=== PATIENT | female | born 1945 | race Caucasian/White ===

== ENCOUNTER 2016-05-22 13:11 | Inpatient (IN) ==
--- NOTE | 2016-05-22 14:21 | Emergency Department Note ---
Disposition Clinical Impression: Hypoxemia, CHF (congestive heart failure), Diabetes mellitus, CAD (coronary artery disease), CKD (chronic kidney disease) stage 3, GFR 30-59 ml/min, Acute kidney injury, Anemia, Cough Disposition: Admitted As Inpatient Referrals: NO,PCP [Non-Partnered Physician] - Forms: ED Satisfaction Letter General Adult HPI - General Chief complaint: ED Upper Respiratory Infection Stated complaint: cough/weakness Time Seen by Provider: 05/22/16 14:18 Source: family - History of Present Illness HPI Narrative: 70-year-old female reports to the emergency department complaining of a cough and shortness of breath. The patient has a history of CHF with a remote CABG. The patient has had no coughing of blood. No syncope. No significant leg swelling. She reports she cannot lay flat secondary to dyspnea. She denies any history of asthma or COPD and does not usually require oxygen. The patient denies any vomiting diarrhea or abdominal pain. No confusion. No trouble moving her arms or legs independently no urinary symptoms or acute back pain. There is no history of rash, no choking or difficulty swallowing. The patient has had no injuries or falls. There is no history of headache convulsion or confusion. The patient has been symptomatic for a few days. The patient is currently not anticoagulated. There is no history of chest pain. Onset (ago): day(s) Pain Scale: 0 - Related Data Home Medications Medication Instructions Recorded Confirmed Amlodipine [Norvasc] 10 mg PO DAILY 12/27/14 09/23/15 Carvedilol [Coreg] 6.25 mg PO BIDWM 12/27/14 09/23/15 Clopidogrel [Plavix] 75 mg PO DAILY 12/27/14 09/23/15 Doxazosin [Cardura] 4 mg PO HS 12/27/14 09/23/15 Atorvastatin [Lipitor] 40 mg PO HS 09/23/15 09/23/15 Lisinopril [Zestril] 5 mg PO DAILY 09/23/15 09/23/15 Metformin [Glucophage] 500 mg PO BIDWM 09/23/15 09/23/15 Sitagliptin Phosphate [Januvia] 50 mg PO DAILY 09/23/15 09/23/15 Tizanidine HCl [Zanaflex] 2 mg PO HS 09/23/15 09/23/15 Previous Rx's Medication Instructions Recorded Furosemide [Lasix] 40 mg PO DAILY #30 tablet 09/26/15 Omeprazole [PriLOSEC] 40 mg PO DAILY@0630 #60 capsule 09/26/15 Allergies Allergy/AdvReac Type Severity Reaction Status Date / Time codeine AdvReac See Verified 09/23/15 18:39 Comments All systems ED: reviewed and negative except as stated. 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 Absent: scleral icterus, conjunctival injection, miosis, mydriasis - ENT ENT exam: normal exam, normal oropharynx, mucous membranes moist, TM's normal bilaterally, normal external ear exam - Neck Neck exam: Present: normal inspection, full ROM, trachea midline - Chest Chest inspection: Present: symmetric chest wall rise. Absent: tenderness - Respiratory Respiratory exam: Present: prolonged expiratory phase. Absent: respiratory distress, stridor, accessory muscle use - Cardiovascular Cardiovascular exam: Present: regular rate, normal rhythm, normal heart sounds - Abdominal Exam Abdominal exam: Present: soft, Non-Tender, normal bowel sounds. Absent: tenderness, distention, guarding, rebound, rigidity, pulsatile mass - Extremities Exam Extremities exam: Present: normal inspection, full ROM, normal capillary refill. Absent: tenderness, pedal edema, joint swelling, calf tenderness - Expanded Lower Extremity Exam Lower leg exam: Absent: Homans' sign Neurovascular/Tendon exam: Absent: motor deficit, sensory deficit, tendon deficit, extremity cold to touch, pallor - Back Exam Back exam: Present: normal inspection, full ROM. Absent: tenderness, CVA tenderness (R), CVA tenderness (L), vertebral tenderness - Neurological Exam Neurological exam: Present: alert, oriented X3, CN II-XII intact. Absent: motor sensory deficit - Psychiatric Psychiatric exam: Present: normal affect, normal mood - Skin Skin exam: Present: warm, dry, intact, normal color. Absent: rash, cyanosis, diaphoresis, erythema, pallor, mottled Course Vital Signs Temperature 97.7 F 05/22/16 13:19 Pulse Rate 72 05/22/16 13:19 Respiratory Rate 18 05/22/16 13:19 Blood Pressure 138/82 05/22/16 13:19 O2 Sat by Pulse Oximetry 90 L 05/22/16 13:19 Temperature 97.7 F 05/22/16 13:19 Pulse Rate 68 05/22/16 16:28 Respiratory Rate 16 05/22/16 16:28 Blood Pressure 138/54 05/22/16 16:28 O2 Sat by Pulse Oximetry 96 05/22/16 16:28 Oxygen Delivery Oxygen Delivery Nasal Cannula Medical Decision Making - MDM Narrative Medical decision making narrative: The patient is elderly, she is somewhat dyspneic, oxygen saturations on room air were 90% on arrival, she was supplied with oxygen the ED, status post oxygenation we did take her oxygen off to reassess and she dropped to 89% on room air, she does not usually require oxygen and denies any history of asthma or COPD. The patient has had a cough. She does not display marked lower extremity swelling. She has not coughed up any blood or passed out. Her renal insufficient appears to be worsening. A DuoNeb and Solu-Medrol were ordered. The patient is currently stable. Based on the patient's persistent hypoxemia, age, and multiple comorbidities including CHF CAD diabetes hyperlipidemia and hypertension renal failure and significant anemia, I think it would be appropriate to admit the patient to the hospital. Nitro paste was placed. I consulted with the hospitalist on-call. - Lab Data Lab results reviewed: Yes I reviewed the patient's lab results. Result diagrams: 05/22/16 14:40 05/22/16 14:40 Lab Results 05/22/16 05/22/16 05/22/16 Range/Units 14:40 14:40 14:40 WBC 4.3 (4.3-11.1) K/mcL RBC 2.67 L (3.82-4.97) M/mcL Hgb 8.3 L (11.5-15.4) g/dL Hct 23.1 L (35.3-44.9) % MCV 86.5 (83.0-100.0) fL MCH 31.1 (28.0-33.3) pg MCHC 35.9 H (31.6-35.5) g/dL RDW 14.8 H (11.5-14.5) % Plt Count 103 L (140-400) K/mcL MPV 10.7 (9.4-12.4) fL Immature Gran % 0.5 (0-4) % Seg Neutrophils % 79.6 % Lymphocytes % 6.0 % Monocytes % 10.9 % Eosinophils % 2.3 % Basophils % 0.7 % Neutrophils # 3.4 (1.6-8.9) K/mcL Lymphocytes # 0.3 L (0.6-4.6) K/mcL Monocytes # 0.5 (0.0-1.3) K/mcL Eosinophils # 0.1 (0.0-0.6) K/mcL Basophils # 0.0 (0.0-0.2) K/mcL Immature Plt Fraction 6.4 H (1.1-6.1) % Sodium 130 L (136-145) mEq/L Potassium 4.7 H (3.5-4.5) mEq/L Chloride 99 (98-109) mEq/L Carbon Dioxide 21 (19-29) mEq/L BUN 37 H (7-20) mg/dL Creatinine 1.82 H (0.57-1.11) mg/dL Est GFR ( Amer) 33 L (> 60) Est GFR (Non-Af Amer) 27 L (> 60) BUN/Creatinine Ratio 20 (6-26) Glucose 114 H (70-99) mg/dL Calculated Osmolality 280 (280-300) Lactic Acid (0.5-2.2) mmol/L Calcium 9.0 (8.6-10.8) mg/dL Total Bilirubin (0.2-1.2) mg/dL Direct Bilirubin (0.0-0.5) mg/dL Indirect Bilirubin (0.0-1.2) mg/dL AST (5-34) Units/L ALT (0-55) Units/L Alkaline Phosphatase (38-126) Units/L Troponin I (0-0.03) ng/mL C-Reactive Protein (Less than 5) mg/L B-Natriuretic Peptide 693 H (0-100) pg/mL Serum Total Protein (6.0-8.3) g/dL Albumin (3.5-5.0) g/dL Globulin (2.4-3.5) g/dL Albumin/Globulin Ratio (1.1-2.2) 05/22/16 05/22/16 05/22/16 Range/Units 14:40 14:40 14:40 WBC (4.3-11.1) K/mcL RBC (3.82-4.97) M/mcL Hgb (11.5-15.4) g/dL Hct (35.3-44.9) % MCV (83.0-100.0) fL MCH (28.0-33.3) pg MCHC (31.6-35.5) g/dL RDW (11.5-14.5) % Plt Count (140-400) K/mcL MPV (9.4-12.4) fL Immature Gran % (0-4) % Seg Neutrophils % % Lymphocytes % % Monocytes % % Eosinophils % % Basophils % % Neutrophils # (1.6-8.9) K/mcL Lymphocytes # (0.6-4.6) K/mcL Monocytes # (0.0-1.3) K/mcL Eosinophils # (0.0-0.6) K/mcL Basophils # (0.0-0.2) K/mcL Immature Plt Fraction (1.1-6.1) % Sodium (136-145) mEq/L Potassium (3.5-4.5) mEq/L Chloride (98-109) mEq/L Carbon Dioxide (19-29) mEq/L BUN (7-20) mg/dL Creatinine (0.57-1.11) mg/dL Est GFR ( Amer) (> 60) Est GFR (Non-Af Amer) (> 60) BUN/Creatinine Ratio (6-26) Glucose (70-99) mg/dL Calculated Osmolality (280-300) Lactic Acid 0.6 (0.5-2.2) mmol/L Calcium (8.6-10.8) mg/dL Total Bilirubin 2.7 H (0.2-1.2) mg/dL Direct Bilirubin 0.4 (0.0-0.5) mg/dL Indirect Bilirubin 2.3 H (0.0-1.2) mg/dL AST 24 (5-34) Units/L ALT 13 (0-55) Units/L Alkaline Phosphatase 55 (38-126) Units/L Troponin I 0.02 (0-0.03) ng/mL C-Reactive Protein 2 (Less than 5) mg/L B-Natriuretic Peptide (0-100) pg/mL Serum Total Protein 7.1 (6.0-8.3) g/dL Albumin 3.9 (3.5-5.0) g/dL Globulin 3.2 (2.4-3.5) g/dL Albumin/Globulin Ratio 1.2 (1.1-2.2) - Radiology Data Radiology results reviewed: Yes I reviewed the patient's radiology results.
[2016-05-22 15:02] LABS: Basophils % 0.7 %; Eosinophils # 0.1 K/mcL (0.0-0.6); Eosinophils % 2.3 %; Hematocrit 23.1 % (35.3-44.9); Hemoglobin 8.3 g/dL (11.5-15.4); Immature Granulocytes % 0.5 % (0-4); Immature Platelets 6.4 % (1.1-6.1); Lymphocytes # 0.3 K/mcL (0.6-4.6); Mean Corpuscular HGB Conc 35.9 g/dL (31.6-35.5); Mean Corpuscular Hemoglobin 31.1 pg (28.0-33.3); Mean Corpuscular Volume 86.5 fL (83.0-100.0); Mean Platelet Volume 10.7 fL (9.4-12.4); Monocytes # 0.5 K/mcL (0.0-1.3); Monocytes % 10.9 %; Neutrophils # 3.4 K/mcL (1.6-8.9); Platelet Count 103 K/mcL (140-400); Red Blood Count 2.67 M/mcL (3.82-4.97); Red Cell Distribution Width 14.8 % (11.5-14.5); Segmented Neutrophils % 79.6 %
[2016-05-22 15:22] LABS: Potassium 4.7 mEq/L (3.5-4.5)
[2016-05-22 15:23] LABS: Albumin 3.9 g/dL (3.5-5.0); Albumin/Globulin Ratio 1.2 (1.1-2.2); Bilirubin,Direct 0.4 mg/dL (0.0-0.5); Bilirubin,Indirect 2.3 mg/dL (0.0-1.2); Bilirubin,Total 2.7 mg/dL (0.2-1.2); Globulin 3.2 g/dL (2.4-3.5); Total Protein 7.1 g/dL (6.0-8.3)
[2016-05-22] MEDS ORDERED: Nitroglycerin 1 INCH/GM PACKET TP ONE (15:36)
[2016-05-22] MEDS ORDERED: methylPREDNISolone 125 MG/2 ML VIAL IVP ONE (15:48)
[2016-05-22] MEDS ORDERED: Ipratropium/Albuterol Neb 3 ML IH ONE (15:48)
[2016-05-22] MEDS ORDERED: Ondansetron 4 MG/2 ML VIAL IVP PRN (18:52)
[2016-05-22] MEDS ORDERED: Acetaminophen 325 MG TABLET PO PRN (18:52)
[2016-05-22] MEDS ORDERED: Naloxone 0.4 MG/ML INJ IVP PRN (18:52)
[2016-05-22] MEDS ORDERED: Dextrose Gel 15 GM PO PRN ×2 (18:59)
[2016-05-22] MEDS ORDERED: D5% in Water 1,000 ML IV PRN (18:59)
[2016-05-22] MEDS ORDERED: *HR* Dextrose 50 % in Water (Syg) 50 ML SYRINGE IVP PRN (18:59)
--- NOTE | 2016-05-22 19:56 | Internal Med History&Physical ---
Date of Encounter: 05/23/16 Time of Encounter: 18:00 Assessment and Plan (1) Hypoxemia Current visit: Yes Status: Acute 1 patient had SPO2 89-90% in the ER .this is multifactorial suspect related to CHF as well as possibly COPD. We will place patient on oxygen maintaining SPO2 greater than 92% 2 we will perform a 6 minute walk test to see if patient will qualify for home oxygen 3 bronchodilator as needed 4 patient will need to be seen by pulmonary as outpatient for PFTs 5 we will give IV Lasix-up nephrology concerning for fluid management (2) Acute on chronic renal failure Current visit: Yes Status: Acute 1 patient's creatinine is elevated 1.87. Her baselines are 1.2 we will continue to monitor creatinine patient has had some abdominal swelling and some nausea-concerned this may be related to cardiorenal syndrome will obtain cardiac echo 2 we will give Lasix IV-we will consult nephrology concerning diuretics and elevated creatinine 3 avoid nephrotoxin 4 monitor intake and output 5 daily weights 6 renal ultrasound (3) Indirect hyperbilirubinemia Current visit: Yes Status: Acute 1 patient is elevated bilirubin - possibly related to cardiovascular congestion however will obtain liver ultrasound to rule out any structural abnormalities. 2 obtain hepataglobin LDH Alisson' test. coags (4) Hyponatremia Current visit: Yes Status: Acute 1 this seems to be chronic with sodium levels ranging from [address] patient on fluid restriction continue with Lasix and monitor sodium levels (5) Anemia Current visit: Yes Status: Acute 1 present hemoglobin is stable at 8.3 which is up from previous hemoglobin. Suspect this is chronic disease. We will continue with iron supplements and monitor CBC and for signs and symptoms of any bleeding Qualifiers: Anemia type: other cause Other causes of anemia: chronic disease, other Qualified Code(s): D63.8 - Anemia in other chronic diseases classified elsewhere (6) CHF (congestive heart failure) Current visit: Yes Status: Acute 1 echo obtained September 2015 EF of 65% with moderate diastolic dysfunction. We will obtain an echo 2. We will continue with Lasix IV twice a day 3. Intake and output 4 daily weights 5 sodium diet 6 fluid restriction Qualifiers: Congestive heart failure type: diastolic Congestive heart failure chronicity: acute on chronic Qualified Code(s): I50.33 - Acute on chronic diastolic (congestive) heart failure (7) CAD (coronary artery disease) Current visit: Yes Status: Chronic 1 we will continue with plavix statin beta isaias will hold lisinopril due to rising rapidly resumed once back to baseline Qualifiers: Coronary Disease-Associated Artery/Lesion type: [place] artery [place] vs. transplanted heart: [place] heart Associated angina: without angina Qualified Code(s): I25.10 - Atherosclerotic heart disease of [place] coronary artery without angina pectoris (8) Diabetes mellitus Current visit: Yes Status: Chronic 1 patient is on oral antibiotics will hold for now. Place on sliding scale insulin and Accu-Cheks before meals and at bedtime 2 diabetic diet 3 A1c Qualifiers: Diabetes mellitus type: type 2 Diabetes mellitus complication status: with kidney complications Diabetes mellitus complication detail: with chronic kidney disease Diabetes mellitus exterminator termite insulin use: without exterminator termite use Chronic kidney disease stage: stage 3 (moderate) Qualified Code(s): E11.22 - Type 2 diabetes mellitus with diabetic chronic kidney disease; N18.3 - Chronic kidney disease, stage 3 (moderate) (9) DVT prophylaxis Current visit: Yes Status: Acute 1 GEE pope Internal Medicine - H&P: HPI Chief complaint: cough weakness SOB Admitted From: Emergency Dept Plans for Post Hospital Care: Home History of present illness: Ms. Prather is a 70 year old female with extensive medical history which includes CAD with CABG diabetes hypertension CK D stage III, chronic anemia GI bleeding according to the patient she has been her usual state of health however over the past 2 days she has been experiencing increasing weakness and shortness of breath on exertion as well as a nonproductive cough. She states that she has been having difficulty completing ADLs and has to take frequent rests due to weakness and shortness of breath. She is unable to lie flat to sleep and most used at least 2 pillows at night. she denies any chest pain or palpitations during episodes. She denies any fevers chills nausea vomiting diarrhea, weight gain or loss. She has no history of COPD or asthma however she is a smoker smoking both a pipe and cigarettes. She does have history of CHF however she does not note any lower extremity swelling. She was brought to the ER for evaluation. According to ER notes, patient was hypoxic upon presentation his PO2 of 90% on room air he was placed on supplemental oxygen and her oxygen saturation improved. Chest x-ray was obtained which was negative for any acute process . Lab work revealed no leukocytosis however she did have an elevated creatinine as well as potassium and hypornatremia. Her BNP was 693 troponin was 0.2, lactic acid 0.6. . EKG showed no changes from previous EKG. She was given DuoNeb Solu-Medrol Nitropaste. Her oxygen was removed check sats on room air and she dropped down to 89% she was placed back on oxygen. She was admitted for further workup and evaluation. Assessment patient is insulin-dependent. She appeared to be in any respiratory distress she denies any chest pain and shortness of breath at this time. She is alert and appropriate and follows simple commands. Respiratory rate is easy and unlabored sounds with crackles in bases bilaterally. No edema noted to lower extremity however did note that abdomen was slightly distended soft patient states she has noted her abdomen has felt full. She has also had a decreased appetite since Monday and had some nausea. Bowels have been moving with last bowel movement this a.m. At present time patient is hemodynamically stable. Reviewed his case with Dr. Hamilton to who agrees with plan. Past Med Surg Social Fam HX - Past Medical History Medical history: cancer, cardiomyopathy, CHF, coronary artery disease, CVA, diabetes, hyperlipidemia, hypertension, peripheral artery disease, other Psychiatric history: no psych history - Past Surgical History Surgical History: coronary bypass (CABG), ureteral stent - Social History Smoking Status: Current every day smoker Packs per day: 1 Alcohol use: none Drug use: none - Family History Father Adopted: No Living Status: Hx Family Cardiac Disorders: Yes (SISTER AND MOTHER FROM CARDIAC) Hx Family Respiratory Disorders: No Hx Family Cancer: Yes (FATHER) Hx Family GI Disorders: No Hx Family Endocrine Disorder: Yes Hx Family Neuromuscular Disorders: No Hx Family Neurologic Disorders: No Hx Family HEENT Disorders: No Hx Family Autoimmune Disorders: No Internal Medicine - H&P: Meds Amlodipine [Norvasc] 10 mg PO DAILY 12/27/14 [History] Carvedilol [Coreg] 6.25 mg PO BIDWM 12/27/14 [History] Clopidogrel [Plavix] 75 mg PO DAILY 12/27/14 [History] Doxazosin [Cardura] 4 mg PO HS 12/27/14 [History] Atorvastatin [Lipitor] 40 mg PO HS 09/23/15 [History] Lisinopril [Zestril] 5 mg PO DAILY 09/23/15 [History] Metformin [Glucophage] 500 mg PO BIDWM 09/23/15 [History] Sitagliptin Phosphate [Januvia] 50 mg PO DAILY 09/23/15 [History] Folic Acid [FA-8] 0.8 mg PO DAILY 05/22/16 [History] Furosemide [Lasix] 20 mg PO BID 05/22/16 [History] Glucosamine/D3/Boswellia Yulia [Osteo Bi-Flex Tablet] 1 tab PO DAILY 05/22/16 [ History] Iron Polysaccharide Complex [Ferrex 150] 150 mg PO DAILY 05/22/16 [History] Magnesium 250 mg PO DAILY 05/22/16 [History] Allergies codeine Adverse Reaction (Verified 05/22/16 16:47) Hallucinating All Systems PM: A 10-system review of systems was performed and is negative for pertinent findings except as documented above in the HPI. - Constitutional Vitals: Temp Pulse Resp BP Pulse Ox 97.7 F 68 16 138/54 96 05/22/16 13:19 05/22/16 16:28 05/22/16 17:47 05/22/16 17:47 05/22/16 18:41 General appearance: Present: A&O X 2, answers questions appropriately - Head Head exam: Present: atraumatic, normocephalic - Eye Eye exam: Present: PERRL, conjuntiva pink, sclera anicteric Pupils: Present: PERRL - Neck Neck exam general surgery: Present: supple, trachea midline. Absent: lymphadenopathy - Respiratory Respiratory exam: Present: rales. Absent: accessory muscle use, rhonchi, wheezes - Cardiovascular Cardiovascular exam: Present: RRR, +S1, +S2. Absent: diastolic murmur, gallop, rubs, systolic murmur - GI/Abdominal GI/Abdominal exam: Present: distended, normal bowel sounds, soft, no peritoneal signs. Absent: tenderness - Extremities Exam Extremities exam: Present: warm, radial pulses palpable and symetrical. Absent : calf tenderness, cyanotic, pedal edema - Neurological Exam Neurological exam: Present: CN II-XII intact, oriented X3, no focal deficits. Absent: pronater drift, facial droop, speech deficit Internal Med - H&P Results - Labs CBC & Chem 7: 05/22/16 14:40 05/22/16 14:40 - EKG Data EKG shows normal: sinus rhythm - EKG Data EKG comments: 05/23/16 01:55 Surgeries rhythm with some T-wave inversions laterally which are unchanged from previous EKGs. Ireveiwed EKG with Dr Hamilton 05/23/16 01:55 - Diagnostic Studies Chest x-ray Additional comments: per radiology read No acute cardiopulmonary process
[2016-05-22 20:27] LABS: Hemoglobin A1C 4.9 %
[2016-05-22] MEDS ORDERED: Insulin LISPRO 300 UNITS/3 ML VIAL SQ SCH (21:00)
[2016-05-22] MEDS: Furosemide 20 MG/2 ML VIAL IVP SCH (22:02)
[2016-05-23 02:59] LABS: Hematocrit 23.2 % (35.3-44.9); Hemoglobin 8.3 g/dL (11.5-15.4); Immature Granulocytes % 0.6 % (0-4); Immature Platelets 5.5 % (1.1-6.1); Lymphocytes # 0.3 K/mcL (0.6-4.6); Lymphocytes % 9.3 %; Mean Corpuscular HGB Conc 35.8 g/dL (31.6-35.5); Mean Corpuscular Volume 86.6 fL (83.0-100.0); Mean Platelet Volume 10.5 fL (9.4-12.4); Monocytes % 0.9 %; Neutrophils # 2.9 K/mcL (1.6-8.9); Platelet Count 116 K/mcL (140-400); Red Blood Count 2.68 M/mcL (3.82-4.97); Red Cell Distribution Width 14.6 % (11.5-14.5); Segmented Neutrophils % 89.2 %
[2016-05-23 03:05] LABS: INR 1.3; Prothrombin Time 13.8 Seconds (9.4-12.1)
[2016-05-23 03:07] LABS: Activated Partial Thrombo Time 34.8 Seconds (26.0-36.0)
[2016-05-23 03:11] LABS: Calcium 9.1 mg/dL (8.6-10.8); Magnesium 1.9 mg/dL (1.6-2.6)
[2016-05-23] MEDS ORDERED: Regadenoson 0.4 MG/5 ML SYRINGE IVP ONE (06:09)
[2016-05-23] MEDS ORDERED: Insulin LISPRO 300 UNITS/3 ML VIAL SQ SCH (07:30)
[2016-05-23] MEDS ORDERED: GLUCOSAMINE PO SCH (09:00)
[2016-05-23] MEDS ORDERED: BOSWELLIA SERRA PO SCH (09:00)
[2016-05-23] MEDS ORDERED: D3 PO SCH (09:00)
[2016-05-23] MEDS: Furosemide 20 MG/2 ML VIAL IVP SCH (09:33)
[2016-05-23] MEDS: Folic Acid 1 MG TABLET PO SCH (09:33)
[2016-05-23] MEDS: Iron Polysaccharide Complex 150 MG CAPSULE PO SCH (09:33)
[2016-05-23] MEDS: amLODIPine 5 MG TABLET PO SCH (09:33)
--- NOTE | 2016-05-23 11:03 | Nuclear Medicine Stress Report ---
Regadenoson Nuclear Stress Name: Marcia Olivo Tabler Date of Study: 05/23/2016 Date: 1945 Ht: 64.0 in Medical Record#: [id number] Age: 70 Wt: 148.0 lb Gender: Female Order #: [id number] Location: [facility] Room: [facility] Supervising Provider: Jackson Jett CNP Reading Physician: Gage Gonzalez DO, SOLEDAD CALLAHAN FASNC Ordering Physician: Gordon Stiles MD Primary Care Physician: Dylan Alvarez MD Stress Technologist: Tierney Patrick RETURN TO SERVICE INSPECTOR, CCT Softball Player: Oliver Pearson Indications: Chest Pain Impression: Pharmacologic stress ECG is non diagnostic for ischemia due to baseline non-specific ST and T changes. Gated EF = 56%. Medium sized, moderate to absent perfusion defect involving ther inferior and apex segments consistent with a prior infarct. Perfusion imaging was negative for ischemia. History: Diabetes Hypercholesteremia History of Smoking History of Coronary Artery Bypass Surgery Stress Test Summary: Stress Test Type: Pharmacologic Regadenoson 0.4mg/5ml given IV Baseline Information: Initial Heart Rate: 67 Blood Pressure: 148/62 Stress Information: Test Terminated Due to (primary): As per protocol Maximum Blood Pressure: 130/70 Maximum Heart Rate: 79 Percent Maximum Heart Rate Achieved: 53 Double Product: [id number] METS Reached: 1 Symptoms: Shortness of breath, No chest symptoms Nuclear Summary: SPECT myocardial perfusion imaging using Tc99m Sestamibi given intravenously was performed at rest and following cardiac stress testing. The resting images were obtained following initial dose of 10.8 mCi. Following stress an additional dose of 29.3 mCi was given at peak exercise or 30 seconds post regadenoson infusion. Medication Given: Time Medication Dose Units Route Findings: Stress Note * Resting ECG demonstrated normal sinus rhythm with nonspecific ST-T changes. * No baseline arrhythmias were noted. * Pharmacologic stress ECG is non diagnostic for ischemia due to baseline non-specific ST and T changes. * No arrhythmias were noted during stress. * Patient had no chest pain during stress. * Normal hemodynamic responses to pharmacologic stress. Study Quality * Study quality is average. Gated EF % * Gated EF = 56%. Left Ventricle * LVEDV = 138 mL. Inferior Perfusion Rest * The basal inferior segment shows a moderate reduction in perfusion. The mid to apical inferior and apex segments show absent perfusion. Inferior Perfusion Stress * The basal inferior segment shows a moderate reduction in perfusion. The mid to apical inferior and apex segments show absent perfusion. TID * No evidence of transient ischemic dilatation. TID ratio = 1.16. Updated by Gage Gonzalez DO, SINDY, SOLEDAD, SOHEILA on 05/23/2016 10:58:42 AM electronically signed on 05/23/2016 11:00:04 AM with status of Final
--- NOTE | 2016-05-23 12:25 | ECHO - Doppler Report ---
Echocardiogram Name: Marcia Prather Date of Study: 05/23/2016 Date: 1945 Ht: 64.0 in Medical Record#: [id number] Age: 70 Wt: 147.0 lb Gender: Female BSA: 1.72 Order #: [id number] Location: [facility] Room #: 2A34 Reading Physician: Gage Gonzalez DO, FACJese, SOHEILA ROWE Clerical Investigator: YUNIOR MaxT, RDCS Ordering Physician: Keturah Stevens CNP Primary Physician: Dylan Alvarez MD Indications: Congestive heart failure, Coronary artery disease, Bradycardia Impressions: LVEF 60-65%. Normal LV chamber size and function. Mild concentric left ventricular hypertrophy. Moderate left ventricular diastolic dysfunction. Normal right ventricular structure and function. Mild mitral regurgitation. No evidence of pulmonary hypertension identified. Left Ventricular Wall Motion: Rest Echo Findings All wall segments showed normal motion. Findings: Study Quality * Technically adequate exam. ECG Findings * Normal sinus rhythm. Left Ventricle * LVEF 60-65%. * Normal LV chamber size and function. * Mild concentric left ventricular hypertrophy. * Moderate left ventricular diastolic dysfunction. * Atypical septal motion consistent with post-operative status. Right Ventricle * Normal right ventricular structure and function. Left Atrium * Mildly dilated left atrium. Right Atrium * Normal right atrial size. Interatrial Septum * Interatrial septum not well evaluated. Aortic Valve * Aortic valve not well visualized. * No aortic regurgitation. * No aortic stenosis. Mitral Valve * Mild mitral annular calcification * Mildly thickened mitral valve leaflets. * Mild mitral regurgitation. * No mitral stenosis. Tricuspid Valve * Normal tricuspid valve structure and function. * Trace tricuspid regurgitation. * No evidence of pulmonary hypertension. Pulmonic Valve * Pulmonic valve not well visualized. Aorta * Normally sized aortic root. Pericardium * The pericardium appears normal. IVC * Normal IVC dimensions and inspiratory collapse. Pulmonary Artery * Normal visualized portions of the main pulmonary artery. History Hypertension Diabetes Hypercholesteremia Family History of CAD History of CAD/PTCA Coronary Artery Bypass Graft 2016 a Previous Echo was performed. Measurements: BP: 145/ 58 2D Normal Values RVIDd: 3.60 cm <2.7 cm IVSd: 1.30 cm 0.6 - 1.0 cm LVIDd: 3.80 cm 3.7 - 5.6 cm LVPWd: 1.30 cm 0.6 - 1.1 cm LVIDs: 2.40 cm 1.5 - 3.6 cm AO: 2.10 cm < 4.0 cm LA: 3.90 cm 2.0 - 4.0cm %FS: 36.80 cm >25 % LA volume: 32 Mitral Valve Peak E:1.48 m/sec Peak A:.57 m/sec E/A Ratio:2.6 Tricuspid Valve TV Regurg Peak Grad: 22.00mmHg TV Regurg Peak Usman: 2.36m/sec Updated by Gage Gonzalez DO, FACJese, SOLEDAD, SOHEILA on 05/23/2016 12:21:18 PM electronically signed on 05/23/2016 12:22:22 PM with status of Final Wall Motion Dumont: 1=Normal, 2=Hypokinesis, 3=Akinesis, 4=Dyskinesis, 5=Aneurysmal, 6=Hyperkinetic, X=Not Visualized (Blank)=Missing
--- NOTE | 2016-05-23 13:28 | Nephrology Consult Note ---
<Tre Mays - Last Filed: 05/23/16 17:37> Date of Encounter: 05/23/16 Time of Encounter: 11:30 Assessment and Plan (1) Acute kidney injury Current Visit: Yes Status: Acute Elevated SCr in the setting of presumed CHF with diuretic use Will check urine for sodium, urea and creatinine as well as protein Agree with obtaining US of kidneys Agree with holding diuretics for now Will check uric acid and cpk levels (2) CKD (chronic kidney disease) stage 3, GFR 30-59 ml/min Current Visit: Yes Status: Chronic Baseline SCr at 1.2, GFR 40s, will initiate a brief CKD workup (3) Hyponatremia Current Visit: Yes Status: Acute Sodium low in the setting of diuretics and possible CHF Agree with fluid restriction for now Will check urine and serum osmolality Will check cortisol and TSH levels History of Present Illness - Reason for Consult Consult date: 05/23/16 Acute Kidney Injury, Chronic Kidney Disease Requesting physician: Keturah Stevens - History of Present Illness 70 y o female with PMH of CAD s/p CABG, HTN, DM, anemia and stage 3 CKD with bilat YONIS s/p stents admitted with progressive weakness and SOB which she reports was just the flu and was found to be mildly hypoxemic. Renal consulted for worsening renal function with SCr noted at 1.82, GFR 27 on presentation worsening to 2.21, GFR 22. Baseline SCR appears to be 1.2, GFR in the 40s.Also notble was sodium of 130 worsening to 128 today. 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 in the past Past Med Surg Social Fam HX - Past Medical History Medical history: cancer, cardiomyopathy, CHF, coronary artery disease, CVA, diabetes, hyperlipidemia, hypertension, peripheral artery disease, other Psychiatric history: no psych history - Past Surgical History Surgical History: coronary bypass (CABG), ureteral stent - Social History Smoking Status: Current every day smoker Packs per day: 1 Alcohol use: none Drug use: none - Family History Father Adopted: No Living Status: Hx Family Cardiac Disorders: Yes (SISTER AND MOTHER FROM CARDIAC) Hx Family Respiratory Disorders: No Hx Family Cancer: Yes (FATHER) Hx Family GI Disorders: No Hx Family Endocrine Disorder: Yes Hx Family Neuromuscular Disorders: No Hx Family Neurologic Disorders: No Hx Family HEENT Disorders: No Hx Family Autoimmune Disorders: No Medications and Allergies Amlodipine [Norvasc] 10 mg PO DAILY 12/27/14 [History] Carvedilol [Coreg] 6.25 mg PO BIDWM 12/27/14 [History] Clopidogrel [Plavix] 75 mg PO DAILY 12/27/14 [History] Doxazosin [Cardura] 4 mg PO HS 12/27/14 [History] Atorvastatin [Lipitor] 40 mg PO HS 09/23/15 [History] Lisinopril [Zestril] 5 mg PO DAILY 09/23/15 [History] Metformin [Glucophage] 500 mg PO BIDWM 09/23/15 [History] Sitagliptin Phosphate [Januvia] 50 mg PO DAILY 09/23/15 [History] Folic Acid [FA-8] 0.8 mg PO DAILY 05/22/16 [History] Furosemide [Lasix] 20 mg PO BID 05/22/16 [History] Glucosamine/D3/Boswellia Yulia [Osteo Bi-Flex Tablet] 1 tab PO DAILY 05/22/16 [ History] Iron Polysaccharide Complex [Ferrex 150] 150 mg PO DAILY 05/22/16 [History] Magnesium 250 mg PO DAILY 05/22/16 [History] Latanoprost [Xalatan] 1 drop BOTH EYES HS 05/23/16 [History] Allergies codeine Adverse Reaction (Verified 05/22/16 16:47) Hallucinating Review of Systems All Systems: reviewed and no additional remarkable complaints except as stated ( 10 systems reviewed and as noted in HPI) Exam - Vital Signs Vital signs: Initial Vital Signs Temp Pulse Resp BP Pulse Ox 97.7 F 72 18 138/82 90 L 05/22/16 13:19 05/22/16 13:19 05/22/16 13:19 05/22/16 13:19 05/22/16 13:19 Vital Signs - Last 8 Hours Temp Pulse Resp BP Pulse Ox 05/23/16 11:42 97.2 F L 66 18 136/55 97 05/23/16 10:07 97 05/23/16 09:36 97.9 F 72 16 145/58 97 Intake and Output 05/22/16 05/23/16 05/23/16 23:59 07:59 15:59 Intake Total 0 / 0 400 / 400 75 / 75 Output Total 0 / 0 Balance 0 / 0 400 / 400 75 / 75 Intake: Oral 0 / 0 400 / 400 75 / 75 Output: Urine 0 / 0 Other: Weight 66.9 kg Blood Glucose* 285 187 Patient Weight 05/23/16 23:59 Weight 66.9 kg Results - Lab Results 05/23/16 02:50 05/23/16 02:50 Most recent lab results Calcium 9.1 mg/dL (8.6-10.8) 05/23/16 02:50 Phosphorus 5.0 mg/dL (2.3-4.7) H 05/23/16 02:50 Magnesium 1.9 mg/dL (1.6-2.6) 05/23/16 02:50 Consult Discharge Plan - Plan Referrals: Dylan Alvarez MD [Primary Care Provider] - 05/31/16 9:30 am (Please follow up as schedule with Dr Driscoll...) <Olga Kuhn - Last Filed: 05/23/16 18:21> Date of Encounter: 05/23/16 Exam - Vital Signs Vital signs: Initial Vital Signs Temp Pulse Resp BP Pulse Ox 97.7 F 72 18 138/82 90 L 05/22/16 13:19 05/22/16 13:19 05/22/16 13:19 05/22/16 13:19 05/22/16 13:19 Vital Signs - Last 8 Hours Temp Pulse Resp BP Pulse Ox 05/23/16 17:49 98.1 F 73 16 188/61 97 05/23/16 11:42 97.2 F L 66 18 136/55 97 Intake and Output 05/23/16 05/23/16 05/23/16 07:59 15:59 23:59 Intake Total 400 / 400 75 / 75 1000 / 1000 Output Total 0 / 0 0 / 0 Balance 400 / 400 75 / 75 1000 / 1000 Intake: Oral 400 / 400 75 / 75 1000 / 1000 Output: Urine 0 / 0 0 / 0 Other: Weight 66.9 kg Blood Glucose* 187 223 Patient Weight 05/23/16 23:59 Weight 66.9 kg - General Appearance General appearance: well-developed, well-nourished, appears started age EENT: PERRL, mucous membranes moist Neck: no JVD, no thyromegaly Respiratory: rales Cardiology: no murmurs, no rub, no gallops, no edema, regular rate, regular rhythm, normal S1, normal S2 Gastrointestinal: normoactive bowel sounds, no tenderness, no guarding Integumentary: no rash, warm and dry Neurologic: no focal deficit, alert and oriented x3 Psychiatric: mood/affect appropriate, cooperative Results - Lab Results 05/23/16 02:50 05/23/16 02:50 Most recent lab results Calcium 9.1 mg/dL (8.6-10.8) 05/23/16 02:50 Phosphorus 5.0 mg/dL (2.3-4.7) H 05/23/16 02:50 Magnesium 1.9 mg/dL (1.6-2.6) 05/23/16 02:50
[2016-05-23] MEDS: Insulin LISPRO 300 UNITS/3 ML VIAL SQ SCH ×2 (17:57→22:24)
[2016-05-23 18:23] LABS: Uric Acid 8.8 mg/dL (2.6-6.0)
--- NOTE | 2016-05-23 19:35 | Internal Med Progress Note ---
Date of Encounter: 05/23/16 Time of Encounter: 19:33 - Assessment and plan (1) Acute on chronic renal failure Current Visit: Yes Status: Acute Assessment and plan: 1 patient's creatinine is elevated 1.87. Nephrology has been consulted, Lasix has been held avoid nephrotoxin monitor intake and output daily weights unremarkable renal ultrasound, has a large postvoid residual but no signs of hydronephrosis. will place landry catheter (2) CHF (congestive heart failure) Current Visit: Yes Status: Acute Assessment and plan: echo obtained EF of 65% with moderate diastolic dysfunction. lasix was started on admission, has been held as per renal not in acute respiratory distress at this time. Intake and output daily weights sodium diet fluid restriction Qualifiers: Congestive heart failure type: diastolic Congestive heart failure chronicity: acute on chronic Qualified Code(s): I50.33 - Acute on chronic diastolic (congestive) heart failure (3) Hyponatremia Current Visit: Yes Status: Acute (4) Anemia Current Visit: No Status: Acute Assessment and plan: stable, possible 2/2 CKD. Qualifiers: Anemia type: other cause Other causes of anemia: other cause, not classified Qualified Code(s): D64.89 - Other specified anemias - Time Spent With Patient 25 - 35 minutes - Subjective Interval history: Patient seen at the bedside, admitted for shortness of breath. Reports that she feels much better today. Renal has been consulted for worsening kidney function. - Constitutional Vitals: Temp Pulse Resp BP Pulse Ox 98.1 F 73 16 188/61 97 05/23/16 17:49 05/23/16 17:49 05/23/16 17:49 05/23/16 17:49 05/23/16 17:49 General appearance: Present: A&O X 2, answers questions appropriately Exam: Head Head exam: Present: atraumatic, normocephalic - Eye Eye exam: Present: PERRL, conjuntiva pink, sclera anicteric Pupils: Present: PERRL - Neck Neck exam general surgery: Present: supple, trachea midline. Absent: lymphadenopathy - Respiratory Respiratory exam: Present: Bilateral occasional basal rales.. Absent: accessory muscle use, rhonchi, wheezes - Cardiovascular Cardiovascular exam: Present: RRR, +S1, +S2. Absent: diastolic murmur, gallop, rubs, systolic murmur - GI/Abdominal GI/Abdominal exam: Present: distended, normal bowel sounds, soft, no peritoneal signs. Absent: tenderness - Extremities Exam Extremities exam: Present: warm, radial pulses palpable and symetrical. Absent : calf tenderness, cyanotic, pedal edema - Neurological Exam Neurological exam: Present: CN II-XII intact, oriented X3, no focal deficits. Absent: pronater drift, facial droop, speech deficit Internal Medicine: Result - Labs CBC & Chem 7: 05/23/16 02:50 05/23/16 02:50 Labs: Short CBC 05/23/16 Range/Units 02:50 WBC 3.2 L (4.3-11.1) K/mcL Hgb 8.3 L (11.5-15.4) g/dL Hct 23.2 L (35.3-44.9) % Plt Count 116 L (140-400) K/mcL Neutrophils # 2.9 (1.6-8.9) K/mcL BMP 05/23/16 02:50 Sodium 128 L Potassium 5.0 H Chloride 98 Carbon Dioxide 19 BUN 43 H Creatinine 2.21 H Glucose 283 H Calcium 9.1 Cardiac Enzymes 05/22/16 05/23/16 Range/Units 20:27 02:50 Troponin I 0.02 0.02 (0-0.03) ng/mL - ABG Interpretation ABG results: PT/INR, D-dimer PT 13.8 Seconds (9.4-12.1) H 05/23/16 02:50 - Impressions Impressions Liver Ultrasound 05/23/16 15:00 IMPRESSION: Prominence of the intra and extrahepatic biliary tree, within normal limits following cholecystectomy, and not appreciably changed from the CT on 06/05/2009, allowing for differences in technique. D/ / 05/23/2016 15:47:53 Edwin Treviño MD / [facility] Del [facility] Interpreting Provider: Edwin Treviño MD Retroperitoneum Ultrasound 05/23/16 15:30 IMPRESSION: 1. Unremarkable bilateral renal ultrasound. 2. Large postvoid residual within the urinary bladder. D/ / 05/23/2016 15:46:14 Simba Mendes MD / [facility] Del [facility] Interpreting Provider: Simba Mendes MD - VTE Documentation of Mechanical Device: Graduated compression elastic hosiery Consult Discharge Plan - Plan Referrals: Dylan Alvarez MD [Primary Care Provider] - 05/31/16 9:30 am (Please follow up as schedule with Dr Driscoll...)
--- NOTE | 2016-05-23 19:39 | Electrocardiograph Report ---
[address] [place] [address] Test Date: 2016-05-22 Pat Name: Marcia Tabler Department: 105 Room: 2A34 Gender: F Admission Discharge Rn: : 1945 Requested By: Mike Perea Order Number: [id number] Reading MD: Gage Gonzalez DO Measurements Intervals [place] Rate: 72 P: 43 KS: 170 QRS: 60 QRSD: 88 T: 139 QT: 398 QTc: 421 Interpretive Statements SINUS RHYTHM POSSIBLE ANTERIOR MYOCARDIAL INFARCTION, OF INDETERMINATE AGE MODERATE T-WAVE ABNORMALITY, CONSIDER LATERAL ISCHEMIA Electronically Signed On 05-23-2016 19:36:53 EST by Gage Gonzalez DO
[2016-05-23] MEDS: Latanoprost 2.5 ML BOTTLE BOTH EYES SCH (22:23)
[2016-05-23] MEDS: Albuterol 2.5 MG/3 ML NEBULIZER IH PRN (22:45)
[2016-05-24 02:04] LABS: Creatinine,Urine 53 mg/dL; Microalbum/Creatinine Ratio,Ur 34 (0-30); Microalbumin,Urine 18 mg/L; Protein/Creatinine Ratio,Urine 0.13 mg/mg (0-0.20)
[2016-05-24 07:10] LABS: Thyroid Stimulating Hormone 4.183 mcIU/mL (0.350-4.840)
[2016-05-24] MEDS: Iron Polysaccharide Complex 150 MG CAPSULE PO SCH (08:15)
[2016-05-24] MEDS: Folic Acid 1 MG TABLET PO SCH (08:15)
[2016-05-24] MEDS: Insulin LISPRO 300 UNITS/3 ML VIAL SQ SCH ×4 (08:16→21:14)
[2016-05-24] MEDS: amLODIPine 5 MG TABLET PO SCH (08:17)
[2016-05-24] MEDS ORDERED: Magnesium Oxide 400 MG TABLET PO SCH ×2 (11:30→11:34)
[2016-05-24] MEDS ORDERED: 0.9 % Sodium Chloride 1,000 ML IVC SCH (12:00)
[2016-05-24] MEDS: Magnesium Oxide 400 MG TABLET PO SCH (12:05)
--- NOTE | 2016-05-24 15:03 | Internal Med Progress Note ---
Date of Encounter: 05/24/16 Time of Encounter: 11:55 - Assessment and plan (1) Acute on chronic renal failure Current Visit: Yes Status: Acute Assessment and plan: Acute kidney injury on chronic kidney disease stage III. Creatinine remains elevated. 2.24 today. Likely stabilizing renal function. Will hydrate today gently. Nephrology following. Continue to monitor urine output. Follow renal function closely. Holding all nephrotoxic agents. Moderate risk for complications. (2) Anemia Current Visit: Yes Status: Acute Assessment and plan: Likely from chronic kidney disease. Hemoglobin levels remained stable. Qualifiers: Anemia type: other cause Other causes of anemia: chronic disease, kidney Qualified Code(s): N18.9 - Chronic kidney disease, unspecified; D63.1 - Anemia in chronic kidney disease (3) CHF (congestive heart failure) Current Visit: Yes Status: Chronic Assessment and plan: Patient was admitted with acute congestive heart failure. This seems to have resolved now. Patient has no pedal edema. Currently having worsening of renal function. Holding Lasix for now. Continue statin, beta isaias. Qualifiers: Congestive heart failure type: diastolic Congestive heart failure chronicity: acute on chronic Qualified Code(s): I50.33 - Acute on chronic diastolic (congestive) heart failure (4) DVT prophylaxis Current Visit: Yes Status: Acute Assessment and plan: With subcutaneous heparin (5) Hyponatremia Current Visit: Yes Status: Acute Assessment and plan: Improving - Subjective Interval history: Patient is awake and alert. Doing well overall. Denies any new complaints at this time. No nausea or vomiting. Having good urine output. No constipation. No hematuria. - Constitutional Vitals: Temp Pulse Resp BP Pulse Ox 98 F 69 16 187/66 95 05/24/16 11:59 05/24/16 11:59 05/24/16 11:59 05/24/16 11:59 05/24/16 11:59 General appearance: Present: cooperative, A&O X 3, pleasant, answers questions appropriately - Respiratory Respiratory exam: Present: CTAB. Absent: accessory muscle use, rales, rhonchi, wheezes - Cardiovascular Cardiovascular exam: Present: RRR, +S1, +S2. Absent: diastolic murmur, gallop, rubs, systolic murmur - GI/Abdominal GI/Abdominal exam: Present: normal bowel sounds, soft, no peritoneal signs. Absent: distended, tenderness - Extremities Exam Extremities exam: Present: warm, radial pulses palpable and symetrical. Absent : calf tenderness, cyanotic, pedal edema - Neurological Exam Neurological exam: Present: CN II-XII intact, oriented X3, no focal deficits. Absent: facial droop, speech deficit - Skin Skin exam: Present: dry, intact Internal Medicine: Result - Labs CBC & Chem 7: 05/23/16 02:50 05/24/16 06:20 - ABG Interpretation ABG results: PT/INR, D-dimer PT 13.8 Seconds (9.4-12.1) H 05/23/16 02:50 - VTE Documentation of Mechanical Device: Graduated compression elastic hosiery Consult Discharge Plan - Plan Referrals: Dylan Alvarez MD [Primary Care Provider] - 05/31/16 9:30 am (Please follow up as schedule with Dr Driscoll...) - Attending Attestation This document has been at least partially created by [employer] voice recognition technology by Dr. Ta. Errors in grammar, wording or other phrases may exist. If errors are found after the documentation is signed, they will be addressed individually in the addendum section of this document when appropriate.
[2016-05-24] MEDS ORDERED: GuaiFENesin Liq 200 MG/10 ML UDC PO ONE (19:35)
[2016-05-24] MEDS: Latanoprost 2.5 ML BOTTLE BOTH EYES SCH (20:24)
--- NOTE | 2016-05-24 23:07 | Nephrology Progress Note ---
Date of Encounter: 05/24/16 Time of Encounter: 11:30 - Assessment and Plan (1) Acute kidney injury Current Visit: Yes Status: Acute SCr reaching a plateau at 2.25, GFR 22 Agree with gentle hydration with 1 liter NS over 10 hours Continue to hold diuretics and avoid all nephrotoxins if possible UOP not documented CPK and uric acid level mildly elevated US of kidney shows no hydronephrosis but large PVR, strict I/Os advised (2) CKD (chronic kidney disease) stage 3, GFR 30-59 ml/min Current Visit: Yes Status: Chronic GFR typically 30-40s at baseline (3) Hyponatremia Current Visit: Yes Status: Acute Sodium improving at 132, should improve further with NS (4) Hyperkalemia Current Visit: No Status: Acute Potassium mildly elevated at 5 due to TYSON No intervention necessary at this time except renal diet Subjective Interval history: Pt seen and examined feels good with no SOB. Eager to go home soon. Objective - Vital Signs Vital signs: Vital Signs Temp Pulse Resp BP Pulse Ox 05/24/16 19:53 86 16 175/62 95 05/24/16 11:59 98 F 69 16 187/66 95 Intake and Output 05/24/16 05/24/16 05/24/16 07:59 15:59 23:59 Intake Total 120 / 120 Output Total 400 / 400 400 / 400 Balance -400 / -160 -280 / -280 Intake: Oral 120 / 120 Output: Urine 400 / 400 400 / 400 Other: Meal Dinner Percent of Meal Consumed 95% Blood Glucose* 133 175 - General Appearance General appearance: Present: well-developed, well-nourished (NAD) EENT: Present: ATNC, mucous membranes dry Neck: Present: no JVD, supple Respiratory: Present: clear Cardiology: Present: no edema, normal S1, normal S2 Gastrointestinal: Present: no tenderness, no guarding Integumentary: Present: warm and dry Neurologic: Present: no focal deficit Musculoskeletal: Present: no deformities Psychiatric: Present: mood/affect appropriate, cooperative - Lab 05/23/16 02:50 05/24/16 06:20 Most recent lab results Calcium 9.0 mg/dL (8.6-10.8) 05/24/16 06:20 Phosphorus 5.0 mg/dL (2.3-4.7) H 05/23/16 02:50 Magnesium 1.9 mg/dL (1.6-2.6) 05/23/16 02:50 Urine Creatinine 53 mg/dL 05/24/16 01:20 Urine Sodium 31.0 mEq/L 05/24/16 01:20 Urine Total Protein < 7 mg/dL (1-14) 05/24/16 01:20 - Imaging Kidney/bladder ultrasound: report reviewed - VTE Documentation of Mechanical Device: Graduated compression elastic hosiery Consult Discharge Plan - Plan Referrals: Dylan Alvarez MD [Primary Care Provider] - 05/31/16 9:30 am (Please follow up as schedule with Dr Driscoll...)
[2016-05-25] MEDS: Albuterol 2.5 MG/3 ML NEBULIZER IH PRN ×2 (02:34→22:46)
[2016-05-25 07:06] LABS: Basophils % 0.2 %; Eosinophils # 0.1 K/mcL (0.0-0.6); Eosinophils % 1.3 %; Hematocrit 22.9 % (35.3-44.9); Hemoglobin 7.8 g/dL (11.5-15.4); Immature Granulocytes % 0.5 % (0-4); Lymphocytes # 0.7 K/mcL (0.6-4.6); Lymphocytes % 8.4 %; Mean Corpuscular HGB Conc 34.1 g/dL (31.6-35.5); Mean Corpuscular Hemoglobin 30.6 pg (28.0-33.3); Mean Corpuscular Volume 89.8 fL (83.0-100.0); Mean Platelet Volume 10.7 fL (9.4-12.4); Monocytes # 0.6 K/mcL (0.0-1.3); Monocytes % 7.2 %; Platelet Count 118 K/mcL (140-400); Red Blood Count 2.55 M/mcL (3.82-4.97); Segmented Neutrophils % 82.4 %
[2016-05-25 07:12] LABS: Calcium 9.1 mg/dL (8.6-10.8); Potassium 5.2 mEq/L (3.5-4.5)
[2016-05-25 07:51] LABS: Neutrophils # 6.8 K/mcL (1.6-8.9)
[2016-05-25] MEDS ORDERED: Benzonatate 100 MG CAPSULE PO PRN (07:54)
[2016-05-25] MEDS: Insulin LISPRO 300 UNITS/3 ML VIAL SQ SCH ×4 (08:52→20:18)
[2016-05-25] MEDS: Iron Polysaccharide Complex 150 MG CAPSULE PO SCH (08:55)
[2016-05-25] MEDS: Magnesium Oxide 400 MG TABLET PO SCH (08:56)
[2016-05-25] MEDS: amLODIPine 5 MG TABLET PO SCH (08:56)
[2016-05-25] MEDS: Folic Acid 1 MG TABLET PO SCH (08:56)
--- NOTE | 2016-05-25 11:39 | Nephrology Progress Note ---
Date of Encounter: 05/25/16 Time of Encounter: 10:45 - Assessment and Plan (1) Acute kidney injury Current Visit: Yes Status: Acute SCr improved at 1.54, GFR 33 with IVF, will continue Continue to hold diuretics and avoid all nephrotoxins if possible UOP good at 1400cc in the past 24hrs (2) CKD (chronic kidney disease) stage 3, GFR 30-59 ml/min Current Visit: Yes Status: Chronic GFR typically 30-40s at baseline (3) Hyponatremia Current Visit: Yes Status: Acute Sodium improving at 133, should improve further with NS (4) Hyperkalemia Current Visit: No Status: Acute Potassium mildly elevated at 5.2, should improve with IVF No other intervention necessary at this time except renal diet Subjective Interval history: Pt seen and examined feeling bad today with persistent coughing. She reports she does not feel good and does not want to go home. Objective - Vital Signs Vital signs: Vital Signs Temp Pulse Resp BP Pulse Ox 05/25/16 11:23 98 F 76 16 177/68 96 05/25/16 09:03 98 05/25/16 07:54 76 192/62 05/25/16 07:47 97.8 F 66 16 194/63 98 05/25/16 04:26 98 F 77 18 110/72 94 L 05/25/16 02:35 22 96 05/25/16 00:39 98.5 F 75 20 194/53 94 L 05/24/16 19:53 86 16 175/62 95 05/24/16 11:59 98 F 69 16 187/66 95 Intake and Output 05/24/16 05/25/16 05/25/16 23:59 07:59 15:59 Intake Total 120 / 120 Output Total 700 / 700 200 / 200 Balance -580 / -580 -200 / -200 Intake: Oral 120 / 120 Output: Urine 700 / 700 200 / 200 Other: Meal Dinner vegtable soup Percent of Meal Consumed 95% 100% Blood Glucose* 175 202 131 - General Appearance General appearance: Present: chronically ill (NAD) EENT: Present: ATNC, mucous membranes moist Neck: Present: no JVD, supple Respiratory: Present: course breath sounds Cardiology: Present: no edema, normal S1, normal S2 Gastrointestinal: Present: no tenderness, no guarding Integumentary: Present: warm and dry Neurologic: Present: no focal deficit Musculoskeletal: Present: no deformities Psychiatric: Present: mood/affect appropriate - Lab 05/26/16 06:46 05/26/16 06:46 Most recent lab results Calcium 9.1 mg/dL (8.6-10.8) 05/25/16 06:47 Phosphorus 5.0 mg/dL (2.3-4.7) H 05/23/16 02:50 Magnesium 1.9 mg/dL (1.6-2.6) 05/23/16 02:50 Urine Creatinine 53 mg/dL 05/24/16 01:20 Urine Sodium 31.0 mEq/L 05/24/16 01:20 Urine Total Protein < 7 mg/dL (1-14) 05/24/16 01:20 - VTE Documentation of Mechanical Device: Graduated compression elastic hosiery Consult Discharge Plan - Plan Referrals: Dylan Alvarez MD [Primary Care Provider] - 05/31/16 9:30 am (Please follow up as schedule with Dr Drisclol...)
[2016-05-25] MEDS ORDERED: 0.9 % Sodium Chloride 1,000 ML IVC SCH (12:00)
--- NOTE | 2016-05-25 13:40 | Internal Med Progress Note ---
Date of Encounter: 05/25/16 Time of Encounter: 09:50 - Assessment and plan (1) Acute on chronic renal failure Current Visit: Yes Status: Acute Assessment and plan: renal function is improving. Nephrology following. Continue to hold diuretics at this time (2) Anemia Current Visit: Yes Status: Acute Assessment and plan: From chronic kidney disease. Hemoglobin 7.8 today. Iron levels are low. We will replace orally. Qualifiers: Anemia type: other cause Other causes of anemia: chronic disease, kidney Qualified Code(s): N18.9 - Chronic kidney disease, unspecified; D63.1 - Anemia in chronic kidney disease (3) CHF (congestive heart failure) Current Visit: Yes Status: Chronic Assessment and plan: Improving. Continue carvedilol and Lipitor. Qualifiers: Congestive heart failure type: diastolic Congestive heart failure chronicity: acute on chronic Qualified Code(s): I50.33 - Acute on chronic diastolic (congestive) heart failure (4) DVT prophylaxis Current Visit: Yes Status: Acute (5) Hyponatremia Current Visit: Yes Status: Acute Assessment and plan: Improving (6) Accelerated hypertension Current Visit: Yes Status: Acute Assessment and plan: Patient's blood pressure was elevated this morning. I did have ear hydralazine when necessary for systolic blood pressure greater than 160. We will increase carvedilol dosage. Continue to monitor blood pressure closely. Moderate risk for complications. - Subjective Interval history: Patient is awake and alert. Complains of cough and nausea. Denies shortness of breath or chest pain. Continues to have good urine output. - Constitutional Vitals: Temp Pulse Resp BP Pulse Ox 98 F 76 16 177/68 96 05/25/16 11:23 05/25/16 11:23 05/25/16 11:23 05/25/16 11:23 05/25/16 13:07 General appearance: Present: cooperative, A&O X 3, pleasant, answers questions appropriately - Respiratory Respiratory exam: Present: CTAB. Absent: accessory muscle use, rales, rhonchi, wheezes - Cardiovascular Cardiovascular exam: Present: RRR, +S1, +S2. Absent: diastolic murmur, gallop, rubs, systolic murmur - GI/Abdominal GI/Abdominal exam: Present: normal bowel sounds, soft, no peritoneal signs. Absent: distended, tenderness - Extremities Exam Extremities exam: Present: warm, radial pulses palpable and symetrical. Absent : calf tenderness, cyanotic - Neurological Exam Neurological exam: Present: alert, oriented X3, no focal deficits. Absent: facial droop, speech deficit Internal Medicine: Result - Labs CBC & Chem 7: 05/25/16 06:47 05/25/16 06:47 Labs: Short CBC 05/25/16 Range/Units 06:47 WBC 8.2 D (4.3-11.1) K/mcL Hgb 7.8 L (11.5-15.4) g/dL Hct 22.9 L (35.3-44.9) % Plt Count 118 L (140-400) K/mcL Neutrophils # 6.8 (1.6-8.9) K/mcL BMP 05/25/16 06:47 Sodium 133 L Potassium 5.2 H Chloride 104 Carbon Dioxide 21 BUN 45 H D Creatinine 1.54 H Glucose 173 H Calcium 9.1 - ABG Interpretation ABG results: PT/INR, D-dimer PT 13.8 Seconds (9.4-12.1) H 05/23/16 02:50 - VTE Documentation of Mechanical Device: Graduated compression elastic hosiery Consult Discharge Plan - Plan Referrals: Dylan Alvarez MD [Primary Care Provider] - 05/31/16 9:30 am (Please follow up as schedule with Dr Driscoll...) - Attending Attestation This document has been at least partially created by the[employer] recognition technology by Dr. Ta. Errors in grammar, wording or other phrases may exist. If errors are found after the documentation is signed, they will be addressed individually in the addendum section of this document when appropriate.
[2016-05-25 13:44] LABS: Folate 17.4 ng/mL (7.0-31.4)
[2016-05-25] MEDS ORDERED: Levofloxacin 750 MG/150 ML 750 MG/150 ML BAG IVPB ONE (16:05)
[2016-05-25] MEDS ORDERED: GuaiFENesin Liq 200 MG/10 ML UDC PO ONE (20:09)
[2016-05-25] MEDS: Latanoprost 2.5 ML BOTTLE BOTH EYES SCH (20:11)
[2016-05-26] MEDS ORDERED: Dextromethorphan Polistrx(12h) 30 MG/5 ML UDC PO PRN (04:32)
[2016-05-26] MEDS ORDERED: Ipratropium Neb 0.5 MG NEBULIZER IH PRN (04:32)
[2016-05-26 06:55] LABS: Basophils % 0.2 %; Eosinophils # 0.1 K/mcL (0.0-0.6); Eosinophils % 1.4 %; Hematocrit 22.5 % (35.3-44.9); Hemoglobin 7.8 g/dL (11.5-15.4); Immature Granulocytes % 0.8 % (0-4); Lymphocytes # 0.5 K/mcL (0.6-4.6); Lymphocytes % 6.5 %; Mean Corpuscular HGB Conc 34.7 g/dL (31.6-35.5); Mean Corpuscular Hemoglobin 30.2 pg (28.0-33.3); Mean Corpuscular Volume 87.2 fL (83.0-100.0); Mean Platelet Volume 10.7 fL (9.4-12.4); Monocytes # 0.5 K/mcL (0.0-1.3); Monocytes % 6.4 %; Platelet Count 118 K/mcL (140-400); Red Blood Count 2.58 M/mcL (3.82-4.97); Red Cell Distribution Width 14.8 % (11.5-14.5); Segmented Neutrophils % 84.7 %
[2016-05-26 07:08] LABS: Potassium 4.9 mEq/L (3.5-4.5)
[2016-05-26] MEDS: Iron Polysaccharide Complex 150 MG CAPSULE PO SCH (09:18)
[2016-05-26] MEDS: Folic Acid 1 MG TABLET PO SCH (09:19)
[2016-05-26] MEDS: amLODIPine 5 MG TABLET PO SCH (09:19)
[2016-05-26] MEDS: Magnesium Oxide 400 MG TABLET PO SCH (09:20)
[2016-05-26] MEDS: Insulin LISPRO 300 UNITS/3 ML VIAL SQ SCH ×3 (11:41→22:01)
[2016-05-26] MEDS ORDERED: Ipratropium/Albuterol Neb 3 ML IH PRN (12:40)
--- NOTE | 2016-05-26 15:21 | Internal Med Progress Note ---
Date of Encounter: 05/26/16 Time of Encounter: 11:35 - Assessment and plan (1) Acute on chronic renal failure Current Visit: Yes Status: Acute Assessment and plan: Renal function continues to improve. Kidney injury likely due to diuretic use. Holding diuretics for now. Nephrology following. (2) Anemia Current Visit: Yes Status: Acute Assessment and plan: On folic acid and iron supplements. Qualifiers: Anemia type: other cause Other causes of anemia: chronic disease, kidney Qualified Code(s): N18.9 - Chronic kidney disease, unspecified; D63.1 - Anemia in chronic kidney disease (3) CHF (congestive heart failure) Current Visit: Yes Status: Chronic Assessment and plan: Chronic heart failure. On carvedilol, Lipitor. Holding diuretics due to acute kidney injury. Qualifiers: Congestive heart failure type: diastolic Congestive heart failure chronicity: acute on chronic Qualified Code(s): I50.33 - Acute on chronic diastolic (congestive) heart failure (4) DVT prophylaxis Current Visit: Yes Status: Acute (5) Hyponatremia Current Visit: Yes Status: Acute Assessment and plan: Sodium 129. Likely chronic hyponatremia. (6) Accelerated hypertension Current Visit: Yes Status: Acute Assessment and plan: Blood pressure remains elevated. We will resume lisinopril. On carvedilol 12.5 mg and amlodipine. Hydralazine IV when necessary (7) Pneumonia Current Visit: Yes Status: Suspected Assessment and plan: Right lower lobe pneumonia. Likely community-acquired as changes were present on initial x-ray also. Continue levofloxacin. Dosing renally. Moderate risk for complications Qualifiers: Pneumonia type: due to Pneumococcus Laterality: right Lung location: lower lobe of lung Qualified Code(s): J13 - Pneumonia due to Streptococcus pneumoniae - Subjective Interval history: Continues to have cough but feels better compared to yesterday. Still requiring O2 supplementation. No chest pain. No hemoptysis. Having good urine output. No nausea or vomiting today. - Constitutional Vitals: Temp Pulse Resp BP Pulse Ox 97.7 F 71 16 180/67 96 05/26/16 10:57 05/26/16 10:57 05/26/16 10:57 05/26/16 10:57 05/26/16 10:57 General appearance: Present: cooperative, A&O X 3, pleasant, answers questions appropriately - Respiratory Respiratory exam: Present: decreased breath sounds (at bases), CTAB. Absent: accessory muscle use, rales, rhonchi, wheezes - GI/Abdominal GI/Abdominal exam: Present: normal bowel sounds, soft, no peritoneal signs. Absent: distended, tenderness - Extremities Exam Extremities exam: Present: warm, radial pulses palpable and symetrical. Absent : calf tenderness, cyanotic, pedal edema - Neurological Exam Neurological exam: Present: alert, oriented X3, no focal deficits. Absent: facial droop, speech deficit Internal Medicine: Result - Labs CBC & Chem 7: 05/26/16 06:46 05/26/16 06:46 Labs: Short CBC 05/26/16 Range/Units 06:46 WBC 8.3 (4.3-11.1) K/mcL Hgb 7.8 L (11.5-15.4) g/dL Hct 22.5 L (35.3-44.9) % Plt Count 118 L (140-400) K/mcL Neutrophils # 7.0 (1.6-8.9) K/mcL BMP 05/26/16 06:46 Sodium 129 L Potassium 4.9 H Chloride 102 Carbon Dioxide 19 BUN 33 H D Creatinine 1.43 H Glucose 183 H Calcium 9.0 - ABG Interpretation ABG results: PT/INR, D-dimer PT 13.8 Seconds (9.4-12.1) H 05/23/16 02:50 - Impressions Impressions Chest X-Ray 05/25/16 11:50 IMPRESSION: Increased right lower lobe airspace disease, either atelectasis or pneumonia D/ / Phani Rainey MD / Phani Rainey MD Interpreting Provider: Phani Rainey MD - VTE Documentation of Mechanical Device: Graduated compression elastic hosiery Consult Discharge Plan - Plan Referrals: Dylan Alvarez MD [Primary Care Provider] - 05/31/16 9:30 am (Please follow up as schedule with Dr Driscoll...)
--- NOTE | 2016-05-26 17:41 | Nephrology Progress Note ---
Date of Encounter: 05/26/16 Time of Encounter: 11:30 - Assessment and Plan (1) Acute kidney injury Current Visit: Yes Status: Acute SCr noted at 1.43, GFR 36 should be about baseline Can stop IVF and encourage po fluids instead Continue to hold diuretics and avoid all nephrotoxins if possible UOP only 200cc documented, unclear if accurate (2) CKD (chronic kidney disease) stage 3, GFR 30-59 ml/min Current Visit: Yes Status: Chronic GFR typically 30-40s at baseline (3) Hyponatremia Current Visit: Yes Status: Acute Sodium still low at 129, liberalize sodium in diet (4) Hyperkalemia Current Visit: No Status: Acute Potassium improving at 4.9, will monitor Continue renal diet Subjective Interval history: Pt seen and examined still not feeling well with continued coughing. Objective - Vital Signs Vital signs: Vital Signs Temp Pulse Resp BP Pulse Ox 05/26/16 16:44 73 18 166/60 96 05/26/16 16:19 97.6 F 73 18 166/60 96 05/26/16 10:57 97.7 F 71 16 180/67 96 05/26/16 07:22 97.4 F L 80 18 180/61 96 05/26/16 05:43 18 97 05/26/16 04:36 97.5 F L 78 16 180/67 97 05/25/16 23:28 97.8 F 74 16 166/64 97 05/25/16 22:46 18 98 05/25/16 19:45 98.0 F 74 14 183/64 96 Intake and Output 05/26/16 05/26/16 05/26/16 07:59 15:59 23:59 Intake Total 480 / 480 Output Total 100 / 100 Balance -100 / -100 480 / 480 Intake: Oral 480 / 480 Output: Urine 100 / 100 Other: Meal Lunch Percent of Meal Consumed 20% # Voids 1 Weight 72.393 kg Blood Glucose* 208 156 134 Patient Weight 05/26/16 23:59 Weight 72.393 kg - General Appearance General appearance: Present: chronically ill (NAD) EENT: Present: ATNC, mucous membranes moist Neck: Present: no JVD, supple Respiratory: Present: course breath sounds Cardiology: Present: no edema, normal S1, normal S2 Gastrointestinal: Present: no tenderness, no guarding Integumentary: Present: warm and dry Neurologic: Present: no focal deficit Musculoskeletal: Present: no deformities Psychiatric: Present: mood/affect appropriate - Lab 05/26/16 06:46 05/26/16 06:46 Most recent lab results Calcium 9.0 mg/dL (8.6-10.8) 05/26/16 06:46 Phosphorus 5.0 mg/dL (2.3-4.7) H 05/23/16 02:50 Magnesium 1.9 mg/dL (1.6-2.6) 05/23/16 02:50 Urine Creatinine 53 mg/dL 05/24/16 01:20 Urine Sodium 31.0 mEq/L 05/24/16 01:20 Urine Total Protein < 7 mg/dL (1-14) 05/24/16 01:20 - VTE Documentation of Mechanical Device: Graduated compression elastic hosiery Consult Discharge Plan - Plan Referrals: Dylan Alvarez MD [Primary Care Provider] - 05/31/16 9:30 am (Please follow up as schedule with Dr Driscoll...)
[2016-05-26] MEDS ORDERED: Chloraseptic Spray 177 ML BOTTLE MM PRN (21:27)
[2016-05-26] MEDS: Latanoprost 2.5 ML BOTTLE BOTH EYES SCH (22:04)
[2016-05-27 06:50] LABS: Basophils % 0.3 %; Eosinophils # 0.2 K/mcL (0.0-0.6); Eosinophils % 2.4 %; Hematocrit 21.1 % (35.3-44.9); Hemoglobin 7.6 g/dL (11.5-15.4); Immature Granulocytes % 0.3 % (0-4); Lymphocytes # 0.7 K/mcL (0.6-4.6); Lymphocytes % 10.8 %; Mean Corpuscular Hemoglobin 31.7 pg (28.0-33.3); Mean Corpuscular Volume 87.9 fL (83.0-100.0); Mean Platelet Volume 11.4 fL (9.4-12.4); Monocytes # 0.5 K/mcL (0.0-1.3); Monocytes % 6.8 %; Neutrophils # 5.4 K/mcL (1.6-8.9); Platelet Count 124 K/mcL (140-400); Red Cell Distribution Width 14.6 % (11.5-14.5); Segmented Neutrophils % 79.4 %
[2016-05-27 07:04] LABS: Calcium 8.6 mg/dL (8.6-10.8); Potassium 4.6 mEq/L (3.5-4.5)
[2016-05-27] MEDS: amLODIPine 5 MG TABLET PO SCH (08:04)
[2016-05-27] MEDS: Folic Acid 1 MG TABLET PO SCH (08:05)
[2016-05-27] MEDS: Magnesium Oxide 400 MG TABLET PO SCH (08:05)
[2016-05-27] MEDS: Iron Polysaccharide Complex 150 MG CAPSULE PO SCH (08:05)
[2016-05-27] MEDS: Insulin LISPRO 300 UNITS/3 ML VIAL SQ SCH ×4 (08:05→21:35)
[2016-05-27] MEDS ORDERED: Levofloxacin 750 MG/150 ML 750 MG/150 ML BAG IVPB SCH (09:00)
--- NOTE | 2016-05-27 10:02 | Internal Med Progress Note ---
Date of Encounter: 05/27/16 Time of Encounter: 09:55 - Assessment and plan (1) Acute on chronic renal failure Current Visit: Yes Status: Acute Assessment and plan: Renal function appears to have stabilized. BUN slightly elevated today. Patient drinking liquids well. Nephrology following. (2) Anemia Current Visit: Yes Status: Acute Assessment and plan: Remained stable. Patient has low iron levels. Will replace orally. Qualifiers: Anemia type: other cause Other causes of anemia: chronic disease, kidney Qualified Code(s): N18.9 - Chronic kidney disease, unspecified; D63.1 - Anemia in chronic kidney disease (3) CHF (congestive heart failure) Current Visit: Yes Status: Chronic Assessment and plan: Continue carvedilol and Lipitor. Qualifiers: Congestive heart failure type: diastolic Congestive heart failure chronicity: chronic Qualified Code(s): I50.32 - Chronic diastolic (congestive ) heart failure (4) DVT prophylaxis Current Visit: Yes Status: Acute (5) Hyponatremia Current Visit: Yes Status: Acute Assessment and plan: Sodium 126 today. Likely chronic hyponatremia. May benefits from free water restriction. Will discuss with nephrology. (6) Accelerated hypertension Current Visit: Yes Status: Acute Assessment and plan: Blood pressure is improving. Amlodipine, carvedilol and lisinopril. (7) Pneumonia Current Visit: Yes Status: Suspected Qualifiers: Pneumonia type: due to Pneumococcus Laterality: right Lung location: lower lobe of lung Qualified Code(s): J13 - Pneumonia due to Streptococcus pneumoniae - Subjective Interval history: Patient is feeling much better today. Respiratory status is improving and the patient is still requiring O2 supplementation. Denies any nausea or vomiting. No diarrhea or constipation. Denies any trouble with urination - Constitutional Vitals: Temp Pulse Resp BP Pulse Ox 97.4 F L 66 16 163/65 97 05/27/16 07:33 05/27/16 07:33 05/27/16 07:33 05/27/16 07:33 05/27/16 08:30 General appearance: Present: cooperative, A&O X 3, pleasant, answers questions appropriately - Respiratory Respiratory exam: Present: CTAB. Absent: accessory muscle use, rales, rhonchi, wheezes - Cardiovascular Cardiovascular exam: Present: RRR, +S1, +S2. Absent: diastolic murmur, gallop, rubs, systolic murmur - GI/Abdominal GI/Abdominal exam: Present: normal bowel sounds, soft, no peritoneal signs. Absent: distended, tenderness - Extremities Exam Extremities exam: Present: warm, radial pulses palpable and symetrical. Absent : calf tenderness, cyanotic, pedal edema - Neurological Exam Neurological exam: Present: alert, oriented X3, no focal deficits. Absent: facial droop, speech deficit Internal Medicine: Result - Labs CBC & Chem 7: 05/27/16 06:09 05/27/16 06:09 Labs: Short CBC 05/27/16 Range/Units 06:09 WBC 6.8 (4.3-11.1) K/mcL Hgb 7.6 L (11.5-15.4) g/dL Hct 21.1 L (35.3-44.9) % Plt Count 124 L (140-400) K/mcL Neutrophils # 5.4 (1.6-8.9) K/mcL BMP 05/27/16 06:09 Sodium 126 L Potassium 4.6 H Chloride 98 Carbon Dioxide 21 BUN 46 H D Creatinine 1.49 H Glucose 137 H Calcium 8.6 - ABG Interpretation ABG results: PT/INR, D-dimer PT 13.8 Seconds (9.4-12.1) H 05/23/16 02:50 - VTE Documentation of Mechanical Device: Graduated compression elastic hosiery Consult Discharge Plan - Plan Referrals: Dylan Alvarez MD [Primary Care Provider] - 05/31/16 9:30 am (Please follow up as schedule with Dr Driscoll...) - Attending Attestation This document has been at least partially created by [employer] recognition technology by Dr. Ta. Errors in grammar, wording or other phrases may exist. If errors are found after the documentation is signed, they will be addressed individually in the addendum section of this document when appropriate.
--- NOTE | 2016-05-27 14:15 | Discharge Summary ---
Date of Encounter: 05/27/16 Time of Encounter: 14:13 - Discharge Diagnosis (1) Acute on chronic renal failure Priority: Primary Status: Acute (2) Anemia Priority: Secondary Status: Chronic Qualifiers: Anemia type: other cause Other causes of anemia: chronic disease, kidney Qualified Code(s): N18.9 - Chronic kidney disease, unspecified; D63.1 - Anemia in chronic kidney disease (3) CHF (congestive heart failure) Priority: Secondary Status: Chronic Qualifiers: Congestive heart failure type: diastolic Congestive heart failure chronicity: chronic Qualified Code(s): I50.32 - Chronic diastolic (congestive ) heart failure (4) DVT prophylaxis Priority: Secondary Status: Acute (5) Hyponatremia Priority: Secondary Status: Acute (6) Accelerated hypertension Priority: Secondary Status: Acute (7) Pneumonia Priority: Secondary Status: Acute Qualifiers: Pneumonia type: due to unspecified organism Laterality: right Lung location: lower lobe of lung Qualified Code(s): J18.1 - Lobar pneumonia, unspecified organism - Discharge Medications Prescriptions: Levofloxacin [Levaquin] 750 mg PO Q48H #5 tablet Home Medications: Amlodipine [Norvasc] 10 mg PO DAILY 12/27/14 [History] Clopidogrel [Plavix] 75 mg PO DAILY 12/27/14 [History] Doxazosin [Cardura] 4 mg PO HS 12/27/14 [History] Atorvastatin [Lipitor] 40 mg PO HS 09/23/15 [History] Sitagliptin Phosphate [Januvia] 50 mg PO DAILY 09/23/15 [History] Folic Acid [FA-8] 0.8 mg PO DAILY 05/22/16 [History] Glucosamine/D3/Boswellia Yulia [Osteo Bi-Flex Tablet] 1 tab PO DAILY 05/22/16 [ History] Iron Polysaccharide Complex [Ferrex 150] 150 mg PO DAILY 05/22/16 [History] Magnesium 500 mg PO HS 05/22/16 [History] Latanoprost [Xalatan] 1 drop BOTH EYES HS 05/23/16 [History] Carvedilol [Coreg] 12.5 mg PO BIDWM #0 tablet 05/27/16 [Rx] Ipratropium/Albuterol Neb [Duoneb] 3 ml IH [id number] PRN #0 inhsol 05/27/16 [Rx] Levofloxacin [Levaquin] 750 mg PO Q48H #5 tablet 05/27/16 [Rx] Lisinopril [Zestril] 10 mg PO DAILY tablet 05/27/16 [Rx] Allergies/Adverse Reactions: Allergies codeine Adverse Reaction (Verified 05/24/16 11:17) Hallucinating Date of admission: 05/24/16 11:52 Primary care physician: Dylan Alvarez MD Consults: 05/26/16 11:17 Consult to Occupational Therapy [CONS] Routine Comment: Evaluate, develop and implement POC Consult to Physical Therapy [CONS] Routine Comment: Evaluate, develop and implement POC 05/27/16 09:21 Consult to Hand Sprayer [CONS] Routine Reason for SW Consult: per therapy needs [facility], daughter stated [facility] choice yesterday [facility] Discharging clinician: John Ta Anticipated date of discharge: 05/30/16 - Patient Status Disposition: Transfer SNF Condition: Fair Functional capacity at discharge: uses cane/walker Overall status at discharge: patient is progressing back to baseline - Discharge Instructions Instructions: Levofloxacin (By mouth), Chronic Obstructive Pulmonary Disease ( DC), Chronic Hypertension (DC) Follow Up With: Tre Mays MD [Partnered Physician] - 06/06/16 10:00 am (In one week) Dylan Alvarez MD [Primary Care Provider] - 05/31/16 9:30 am (Please follow up as schedule with Dr Driscoll...) - Diet and Activity Activity: as per physical therapy, wear oxygen at all times Diet: diabetic diet, low fat, low cholesterol, low salt diet, other (renal) Hospital course: Ms. Prather is a 70 year old female patient with history of chronic kidney disease stage III, coronary artery disease, diastolic congestive heart failure, diabetes mellitus type 2 was admitted here with complaints of shortness of breath concerning for acute congestive heart failure. She initially received IV Lasix but her rate kidney function declined considerably. As such her Lasix was stopped. A chest x-ray done showed right lower lobe pneumonia and patient was started on treatment for that with levofloxacin. She was also evaluated by nephrology and her kidney function improved with IV hydration. She also has been having generalized weakness and was evaluated by physical therapy who recommended patient go to skilled rehabilitation. Patient continues to require O2 supplementation at this time likely due to pneumonia and underlying congestive heart failure. She is also a chronic cigarette smoker and may have underlying COPD that is undiagnosed. Her renal function has stabilized. She will follow up with nephrology as outpatient. She also has chronic anemia likely related to chronic kidney disease and deficiency. She is on iron supplements. She also has chronic hyponatremia. This can also be followed by nephrology as outpatient. Currently the patient is clinically stable for discharge to skilled rehabilitation and will follow up with her primary care provider and child protective services social worker after discharge. - Time Spent with Patient Total time spent providing and/or coordinating discharge services: Greater than 30 minutes (40 min) - Constitutional Vitals: Temp Pulse Resp BP Pulse Ox 98.2 F 75 18 156/52 94 L 05/27/16 11:10 05/27/16 11:10 05/27/16 11:10 05/27/16 11:10 05/27/16 11:10 General appearance: Present: cooperative, A&O X 3, pleasant, answers questions appropriately - Respiratory Respiratory exam: Present: CTAB, prolonged expiratory phase. Absent: accessory muscle use, rales, rhonchi, wheezes - GI/Abdominal GI/Abdominal exam: Present: normal bowel sounds, soft, no peritoneal signs. Absent: distended, tenderness - Extremities Exam Extremities exam: Present: warm, radial pulses palpable and symetrical. Absent : calf tenderness, cyanotic, pedal edema - Neurological Exam Neurological exam: Present: alert, oriented X3, no focal deficits. Absent: facial droop, speech deficit - VTE Documentation of Mechanical Device: Graduated compression elastic hosiery - Attending Attestation This document has been at least partially created by [employer] recognition technology by Dr. Ta. Errors in grammar, wording or other phrases may exist. If errors are found after the documentation is signed, they will be addressed individually in the addendum section of this document when appropriate.
--- NOTE | 2016-05-27 14:25 | Physician Discharge Referral ---
[facility] Referral Info Provider in Charge after Transfer: PCP - Diagnosis (1) Acute on chronic renal failure Priority: Primary Status: Acute (2) Anemia Priority: Secondary Status: Chronic (3) CHF (congestive heart failure) Priority: Secondary Status: Chronic (4) DVT prophylaxis Priority: Secondary Status: Acute (5) Hyponatremia Priority: Secondary Status: Acute (6) Accelerated hypertension Priority: Secondary Status: Acute (7) Pneumonia Priority: Secondary Status: Acute - Transfer Medications Prescriptions: Levofloxacin [Levaquin] 750 mg PO Q48H #5 tablet Home Medications: Amlodipine [Norvasc] 10 mg PO DAILY 12/27/14 [History] Clopidogrel [Plavix] 75 mg PO DAILY 12/27/14 [History] Doxazosin [Cardura] 4 mg PO HS 12/27/14 [History] Atorvastatin [Lipitor] 40 mg PO HS 09/23/15 [History] Sitagliptin Phosphate [Januvia] 50 mg PO DAILY 09/23/15 [History] Folic Acid [FA-8] 0.8 mg PO DAILY 05/22/16 [History] Glucosamine/D3/Boswellia Yulia [Osteo Bi-Flex Tablet] 1 tab PO DAILY 05/22/16 [ History] Iron Polysaccharide Complex [Ferrex 150] 150 mg PO DAILY 05/22/16 [History] Magnesium 500 mg PO HS 05/22/16 [History] Latanoprost [Xalatan] 1 drop BOTH EYES HS 05/23/16 [History] Carvedilol [Coreg] 12.5 mg PO BIDWM #0 tablet 05/27/16 [Rx] Ipratropium/Albuterol Neb [Duoneb] 3 ml IH [id number] PRN #0 inhsol 05/27/16 [Rx] Levofloxacin [Levaquin] 750 mg PO Q48H #5 tablet 05/27/16 [Rx] Lisinopril [Zestril] 10 mg PO DAILY tablet 05/27/16 [Rx] Allergies/Adverse Reactions: Allergies codeine Adverse Reaction (Verified 05/24/16 11:17) Hallucinating - Respiratory Orders Oxygen / L per min (2) Smoking Cessation: Smoking cessation has been advised. For more information, call the [place] Tobacco Quit Line at 7-766-QBBN-NOW. - Lab Orders Lab Orders: Other (include drug levels w/frequency) (CBC, BMP in 1 week) - Ancillary Orders May consult with Dentist, Hand Alterations Seamstress, Printing Pressman PRN - Advance Directives Code Status: Full Code - Mobility Orders Ambulate - Rehabiliation Orders Rehab Potential: Good Rehab Orders: Evaluation for Physical Therapy, Evaluation for Occupational Therapy - Treatments List/Other: Fluid restriction to 1.5 L per day - Diet Orders Renal, Cardiac (and diabetic) CERTIFICATION: I certify that the transfer of the above named patient to an Extended Care Facility is necessary for the continuing treatment of the diagnosis listed. The above information is true and accurate reflection of patient's current condition. Confidential - Redisclosure prohibited without a patient's written consent.
--- NOTE | 2016-05-27 16:23 | Nephrology Progress Note ---
Date of Encounter: 05/27/16 Time of Encounter: 16:20 - Assessment and Plan (1) Acute on chronic renal failure Current Visit: Yes Status: Acute Creatinine appears to be stable and approaching baseline. Continue with current management. (2) Hyponatremia Current Visit: Yes Status: Acute Sodium decreasing for unclear reasons. Will repeat. if sodium is less than 28 I recommend 1.5L/day fluid restriction and monitoring until sodium rises above 130. Currently she is asymptomatic. (3) Hypoxemia Current Visit: Yes Status: Acute Wean supplemental oxygen to room air. Keep O2 saturation >92%. Subjective Principal diagnosis: TYSON hyponatremia Interval history: Patient seen and evaluated. She would like to stay over the weekend if she could as she likes it here. She denies complaint. Her breathing is improving. ROS otherwise is stable. Objective - Vital Signs Vital signs: Vital Signs Temp Pulse Resp BP Pulse Ox 05/27/16 11:10 98.2 F 75 18 156/52 94 L 05/27/16 08:30 97 05/27/16 07:33 97.4 F L 66 16 163/65 97 05/27/16 05:40 97.6 F 62 18 161/51 98 05/27/16 00:20 98.0 F 66 18 152/63 98 05/26/16 19:50 97.5 F L 69 18 161/62 95 05/26/16 16:44 73 18 166/60 96 Intake and Output 05/27/16 05/27/16 05/27/16 07:59 15:59 23:59 Intake Total 200 / 200 500 / 500 Output Total 10 / 10 0 / 0 Balance 190 / 190 500 / 500 Intake: Oral 200 / 200 500 / 500 Output: Urine 10 / 10 0 / 0 Other: Meal Lunch Percent of Meal Consumed 50% # Voids 1 Weight 73.936 kg Blood Glucose* 185 184 Patient Weight 05/27/16 23:59 Weight 73.936 kg - General Appearance General appearance: Present: well-developed, well-nourished EENT: Present: ATNC Neck: Present: supple Respiratory: Present: clear Cardiology: Present: edema, regular rate, regular rhythm Gastrointestinal: Present: normoactive bowel sounds, no tenderness Integumentary: Present: warm and dry Neurologic: Present: no focal deficit, alert and oriented x3 Musculoskeletal: Present: no cyanosis Psychiatric: Present: mood/affect appropriate - Lab 05/27/16 06:09 05/27/16 06:09 Most recent lab results Calcium 8.6 mg/dL (8.6-10.8) 05/27/16 06:09 Phosphorus 5.0 mg/dL (2.3-4.7) H 05/23/16 02:50 Magnesium 1.9 mg/dL (1.6-2.6) 05/23/16 02:50 Urine Creatinine 53 mg/dL 05/24/16 01:20 Urine Sodium 31.0 mEq/L 05/24/16 01:20 Urine Total Protein < 7 mg/dL (1-14) 05/24/16 01:20 - VTE Documentation of Mechanical Device: Graduated compression elastic hosiery Consult Discharge Plan - Plan Instructions: Levofloxacin (By mouth), Chronic Obstructive Pulmonary Disease ( DC), Chronic Hypertension (DC) Referrals: Tre Mays MD [Partnered Physician] - 06/06/16 10:00 am (In one week) Dylan Alvarez MD [Primary Care Provider] - 05/31/16 9:30 am (Please follow up as schedule with Dr Driscoll...) Prescriptions: Levofloxacin [Levaquin] 750 mg PO Q48H #5 tablet
[2016-05-27] MEDS: *HR* Heparin 5,000 UNIT/ML VIAL SQ SCH (18:10)
[2016-05-27] MEDS: Latanoprost 2.5 ML BOTTLE BOTH EYES SCH (21:35)
[2016-05-28 06:16] LABS: Calcium 8.7 mg/dL (8.6-10.8)
[2016-05-28] MEDS: *HR* Heparin 5,000 UNIT/ML VIAL SQ SCH ×2 (06:23→18:28)
[2016-05-28] MEDS: Iron Polysaccharide Complex 150 MG CAPSULE PO SCH (08:29)
[2016-05-28] MEDS: Magnesium Oxide 400 MG TABLET PO SCH (08:29)
[2016-05-28] MEDS: amLODIPine 5 MG TABLET PO SCH (08:30)
[2016-05-28] MEDS: Folic Acid 1 MG TABLET PO SCH (08:31)
[2016-05-28] MEDS: Insulin LISPRO 300 UNITS/3 ML VIAL SQ SCH ×4 (08:31→22:39)
--- NOTE | 2016-05-28 10:51 | Nephrology Progress Note ---
Date of Encounter: 05/28/16 Time of Encounter: 10:48 - Assessment and Plan (1) Acute on chronic renal failure Current Visit: Yes Status: Acute Creatinine appears to be stable and approaching baseline. Continue with current management. She had a mild creatinine increase overnight. Will monitor closely. (2) Hyponatremia Current Visit: Yes Status: Acute Etiology of her hyponatremia is unclear. Responded overnight to fluid restriction. Will try bicarb drip and lasix and monitor for improvement. Hold discharge until sodium is above 130. Continue free water restriction. Currently she is asymptomatic. (3) Hypoxemia Current Visit: Yes Status: Acute Wean supplemental oxygen to room air. Keep O2 saturation >92%. (4) Cramp in lower leg Current Visit: Yes Status: Acute will check magnesium level and replace if needed. (5) Anemia Current Visit: Yes Status: Acute iron deficiency. Continue iron replacement. May need iv iron. Qualifiers: Anemia type: other cause Other causes of anemia: chronic disease, kidney Qualified Code(s): N18.9 - Chronic kidney disease, unspecified; D63.1 - Anemia in chronic kidney disease Subjective Principal diagnosis: TYSON hyponatremia Interval history: Patient seen and evaluated. Her repeat sodium was low yesterday and so she was held for further management. Today she states she feels ok. She reports that her breathing is stable/improved and she denies chest pain. She reports she is having cramps in her right leg. ROS otherwise is stable. Objective - Vital Signs Vital signs: Vital Signs Temp Pulse Resp BP Pulse Ox 05/28/16 08:54 98 05/28/16 07:12 97.9 F 71 16 157/64 98 05/28/16 05:11 156/52 05/28/16 03:58 97.4 F L 71 18 173/68 97 05/27/16 23:54 97.9 F 70 18 161/62 98 05/27/16 23:12 163/61 05/27/16 22:22 174/66 05/27/16 20:14 97.7 F 97 14 175/73 97 05/27/16 17:21 97.6 F 71 17 162/60 96 05/27/16 11:10 98.2 F 75 18 156/52 94 L Intake and Output 05/27/16 05/28/16 05/28/16 23:59 07:59 15:59 Intake Total 900 / 900 100 / 100 760 / 760 Output Total 600 / 600 100 / 100 0 / 0 Balance 300 / 300 0 / 0 760 / 760 Intake: Oral 900 / 900 100 / 100 760 / 760 Output: Urine 600 / 600 100 / 100 0 / 0 Other: Meal Dinner Breakfast Percent of Meal Consumed 90% 50% Stool Size Moderate Stool Consistency formed Stool Color Brown # Voids 1 # Bowel Movements 1 Weight 73.391 kg Blood Glucose* 133 153 Patient Weight 05/28/16 23:59 Weight 73.391 kg - General Appearance General appearance: Present: well-developed, well-nourished EENT: Present: ATNC Neck: Present: supple Respiratory: Present: clear Cardiology: Present: edema (1+ edema bilateral lower extremities.), regular rate , regular rhythm Gastrointestinal: Present: normoactive bowel sounds, no tenderness Integumentary: Present: warm and dry Neurologic: Present: alert and oriented x3 Musculoskeletal: Present: no cyanosis Psychiatric: Present: mood/affect appropriate - Lab 05/27/16 06:09 05/28/16 05:54 Most recent lab results Calcium 8.7 mg/dL (8.6-10.8) 05/28/16 05:54 Phosphorus 5.0 mg/dL (2.3-4.7) H 05/23/16 02:50 Magnesium 1.9 mg/dL (1.6-2.6) 05/23/16 02:50 Urine Creatinine 53 mg/dL 05/24/16 01:20 Urine Sodium 31.0 mEq/L 05/24/16 01:20 Urine Total Protein < 7 mg/dL (1-14) 05/24/16 01:20 - VTE Documentation of Mechanical Device: Graduated compression elastic hosiery Consult Discharge Plan - Plan Instructions: Levofloxacin (By mouth), Chronic Obstructive Pulmonary Disease ( DC), Chronic Hypertension (DC) Referrals: Tre Mays MD [Partnered Physician] - 06/06/16 10:00 am (In one week) Dylan Alvarez MD [Primary Care Provider] - 05/31/16 9:30 am (Please follow up as schedule with Dr Driscoll...) Prescriptions: Levofloxacin [Levaquin] 750 mg PO Q48H #5 tablet
[2016-05-28] MEDS ORDERED: Furosemide 40 MG/4 ML VIAL IVP ONE (11:10)
[2016-05-28] MEDS ORDERED: Sodium Bicarbonate 150 MEQ in D5% in Water 1,000 ML IVC SCH (11:15)
--- NOTE | 2016-05-28 14:55 | Internal Med Progress Note ---
Date of Encounter: 05/28/16 Time of Encounter: 11:25 - Assessment and plan (1) Acute on chronic renal failure Current Visit: Yes Status: Acute Assessment and plan: Renal function remained stable. Nephrology following. Holding diuretics for now. (2) Anemia Current Visit: Yes Status: Acute Assessment and plan: Due to iron deficiency and chronic kidney disease. On iron supplementation therapy. Qualifiers: Anemia type: other cause Other causes of anemia: chronic disease, kidney Qualified Code(s): N18.9 - Chronic kidney disease, unspecified; D63.1 - Anemia in chronic kidney disease (3) CHF (congestive heart failure) Current Visit: Yes Status: Chronic Assessment and plan: Chronic. Continue home medications but holding diuretics. Qualifiers: Congestive heart failure type: diastolic Congestive heart failure chronicity: chronic Qualified Code(s): I50.32 - Chronic diastolic (congestive ) heart failure (4) DVT prophylaxis Current Visit: Yes Status: Acute (5) Hyponatremia Current Visit: Yes Status: Acute Assessment and plan: Patient's discharge was held yesterday due to persistent hyponatremia. This has improved. Sodium is 127. Nephrology recommends IV bicarbonate infusion today and reassessment tomorrow. (6) Accelerated hypertension Current Visit: Yes Status: Acute Assessment and plan: Blood pressure improved. Continue current antihypertensive regimen (7) Pneumonia Current Visit: Yes Status: Acute Qualifiers: Pneumonia type: due to unspecified organism Laterality: right Lung location: lower lobe of lung Qualified Code(s): J18.1 - Lobar pneumonia, unspecified organism - Subjective Interval history: Doing better today. Denies any new complaints at this time. Tolerating regular diet. Having good urine output. No nausea or vomiting. Patient's discharge was held yesterday due to persistent hyponatremia. - Constitutional Vitals: Temp Pulse Resp BP Pulse Ox 98.3 F 68 16 146/54 99 05/28/16 11:19 05/28/16 11:19 05/28/16 11:19 05/28/16 11:19 05/28/16 11:19 General appearance: Present: cooperative, A&O X 3, pleasant, answers questions appropriately Internal Medicine: Result - Labs CBC & Chem 7: 05/27/16 06:09 05/28/16 05:54 Labs: BMP 05/27/16 05/27/16 05/28/16 06:09 16:26 05:54 Sodium 126 L 125 L 127 L Potassium 4.6 H 5.0 H Chloride 98 101 Carbon Dioxide 21 18 L BUN 36 H 37 H Creatinine 1.49 H 1.62 H Glucose 137 H 145 H Calcium 8.6 8.7 - ABG Interpretation ABG results: PT/INR, D-dimer PT 13.8 Seconds (9.4-12.1) H 05/23/16 02:50 - VTE Documentation of Mechanical Device: Graduated compression elastic hosiery Consult Discharge Plan - Plan Instructions: Levofloxacin (By mouth), Chronic Obstructive Pulmonary Disease ( DC), Chronic Hypertension (DC) Referrals: Tre Mays MD [Partnered Physician] - 06/06/16 10:00 am (In one week) Dylan Alvaerz MD [Primary Care Provider] - 05/31/16 9:30 am (Please follow up as schedule with Dr Driscoll...) Prescriptions: Levofloxacin [Levaquin] 750 mg PO Q48H #5 tablet - Attending Attestation This document has been at least partially created by [employer] recognition technology by Dr. Ta. Errors in grammar, wording or other phrases may exist. If errors are found after the documentation is signed, they will be addressed individually in the addendum section of this document when appropriate.
[2016-05-28 18:37] LABS: Potassium,Urine 18.7 mEq/L
[2016-05-28] MEDS: Latanoprost 2.5 ML BOTTLE BOTH EYES SCH (22:38)
[2016-05-29 06:09] LABS: Basophils % 0.5 %; Eosinophils # 0.2 K/mcL (0.0-0.6); Eosinophils % 2.8 %; Hematocrit 21.6 % (35.3-44.9); Hemoglobin 7.7 g/dL (11.5-15.4); Immature Granulocytes % 0.5 % (0-4); Lymphocytes # 0.6 K/mcL (0.6-4.6); Lymphocytes % 10.9 %; Mean Corpuscular HGB Conc 35.6 g/dL (31.6-35.5); Mean Corpuscular Hemoglobin 31.2 pg (28.0-33.3); Mean Corpuscular Volume 87.4 fL (83.0-100.0); Mean Platelet Volume 10.8 fL (9.4-12.4); Monocytes # 0.5 K/mcL (0.0-1.3); Monocytes % 9.3 %; Neutrophils # 4.4 K/mcL (1.6-8.9); Platelet Count 151 K/mcL (140-400); Red Blood Count 2.47 M/mcL (3.82-4.97); Red Cell Distribution Width 14.5 % (11.5-14.5)
[2016-05-29 06:23] LABS: Calcium 8.7 mg/dL (8.6-10.8); Phosphorous 3.7 mg/dL (2.3-4.7); Potassium 4.4 mEq/L (3.5-4.5)
[2016-05-29] MEDS: *HR* Heparin 5,000 UNIT/ML VIAL SQ SCH ×2 (08:09→20:54)
[2016-05-29] MEDS: Iron Polysaccharide Complex 150 MG CAPSULE PO SCH (08:09)
[2016-05-29] MEDS: Folic Acid 1 MG TABLET PO SCH (08:10)
[2016-05-29] MEDS: Magnesium Oxide 400 MG TABLET PO SCH (08:10)
[2016-05-29] MEDS: amLODIPine 5 MG TABLET PO SCH (08:10)
[2016-05-29] MEDS: Insulin LISPRO 300 UNITS/3 ML VIAL SQ SCH ×4 (08:10→20:55)
[2016-05-29] MEDS ORDERED: levoFLOXacin 500 MG TABLET PO SCH (09:00)
--- NOTE | 2016-05-29 09:56 | Internal Med Progress Note ---
Date of Encounter: 05/29/16 Time of Encounter: 08:55 - Assessment and plan (1) Acute on chronic renal failure Current Visit: Yes Status: Acute Assessment and plan: Nephrology following. Renal function remained stable. Continue to hold diuretics. (2) Anemia Current Visit: Yes Status: Chronic Assessment and plan: Chronic and stable. Qualifiers: Anemia type: other cause Other causes of anemia: chronic disease, kidney Qualified Code(s): N18.9 - Chronic kidney disease, unspecified; D63.1 - Anemia in chronic kidney disease (3) CHF (congestive heart failure) Current Visit: Yes Status: Chronic Assessment and plan: Chronic. On Plavix, lisinopril, carvedilol. Qualifiers: Congestive heart failure type: diastolic Congestive heart failure chronicity: chronic Qualified Code(s): I50.32 - Chronic diastolic (congestive ) heart failure (4) DVT prophylaxis Current Visit: Yes Status: Acute (5) Hyponatremia Current Visit: Yes Status: Acute Assessment and plan: Improving. (6) Accelerated hypertension Current Visit: Yes Status: Acute Assessment and plan: On amlodipine, carvedilol and lisinopril. Blood pressure remains elevated but improving. We will continue to monitor. If persistently elevated today, will start oral hydralazine. (7) Pneumonia Current Visit: Yes Status: Acute Assessment and plan: Continue oral levofloxacin. Qualifiers: Pneumonia type: due to unspecified organism Laterality: right Lung location: lower lobe of lung Qualified Code(s): J18.1 - Lobar pneumonia, unspecified organism - Subjective Interval history: Continues to do well. No new complaints at this time. - Constitutional Vitals: Temp Pulse Resp BP Pulse Ox 97.6 F 69 18 164/87 98 05/29/16 07:08 05/29/16 07:08 05/29/16 07:08 05/29/16 07:08 05/29/16 07:08 General appearance: Present: cooperative, A&O X 3, pleasant, answers questions appropriately - Respiratory Respiratory exam: Present: CTAB. Absent: accessory muscle use, rales, rhonchi, wheezes - Cardiovascular Cardiovascular exam: Present: RRR, +S1, +S2. Absent: diastolic murmur, gallop, rubs, systolic murmur - GI/Abdominal GI/Abdominal exam: Present: normal bowel sounds, soft, no peritoneal signs. Absent: distended, tenderness - Extremities Exam Extremities exam: Present: warm, radial pulses palpable and symetrical. Absent : calf tenderness, cyanotic, pedal edema - Neurological Exam Neurological exam: Present: alert, no focal deficits. Absent: facial droop, speech deficit Internal Medicine: Result - Labs CBC & Chem 7: 05/29/16 05:28 05/29/16 05:28 Labs: Short CBC 05/29/16 Range/Units 05:28 WBC 5.8 (4.3-11.1) K/mcL Hgb 7.7 L (11.5-15.4) g/dL Hct 21.6 L (35.3-44.9) % Plt Count 151 (140-400) K/mcL Neutrophils # 4.4 (1.6-8.9) K/mcL BMP 05/29/16 05:28 Sodium 129 L Potassium 4.4 Chloride 97 L Carbon Dioxide 24 BUN 31 H Creatinine 1.48 H Glucose 158 H Calcium 8.7 - ABG Interpretation ABG results: PT/INR, D-dimer PT 13.8 Seconds (9.4-12.1) H 05/23/16 02:50 - VTE Documentation of Mechanical Device: Graduated compression elastic hosiery Consult Discharge Plan - Plan Instructions: Levofloxacin (By mouth), Chronic Obstructive Pulmonary Disease ( DC), Chronic Hypertension (DC) Referrals: Tre Mays MD [Partnered Physician] - 06/06/16 10:00 am (In one week) Dylan Alvarez MD [Primary Care Provider] - 05/31/16 9:30 am (Please follow up as schedule with Dr Driscoll...) Prescriptions: Levofloxacin [Levaquin] 750 mg PO Q48H #5 tablet - Attending Attestation This document has been at least partially created by [employer] recognition technology by Dr. Ta. Errors in grammar, wording or other phrases may exist. If errors are found after the documentation is signed, they will be addressed individually in the addendum section of this document when appropriate.
--- NOTE | 2016-05-29 10:44 | Nephrology Progress Note ---
Date of Encounter: 05/29/16 Time of Encounter: 10:42 - Assessment and Plan (1) Acute on chronic renal failure Current Visit: Yes Status: Acute Creatinine appears to be stable and approaching baseline. Continue with current management. Will monitor closely. (2) Hyponatremia Current Visit: Yes Status: Acute Etiology of her hyponatremia is unclear. Responded overnight to fluids and lasix. Hold discharge until sodium is above 130. Continue free water restriction. Currently was previously thought to be asymptomatic, but feels better as her sodium is improving. . (3) Hypoxemia Current Visit: Yes Status: Acute Wean supplemental oxygen to room air. Keep O2 saturation >92%. (4) Cramp in lower leg Current Visit: Yes Status: Acute will give a dose of magnesium. (5) Anemia Current Visit: Yes Status: Chronic Iron deficiency. Will give a dose of iron dextran for iron replacement. Continue iron replacement. Qualifiers: Anemia type: other cause Other causes of anemia: chronic disease, kidney Qualified Code(s): N18.9 - Chronic kidney disease, unspecified; D63.1 - Anemia in chronic kidney disease Subjective Principal diagnosis: TYSON hyponatremia Interval history: Patient seen and evaluated. Today she states she feels ok and claims to be feeling better. She reports that her breathing is stable/improved and she denies chest pain. ROS otherwise is stable. Objective - Vital Signs Vital signs: Vital Signs Temp Pulse Resp BP Pulse Ox 05/29/16 07:08 97.6 F 69 18 164/87 98 05/29/16 03:35 98.3 F 73 16 184/60 95 05/28/16 23:30 98.0 F 72 16 170/61 98 05/28/16 19:14 98.2 F 75 16 164/68 97 05/28/16 16:05 97.7 F 70 171/62 99 05/28/16 16:00 97.7 F 75 18 171/62 98 05/28/16 11:19 98.3 F 68 16 146/54 99 Intake and Output 05/28/16 05/29/16 05/29/16 23:59 07:59 15:59 Intake Total 480 / 480 120 / 120 240 / 240 Output Total 0 / 0 Balance 480 / 480 120 / 120 240 / 240 Intake: Oral 480 / 480 120 / 120 240 / 240 Output: Urine 0 / 0 Other: Meal Dinner Breakfast Percent of Meal Consumed 80% 100% Stool Size Large Moderate Stool Consistency formed formed Stool Color Black Green Black # Voids 1 1 # Bowel Movements 1 1 Weight 73.663 kg Blood Glucose* 168 197 Patient Weight 05/29/16 23:59 Weight 73.663 kg - General Appearance General appearance: Present: well-developed, well-nourished EENT: Present: ATNC Neck: Present: supple Respiratory: Present: clear Cardiology: Present: edema, regular rate, regular rhythm Gastrointestinal: Present: normoactive bowel sounds, no tenderness Integumentary: Present: warm and dry Neurologic: Present: alert and oriented x3 Musculoskeletal: Present: no cyanosis Psychiatric: Present: mood/affect appropriate, cooperative - Lab 05/29/16 05:28 05/29/16 05:28 Most recent lab results Calcium 8.7 mg/dL (8.6-10.8) 05/29/16 05:28 Phosphorus 3.7 mg/dL (2.3-4.7) 05/29/16 05:28 Magnesium 2.0 mg/dL (1.6-2.6) 05/29/16 05:28 Urine Creatinine 30 mg/dL 05/28/16 18:15 Urine Sodium 56.0 mEq/L 05/28/16 18:15 Urine Total Protein < 7 mg/dL (1-14) 05/24/16 01:20 - VTE Documentation of Mechanical Device: Graduated compression elastic hosiery Consult Discharge Plan - Plan Instructions: Levofloxacin (By mouth), Chronic Obstructive Pulmonary Disease ( DC), Chronic Hypertension (DC) Referrals: Tre Mays MD [Partnered Physician] - 06/06/16 10:00 am (In one week) Dylan lAvarez MD [Primary Care Provider] - 05/31/16 9:30 am (Please follow up as schedule with Dr Driscoll...) Prescriptions: Levofloxacin [Levaquin] 750 mg PO Q48H #5 tablet
[2016-05-29] MEDS ORDERED: Magnesium Sulfate 1 GM in D5% in Water 100 ML IVPB ONE (10:46)
[2016-05-29] MEDS ORDERED: Iron Dextran Complex 1,000 MG in 0.9 % Sodium Chloride 500 ML IVPB ONE (12:00)
[2016-05-29] MEDS: Latanoprost 2.5 ML BOTTLE BOTH EYES SCH (20:57)
[2016-05-30 05:32] LABS: Calcium 9.2 mg/dL (8.6-10.8); Potassium 4.6 mEq/L (3.5-4.5)
[2016-05-30] MEDS: Magnesium Oxide 400 MG TABLET PO SCH (08:00)
[2016-05-30] MEDS: amLODIPine 5 MG TABLET PO SCH (08:00)
[2016-05-30] MEDS: Iron Polysaccharide Complex 150 MG CAPSULE PO SCH (08:00)
[2016-05-30] MEDS: *HR* Heparin 5,000 UNIT/ML VIAL SQ SCH (08:01)
[2016-05-30] MEDS: Folic Acid 1 MG TABLET PO SCH (08:01)
[2016-05-30] MEDS: Insulin LISPRO 300 UNITS/3 ML VIAL SQ SCH ×2 (08:01→11:45)
[2016-05-30 11:07] VITALS: BP 169/64
--- NOTE | 2016-05-30 16:22 | Internal Med Progress Note ---
Date of Encounter: 05/30/16 Time of Encounter: 09:30 - Assessment and plan (1) Acute on chronic renal failure Status: Acute Assessment and plan: Renal function is stabilized. Creatinine 1.41 today. Patient will be discharged to assisted facility today. (2) Anemia Status: Chronic Assessment and plan: Stable hemoglobin levels. Continue iron replacement therapy and folic acid. Qualifiers: Anemia type: other cause Other causes of anemia: chronic disease, kidney Qualified Code(s): N18.9 - Chronic kidney disease, unspecified; D63.1 - Anemia in chronic kidney disease (3) CHF (congestive heart failure) Status: Chronic Assessment and plan: Chronic. On statin beta isaias and Zestril. Qualifiers: Congestive heart failure type: diastolic Congestive heart failure chronicity: chronic Qualified Code(s): I50.32 - Chronic diastolic (congestive ) heart failure (4) DVT prophylaxis Status: Acute (5) Hyponatremia Status: Acute Assessment and plan: Improved. Continue fluid restriction. (6) Accelerated hypertension Status: Acute Assessment and plan: Blood pressure mostly controlled but intermittently elevated. On carvedilol, amlodipine and Zestril. She can follow up further with her physician at the [facility] for further management (7) Pneumonia Status: Acute Assessment and plan: Complete treatment course with levofloxacin Qualifiers: Pneumonia type: due to unspecified organism Laterality: right Lung location: lower lobe of lung Qualified Code(s): J18.1 - Lobar pneumonia, unspecified organism - Subjective Interval history: Patient is awake and alert and sitting up in chair. Denies any complaints at this time. - Constitutional Vitals: Temp Pulse Resp BP Pulse Ox 97.9 F 70 16 169/64 96 05/30/16 11:06 05/30/16 11:06 05/30/16 14:03 05/30/16 11:06 05/30/16 14:03 General appearance: Present: cooperative, A&O X 3, pleasant, answers questions appropriately - Respiratory Respiratory exam: Present: CTAB. Absent: accessory muscle use, rales, rhonchi, wheezes - Cardiovascular Cardiovascular exam: Present: RRR, +S1, +S2. Absent: diastolic murmur, gallop, rubs, systolic murmur - GI/Abdominal GI/Abdominal exam: Present: normal bowel sounds, soft, no peritoneal signs. Absent: distended, tenderness - Extremities Exam Extremities exam: Present: warm, radial pulses palpable and symetrical. Absent : calf tenderness, cyanotic, pedal edema Internal Medicine: Result - Labs CBC & Chem 7: 05/29/16 05:28 05/30/16 04:44 Labs: BMP 05/30/16 04:44 Sodium 132 L Potassium 4.6 H Chloride 101 Carbon Dioxide 25 BUN 27 H Creatinine 1.41 H Glucose 145 H Calcium 9.2 - ABG Interpretation ABG results: PT/INR, D-dimer PT 13.8 Seconds (9.4-12.1) H 05/23/16 02:50 - VTE Documentation of Mechanical Device: Graduated compression elastic hosiery Consult Discharge Plan - Plan Instructions: Levofloxacin (By mouth), Chronic Obstructive Pulmonary Disease ( DC), Chronic Hypertension (DC) Referrals: Tre Mays MD [Partnered Physician] - 06/06/16 10:00 am (In one week) Dylan Alvarez MD [Primary Care Provider] - 05/31/16 9:30 am (Please follow up as schedule with Dr Driscoll...) Prescriptions: RX: Levofloxacin [Levaquin] 750 mg PO Q48H #5 tablet - Attending Attestation This document has been at least partially created by [employer] recognition technology by Dr. Ta. Errors in grammar, wording or other phrases may exist. If errors are found after the documentation is signed, they will be addressed individually in the addendum section of this document when appropriate.
== END 2016-05-30 15:00 | DRG 682 ==
LOC: 2ANU 13:11 → EMEROO 13:11 → SUATTDRO 17:02 → 2ANU 17:55
PROVIDERS: ADMIT Internal Medicine; ATTEND Internal Medicine

== ENCOUNTER 2017-04-04 15:43 | Inpatient (IN) ==
[2017-04-04] MEDS ORDERED: Ipratropium/Albuterol Neb 3 ML IH ONE (16:42)
--- NOTE | 2017-04-04 16:42 | Emergency Department Note ---
Disposition Clinical Impression: Congestive heart failure Qualifiers: Congestive heart failure type: unspecified congestive heart failure type Congestive heart failure chronicity: acute Qualified Code(s): I50.9 - Heart failure, unspecified Disposition: Admitted As Inpatient Condition: Good Referrals: Dylan Alvarez MD [Primary Care Provider] - Forms: ED Satisfaction Letter Time of Disposition: 18:05 SOB HPI - General Chief Complaint: ED Shortness of Breath/Dyspnea Stated Complaint: MARCELO,CHF,Vomiting,Diahrrea Time Seen by Provider: 04/04/17 16:37 Source: patient Mode of arrival: wheelchair Limitations: no limitations Nursing Notes Reviewed: Yes Vital Signs Reviewed: Yes - History of Present Illness 71-year-old with a history of coronary and pulmonary disease who comes in complaining of shortness of breath. She has a congested cough. Was 86% on room air. She is not O2 dependent at home you normally. Pt Subjective Complaint: shortness of breath, cough Onset (ago): day(s) Context: recent illness Severity: moderate Consistency/Duration: constant Improves with: nothing Worsens with: exertion Known history of: COPD (Questionable she smoked from age 40 until about 6 months ago.) Associated symptoms: Reports: cough, wheezing Treatment prior to arrival: none Cough present: Yes Cough Description: Involuntary Cough Frequency: Intermittent Sputum production: Yes - Related Data Home Medications Medication Instructions Recorded Confirmed Amlodipine [Norvasc] 10 mg PO DAILY 12/27/14 04/04/17 Clopidogrel [Plavix] 75 mg PO DAILY 12/27/14 04/04/17 Doxazosin [Cardura] 4 mg PO HS 12/27/14 04/04/17 Atorvastatin [Lipitor] 40 mg PO HS 09/23/15 04/04/17 Sitagliptin Phosphate [Januvia] 50 mg PO DAILY 09/23/15 04/04/17 Iron Polysaccharide Complex 150 mg PO DAILY 05/22/16 04/04/17 [Ferrex 150] Latanoprost [Xalatan] 1 drop BOTH EYES HS 05/23/16 04/04/17 Carvedilol [Coreg] 6.25 mg PO BIDWM 04/04/17 04/04/17 Furosemide [Lasix] 20 mg PO BID 04/04/17 04/04/17 Lisinopril [Zestril] 5 mg PO DAILY 04/04/17 04/04/17 Allergies Allergy/AdvReac Type Severity Reaction Status Date / Time codeine AdvReac Hallucinati Verified 05/24/16 11:17 ng All systems ED: reviewed and negative except as stated. Constitutional: Denies: fever, chills, weakness, weight change Eyes: Denies: eye pain, eye discharge, vision change ENT ED: Reports: congestion. Denies: ear pain, throat pain, dental pain, hearing loss, epistaxis, dysphagia Cardiovascular: Denies: chest pain, palpitations, dyspnea on exertion, edema, syncope Respiratory: Reports: cough, dyspnea, wheezes. Denies: hemoptysis, stridor Gastrointestinal: Denies: abdominal pain, nausea, vomiting, diarrhea, constipation, hematemesis, melena, hematochezia Genitourinary: Denies: dysuria, frequency, hematuria, discharge Musculoskeletal: Denies: back pain, neck pain, arthralgia, myalgia Integumentary: Denies: rash, abrasion, lesions Neurological: Denies: headache, weakness, numbness, paresthesias, confusion, abnormal gait, vertigo Psychiatric: Denies: anxiety, depression, suicidal thoughts, homicidal thoughts , auditory hallucinations, visual hallucinations Endocrine: Denies: fatigue Hematological/Lymphatic: Denies: easy bleeding, easy bruising Allergic/Immunologic: Denies: facial swelling, urticaria Past Medical History - Past Medical History Medical history: Reports: cancer, cardiomyopathy, CHF, coronary artery disease, CVA, diabetes, hyperlipidemia, hypertension, peripheral artery disease, other Surgical history: Reports: coronary bypass (CABG), ureteral stent Psychiatric history: Reports: no psych history DRY KILN BURNER history: Reports: no DRY KILN BURNER history, 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 - Social History Smoking Status: Former smoker Smokeless Tobacco Status: No Alcohol use: Reports: none Drug use: Reports: none Physical Exam - General Limitations: no limitations General appearance: alert, in no apparent distress - Head Head exam: atraumatic, normocephalic, normal inspection - Eye Eye exam: Present: normal appearance, PERRL, EOMI - ENT ENT exam: normal exam - Neck Neck exam: Present: normal inspection, full ROM, trachea midline - Chest Chest inspection: Present: normal inspection, symmetric chest wall rise - Respiratory Respiratory exam: Present: wheezes, accessory muscle use, prolonged expiratory phase - Cardiovascular Cardiovascular exam: Present: regular rate, normal rhythm, normal heart sounds - Abdominal Exam Abdominal exam: Present: soft, Non-Tender. Absent: tenderness, distention, guarding, rebound, rigidity - Extremities Exam Extremities exam: Present: normal inspection, full ROM. Absent: tenderness, pedal edema - Expanded Lower Extremity Exam Neurovascular/Tendon exam: Absent: motor deficit, sensory deficit, tendon deficit Gait: observed and normal - Back Exam Back exam: Present: normal inspection, full ROM. Absent: tenderness - Neurological Exam Neurological exam: Present: alert, oriented X3 - Psychiatric Psychiatric exam: Present: normal affect, normal mood - Skin Skin exam: Present: warm, dry, intact, normal color Course - Reevaluation(s) Reevaluation #1: 71-year-old female comes in with cough congestion history CHF. Pulse ox was 86% on room air. Chest x-ray is consistent with CHF with an elevated BNP of 1000+. She will be admitted for further evaluation and treatment. Time: 18:05 - Consultations Consultation #1: Discussed with Dr. Ceballos, admit. Time: 18:09 Vital Signs Temperature 98.3 F 04/04/17 15:45 Pulse Rate 80 04/04/17 15:45 Respiratory Rate 22 04/04/17 15:45 Blood Pressure 127/63 04/04/17 15:45 O2 Sat by Pulse Oximetry 88 04/04/17 15:45 Temperature 98.3 F 04/04/17 15:45 Pulse Rate 80 04/04/17 15:45 Respiratory Rate 18 04/04/17 16:57 Blood Pressure 127/63 04/04/17 15:45 O2 Sat by Pulse Oximetry 96 04/04/17 16:57 Oxygen Delivery Oxygen Delivery Room Air Shortness of Breath/Dyspnea - Lab Data Lab results reviewed: Yes I reviewed the patient's lab results. Result diagrams: 04/04/17 16:36 04/04/17 16:36 Lab Results 04/04/17 04/04/17 04/04/17 Range/Units 16:36 16:36 16:36 WBC 9.9 (4.3-11.1) K/mcL RBC 2.89 L (3.82-4.97) M/mcL Hgb 8.7 L (11.5-15.4) g/dL Hct 24.6 L (35.3-44.9) % MCV 85.1 (83.0-100.0) fL MCH 30.1 (28.0-33.3) pg MCHC 35.4 (31.6-35.5) g/dL RDW 13.8 (11.5-14.5) % Plt Count 146 (140-400) K/mcL MPV 10.9 (9.4-12.4) fL Immature Gran % 0.6 (0-4) % Seg Neutrophils % 87.5 % Lymphocytes % 4.0 % Monocytes % 6.2 % Eosinophils % 1.2 % Basophils % 0.5 % Neutrophils # 8.7 (1.6-8.9) K/mcL Lymphocytes # 0.4 L (0.6-4.6) K/mcL Monocytes # 0.6 (0.0-1.3) K/mcL Eosinophils # 0.1 (0.0-0.6) K/mcL Basophils # 0.1 (0.0-0.2) K/mcL Sodium 126 L (136-145) mEq/L Potassium 4.0 (3.5-5.1) mEq/L Chloride 96 L (98-107) mEq/L Carbon Dioxide 22 L (23-29) mEq/L BUN 25 H (8-23) mg/dL Creatinine 1.34 H (0.60-1.20) mg/dL Est GFR ( Amer) 47 L (> 60) Est GFR (Non-Af Amer) 39 L (> 60) BUN/Creatinine Ratio 19 (6-26) Glucose 197 H (70-105) mg/dL Calculated Osmolality 272 L (280-300) Lactic Acid 0.5 (0.5-2.2) mmol/L Calcium 8.9 (8.6-10.3) mg/dL Troponin I (< 0.04) ng/mL B-Natriuretic Peptide (Less than 100) pg/mL 04/04/17 04/04/17 Range/Units 16:36 16:36 WBC (4.3-11.1) K/mcL RBC (3.82-4.97) M/mcL Hgb (11.5-15.4) g/dL Hct (35.3-44.9) % MCV (83.0-100.0) fL MCH (28.0-33.3) pg MCHC (31.6-35.5) g/dL RDW (11.5-14.5) % Plt Count (140-400) K/mcL MPV (9.4-12.4) fL Immature Gran % (0-4) % Seg Neutrophils % % Lymphocytes % % Monocytes % % Eosinophils % % Basophils % % Neutrophils # (1.6-8.9) K/mcL Lymphocytes # (0.6-4.6) K/mcL Monocytes # (0.0-1.3) K/mcL Eosinophils # (0.0-0.6) K/mcL Basophils # (0.0-0.2) K/mcL Sodium (136-145) mEq/L Potassium (3.5-5.1) mEq/L Chloride (98-107) mEq/L Carbon Dioxide (23-29) mEq/L BUN (8-23) mg/dL Creatinine (0.60-1.20) mg/dL Est GFR ( Amer) (> 60) Est GFR (Non-Af Amer) (> 60) BUN/Creatinine Ratio (6-26) Glucose (70-105) mg/dL Calculated Osmolality (280-300) Lactic Acid (0.5-2.2) mmol/L Calcium (8.6-10.3) mg/dL Troponin I 0.03 (< 0.04) ng/mL B-Natriuretic Peptide 1094 H (Less than 100) pg/mL - Radiology Data Radiology results reviewed: Yes I reviewed the patient's radiology results. Chest X-Ray 04/04/17 16:19 IMPRESSION: Mild congestive heart failure versus developing right lower lobe pneumonia D/ / Dinh Fields MD / Dinh Fields MD Interpreting Provider: Dinh Fields MD - EKG Data EKG attestation: Yes I reviewed and interpreted this EKG. EKG shows normal: Reports: sinus rhythm Rate: Reports: normal Rhythm: Reports: NSR When compared to previous EKG there are: no significant changes (05/22/2016) Interpretation: Reports: no acute changes
[2017-04-04 16:49] LABS: Basophils # 0.1 K/mcL (0.0-0.2); Basophils % 0.5 %; Eosinophils # 0.1 K/mcL (0.0-0.6); Eosinophils % 1.2 %; Hematocrit 24.6 % (35.3-44.9); Hemoglobin 8.7 g/dL (11.5-15.4); Immature Granulocytes % 0.6 % (0-4); Lymphocytes # 0.4 K/mcL (0.6-4.6); Mean Corpuscular HGB Conc 35.4 g/dL (31.6-35.5); Mean Corpuscular Hemoglobin 30.1 pg (28.0-33.3); Mean Corpuscular Volume 85.1 fL (83.0-100.0); Mean Platelet Volume 10.9 fL (9.4-12.4); Monocytes # 0.6 K/mcL (0.0-1.3); Monocytes % 6.2 %; Neutrophils # 8.7 K/mcL (1.6-8.9); Platelet Count 146 K/mcL (140-400); Red Blood Count 2.89 M/mcL (3.82-4.97); Red Cell Distribution Width 13.8 % (11.5-14.5); Segmented Neutrophils % 87.5 %
[2017-04-04 17:03] LABS: Calcium 8.9 mg/dL (8.6-10.3)
[2017-04-04] MEDS ORDERED: Furosemide 40 MG/4 ML VIAL IVP ONE (17:53)
--- NOTE | 2017-04-04 21:19 | Internal Med History&Physical ---
Date of Encounter: 04/04/17 Time of Encounter: 21:11 Assessment and Plan (1) Congestive heart failure Current visit: No Status: Acute CHF - NYHA stage II to III, well managed by cardiology with ACEI, BB, and diuretics. - likely exacerbated by recent URI. - Mild congestion on PE and CXR. BNP at baseline. - Continue BB and increase ACEI dose due to HTN. - Change po lasix to IV to improve diuresis. - Low Na diet and fluid restriction, daily weight. - Cardio consult. Qualifiers: Congestive heart failure type: diastolic Congestive heart failure chronicity: acute on chronic Qualified Code(s): I50.33 - Acute on chronic diastolic (congestive) heart failure (2) Pneumonia Current visit: No Status: Acute PNA - possible CAP, right LL consolidation on CXR. - start abx. pending cx. Qualifiers: Pneumonia type: due to unspecified organism Laterality: right Lung location: lower lobe of lung Qualified Code(s): J18.1 - Lobar pneumonia, unspecified organism (3) Diabetes mellitus type II, uncontrolled Current visit: No Status: Chronic DM - continue home meds and add insulin SS. - pending HgbA1c. Qualifiers: Diabetes mellitus complication status: with neurologic complications Diabetes mellitus complication detail: with unspecified neuropathy Diabetes mellitus shelter insulin use: without supervisor insecticide use Qualified Code(s): E11.40 - Type 2 diabetes mellitus with diabetic neuropathy, unspecified; E11.65 - Type 2 diabetes mellitus with hyperglycemia; E11.65 - Type 2 diabetes mellitus with hyperglycemia; E11.65 - Type 2 diabetes mellitus with hyperglycemia; E11.65 - Type 2 diabetes mellitus with hyperglycemia (4) Hypertension Current visit: No Status: Chronic HTN - BP alevated and adjusted ACEI dose. will monitor. Qualifiers: Hypertension type: essential hypertension Qualified Code(s): I10 - Essential (primary) hypertension (5) Normocytic anemia Current visit: No Status: Chronic stable (6) CKD (chronic kidney disease) stage 3, GFR 30-59 ml/min Current visit: No Status: Chronic stable and Cr at baseline. (7) CAD (coronary artery disease) Current visit: No Status: Chronic CAD s/p CABG - No chest pain. - troponin negative, EKG normal. - continue BB, Plavix, and ACEI. Qualifiers: Coronary Disease-Associated Artery/Lesion type: [place] artery [place] vs. transplanted heart: [place] heart Associated angina: without angina Qualified Code(s): I25.10 - Atherosclerotic heart disease of [place] coronary artery without angina pectoris Internal Medicine - H&P: HPI Admitted From: Emergency Dept Plans for Post Hospital Care: Home History of present illness: Ms. Prather is a 71 year old female with past medical history significant for CAD status post CABG, hypertension, diabetes, hyperlipidemia, congestive heart failure who presented to the ED with cough and shortness of breath for 5 days. She has history of CHF and she regularly follows up with her core maker helper. She is currently CHF NYHA stage II to III and was managed with medication. She said she regularly weighed herself at home and she is compliant with diet. About 5 days ago she developed fever, cough, and shortness of breath. She stated her son was sick also. she denies chest pain, palpitation, dizziness. In the beginning she was coughing up this white mucus but become dry these two days. She denies any leg edema or congestion. At the ED she was noticed to have high blood pressure with systolic blood pressure about 180. She received Lasix IV and breathing treatment which she states have relieved her symptoms. Lab results is significant for leukocytosis and elevated BNP. EKG was normal. An chest x-ray revealed mild congestion with left lower lobe consolidation. She was admitted for CHF exacerbation and possible pneumonia. Past Med Surg Social Fam HX - Past Medical History Medical history: cancer, cardiomyopathy, CHF, coronary artery disease, CVA, diabetes, hyperlipidemia, hypertension, peripheral artery disease, other Psychiatric history: no psych history - Past Surgical History Surgical History: coronary bypass (CABG), ureteral stent - Social History Smoking Status: Former smoker Smokeless Tobacco Status: No Alcohol use: none Drug use: none - Family History Father Adopted: No Living Status: Hx Family Cardiac Disorders: Yes (SISTER AND MOTHER FROM CARDIAC) Hx Family Respiratory Disorders: No Hx Family Cancer: Yes (FATHER) Hx Family GI Disorders: No Hx Family Endocrine Disorder: Yes Hx Family Neuromuscular Disorders: No Hx Family Neurologic Disorders: No Hx Family HEENT Disorders: No Hx Family Autoimmune Disorders: No Internal Medicine - H&P: Meds Amlodipine [Norvasc] 10 mg PO DAILY 12/27/14 [History] Clopidogrel [Plavix] 75 mg PO DAILY 12/27/14 [History] Doxazosin [Cardura] 4 mg PO HS 12/27/14 [History] Atorvastatin [Lipitor] 40 mg PO HS 09/23/15 [History] Sitagliptin Phosphate [Januvia] 50 mg PO DAILY 09/23/15 [History] Iron Polysaccharide Complex [Ferrex 150] 150 mg PO DAILY 05/22/16 [History] Latanoprost [Xalatan] 1 drop BOTH EYES HS 05/23/16 [History] Carvedilol [Coreg] 6.25 mg PO BIDWM 04/04/17 [History] Furosemide [Lasix] 20 mg PO BID 04/04/17 [History] Lisinopril [Zestril] 5 mg PO DAILY 04/04/17 [History] 3 Allergy/AdvReac Type Severity Reaction Status Date / Time codeine AdvReac Hallucinati Verified 05/24/16 11:17 ng All Systems PM: A 10-system review of systems was performed and is negative for pertinent findings except as documented above in the HPI. Review of systems: REVIEW OF SYSTEMS: CONSTITUTIONAL: No weight loss, and chills. HEENT: Eyes: No visual loss, blurred vision, double vision or yellow sclerae. Ears, Nose, Throat: No hearing loss, sneezing, congestion, runny nose or sore throat. SKIN: No rash or itching. CARDIOVASCULAR: No chest pain, chest pressure or chest discomfort. No palpitations or edema. RESPIRATORY: No shortness of breath, cough or sputum. GASTROINTESTINAL: No anorexia, nausea, vomiting or diarrhea. No abdominal pain or blood. GENITOURINARY: No dysuria, urgency, or frequency. NEUROLOGICAL: No headache, dizziness, syncope, paralysis, ataxia, numbness or tingling in the extremities. No change in bowel or bladder control. MUSCULOSKELETAL: No muscle, back pain, joint pain or stiffness. HEMATOLOGIC: No anemia, bleeding or bruising. LYMPHATICS: No enlarged nodes. No history of splenectomy. PSYCHIATRIC: No history of depression or anxiety. ENDOCRINOLOGIC: No reports of sweating, cold or heat intolerance. No polyuria or polydipsia. - Constitutional Vitals: Temp Pulse Resp BP Pulse Ox 98.1 F 82 18 185/68 92 04/04/17 20:26 04/04/17 20:26 04/04/17 20:26 04/04/17 20:26 04/04/17 20:26 Exam: PHYSICAL EXAMINATION: GENERAL APPEARANCE: The patient is alert, oriented and in mild acute distress. HEENT: Head is normocephalic. The sinuses are nontender. Pupils are equal and reactive. The nares are patent. Oropharynx clear without lesions. NECK: Supple without lymphadenopathy. HEART: Regular rate and rhythm. LUNGS: scattered crackles and rhonchi bilaterally. ABDOMEN: Soft, nontender, nondistended with good bowel sounds heard. Inguinal area is normal. EXTREMITIES: Without cyanosis, clubbing. Mild edema. NEUROLOGICAL: Gross nonfocal. SKIN: Warm and dry without any rash. Internal Med - H&P Results - Labs CBC & Chem 7: 04/04/17 16:36 04/04/17 16:36
[2017-04-04] MEDS ORDERED: Dextrose Gel 15 GM/37.5 ML TUBE PO PRN ×2 (21:37)
[2017-04-04] MEDS ORDERED: D5% in Water 1,000 ML IVC PRN (21:37)
[2017-04-04] MEDS ORDERED: *HR* Dextrose 50 % in Water (Syg) 50 ML SYRINGE IVP PRN (21:37)
[2017-04-04] MEDS ORDERED: Azithromycin 500 MG in D5% in Water 250 ML IVPB SCH (22:00)
[2017-04-04] MEDS: Iron Polysaccharide Complex 150 MG CAPSULE PO SCH (22:34)
[2017-04-04] MEDS: amLODIPine 5 MG TABLET PO SCH (22:35)
[2017-04-04] MEDS: Furosemide 40 MG/4 ML VIAL IVP SCH (22:35)
[2017-04-04] MEDS: Azithromycin 500 MG in D5% in Water 250 ML IVPB SCH (22:35)
[2017-04-04] MEDS: Albuterol 2.5 MG/3 ML NEBULIZER IH SCH (23:17)
[2017-04-04] MEDS: *HR* SitaGLIPtin 25 MG TABLET PO SCH (23:49)
[2017-04-04] MEDS: Latanoprost 2.5 ML BOTTLE BOTH EYES SCH (23:49)
[2017-04-04] MEDS: cefTRIAXone 1,000 MG in Water for inj. (sterile) 10 ML IVP SCH (23:55)
[2017-04-05] MEDS: Albuterol 2.5 MG/3 ML NEBULIZER IH SCH ×6 (04:10→23:09)
[2017-04-05 04:30] LABS: Adenovirus Not Detected (Not Detect); Coronavirus 229E Not Detected (Not Detect); Coronavirus HKU1 Not Detected (Not Detect); Coronavirus NL63 Not Detected (Not Detect); Coronavirus OC43 Not Detected (Not Detect); Human Metapneumovirus Not Detected (Not Detect); Human Rhinovirus/Enterovirus Not Detected (Not Detect); Influenza A Subtype 2009 H1 Not Detected (Not Detect); Influenza A Untypeable Not Detected (Not Detect); Influenza B Not Detected (Not Detect); Parainfluenza Virus 1 Not Detected (Not Detect); Parainfluenza Virus 2 Not Detected (Not Detect); Parainfluenza Virus 3 Not Detected (Not Detect); Parainfluenza Virus 4 Not Detected (Not Detect)
[2017-04-05 04:31] LABS: Bordetella Pertussis Not Detected (Not Detect); Chlamydophila pneumoniae Not Detected (Not Detect); Mycoplasma pneumoniae Not Detected (Not Detect); Respiratory Syncytial Virus ***DETECTED*** (Not Detect)
[2017-04-05] MEDS: *HR* Heparin 5,000 UNIT/ML VIAL SQ SCH ×2 (05:34→17:07)
[2017-04-05 05:44] LABS: Basophils # 0.1 K/mcL (0.0-0.2); Basophils % 0.5 %; Eosinophils % 0.4 %; Hematocrit 24.2 % (35.3-44.9); Hemoglobin 8.5 g/dL (11.5-15.4); Immature Granulocytes % 0.4 % (0-4); Lymphocytes # 0.4 K/mcL (0.6-4.6); Mean Corpuscular HGB Conc 35.1 g/dL (31.6-35.5); Mean Corpuscular Volume 85.5 fL (83.0-100.0); Mean Platelet Volume 10.7 fL (9.4-12.4); Monocytes # 0.7 K/mcL (0.0-1.3); Monocytes % 7.6 %; Neutrophils # 8.2 K/mcL (1.6-8.9); Platelet Count 148 K/mcL (140-400); Red Blood Count 2.83 M/mcL (3.82-4.97); Red Cell Distribution Width 13.9 % (11.5-14.5); Segmented Neutrophils % 87.1 %
[2017-04-05 05:56] LABS: Hemoglobin A1C 6.2 %
[2017-04-05 05:59] LABS: Calcium 8.9 mg/dL (8.6-10.3); Potassium 3.9 mEq/L (3.5-5.1)
[2017-04-05] MEDS: Insulin LISPRO 300 UNITS/3 ML VIAL SQ SCH ×4 (09:24→23:41)
[2017-04-05] MEDS: *HR* SitaGLIPtin 25 MG TABLET PO SCH (09:25)
[2017-04-05] MEDS: amLODIPine 5 MG TABLET PO SCH (09:25)
[2017-04-05] MEDS: Iron Polysaccharide Complex 150 MG CAPSULE PO SCH (09:25)
[2017-04-05] MEDS: Furosemide 40 MG/4 ML VIAL IVP SCH (09:25)
--- NOTE | 2017-04-05 10:33 | Cardiology Consult Note ---
Addendum entered and electronically signed by Mychal Escalante CNP 04/05/17 12:00 : EKG now scanned into [employer]. EKG shows SR with non-specific EKG changes unchanged from 05/2016. Original Note: <Mychal Escalante - Last Filed: 04/05/17 11:59> Date of Encounter: 04/05/17 Time of Encounter: 10:33 Assessment and Plan (1) Acute congestive heart failure Current Visit: No Status: Acute Acute on chronic diastolic CHF. BNP 1232. CXR shows CHF and RLL PNA. TTE 05/2016- EF 65%. Moderate LVH, mild MR, moderate diastolic dysfunction. Repeat limited TTE. Agree with IV lasix. Symptoms improving. No I&O recorded. Recommend strict I&O and daily weights. Low sodium diet reviewed with patient. Qualifiers: Congestive heart failure type: unspecified congestive heart failure type Qualified Code(s): I50.9 - Heart failure, unspecified (2) CAD (coronary artery disease) Current Visit: Yes Status: Chronic H/o 3V CABG in 2006, s/p PCI in 2009. Continue asa, statin, and bb. Check EKG. Troponin negative. Qualifiers: Coronary Disease-Associated Artery/Lesion type: [place] artery [place] vs. transplanted heart: [place] heart Associated angina: without angina Qualified Code(s): I25.10 - Atherosclerotic heart disease of [place] coronary artery without angina pectoris Discussion w patient/family: The assessment and plan as outlined above was discussed with the patient and/or family members who expressed understanding and agreement. All questions were answered. Thank you for involving us in the care of your patient. Please call with any questions. History of Present Illness Consult date: 04/05/17 Consult reason: CHF Chief complaint: SOB, cough for one week History of present illness: Ms. Prather is a 71 year old female with a history of 3V CABG in 2006, previous cardiac stent, PVD, HTN, and HLD. She presents with the c/o SOB and cough for one week. Admits to BLE edema that is now resolved. Admits to subjective fever and chills. She is found to have acute on chronic diastolic CHF and RLL pneumonia on CXR. Cardiology consulted for CHF. SHe is currently receiving 40 mg IV lasix. Reports SOB and BLE edema improved. Denies chest pain or palpitations. Denies othopnea or PND. Denies dietary indiscretion. previous cardiac testing: Echocardiogram September 2015: Normal LV systolic function, LVEF 65%. Mild-moderate concentric left ventricular hypertrophy. Moderate left ventricular diastolic dysfunction. Normal right ventricular structure and function. Mild mitral regurgitation. Mild tricuspid regurgitation. Mild-moderate pulmonary hypertension. Estimated RVSP is 48-50 mmHg. Carotid duplex 11/02/15: The right internal carotid artery is occluded. The left internal carotid artery has a 60-79% stenosis Stress test 01/29/15: Pharmacologic stress ECG is non diagnostic for ischemia due to baseline ST-T wave abnormalities. The left ventricle is mildly dilated. Gated LVEF = 51%. Perfusion imaging was negative for ischemia or infarct. Cardiac catheterization Jul 2009: EF 65% L main mild disease LAD 95% mid diag 1 90%- PCI 3.0 x 18mm Promus prox Cx 100% RCA 80% prox, 50-60% mid JEFF to LAD patent SVG to OM1 patent SVG to distal RCA patent. Past Med Surg Social Fam HX - Past Medical History Attestation: Yes The following information was validated with the patient. Medical history: cancer, cardiomyopathy, CHF, coronary artery disease, CVA, diabetes, hyperlipidemia, hypertension, peripheral artery disease, other Psychiatric history: no psych history - Past Surgical History Surgical History: coronary bypass (CABG), ureteral stent - Social History Smoking Status: Former smoker Smokeless Tobacco Status: No Alcohol use: none Drug use: none - Family History Father Adopted: No Living Status: Hx Family Cardiac Disorders: Yes (SISTER AND MOTHER FROM CARDIAC) Hx Family Respiratory Disorders: No Hx Family Cancer: Yes Hx Family GI Disorders: No Hx Family Endocrine Disorder: Yes Hx Family Neuromuscular Disorders: No Hx Family Neurologic Disorders: No Hx Family HEENT Disorders: No Hx Family Autoimmune Disorders: No Mother Hx Family Cardiac Disorders: Yes Medications and Allergies Amlodipine [Norvasc] 10 mg PO DAILY 12/27/14 [History] Clopidogrel [Plavix] 75 mg PO DAILY 12/27/14 [History] Doxazosin [Cardura] 4 mg PO HS 12/27/14 [History] Atorvastatin [Lipitor] 40 mg PO HS 09/23/15 [History] Sitagliptin Phosphate [Januvia] 50 mg PO DAILY 09/23/15 [History] Iron Polysaccharide Complex [Ferrex 150] 150 mg PO DAILY 05/22/16 [History] Latanoprost [Xalatan] 1 drop BOTH EYES HS 05/23/16 [History] Carvedilol [Coreg] 6.25 mg PO BIDWM 04/04/17 [History] Furosemide [Lasix] 20 mg PO BID 04/04/17 [History] Lisinopril [Zestril] 5 mg PO DAILY 04/04/17 [History] 3 Allergy/AdvReac Type Severity Reaction Status Date / Time codeine AdvReac Hallucinati Verified 05/24/16 11:17 ng All Systems Review: A 10-system review of systems was performed and is negative for pertinent findings except as documented above in the HPI. Physical Examination Vital Signs, Last 4 Hours Temp Pulse Resp BP Pulse Ox 04/05/17 08:20 98.1 F 85 20 176/67 92 General: Conversant, No Apparent Distress HEENT: Atraumatic, Normocephaly, Mucus Membranes Moist Neck: No JVD, Normal carotid pulses Cardiac: Reg Rate and Rhythm, Normal S1 and S2, No Murmur Lungs: Normal Breath Sounds, No Wheeze, Rales, Rhonchi, Other (diminished bases) Neuro: Alert and responsive, No focal deficits noted Abdomen: Soft, Non-Tender Skin: No rashes noted on visualized skin Musculoskeletal: No Chest Wall Tenderness Extremities: No Clubbing, No Cyanosis, No Edema, Normal Pulses Results 04/05/17 05:34 04/05/17 05:34 Lab Results 04/05/17 04/05/17 04/05/17 05:34 05:34 05:34 WBC 9.4 Hgb 8.5 L Hct 24.2 L Plt Count 148 Sodium 124 L Potassium 3.9 Chloride 94 L Carbon Dioxide 20 L BUN 25 H Creatinine 1.42 H Glucose 167 H Calcium 8.9 B-Natriuretic Peptide 1232 H - Imaging and Cardiology Stress Test: report reviewed Echo: report reviewed Cardiac cath: report reviewed - EKG Interpretation EKG results cardiology: other (EKG ordered.) Consult Discharge Plan - Plan Referrals: Dylan Alvarez MD [Primary Care Provider] - (web request sent on 04/05/17) <Ryan Padgett - Last Filed: 04/05/17 13:04> Date of Encounter: 04/05/17 Time of Encounter: 12:40 - Attending Attestation I have personally performed a face to face evaluation on this patient. I have reviewed and agree with the care plan. History and Exam by me shows: 1. Acute on chronic diastolic heart failure secondary to uncontrolled hyptn, volume and sodium overload due to non-compliance with dietary restrictions, responding to IV diuresis. Shortness of breath and lower ext edema improving. Will continue IV diuresis, add daily weights and strict I&Os to nursing orders, repeat echo to compare with 05/2016 study for new wall motion abnormalities with known CAD 2. CAD : severe three vessel CAD, post CABG x 3 2006, PCI with LISA unknown vessel in 2009, has ruled out for acute coronary syndrome so far, EKG shows lateral ischemia, unchanged from previous study, is a candidate for stress imaging when euvolemic and shortness of breath has resolved. 3. BEH: not well controlled on current medications, increase lisinopril to 10 mg q d, monitor 4. Rt ll pneumonia, improving, less shortness of breath, with inhalation tx. 5. PVD: chronically occluded right carotid, severe stenosis left carotid, will need to address at some point when pneumonia resolves. Will follow with you, further recs as data base available, Assessment and Plan Discussion w patient/family: The assessment and plan as outlined above was discussed with the patient and/or family members who expressed understanding and agreement. All questions were answered. Thank you for involving us in the care of your patient. Please call with any questions. History of Present Illness History of present illness: Ms. Prather is a 71 year old female All Systems Review: A 10-system review of systems was performed and is negative for pertinent findings except as documented above in the HPI. Physical Examination Vital Signs, Last 4 Hours Temp Pulse Resp BP Pulse Ox 04/05/17 11:19 18 90 04/05/17 11:13 97.9 F 78 18 141/61 90 Results 04/05/17 05:34 04/05/17 05:34 Lab Results 04/05/17 04/05/17 04/05/17 05:34 05:34 05:34 WBC 9.4 Hgb 8.5 L Hct 24.2 L Plt Count 148 Sodium 124 L Potassium 3.9 Chloride 94 L Carbon Dioxide 20 L BUN 25 H Creatinine 1.42 H Glucose 167 H Calcium 8.9 B-Natriuretic Peptide 1232 H
--- NOTE | 2017-04-05 10:34 | Internal Med Progress Note ---
<Mikhail Marte - Last Filed: 04/05/17 14:26> Date of Encounter: 04/05/17 Time of Encounter: 10:32 - Assessment and plan (1) CHF (congestive heart failure) Current Visit: Yes Status: Chronic Assessment and plan: Patient does have NYHA stage II to III CHF, well managed by cardiology with Saurabh inhibitors, beta blockers and diuretics. This likely is been exacerbated due to upper respiratory infection. Patient does have mild congestion on exam as well as chest x-ray which showed cardiomegaly and possible right lower lobe pneumonia. Continue beta blockers and increase Saurabh inhibitors due to hypertension. Continue IV Lasix to improve diuresis. Continue low-sodium diet and fluid restriction, daily weight Cardiology recommendations: EKG was done which showed sinus rhythm nonspecific EKG changes which is unchanged from May 2016. Echocardiogram as old one was done in 2015. Recommended strict I/O's and daily weights, low-sodium diet as well as diuresis as we are doing. Qualifiers: Congestive heart failure type: unspecified congestive heart failure type Congestive heart failure chronicity: acute Qualified Code(s): I50.9 - Heart failure, unspecified (2) Pneumonia Current Visit: No Status: Acute Assessment and plan: Patient's chest x-ray did show right lower lobe pneumonia she was started on Rocephin and azithromycin in the emergency Department these are still being continued. Viral swabs did show positive for RSV. This could not be a bacterial pneumonia as she did not have a leukocytosis, fevers or tachycardia. This could all be due to a viral syndrome. This did worsen her CHF which could cause for the difficulty in breathing and worsening cough. We will continue antibiotics of Rocephin and azithromycin for their full course as patient was already started on them and is getting better while on them. Qualifiers: Pneumonia type: due to unspecified organism Laterality: right Lung location: lower lobe of lung Qualified Code(s): J18.1 - Lobar pneumonia, unspecified organism (3) RSV (respiratory syncytial virus pneumonia) Current Visit: Yes Status: Acute Assessment and plan: Patient did show right lower lobe consolidation on chest x-ray. Pneumonia is most likely due to RSV as there were positive RSV cultures. Awaiting official blood cultures until we discontinue antibiotics. We will treat symptomatically with Tylenol, oxygen and DuoNeb nebs as needed. (4) Diabetes mellitus type II, uncontrolled Current Visit: No Status: Chronic Assessment and plan: Type 2 diabetes is well-controlled with an A1c is 6.2 Continue home meds and add insulin sliding scale Qualifiers: Diabetes mellitus complication status: with neurologic complications Diabetes mellitus complication detail: with unspecified neuropathy Diabetes mellitus shelter insulin use: without terminal gauger use Qualified Code(s): E11.40 - Type 2 diabetes mellitus with diabetic neuropathy, unspecified; E11.65 - Type 2 diabetes mellitus with hyperglycemia; E11.65 - Type 2 diabetes mellitus with hyperglycemia; E11.65 - Type 2 diabetes mellitus with hyperglycemia; E11.65 - Type 2 diabetes mellitus with hyperglycemia (5) CAD (coronary artery disease) Current Visit: Yes Status: Chronic Assessment and plan: Patient does have history of CAD status post CABG. She is not currently having any chest pain, troponins were negative and EKG was normal. Continue beta isaias, Plavix, Saurabh inhibitors Cardiology has seen the patient and agrees with our plan. They did an EKG which showed no acute changes based on old one done May 2011 troponins were negative. Qualifiers: Coronary Disease-Associated Artery/Lesion type: [place] artery [place] vs. transplanted heart: [place] heart Associated angina: without angina Qualified Code(s): I25.10 - Atherosclerotic heart disease of [place] coronary artery without angina pectoris (6) CKD (chronic kidney disease) stage 3, GFR 30-59 ml/min Current Visit: Yes Status: Chronic Assessment and plan: Stable creatinine is at baseline. (7) Hypertension Current Visit: Yes Status: Chronic Assessment and plan: Patient is hypertensive blood pressure has been elevated SAURABH inhibitor dose was increased. We will continue to monitor Qualifiers: Hypertension type: essential hypertension Qualified Code(s): I10 - Essential (primary) hypertension (8) Normocytic anemia Current Visit: No Status: Chronic Assessment and plan: Stable no treatment currently needed during this admission (9) DVT prophylaxis Current Visit: Yes Status: Acute Assessment and plan: 5000 units heparin subcutaneous twice a day. - Subjective Interval history: Patient states she is doing well today that she feels much better than when she was first admitted yesterday. Patient states her only complaint is that she is cold otherwise having no chest pain or shortness of breath or any cough or fevers. There were no overnight events. - Constitutional Vitals: Temp Pulse Resp BP Pulse Ox 98.1 F 85 20 176/67 92 04/05/17 08:20 04/05/17 08:20 04/05/17 08:20 04/05/17 08:20 04/05/17 08:20 General appearance: Present: A&O X 3, pleasant, no acute distress, answers questions appropriately - Head Head exam: Present: atraumatic, normocephalic - Eye Eye exam: Present: PERRL, conjuntiva pink, sclera anicteric Pupils: Present: PERRL - Neck Neck exam general surgery: Present: supple, trachea midline. Absent: lymphadenopathy - Respiratory Respiratory exam: Present: rhonchi (Mild bibasilar rhonchi). Absent: accessory muscle use, rales, respiratory distress, wheezes - Cardiovascular Cardiovascular exam: Present: RRR, +S1, +S2. Absent: diastolic murmur, gallop, rubs, systolic murmur - GI/Abdominal GI/Abdominal exam: Present: normal bowel sounds, soft, no peritoneal signs. Absent: distended, tenderness - Extremities Exam Extremities exam: Present: warm, radial pulses palpable and symmetrical. Absent : calf tenderness, cyanotic, pedal edema - Neurological Exam Neurological exam: Present: CN II-XII intact, oriented X3, no focal deficits. Absent: pronater drift, facial droop, speech deficit - Skin Skin exam: Present: dry, intact Internal Medicine: Result - Labs CBC & Chem 7: 04/05/17 05:34 04/05/17 05:34 Labs: Short CBC 04/05/17 Range/Units 05:34 WBC 9.4 (4.3-11.1) K/mcL Hgb 8.5 L (11.5-15.4) g/dL Hct 24.2 L (35.3-44.9) % Plt Count 148 (140-400) K/mcL Neutrophils # 8.2 (1.6-8.9) K/mcL BMP 04/05/17 05:34 Sodium 124 L Potassium 3.9 Chloride 94 L Carbon Dioxide 20 L BUN 25 H Creatinine 1.42 H Glucose 167 H Calcium 8.9 Consult Discharge Plan - Plan Referrals: Dylan Alvarez MD [Primary Care Provider] - (web request sent on 04/05/17) <Agustin [place] - Last Filed: 04/05/17 16:21> Date of Encounter: 04/05/17 - Constitutional Vitals: Temp Pulse Resp BP Pulse Ox 98.7 F 80 14 155/67 92 04/05/17 15:13 04/05/17 15:13 04/05/17 15:53 04/05/17 15:13 04/05/17 15:53 Internal Medicine: Result - Labs CBC & Chem 7: 04/05/17 05:34 04/05/17 05:34 - Attending Attestation I have independently seen and examined this patient on 03/2717 and discussed plan of care with the patient and resident physician 71 F admitted and being managed for RLL PNA, RSV infection and acute on chronic CHF exacerbation She has a PMH od DM, HTN, HLD, CHFpEF, CAD She has no chest pain, she reports minimal clinical improvement, no new complains She has been requiring O2 since arrival , possibly due to pneumonia Exam: VSS, NAD, speaks full sentences, chest with RLL rhonchi, no crackles, HS S1, S2 only, no m/g/r, abdomen is soft and not tender, no pedal edema labs and Imaging reviewed: Continue current management , cardio eval noted, EKG is unremarkable, ECHO is pending Continue home meds Rest of details as in resident physician's documentation
[2017-04-05] MEDS: cefTRIAXone 1,000 MG in Water for inj. (sterile) 10 ML IVP SCH (20:12)
[2017-04-05] MEDS: Latanoprost 2.5 ML BOTTLE BOTH EYES SCH (20:13)
[2017-04-05] MEDS: Azithromycin 500 MG in D5% in Water 250 ML IVPB SCH (23:49)
[2017-04-06] MEDS: Albuterol 2.5 MG/3 ML NEBULIZER IH SCH ×6 (04:06→23:23)
[2017-04-06 05:09] LABS: Hemoglobin 8.4 g/dL (11.5-15.4); Mean Corpuscular HGB Conc 36.5 g/dL (31.6-35.5); Mean Corpuscular Hemoglobin 30.3 pg (28.0-33.3); Mean Platelet Volume 10.6 fL (9.4-12.4); Platelet Count 156 K/mcL (140-400); Red Blood Count 2.77 M/mcL (3.82-4.97); Red Cell Distribution Width 13.9 % (11.5-14.5)
[2017-04-06 05:22] LABS: Calcium 8.9 mg/dL (8.6-10.3); Potassium 4.5 mEq/L (3.5-5.1)
[2017-04-06] MEDS: *HR* Heparin 5,000 UNIT/ML VIAL SQ SCH ×2 (06:07→17:43)
[2017-04-06] MEDS: Insulin LISPRO 300 UNITS/3 ML VIAL SQ SCH ×4 (09:11→20:20)
[2017-04-06] MEDS: amLODIPine 5 MG TABLET PO SCH (09:25)
[2017-04-06] MEDS: Furosemide 20 MG TABLET PO SCH ×2 (09:25→17:43)
[2017-04-06] MEDS: Iron Polysaccharide Complex 150 MG CAPSULE PO SCH (09:25)
--- NOTE | 2017-04-06 10:35 | Internal Med Progress Note ---
<Mikhail Marte - Last Filed: 04/06/17 10:32> Date of Encounter: 04/06/17 Time of Encounter: 10:33 - Assessment and plan (1) CHF (congestive heart failure) Current Visit: Yes Status: Chronic Assessment and plan: Patient does have NYHA stage II to III CHF, well managed by cardiology with Saurabh inhibitors, beta blockers and diuretics. This likely is been exacerbated due to upper respiratory infection. Patient does have mild congestion on exam as well as chest x-ray which showed cardiomegaly and possible right lower lobe pneumonia. Continue beta blockers and increase Saurabh inhibitors due to hypertension. Transitioned today to by mouth Lasix back to her normal home dose.. Continue fluid restriction, daily weights, strict I/O's Cardiology recommendations: EKG was done which showed sinus rhythm nonspecific EKG changes which is unchanged from May 2016. Echocardiogram came back showing decreased EF at 40% when previously one year ago it was at 60-65%. Cardiology still consulting will await their recommendations based on the echocardiogram results. Qualifiers: Congestive heart failure type: unspecified congestive heart failure type Congestive heart failure chronicity: acute Qualified Code(s): I50.9 - Heart failure, unspecified (2) Pneumonia Current Visit: Yes Status: Acute Assessment and plan: Patient's chest x-ray did show right lower lobe pneumonia she was started on Rocephin and azithromycin in the emergency Department these are still being continued. Viral swabs did show positive for RSV. This could not be a bacterial pneumonia as she did not have a leukocytosis, fevers or tachycardia. This could all be due to a viral syndrome. This did worsen her CHF which could cause for the difficulty in breathing and worsening cough. We will continue antibiotics of Rocephin and azithromycin is now day 3 of antibiotics Qualifiers: Pneumonia type: due to unspecified organism Laterality: right Lung location: lower lobe of lung Qualified Code(s): J18.1 - Lobar pneumonia, unspecified organism (3) RSV (respiratory syncytial virus pneumonia) Current Visit: Yes Status: Acute Assessment and plan: Patient did show right lower lobe consolidation on chest x-ray. Pneumonia is most likely due to RSV as there were positive RSV cultures. Blood cultures showed no growth We will treat symptomatically with Tylenol, oxygen and DuoNeb nebs as needed. And she is still on antibiotics for the pneumonia. (4) Diabetes mellitus type II, uncontrolled Current Visit: No Status: Chronic Assessment and plan: Type 2 diabetes is well-controlled with an A1c is 6.2 Continue home meds and add insulin sliding scale Qualifiers: Diabetes mellitus complication status: with neurologic complications Diabetes mellitus complication detail: with unspecified neuropathy Diabetes mellitus extermination inspector insulin use: without extermination inspector use Qualified Code(s): E11.40 - Type 2 diabetes mellitus with diabetic neuropathy, unspecified; E11.65 - Type 2 diabetes mellitus with hyperglycemia; E11.65 - Type 2 diabetes mellitus with hyperglycemia; E11.65 - Type 2 diabetes mellitus with hyperglycemia; E11.65 - Type 2 diabetes mellitus with hyperglycemia (5) CAD (coronary artery disease) Current Visit: Yes Status: Chronic Assessment and plan: Patient does have history of CAD status post CABG. She is not currently having any chest pain, troponins were negative and EKG was normal. Continue beta isaias, Plavix, Saurabh inhibitors Cardiology is consulting. Echocardiogram came back abnormal showing decreased EF compared to one year ago. Awaiting cardiology recommendations based on abnormal echocardiogram. Qualifiers: Coronary Disease-Associated Artery/Lesion type: [place] artery [place] vs. transplanted heart: [place] heart Associated angina: without angina Qualified Code(s): I25.10 - Atherosclerotic heart disease of [place] coronary artery without angina pectoris (6) CKD (chronic kidney disease) stage 3, GFR 30-59 ml/min Current Visit: Yes Status: Chronic Assessment and plan: Creatinine is slightly elevated but is still within stable range for her. This most likely is due to the IV Lasix. Patient is now transitioning to by mouth Lasix (7) Hypertension Current Visit: Yes Status: Chronic Assessment and plan: Patient is hypertensive blood pressure has been elevated SAURABH inhibitor dose was increased. We will continue to monitor Qualifiers: Hypertension type: essential hypertension Qualified Code(s): I10 - Essential (primary) hypertension (8) Normocytic anemia Current Visit: No Status: Chronic Assessment and plan: Stable no treatment currently needed during this admission (9) DVT prophylaxis Current Visit: Yes Status: Acute Assessment and plan: 5000 units heparin subcutaneous twice a day. - Subjective Interval history: Patient states she is doing well today that she feels much better than when she was first admitted yesterday patient feels like she may need 1 more day in the hospital to completely feel better.. Patient states her only complaint is that she is cold otherwise having no chest pain or shortness of breath or any cough or fevers. There were no overnight events. - Constitutional Vitals: Temp Pulse Resp BP Pulse Ox 98.0 F 82 17 174/55 93 04/06/17 06:57 04/06/17 06:57 04/06/17 06:57 04/06/17 06:57 04/06/17 06:57 General appearance: Present: A&O X 3, pleasant, no acute distress, answers questions appropriately - Head Head exam: Present: atraumatic, normocephalic - Eye Eye exam: Present: PERRL, conjuntiva pink, sclera anicteric Pupils: Present: PERRL - Neck Neck exam general surgery: Present: supple, trachea midline. Absent: lymphadenopathy - Respiratory Respiratory exam: Present: decreased breath sounds, CTAB. Absent: accessory muscle use, rales, respiratory distress, rhonchi, wheezes - Cardiovascular Cardiovascular exam: Present: RRR, +S1, +S2. Absent: diastolic murmur, gallop, rubs, systolic murmur - GI/Abdominal GI/Abdominal exam: Present: normal bowel sounds, soft, no peritoneal signs. Absent: distended, tenderness - Extremities Exam Extremities exam: Present: warm, radial pulses palpable and symmetrical. Absent : calf tenderness, cyanotic, pedal edema - Neurological Exam Neurological exam: Present: CN II-XII intact, oriented X3, no focal deficits. Absent: pronater drift, facial droop, speech deficit - Skin Skin exam: Present: dry, intact Internal Medicine: Result - Labs CBC & Chem 7: 04/06/17 04:59 04/06/17 04:59 Labs: Short CBC 04/06/17 Range/Units 04:59 WBC 7.9 (4.3-11.1) K/mcL Hgb 8.4 L (11.5-15.4) g/dL Hct 23.0 L (35.3-44.9) % Plt Count 156 (140-400) K/mcL [facility] 04/06/17 04:59 Sodium 123 L Potassium 4.5 Chloride 93 L Carbon Dioxide 20 L BUN 31 H Creatinine 1.84 H Glucose 128 H Calcium 8.9 - VTE Documentation of Mechanical Device: Intermittent pneumatic compression device Consult Discharge Plan - Plan Referrals: Dylan Alvarez MD [Primary Care Provider] - (web request sent on 04/05/17) <Agustin Cuba T - Last Filed: 04/06/17 15:53> Date of Encounter: 04/06/17 - Constitutional Vitals: Temp Pulse Resp BP Pulse Ox 98.1 F 73 16 156/62 98 04/06/17 10:50 04/06/17 10:50 04/06/17 15:40 04/06/17 10:50 04/06/17 15:40 Internal Medicine: Result - Labs CBC & Chem 7: 04/06/17 04:59 04/06/17 04:59 Labs: Short CBC 04/06/17 Range/Units 04:59 WBC 7.9 (4.3-11.1) K/mcL Hgb 8.4 L (11.5-15.4) g/dL Hct 23.0 L (35.3-44.9) % Plt Count 156 (140-400) K/mcL BMP 04/06/17 04:59 Sodium 123 L Potassium 4.5 Chloride 93 L Carbon Dioxide 20 L BUN 31 H Creatinine 1.84 H Glucose 128 H Calcium 8.9 - Attending Attestation I have independently seen and examined this patient on 04/06/17 and discussed plan of care with the patient and resident physician 71 F admitted and being managed for RLL PNA, RSV infection and acute on chronic CHF exacerbation She has a PMH od DM, HTN, HLD, CHFpEF, CAD She also has hypoxia since admission, multi-factorial due to pneumonia and pulmonary edema She is seen and examined at bedside, reports she feels slightly better but still weak TTE shows decrease in EF from 60% in 03/2017 to 45-50% as well as multiple wall motion abnormalities. Cardiology is following Exam: VSS, Blood pressure uncontrolled, NAD, speaks full sentences, chest with RLL rhonchi, no crackles, HS S1, S2 only, no m/g/r, abdomen is soft and not tender, no pedal edema labs and Imaging reviewed: Hyponatremia, worse than baseline, Chronic stable anemia, Cr elevated but still within baseline ECHO noted #Acute systolic and diastolic CHF: Continue current management , cardio eval noted, no intervention for now, change lasix to po and monitor renal function Pneumonia: Continue antibiotics RSV: Supportive care Hypoxia: Continue to wean off O2 as tolerated HTN: Increase Coreg today, continue other meds Hyponatremia: Acute on chronic, hypoosmolar-possibly worsened by fluid overload , vs SIADH from pneumonia, continue to monitor Continue home meds Rest of details as in resident physician's documentation
--- NOTE | 2017-04-06 10:45 | Cardiology Progress Note ---
Date of Encounter: 04/06/17 Time of Encounter: 08:45 Assessment and Plan (1) Acute congestive heart failure Current Visit: Yes Status: Acute Acute on chronic combined CHF. BNP 1232. CXR shows CHF and RLL PNA. TTE demonstrated mild reduction in LVEF, 45-50%. Symptoms improving. No output recorded. Recommend strict I&O and daily weights. Low sodium diet reviewed with patient. Continue betablocker, diuretic, and ACEi. Recommend conservative mgmt for now in the setting of RSV/PNA and worsening kidney function. May need anemia work-up. Recommend follow-up in the outpatient setting for possible ischemic evaluation given mild reduction in LVEF. Qualifiers: Congestive heart failure type: systolic Qualified Code(s): I50.21 - Acute systolic (congestive) heart failure (2) CAD (coronary artery disease) Current Visit: Yes Status: Chronic H/o 3V CABG in 2006, s/p PCI in 2009. Continue asa, statin, and bb. No significant ECG changes. Troponin negative. Plan as stated above. Qualifiers: Coronary Disease-Associated Artery/Lesion type: [place] artery [place] vs. transplanted heart: [place] heart Associated angina: without angina Qualified Code(s): I25.10 - Atherosclerotic heart disease of [place] coronary artery without angina pectoris (3) CKD (chronic kidney disease) stage 3, GFR 30-59 ml/min Current Visit: Yes Status: Chronic SCr continues to worsen today. (4) Hypertension Current Visit: Yes Status: Chronic Remains poorly controlled. Betablocker increased, will defer further mgmt to primary service. Qualifiers: Hypertension type: essential hypertension Qualified Code(s): I10 - Essential (primary) hypertension Discussion w patient/family: The assessment and plan as outlined above was discussed with the patient and/or family members who expressed understanding and agreement. All questions were answered. Thank you for involving us in the care of your patient. Please call with any questions. The patient will be discussed and reviewed with . Subjective Principal diagnosis: RSV/PNA/CHF Interval history: Seen and examined. Remains congested today upon exam with frequent/productive cough. No other complaints. Objective Vital Signs, Last 4 Hours Temp Pulse Resp BP Pulse Ox 04/06/17 06:57 98.0 F 82 17 174/55 93 General: Conversant, No Apparent Distress Cardiac: Reg Rate and Rhythm, Normal S1 and S2 Lungs: Normal Breath Sounds Neuro: Alert and responsive Abdomen: Soft Skin: No rashes noted on visualized skin Musculoskeletal: No Chest Wall Tenderness Extremities: No Edema, Normal Pulses Results 04/06/17 04:59 04/06/17 04:59 Lab Results 04/06/17 04/06/17 04:59 04:59 WBC 7.9 Hgb 8.4 L Hct 23.0 L Plt Count 156 Sodium 123 L Potassium 4.5 Chloride 93 L Carbon Dioxide 20 L BUN 31 H Creatinine 1.84 H Glucose 128 H Calcium 8.9 Active Medications Albuterol Sulfate (Proventil Neb) 2.5 mg IH [id number] GORDY PRN Reason: Protocol Stop: 10/05/17 00:01 Last Admin: 04/06/17 08:16 Dose: 2.5 mg Amlodipine Besylate (Norvasc) 10 mg PO DAILY GORDY PRN Reason: Protocol Stop: 10/04/17 21:01 Last Admin: 04/06/17 09:25 Dose: 10 mg Atorvastatin Calcium (Lipitor) 40 mg PO HS GORDY Stop: 10/04/17 21:01 Last Admin: 04/05/17 20:11 Dose: 40 mg Azithromycin (Zithromax) 500 mg PO Q24H GORDY Stop: 10/06/17 20:01 Carvedilol (Coreg) 12.5 mg PO BIDWM GORDY PRN Reason: Protocol Stop: 10/06/17 08:32 Last Admin: 04/06/17 09:25 Dose: 12.5 mg Clopidogrel Bisulfate (Plavix) 75 mg PO DAILY GORDY Stop: 10/04/17 21:01 Last Admin: 04/06/17 09:25 Dose: 75 mg Dextrose/Water (Dextrose 50% (Syg)) 25 ml IVP AD PRN PRN Reason: Hypoglycemia Stop: 10/04/17 21:38 Doxazosin Mesylate (Cardura) 4 mg PO HS GORDY Stop: 10/04/17 21:01 Last Admin: 04/05/17 20:11 Dose: 4 mg Furosemide (Lasix) 20 mg PO BIDDIURETIC GORDY Stop: 10/06/17 08:01 Last Admin: 04/06/17 09:25 Dose: 20 mg Glucagon (Glucagen) 1 mg IM ONCE PRN PRN Reason: Hypoglycemia Stop: 10/04/17 21:38 Glucose (Gluctose) 15 gm PO ONCE PRN PRN Reason: Hypoglycemia Stop: 10/04/17 21:38 Glucose (Gluctose) 30 gm PO ONCE PRN PRN Reason: Hypoglycemia Stop: 10/04/17 21:38 Heparin Sodium (Porcine) (Heparin) 5,000 unit SQ Q12HCO GORDY Stop: 10/05/17 06:01 Last Admin: 04/06/17 06:07 Dose: 5,000 unit Hydralazine HCl (Hydralazine) 10 mg IVP Q6HR PRN PRN Reason: SBP>170 or DBP>110 Stop: 10/05/17 01:32 Dextrose (Dextrose 5%) 1,000 mls @ 100 mls/hr IVC .Q10H PRN PRN Reason: HYPOGLYCEMIA Stop: 10/04/17 21:38 Ceftriaxone Sodium 1,000 mg/ (Sterile Water) 10 mls @ 300 mls/hr IVP Q24H GORDY Stop: 10/04/17 22:01 Last Infusion: 04/05/17 23:55 Dose: Infused Insulin Human Lispro (Humalog) 0 units SQ TIDAC GORDY PRN Reason: Protocol Stop: 10/05/17 07:31 Last Admin: 04/06/17 09:11 Dose: Not Given Insulin Human Lispro (Humalog) 0 units SQ HS GORDY PRN Reason: Protocol Stop: 10/05/17 21:01 Last Admin: 04/05/17 23:41 Dose: Not Given Latanoprost (Xalatan) 1 drop BOTH EYES HS GORDY PRN Reason: Protocol Stop: 10/04/17 21:01 Last Admin: 04/05/17 20:13 Dose: 1 drop Lisinopril (Zestril) 10 mg PO DAILY GORDY PRN Reason: Protocol Stop: 10/04/17 21:16 Last Admin: 04/06/17 09:25 Dose: 10 mg Polysaccharide Iron Complex (Ferrex 150) 150 mg PO DAILY [facility] Stop: 10/04/17 21:01 Last Admin: 04/06/17 09:25 Dose: 150 mg - Imaging and Cardiology Echo: report reviewed Other Results: 12 hour tele: avg HR=70 SR. No significant event noted. - EKG Interpretation EKG results cardiology: personally reviewed - VTE Documentation of Mechanical Device: Intermittent pneumatic compression device Consult Discharge Plan - Plan Referrals: Dylan Alvarez MD [Primary Care Provider] - (web request sent on 04/05/17)
--- NOTE | 2017-04-06 16:09 | Electrocardiograph Report ---
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
--- NOTE | 2017-04-06 19:46 | Electrocardiograph Report ---
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
[2017-04-06] MEDS ORDERED: Azithromycin 250 MG TABLET PO SCH (20:00)
[2017-04-06] MEDS: Benzonatate 100 MG CAPSULE PO PRN (21:41)
[2017-04-06] MEDS: cefTRIAXone 1,000 MG in Water for inj. (sterile) 10 ML IVP SCH (21:41)
[2017-04-07] MEDS: Albuterol 2.5 MG/3 ML NEBULIZER IH SCH ×6 (03:39→23:47)
[2017-04-07 04:50] LABS: Hematocrit 23.2 % (35.3-44.9); Hemoglobin 8.2 g/dL (11.5-15.4); Mean Corpuscular HGB Conc 35.3 g/dL (31.6-35.5); Mean Corpuscular Hemoglobin 29.7 pg (28.0-33.3); Mean Corpuscular Volume 84.1 fL (83.0-100.0); Mean Platelet Volume 10.6 fL (9.4-12.4); Platelet Count 159 K/mcL (140-400); Red Blood Count 2.76 M/mcL (3.82-4.97)
[2017-04-07 05:01] LABS: Calcium 8.5 mg/dL (8.6-10.3); Potassium 4.1 mEq/L (3.5-5.1)
[2017-04-07] MEDS: Latanoprost 2.5 ML BOTTLE BOTH EYES SCH ×2 (05:41→21:51)
[2017-04-07] MEDS: *HR* Heparin 5,000 UNIT/ML VIAL SQ SCH ×2 (05:42→17:12)
[2017-04-07] MEDS: Insulin LISPRO 300 UNITS/3 ML VIAL SQ SCH ×4 (08:16→20:31)
[2017-04-07] MEDS: Iron Polysaccharide Complex 150 MG CAPSULE PO SCH (09:27)
[2017-04-07] MEDS: amLODIPine 5 MG TABLET PO SCH (09:27)
[2017-04-07] MEDS: Benzonatate 100 MG CAPSULE PO PRN ×2 (09:28→17:11)
[2017-04-07] MEDS: Furosemide 20 MG TABLET PO SCH ×2 (09:28→17:12)
--- NOTE | 2017-04-07 10:27 | Internal Med Progress Note ---
<Mikhail Marte - Last Filed: 04/07/17 11:44> Date of Encounter: 04/07/17 Time of Encounter: 11:39 - Assessment and plan (1) CHF (congestive heart failure) Current Visit: Yes Status: Chronic Assessment and plan: Patient does have NYHA stage II to III CHF, well managed by cardiology with Saurabh inhibitors, beta blockers and diuretics. This likely is been exacerbated due to upper respiratory infection. Patient does have mild congestion on exam as well as chest x-ray which showed cardiomegaly and possible right lower lobe pneumonia. Continue beta blockers and increase Saurabh inhibitors due to hypertension. Transitioned today to by mouth Lasix back to her normal home dose.. Continue fluid restriction, daily weights, strict I/O's Cardiology recommendations: EKG was done which showed sinus rhythm nonspecific EKG changes which is unchanged from May 2016. Echocardiogram came back showing decreased EF at 40% when previously one year ago it was at 60-65%. Cardiology said that did decrease in EF most likely is due to her sickness they will follow at outpatient. They continued to keep her same recommendations of fluid restriction as well as strict I's and O's and continuing the Lasix diuresis.. No further recommendations. Qualifiers: Congestive heart failure type: unspecified congestive heart failure type Congestive heart failure chronicity: acute Qualified Code(s): I50.9 - Heart failure, unspecified (2) Hyponatremia Current Visit: Yes Status: Acute Assessment and plan: The patient has had a decreasing sodium during her stay here. This has happened to her before she chronically is low but she normally sits around 135 is her baseline. She is now down to 122. We have been diuresing her her kidney function has stayed stable. She is now on by mouth Lasix. Patient has been L year drink due to the weakness most likely secondary to the RSV infection as well as the pneumonia. She has been on a 1200 mL fluid restriction. We are unable to stop her Lasix due to her history of CHF. We will give salt tablets and continue to trend. (3) Pneumonia Current Visit: Yes Status: Acute Assessment and plan: Patient's chest x-ray did show right lower lobe pneumonia she was started on Rocephin and azithromycin in the emergency Department these are still being continued. Viral swabs did show positive for RSV. This could not be a bacterial pneumonia as she did not have a leukocytosis, fevers or tachycardia. This could all be due to a viral syndrome. This did worsen her CHF which could cause for the difficulty in breathing and worsening cough. We will continue antibiotics of Rocephin and azithromycin is now day 3 of antibiotics Qualifiers: Pneumonia type: due to unspecified organism Laterality: right Lung location: lower lobe of lung Qualified Code(s): J18.1 - Lobar pneumonia, unspecified organism (4) RSV (respiratory syncytial virus pneumonia) Current Visit: Yes Status: Acute Assessment and plan: Patient did show right lower lobe consolidation on chest x-ray. Pneumonia is most likely due to RSV as there were positive RSV cultures. Blood cultures showed no growth We will treat symptomatically with Tylenol, oxygen and DuoNeb nebs as needed. And she is still on antibiotics for the pneumonia. (5) Diabetes mellitus type II, uncontrolled Current Visit: No Status: Chronic Assessment and plan: Type 2 diabetes is well-controlled with an A1c is 6.2 Continue home meds and add insulin sliding scale Qualifiers: Diabetes mellitus complication status: with neurologic complications Diabetes mellitus complication detail: with unspecified neuropathy Diabetes mellitus buttermaker continuous churn insulin use: without buttermaker continuous churn use Qualified Code(s): E11.40 - Type 2 diabetes mellitus with diabetic neuropathy, unspecified; E11.65 - Type 2 diabetes mellitus with hyperglycemia; E11.65 - Type 2 diabetes mellitus with hyperglycemia; E11.65 - Type 2 diabetes mellitus with hyperglycemia; E11.65 - Type 2 diabetes mellitus with hyperglycemia (6) CAD (coronary artery disease) Current Visit: Yes Status: Chronic Assessment and plan: Patient does have history of CAD status post CABG. She is not currently having any chest pain, troponins were negative and EKG was normal. Continue beta isaias, Plavix, Saurabh inhibitors Cardiology is consulting. Echocardiogram came back abnormal showing decreased EF compared to one year ago. Awaiting cardiology recommendations based on abnormal echocardiogram. Qualifiers: Coronary Disease-Associated Artery/Lesion type: [place] artery [place] vs. transplanted heart: [place] heart Associated angina: without angina Qualified Code(s): I25.10 - Atherosclerotic heart disease of [place] coronary artery without angina pectoris (7) CKD (chronic kidney disease) stage 3, GFR 30-59 ml/min Current Visit: Yes Status: Chronic Assessment and plan: Creatinine is slightly elevated but is still within stable range for her. This most likely is due to the IV Lasix. Patient is now transitioning to by mouth Lasix (8) Hypertension Current Visit: Yes Status: Chronic Assessment and plan: Patient is hypertensive blood pressure has been elevated SAURABH inhibitor dose was increased. We will continue to monitor Qualifiers: Hypertension type: essential hypertension Qualified Code(s): I10 - Essential (primary) hypertension (9) Normocytic anemia Current Visit: No Status: Chronic Assessment and plan: Stable no treatment currently needed during this admission (10) DVT prophylaxis Current Visit: Yes Status: Acute Assessment and plan: 5000 units heparin subcutaneous twice a day. - Subjective Interval history: Patient states she is still feeling very weak. Patient is not having any chest pain or increased shortness of breath or any fevers or nausea vomiting or any dysuria or constipation. There were no overnight events. - Constitutional Vitals: Temp Pulse Resp BP Pulse Ox 98.2 F 72 16 163/59 90 04/07/17 07:23 04/07/17 07:23 04/07/17 09:33 04/07/17 07:23 04/07/17 09:33 General appearance: Present: A&O X 3, pleasant, no acute distress, answers questions appropriately - Head Head exam: Present: atraumatic, normocephalic - Eye Eye exam: Present: PERRL, conjuntiva pink, sclera anicteric Pupils: Present: PERRL - Neck Neck exam general surgery: Present: supple, trachea midline. Absent: lymphadenopathy - Respiratory Respiratory exam: Present: CTAB. Absent: accessory muscle use, rales, rhonchi, wheezes - Cardiovascular Cardiovascular exam: Present: RRR, +S1, +S2. Absent: diastolic murmur, gallop, rubs, systolic murmur - GI/Abdominal GI/Abdominal exam: Present: normal bowel sounds, soft, no peritoneal signs. Absent: distended, tenderness - Extremities Exam Extremities exam: Present: warm, radial pulses palpable and symmetrical. Absent : calf tenderness, cyanotic, pedal edema - Neurological Exam Neurological exam: Present: CN II-XII intact, oriented X3, no focal deficits. Absent: pronater drift, facial droop, speech deficit - Skin Skin exam: Present: dry, intact Internal Medicine: Result - Labs CBC & Chem 7: 04/07/17 04:08 04/07/17 04:08 Labs: Short CBC 04/07/17 Range/Units 04:08 WBC 9.7 (4.3-11.1) K/mcL Hgb 8.2 L (11.5-15.4) g/dL Hct 23.2 L (35.3-44.9) % Plt Count 159 (140-400) K/mcL [facility] 04/07/17 04:08 Sodium 122 L Potassium 4.1 Chloride 91 L Carbon Dioxide 25 BUN 33 H Creatinine 1.86 H Glucose 98 Calcium 8.5 L - VTE Documentation of Mechanical Device: Intermittent pneumatic compression device Consult Discharge Plan - Plan Referrals: Dylan Alvarez MD [Primary Care Provider] - 04/14/17 10:15 am (web request sent on 04/05/17) <Lenka Hancock - Last Filed: 04/07/17 14:28> Date of Encounter: 04/07/17 - Constitutional Vitals: Temp Pulse Resp BP Pulse Ox 97.5 F L 69 15 143/68 97 04/07/17 10:54 04/07/17 10:54 04/07/17 10:54 04/07/17 10:54 04/07/17 10:54 Internal Medicine: Result - Labs CBC & Chem 7: 04/07/17 04:08 04/07/17 04:08 Labs: Short CBC 04/07/17 Range/Units 04:08 WBC 9.7 (4.3-11.1) K/mcL Hgb 8.2 L (11.5-15.4) g/dL Hct 23.2 L (35.3-44.9) % Plt Count 159 (140-400) K/mcL [facility] 04/07/17 04:08 Sodium 122 L Potassium 4.1 Chloride 91 L Carbon Dioxide 25 BUN 33 H Creatinine 1.86 H Glucose 98 Calcium 8.5 L - Attending Attestation I have reviewed the , progress note, obtained and documented by the resident and I personally participated in the martinez components. I have discussed the case and management of the patient's care. The following comments revise or confirm relevant martinez components of their note. Community acquired pneumonia, RSV positive about respiratory tract infection along with underlying possible diastolic CHF exacerbation patient continues to feel very weak and has yet to be evaluated by physical therapy and occupational therapy. Continue supportive care at this point. For chronic hyponatremia, will start adding salt tablets. Patient states that she usually has difficulty in maintaining sodium levels while on diuretics she usually resorts to salt tablets to counteract the effect of hyponatremia-check daily metabolic panel will hold azithromycin but continue Rocephin for an additional day to complete a course for pneumonia potentially could discontinue Rocephin tomorrow cultures otherwise have been negative till date rest of the assessment and plan is concurrent with the resident documentation
[2017-04-07] MEDS: GuaiFENesin Liq 200 MG/10 ML UDC PO PRN ×2 (14:04→19:56)
[2017-04-07] MEDS: cefTRIAXone 1,000 MG in Water for inj. (sterile) 10 ML IVP SCH (22:26)
[2017-04-08] MEDS: Latanoprost 2.5 ML BOTTLE BOTH EYES SCH ×2 (01:01→21:56)
[2017-04-08] MEDS: Albuterol 2.5 MG/3 ML NEBULIZER IH SCH ×5 (03:51→20:55)
[2017-04-08 04:17] LABS: Hematocrit 22.6 % (35.3-44.9); Mean Corpuscular HGB Conc 35.4 g/dL (31.6-35.5); Mean Corpuscular Hemoglobin 29.5 pg (28.0-33.3); Mean Corpuscular Volume 83.4 fL (83.0-100.0); Mean Platelet Volume 10.7 fL (9.4-12.4); Platelet Count 158 K/mcL (140-400); Red Blood Count 2.71 M/mcL (3.82-4.97)
[2017-04-08 04:33] LABS: Calcium 8.5 mg/dL (8.6-10.3)
[2017-04-08] MEDS: *HR* Heparin 5,000 UNIT/ML VIAL SQ SCH ×2 (05:57→17:42)
--- NOTE | 2017-04-08 08:15 | Internal Med Progress Note ---
<Mikhail Marte - Last Filed: 04/08/17 10:15> Date of Encounter: 04/08/17 Time of Encounter: 10:15 - Assessment and plan (1) CHF (congestive heart failure) Current Visit: Yes Status: Chronic Assessment and plan: Patient does have NYHA stage II to III CHF, well managed by cardiology with Saurabh inhibitors, beta blockers and diuretics. This likely is been exacerbated due to upper respiratory infection. Patient does have mild congestion on exam as well as chest x-ray which showed cardiomegaly and possible right lower lobe pneumonia. Continue beta blockers and increase Saurabh inhibitors due to hypertension. Transitioned today to by mouth Lasix back to her normal home dose.. Continue fluid restriction, daily weights, strict I/O's Cardiology recommendations: EKG was done which showed sinus rhythm nonspecific EKG changes which is unchanged from May 2016. Echocardiogram came back showing decreased EF at 40% when previously one year ago it was at 60-65%. Cardiology said that did decrease in EF most likely is due to her sickness they will follow at outpatient. They continued to keep her same recommendations of fluid restriction as well as strict I's and O's and continuing the Lasix diuresis.. No further recommendations. Qualifiers: Congestive heart failure type: unspecified congestive heart failure type Congestive heart failure chronicity: acute Qualified Code(s): I50.9 - Heart failure, unspecified (2) Hyponatremia Current Visit: Yes Status: Acute Assessment and plan: The patient has had a decreasing sodium during her stay here. This has happened to her before she chronically is low but she normally sits around 135 is her baseline. She is now down to 122. We have been diuresing her her kidney function has stayed stable. She is now on by mouth Lasix. Patient has been L year drink due to the weakness most likely secondary to the RSV infection as well as the pneumonia. She has been on a 1200 mL fluid restriction. We are unable to stop her Lasix due to her history of CHF. We will give salt tablets and continue to trend. Patient's sodium today did not drop from yesterday's after giving the salt tablets. We will continue to monitor. (3) Pneumonia Current Visit: Yes Status: Acute Assessment and plan: Patient's chest x-ray did show right lower lobe pneumonia she was started on Rocephin and azithromycin in the emergency Department these are still being continued. Viral swabs did show positive for RSV. This could not be a bacterial pneumonia as she did not have a leukocytosis, fevers or tachycardia. This could all be due to a viral syndrome. This did worsen her CHF which could cause for the difficulty in breathing and worsening cough. We have stopped the azithromycin will continue the Rocephin as this is day 4 of Rocephin. Qualifiers: Pneumonia type: due to unspecified organism Laterality: right Lung location: lower lobe of lung Qualified Code(s): J18.1 - Lobar pneumonia, unspecified organism (4) RSV (respiratory syncytial virus pneumonia) Current Visit: Yes Status: Acute Assessment and plan: Patient did show right lower lobe consolidation on chest x-ray. Pneumonia is most likely due to RSV as there were positive RSV cultures. Blood cultures showed no growth We will treat symptomatically with Tylenol, oxygen and DuoNeb nebs as needed. And she is still on antibiotics for the pneumonia. (5) Diabetes mellitus type II, uncontrolled Current Visit: No Status: Chronic Assessment and plan: Type 2 diabetes is well-controlled with an A1c is 6.2 Continue home meds and add insulin sliding scale Qualifiers: Diabetes mellitus complication status: with neurologic complications Diabetes mellitus complication detail: with unspecified neuropathy Diabetes mellitus intermodal customer service insulin use: without mcc use Qualified Code(s): E11.40 - Type 2 diabetes mellitus with diabetic neuropathy, unspecified; E11.65 - Type 2 diabetes mellitus with hyperglycemia; E11.65 - Type 2 diabetes mellitus with hyperglycemia; E11.65 - Type 2 diabetes mellitus with hyperglycemia; E11.65 - Type 2 diabetes mellitus with hyperglycemia (6) CAD (coronary artery disease) Current Visit: Yes Status: Chronic Assessment and plan: Patient does have history of CAD status post CABG. She is not currently having any chest pain, troponins were negative and EKG was normal. Continue beta isaias, Plavix, Saurabh inhibitors Cardiology is consulting. Echocardiogram came back abnormal showing decreased EF compared to one year ago. Awaiting cardiology recommendations based on abnormal echocardiogram. Qualifiers: Coronary Disease-Associated Artery/Lesion type: [place] artery [place] vs. transplanted heart: [place] heart Associated angina: without angina Qualified Code(s): I25.10 - Atherosclerotic heart disease of [place] coronary artery without angina pectoris (7) CKD (chronic kidney disease) stage 3, GFR 30-59 ml/min Current Visit: Yes Status: Chronic Assessment and plan: Creatinine is slightly elevated but is still within stable range for her. This most likely is due to the IV Lasix. Patient is now transitioning to by mouth Lasix (8) Hypertension Current Visit: Yes Status: Chronic Assessment and plan: Patient is hypertensive blood pressure has been elevated SAURABH inhibitor dose was increased. We will continue to monitor Qualifiers: Hypertension type: essential hypertension Qualified Code(s): I10 - Essential (primary) hypertension (9) Normocytic anemia Current Visit: No Status: Chronic Assessment and plan: Stable no treatment currently needed during this admission (10) DVT prophylaxis Current Visit: Yes Status: Acute Assessment and plan: 5000 units heparin subcutaneous twice a day. - Subjective Interval history: Patient states she is still feeling very weak. Patient is not having any chest pain or increased shortness of breath or any fevers or nausea vomiting or any dysuria or constipation. There were no overnight events. Patient states she feels that she wants to stay until Monday or Monday if she still does not feel the strength is not there to be able to go home. She does feel like she needs to have increase in her oxygen. - Constitutional Vitals: Temp Pulse Resp BP Pulse Ox 97.6 F 71 18 167/53 97 04/08/17 06:53 04/08/17 06:53 04/08/17 06:53 04/08/17 06:53 04/08/17 06:53 General appearance: Present: A&O X 3, pleasant, no acute distress, answers questions appropriately - Head Head exam: Present: atraumatic, normocephalic - Eye Eye exam: Present: PERRL, conjuntiva pink, sclera anicteric Pupils: Present: PERRL - Neck Neck exam general surgery: Present: supple, trachea midline. Absent: lymphadenopathy - Respiratory Respiratory exam: Present: CTAB, rhonchi (Mild rhonchi in the bases bilaterally) . Absent: accessory muscle use, rales, wheezes - Cardiovascular Cardiovascular exam: Present: RRR, +S1, +S2. Absent: diastolic murmur, gallop, rubs, systolic murmur - GI/Abdominal GI/Abdominal exam: Present: normal bowel sounds, soft, no peritoneal signs. Absent: distended, tenderness - Extremities Exam Extremities exam: Present: warm, radial pulses palpable and symmetrical. Absent : calf tenderness, cyanotic, pedal edema - Neurological Exam Neurological exam: Present: CN II-XII intact, oriented X3, no focal deficits. Absent: pronater drift, facial droop, speech deficit - Skin Skin exam: Present: dry, intact Internal Medicine: Result - Labs CBC & Chem 7: 04/08/17 03:25 04/08/17 03:25 Labs: Short CBC 04/08/17 Range/Units 03:25 WBC 9.4 (4.3-11.1) K/mcL Hgb 8.0 L (11.5-15.4) g/dL Hct 22.6 L (35.3-44.9) % Plt Count 158 (140-400) K/mcL [facility] 04/08/17 03:25 Sodium 122 L Potassium 4.0 Chloride 91 L Carbon Dioxide 24 BUN 40 H Creatinine 1.80 H Glucose 151 H Calcium 8.5 L - VTE Documentation of Mechanical Device: Intermittent pneumatic compression device Consult Discharge Plan - Plan Referrals: Dylan Alvarez MD [Primary Care Provider] - 04/14/17 10:15 am (web request sent on 04/05/17) <Agustin Cuba - Last Filed: 04/08/17 14:43> Date of Encounter: 04/08/17 - Constitutional Vitals: Temp Pulse Resp BP Pulse Ox 97.7 F 78 16 151/56 99 04/08/17 11:14 04/08/17 11:14 04/08/17 11:34 04/08/17 11:14 04/08/17 11:34 Internal Medicine: Result - Labs CBC & Chem 7: 04/08/17 03:25 04/08/17 03:25 Labs: Short CBC 04/08/17 Range/Units 03:25 WBC 9.4 (4.3-11.1) K/mcL Hgb 8.0 L (11.5-15.4) g/dL Hct 22.6 L (35.3-44.9) % Plt Count 158 (140-400) K/mcL [facility] 04/08/17 03:25 Sodium 122 L Potassium 4.0 Chloride 91 L Carbon Dioxide 24 BUN 40 H Creatinine 1.80 H Glucose 151 H Calcium 8.5 L - Attending Attestation Seen and examined independently on 04/08 Clinically improving No new complains PTOT eval noted For 6 mins walk test/O2 qualification prior to discharge Rest as in resident physician's documentation
[2017-04-08] MEDS: Insulin LISPRO 300 UNITS/3 ML VIAL SQ SCH ×4 (09:48→21:52)
[2017-04-08] MEDS: amLODIPine 5 MG TABLET PO SCH (09:50)
[2017-04-08] MEDS: Furosemide 20 MG TABLET PO SCH ×2 (09:51→17:42)
[2017-04-08] MEDS: Iron Polysaccharide Complex 150 MG CAPSULE PO SCH (09:51)
[2017-04-08] MEDS: Benzonatate 100 MG CAPSULE PO PRN ×2 (17:42→22:59)
[2017-04-08] MEDS: cefTRIAXone 1,000 MG in Water for inj. (sterile) 10 ML IVP SCH (21:54)
[2017-04-08] MEDS: GuaiFENesin Liq 200 MG/10 ML UDC PO PRN (22:59)
[2017-04-09] MEDS: Albuterol 2.5 MG/3 ML NEBULIZER IH SCH ×6 (00:51→20:22)
[2017-04-09] MEDS: GuaiFENesin Liq 200 MG/10 ML UDC PO PRN ×2 (05:04→21:11)
[2017-04-09] MEDS: *HR* Heparin 5,000 UNIT/ML VIAL SQ SCH ×2 (05:04→17:03)
[2017-04-09 08:06] LABS: Hematocrit 22.1 % (35.3-44.9); Hemoglobin 7.9 g/dL (11.5-15.4); Mean Corpuscular HGB Conc 35.7 g/dL (31.6-35.5); Mean Corpuscular Hemoglobin 30.2 pg (28.0-33.3); Mean Corpuscular Volume 84.4 fL (83.0-100.0); Mean Platelet Volume 10.5 fL (9.4-12.4); Platelet Count 161 K/mcL (140-400); Red Blood Count 2.62 M/mcL (3.82-4.97)
[2017-04-09] MEDS: amLODIPine 5 MG TABLET PO SCH (08:17)
[2017-04-09] MEDS: Furosemide 20 MG TABLET PO SCH ×2 (08:17→17:03)
[2017-04-09] MEDS: Insulin LISPRO 300 UNITS/3 ML VIAL SQ SCH ×4 (08:17→19:02)
[2017-04-09] MEDS: Iron Polysaccharide Complex 150 MG CAPSULE PO SCH (08:17)
[2017-04-09 08:23] LABS: Calcium 8.6 mg/dL (8.6-10.3); Potassium 4.4 mEq/L (3.5-5.1)
--- NOTE | 2017-04-09 12:07 | Internal Med Progress Note ---
<Mikhail Marte - Last Filed: 04/09/17 12:05> Date of Encounter: 04/09/17 Time of Encounter: 09:00 - Assessment and plan (1) CHF (congestive heart failure) Current Visit: Yes Status: Chronic Assessment and plan: Patient does have NYHA stage II to III CHF, well managed by cardiology with Saurabh inhibitors, beta blockers and diuretics. This likely is been exacerbated due to upper respiratory infection. Patient does have mild congestion on exam as well as chest x-ray which showed cardiomegaly and possible right lower lobe pneumonia. Continue beta blockers and increase Saurabh inhibitors due to hypertension. Transitioned today to by mouth Lasix back to her normal home dose.. Continue fluid restriction, daily weights, strict I/O's Cardiology recommendations: EKG was done which showed sinus rhythm nonspecific EKG changes which is unchanged from May 2016. Echocardiogram came back showing decreased EF at 40% when previously one year ago it was at 60-65%. Cardiology said that did decrease in EF most likely is due to her sickness they will follow at outpatient. They continued to keep her same recommendations of fluid restriction as well as strict I's and O's and continuing the Lasix diuresis.. No further recommendations. Qualifiers: Congestive heart failure type: unspecified congestive heart failure type Congestive heart failure chronicity: acute Qualified Code(s): I50.9 - Heart failure, unspecified (2) Hyponatremia Current Visit: Yes Status: Acute Assessment and plan: The patient has had a decreasing sodium during her stay here. This has happened to her before she chronically is low but she normally sits around 135 is her baseline. She is now down to 122. We have been diuresing her her kidney function has stayed stable. She is now on by mouth Lasix. Patient has been L year drink due to the weakness most likely secondary to the RSV infection as well as the pneumonia. She has been on a 1200 mL fluid restriction. We are unable to stop her Lasix due to her history of CHF. We will give salt tablets and continue to trend. Patient's sodium today has continued to go up to 126 after giving the salt tablets scheduled. We will continue to monitor. (3) Pneumonia Current Visit: Yes Status: Acute Assessment and plan: Patient's chest x-ray did show right lower lobe pneumonia she was started on Rocephin and azithromycin in the emergency Department these are still being continued. Viral swabs did show positive for RSV. This could not be a bacterial pneumonia as she did not have a leukocytosis, fevers or tachycardia. This could all be due to a viral syndrome. This did worsen her CHF which could cause for the difficulty in breathing and worsening cough. We have stopped the azithromycin will continue the Rocephin as this is day 5 of Rocephin. Patient did qualify for oxygen at home due to social work being gone this cannot be set up until Monday so patient cannot to stay till Monday until social work can set up for home oxygen placement. Qualifiers: Pneumonia type: due to unspecified organism Laterality: right Lung location: lower lobe of lung Qualified Code(s): J18.1 - Lobar pneumonia, unspecified organism (4) RSV (respiratory syncytial virus pneumonia) Current Visit: Yes Status: Acute Assessment and plan: Patient did show right lower lobe consolidation on chest x-ray. Pneumonia is most likely due to RSV as there were positive RSV cultures. Blood cultures showed no growth We will treat symptomatically with Tylenol, oxygen and DuoNeb nebs as needed. And she is still on antibiotics for the pneumonia. (5) Diabetes mellitus type II, uncontrolled Current Visit: No Status: Chronic Assessment and plan: Type 2 diabetes is well-controlled with an A1c is 6.2 Continue home meds and add insulin sliding scale Qualifiers: Diabetes mellitus complication status: with neurologic complications Diabetes mellitus complication detail: with unspecified neuropathy Diabetes mellitus usp insulin use: without termite technician use Qualified Code(s): E11.40 - Type 2 diabetes mellitus with diabetic neuropathy, unspecified; E11.65 - Type 2 diabetes mellitus with hyperglycemia; E11.65 - Type 2 diabetes mellitus with hyperglycemia; E11.65 - Type 2 diabetes mellitus with hyperglycemia; E11.65 - Type 2 diabetes mellitus with hyperglycemia (6) CAD (coronary artery disease) Current Visit: Yes Status: Chronic Assessment and plan: Patient does have history of CAD status post CABG. She is not currently having any chest pain, troponins were negative and EKG was normal. Continue beta isaias, Plavix, Saurabh inhibitors Cardiology is consulting. Echocardiogram came back abnormal showing decreased EF compared to one year ago. Awaiting cardiology recommendations based on abnormal echocardiogram. Qualifiers: Coronary Disease-Associated Artery/Lesion type: [place] artery [place] vs. transplanted heart: [place] heart Associated angina: without angina Qualified Code(s): I25.10 - Atherosclerotic heart disease of [place] coronary artery without angina pectoris (7) CKD (chronic kidney disease) stage 3, GFR 30-59 ml/min Current Visit: Yes Status: Chronic Assessment and plan: Creatinine is slightly elevated but is still within stable range for her. This most likely is due to the IV Lasix. Patient is now transitioning to by mouth Lasix (8) Hypertension Current Visit: Yes Status: Chronic Assessment and plan: Patient is hypertensive blood pressure has been elevated SAURABH inhibitor dose was increased. We will continue to monitor Qualifiers: Hypertension type: essential hypertension Qualified Code(s): I10 - Essential (primary) hypertension (9) Normocytic anemia Current Visit: No Status: Chronic Assessment and plan: Stable no treatment currently needed during this admission (10) DVT prophylaxis Current Visit: Yes Status: Acute Assessment and plan: 5000 units heparin subcutaneous twice a day. - Subjective Interval history: Patient states she is still feeling very weak. Patient is not having any chest pain or increased shortness of breath or any fevers or nausea vomiting or any dysuria or constipation. There were no overnight events. Patient states she feels that she wants to stay until Monday or Monday if she still does not feel the strength is not there to be able to go home. She does feel like she needs to have increase in her oxygen. - Constitutional Vitals: Temp Pulse Resp BP Pulse Ox 98.0 F 73 18 167/56 97 04/09/17 07:51 04/09/17 07:51 04/09/17 11:19 04/09/17 07:51 04/09/17 11:19 General appearance: Present: A&O X 3, pleasant, no acute distress, answers questions appropriately - Head Head exam: Present: atraumatic, normocephalic - Eye Eye exam: Present: PERRL, conjuntiva pink, sclera anicteric Pupils: Present: PERRL - Neck Neck exam general surgery: Present: supple, trachea midline. Absent: lymphadenopathy - Respiratory Respiratory exam: Present: CTAB. Absent: accessory muscle use, rales, rhonchi, wheezes - Cardiovascular Cardiovascular exam: Present: RRR, +S1, +S2. Absent: diastolic murmur, gallop, rubs, systolic murmur - GI/Abdominal GI/Abdominal exam: Present: normal bowel sounds, soft, no peritoneal signs. Absent: distended, tenderness - Extremities Exam Extremities exam: Present: warm, radial pulses palpable and symmetrical. Absent : calf tenderness, cyanotic, pedal edema - Neurological Exam Neurological exam: Present: CN II-XII intact, oriented X3, no focal deficits. Absent: pronater drift, facial droop, speech deficit - Skin Skin exam: Present: dry, intact Internal Medicine: Result - Labs CBC & Chem 7: 04/09/17 07:10 04/09/17 07:10 Labs: Short CBC 04/09/17 Range/Units 07:10 WBC 8.5 (4.3-11.1) K/mcL Hgb 7.9 L (11.5-15.4) g/dL Hct 22.1 L (35.3-44.9) % Plt Count 161 (140-400) K/mcL [facility] 04/09/17 07:10 Sodium 126 L Potassium 4.4 Chloride 96 L Carbon Dioxide 25 BUN 34 H Creatinine 1.53 H Glucose 132 H Calcium 8.6 - VTE Documentation of Mechanical Device: Intermittent pneumatic compression device Consult Discharge Plan - Plan Instructions: Heart Failure (DC), Hyponatremia (DC), Pneumonia (DC) Referrals: Dylan Alvarez MD [Primary Care Provider] - 04/14/17 10:15 am (web request sent on 04/05/17) <Agustin Cuba - Last Filed: 04/09/17 13:11> Date of Encounter: 04/09/17 - Constitutional Vitals: Temp Pulse Resp BP Pulse Ox 97.8 F 71 16 178/60 96 04/09/17 12:10 04/09/17 12:10 04/09/17 12:10 04/09/17 12:10 04/09/17 12:10 Internal Medicine: Result - Labs CBC & Chem 7: 04/09/17 07:10 04/09/17 07:10 Labs: Short CBC 04/09/17 Range/Units 07:10 WBC 8.5 (4.3-11.1) K/mcL Hgb 7.9 L (11.5-15.4) g/dL Hct 22.1 L (35.3-44.9) % Plt Count 161 (140-400) K/mcL [facility] 04/09/17 07:10 Sodium 126 L Potassium 4.4 Chloride 96 L Carbon Dioxide 25 BUN 34 H Creatinine 1.53 H Glucose 132 H Calcium 8.6 - Attending Attestation Seen and examined independently on 04/09 Clinically improving No new complains PTOT eval noted-for home health Qualified for home O2 Await arrangement for home O2 prior to discharge Rest as in resident physician's documentation
[2017-04-09] MEDS: Benzonatate 100 MG CAPSULE PO PRN (16:15)
[2017-04-09] MEDS: Latanoprost 2.5 ML BOTTLE BOTH EYES SCH (19:01)
[2017-04-09] MEDS ORDERED: CefTRIAXone 1,000 MG VIAL ONE ×3 (20:56→21:04)
[2017-04-09] MEDS: cefTRIAXone 1,000 MG in Water for inj. (sterile) 10 ML IVP SCH (21:10)
[2017-04-10] MEDS: Albuterol 2.5 MG/3 ML NEBULIZER IH SCH ×7 (00:37→23:26)
[2017-04-10] MEDS: cefTRIAXone 1,000 MG in Water for inj. (sterile) 20 ML 10 ML IVP SCH ×2 (06:36→20:51)
[2017-04-10] MEDS: *HR* Heparin 5,000 UNIT/ML VIAL SQ SCH ×2 (06:41→17:24)
--- NOTE | 2017-04-10 07:43 | Internal Med Progress Note ---
<Mikhail Marte - Last Filed: 04/10/17 11:53> Date of Encounter: 04/10/17 Time of Encounter: 08:46 - Assessment and plan (1) CHF (congestive heart failure) Current Visit: Yes Status: Chronic Assessment and plan: Patient does have NYHA stage II to III CHF, well managed by cardiology with Saurabh inhibitors, beta blockers and diuretics. This likely is been exacerbated due to upper respiratory infection. Patient does have mild congestion on exam as well as chest x-ray which showed cardiomegaly and possible right lower lobe pneumonia. Continue beta blockers and increase Saurabh inhibitors due to hypertension. Transitioned today to by mouth Lasix back to her normal home dose.. Continue fluid restriction, daily weights, strict I/O's Cardiology recommendations: EKG was done which showed sinus rhythm nonspecific EKG changes which is unchanged from May 2016. Echocardiogram came back showing decreased EF at 40% when previously one year ago it was at 60-65%. Cardiology said that did decrease in EF most likely is due to her sickness they will follow at outpatient. They continued to keep her same recommendations of fluid restriction as well as strict I's and O's and continuing the Lasix diuresis.. No further recommendations. Patient's CHF does not be getting better. She is now on her daily Lasix by mouth. This problem seems to his nearly resolved and will be followed up in the outpatient setting with cardiology. Qualifiers: Congestive heart failure type: unspecified congestive heart failure type Congestive heart failure chronicity: acute Qualified Code(s): I50.9 - Heart failure, unspecified (2) Hyponatremia Current Visit: Yes Status: Acute Assessment and plan: The patient has had a decreasing sodium during her stay here. This has happened to her before she chronically is low but she normally sits around 135 is her baseline. She is now down to 122. We have been diuresing her her kidney function has stayed stable. She is now on by mouth Lasix. Patient has been L year drink due to the weakness most likely secondary to the RSV infection as well as the pneumonia. She has been on a 1200 mL fluid restriction. We are unable to stop her Lasix due to her history of CHF. We will give salt tablets and continue to trend. Patient's sodium today has continued to go up to 128 after giving the salt tablets scheduled. We will continue to monitor. Patient is nearly back to baseline (3) Pneumonia Current Visit: Yes Status: Acute Assessment and plan: Patient's chest x-ray did show right lower lobe pneumonia she was started on Rocephin and azithromycin in the emergency Department these are still being continued. Viral swabs did show positive for RSV. This could not be a bacterial pneumonia as she did not have a leukocytosis, fevers or tachycardia. This could all be due to a viral syndrome. This did worsen her CHF which could cause for the difficulty in breathing and worsening cough. We have stopped the azithromycin will continue the Rocephin as this is day 6 of Rocephin. Patient did qualify for oxygen at home due to social work being gone this cannot be set up until Monday so patient cannot to stay till Monday until social work can set up for home oxygen placement. Qualifiers: Pneumonia type: due to unspecified organism Laterality: right Lung location: lower lobe of lung Qualified Code(s): J18.1 - Lobar pneumonia, unspecified organism (4) RSV (respiratory syncytial virus pneumonia) Current Visit: Yes Status: Acute Assessment and plan: Patient did show right lower lobe consolidation on chest x-ray. Pneumonia is most likely due to RSV as there were positive RSV cultures. Blood cultures showed no growth We will treat symptomatically with Tylenol, oxygen and DuoNeb nebs as needed. And she is still on antibiotics for the pneumonia. (5) Diabetes mellitus type II, uncontrolled Current Visit: No Status: Chronic Assessment and plan: Type 2 diabetes is well-controlled with an A1c is 6.2 Continue home meds and add insulin sliding scale Qualifiers: Diabetes mellitus complication status: with neurologic complications Diabetes mellitus complication detail: with unspecified neuropathy Diabetes mellitus oil heaterman insulin use: without oil heaterman use Qualified Code(s): E11.40 - Type 2 diabetes mellitus with diabetic neuropathy, unspecified; E11.65 - Type 2 diabetes mellitus with hyperglycemia; E11.65 - Type 2 diabetes mellitus with hyperglycemia; E11.65 - Type 2 diabetes mellitus with hyperglycemia; E11.65 - Type 2 diabetes mellitus with hyperglycemia (6) CAD (coronary artery disease) Current Visit: Yes Status: Chronic Assessment and plan: Patient does have history of CAD status post CABG. She is not currently having any chest pain, troponins were negative and EKG was normal. Continue beta isaias, Plavix, Saurabh inhibitors Cardiology is consulting. Echocardiogram came back abnormal showing decreased EF compared to one year ago. Awaiting cardiology recommendations based on abnormal echocardiogram. Qualifiers: Coronary Disease-Associated Artery/Lesion type: [place] artery [place] vs. transplanted heart: [place] heart Associated angina: without angina Qualified Code(s): I25.10 - Atherosclerotic heart disease of [place] coronary artery without angina pectoris (7) CKD (chronic kidney disease) stage 3, GFR 30-59 ml/min Current Visit: Yes Status: Chronic Assessment and plan: Creatinine is slightly elevated but is still within stable range for her. This most likely is due to the IV Lasix. Patient is now transitioning to by mouth Lasix (8) Hypertension Current Visit: Yes Status: Chronic Assessment and plan: Patient is hypertensive blood pressure has been elevated SAURABH inhibitor dose was increased. We will continue to monitor Qualifiers: Hypertension type: essential hypertension Qualified Code(s): I10 - Essential (primary) hypertension (9) Normocytic anemia Current Visit: No Status: Chronic Assessment and plan: Stable no treatment currently needed during this admission (10) DVT prophylaxis Current Visit: Yes Status: Acute Assessment and plan: 5000 units heparin subcutaneous twice a day. - Subjective Interval history: Patient states she is still feeling very weak. Patient is not having any chest pain or increased shortness of breath or any fevers or nausea vomiting or any dysuria or constipation. There were no overnight events. Patient does feel like she needs to have increase in her oxygen. Patient had no overnight events and there is no other complaints - Constitutional Vitals: Temp Pulse Resp BP Pulse Ox 98.7 F 68 17 157/66 97 04/10/17 06:57 04/10/17 06:57 04/10/17 06:57 04/10/17 06:57 04/10/17 06:57 General appearance: Present: A&O X 3, pleasant, no acute distress, answers questions appropriately - Head Head exam: Present: atraumatic, normocephalic - Eye Eye exam: Present: PERRL, conjuntiva pink, sclera anicteric Pupils: Present: PERRL - Neck Neck exam general surgery: Present: supple, trachea midline. Absent: lymphadenopathy - Respiratory Respiratory exam: Present: CTAB. Absent: accessory muscle use, rales, rhonchi, wheezes - Cardiovascular Cardiovascular exam: Present: RRR, +S1, +S2. Absent: diastolic murmur, gallop, rubs, systolic murmur - GI/Abdominal GI/Abdominal exam: Present: normal bowel sounds, soft, no peritoneal signs. Absent: distended, tenderness - Extremities Exam Extremities exam: Present: warm, radial pulses palpable and symmetrical. Absent : calf tenderness, cyanotic, pedal edema - Neurological Exam Neurological exam: Present: CN II-XII intact, oriented X3, no focal deficits. Absent: pronater drift, facial droop, speech deficit - Skin Skin exam: Present: dry, intact Internal Medicine: Result - Labs CBC & Chem 7: 04/10/17 07:25 04/10/17 07:25 Labs: Short CBC 04/09/17 Range/Units 07:10 WBC 8.5 (4.3-11.1) K/mcL Hgb 7.9 L (11.5-15.4) g/dL Hct 22.1 L (35.3-44.9) % Plt Count 161 (140-400) K/mcL [facility] 04/09/17 07:10 Sodium 126 L Potassium 4.4 Chloride 96 L Carbon Dioxide 25 BUN 34 H Creatinine 1.53 H Glucose 132 H Calcium 8.6 - VTE Documentation of Mechanical Device: Intermittent pneumatic compression device Consult Discharge Plan - Plan Instructions: Heart Failure (DC), Hyponatremia (DC), Pneumonia (DC) Referrals: Dylan Alvarez MD [Primary Care Provider] - 04/14/17 10:15 am (web request sent on 04/05/17) <Agustin Cuba - Last Filed: 04/10/17 14:48> Date of Encounter: 04/10/17 - Constitutional Vitals: Temp Pulse Resp BP Pulse Ox 98.0 F 72 18 166/58 99 04/10/17 10:46 04/10/17 10:46 04/10/17 11:11 04/10/17 10:46 04/10/17 11:11 Internal Medicine: Result - Labs CBC & Chem 7: 04/10/17 07:25 04/10/17 07:25 Labs: Short CBC 04/10/17 Range/Units 07:25 WBC 8.1 (4.3-11.1) K/mcL Hgb 7.9 L (11.5-15.4) g/dL Hct 22.8 L (35.3-44.9) % Plt Count 168 (140-400) K/mcL BMP 04/10/17 07:25 Sodium 128 L Potassium 4.6 Chloride 98 Carbon Dioxide 25 BUN 35 H Creatinine 1.44 H Glucose 140 H Calcium 8.8 - Attending Attestation Seen and examined independently on 04/10/17 Clinically improving No new complains PTOT eval noted-for home health Qualified for home O2 Await arrangement for home O2 prior to discharge Rest as in resident physician's documentation
[2017-04-10 08:03] LABS: Hematocrit 22.8 % (35.3-44.9); Hemoglobin 7.9 g/dL (11.5-15.4); Mean Corpuscular HGB Conc 34.6 g/dL (31.6-35.5); Mean Corpuscular Hemoglobin 29.8 pg (28.0-33.3); Mean Platelet Volume 10.2 fL (9.4-12.4); Platelet Count 168 K/mcL (140-400); Red Blood Count 2.65 M/mcL (3.82-4.97); Red Cell Distribution Width 13.9 % (11.5-14.5)
[2017-04-10 08:27] LABS: Calcium 8.8 mg/dL (8.6-10.3); Potassium 4.6 mEq/L (3.5-5.1)
[2017-04-10] MEDS: Insulin LISPRO 300 UNITS/3 ML VIAL SQ SCH ×4 (09:07→20:50)
[2017-04-10] MEDS: Furosemide 20 MG TABLET PO SCH ×2 (09:07→17:23)
[2017-04-10] MEDS: Iron Polysaccharide Complex 150 MG CAPSULE PO SCH (09:08)
[2017-04-10] MEDS: amLODIPine 5 MG TABLET PO SCH (09:08)
[2017-04-10] MEDS: GuaiFENesin Liq 200 MG/10 ML UDC PO PRN (20:50)
[2017-04-10] MEDS: Latanoprost 2.5 ML BOTTLE BOTH EYES SCH (20:51)
[2017-04-11] MEDS: Albuterol 2.5 MG/3 ML NEBULIZER IH SCH ×3 (03:37→11:23)
[2017-04-11 03:43] LABS: Hematocrit 22.8 % (35.3-44.9); Hemoglobin 7.6 g/dL (11.5-15.4); Mean Corpuscular HGB Conc 33.3 g/dL (31.6-35.5); Mean Corpuscular Hemoglobin 29.2 pg (28.0-33.3); Mean Corpuscular Volume 87.7 fL (83.0-100.0); Mean Platelet Volume 10.3 fL (9.4-12.4); Platelet Count 179 K/mcL (140-400); Red Cell Distribution Width 14.1 % (11.5-14.5)
[2017-04-11 04:00] LABS: Calcium 8.9 mg/dL (8.6-10.3); Potassium 4.9 mEq/L (3.5-5.1)
[2017-04-11] MEDS: *HR* Heparin 5,000 UNIT/ML VIAL SQ SCH (05:29)
[2017-04-11] MEDS: GuaiFENesin Liq 200 MG/10 ML UDC PO PRN (06:25)
--- NOTE | 2017-04-11 07:26 | Discharge Summary ---
Addendum entered and electronically signed by Mikhail Marte DO 04/11/17 10:49: Add to hospital course: Patient was seen by cardiology we did a echocardiogram on her as she have elevated troponins. She did have decreased EF by cardiology saw her into this most likely is due to her secondary sickness. This they will follow this outpatient with her. They slept for an outpatient appointment already. Original Note: <Mikhail Marte - Last Filed: 04/11/17 08:53> Date of Encounter: 04/11/17 Time of Encounter: 08:53 - Discharge Diagnosis (1) CHF (congestive heart failure) Priority: Secondary Status: Chronic Qualifiers: Congestive heart failure type: unspecified congestive heart failure type Congestive heart failure chronicity: acute Qualified Code(s): I50.9 - Heart failure, unspecified (2) Hyponatremia Priority: Secondary Status: Acute (3) Pneumonia Priority: Primary Status: Acute Qualifiers: Pneumonia type: due to unspecified organism Laterality: right Lung location: lower lobe of lung Qualified Code(s): J18.1 - Lobar pneumonia, unspecified organism (4) RSV (respiratory syncytial virus pneumonia) Priority: Secondary Status: Acute (5) Diabetes mellitus type II, uncontrolled Priority: Secondary Status: Chronic Qualifiers: Diabetes mellitus complication status: with neurologic complications Diabetes mellitus complication detail: with unspecified neuropathy 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 transplanted heart: [place] heart Associated angina: without angina Qualified Code(s): I25.10 - Atherosclerotic heart disease of [place] coronary artery without angina pectoris (7) CKD (chronic kidney disease) stage 3, GFR 30-59 ml/min Priority: Secondary Status: Chronic (8) Hypertension Priority: Secondary Status: Chronic Qualifiers: Hypertension type: essential hypertension Qualified Code(s): I10 - Essential (primary) hypertension (9) Normocytic anemia Priority: Secondary Status: Chronic (10) DVT prophylaxis Priority: Secondary Status: Acute - Discharge Medications Prescriptions: Sodium Chloride 1 gm PO DAILY #30 tablet Home Medications: Amlodipine [Norvasc] 10 mg PO DAILY 12/27/14 [History] Clopidogrel [Plavix] 75 mg PO DAILY 12/27/14 [History] Doxazosin [Cardura] 4 mg PO HS 12/27/14 [History] Atorvastatin [Lipitor] 40 mg PO HS 09/23/15 [History] Sitagliptin Phosphate [Januvia] 50 mg PO DAILY 09/23/15 [History] Iron Polysaccharide Complex [Ferrex 150] 150 mg PO DAILY 05/22/16 [History] Latanoprost [Xalatan] 1 drop BOTH EYES HS 05/23/16 [History] Carvedilol [Coreg] 6.25 mg PO BIDWM 04/04/17 [History] Furosemide [Lasix] 20 mg PO BID 04/04/17 [History] Lisinopril [Zestril] 5 mg PO DAILY 04/04/17 [History] Sodium Chloride 1 gm PO DAILY #30 tablet 04/11/17 [Rx] Allergies/Adverse Reactions: 3 Allergy/AdvReac Type Severity Reaction Status Date / Time codeine AdvReac Hallucinati Verified 05/24/16 11:17 ng Date of admission: 04/05/17 13:11 Primary care physician: Dylan Alvarez MD Consults: 04/10/17 11:52 Consult to Supply Chain Analyst [CONS] Routine Reason for SW Consult: Set up home oxygen. She already qualified for home Oxygen. DC once set up. 04/07/17 10:45 Consult to Occupational Therapy [CONS] Routine Comment: Evaluate, develop and implement POC Reason for Consult: Pt is very weak and new oxygen requiment and hard time to get aroud house. Consult to Physical Therapy [CONS] Routine Comment: Evaluate, develop and implement POC Reason for Consult: Pt is very weak and new oxygen requiment and hard time to get aroud house. Discharging clinician: Mikhail Marte Anticipated date of discharge: 04/11/17 - Patient Status Disposition: Home, Self-Care Condition: Good Overall status at discharge: patient is progressing back to baseline - Discharge Instructions Instructions: Heart Failure (DC), Hyponatremia (DC), Pneumonia (DC) Follow Up With: Dylan Alvarez MD [Primary Care Provider] - 04/14/17 10:15 am (web request sent on 04/05/17) - Diet and Activity Activity: as per physical therapy, resume usual activities as tolerated, wear oxygen at all times Diet: advance to your usual diet Interval History: Patient states that she is doing well today she is ready to go home since she does still feel a little weak but feels better than when she first came in her breathing is better she is on her short of breath. She is no longer having any chest pain or dysuria. Patient is doing well since she was able to sleep well last night. Hospital course: Ms. Prather is a 71 year old female presented to the emergency department complaining of shortness of breath and generalized weakness. Patient has a history of CHF as well as early COPD. She does not have home oxygen she wants to stay at home. Chest x-ray did show a right-sided pneumonia she was started on Rocephin as well as azithromycin she did 3 days azithromycin 5 days of Rocephin and complete her course for the pneumonia. Pneumonia is subsided. Patient also was positive for RSV. This most likely is causing most of her weakness and many of her symptoms. Patient is certainly get her strength back. She was given Tessalon Robitussin for symptoms. Patient was given 1 day of IV Lasix to help with her CHF exacerbation where she is fluid overloaded. After that we transitioned her to her normal home dose of by mouth Lasix and patient did well with that. Patient was on a fluid restriction due to being hyponatremic. She did drop to 120 off her sodium. We did give patient salt tablets as fluid restriction was not increasing. Patient sodium did increase after salt tablets. Patient is now doing well she did qualify for home oxygen which is being set up through social work. Patient is stable at this time she is ray for discharge. Patient is discharged to home. Time spent discussing smoking cessation with patient: 3 to 10 minutes - Time Spent with Patient Total time spent providing and/or coordinating discharge services: Greater than 30 minutes - Constitutional Vitals: Temp Pulse Resp BP Pulse Ox 97.5 F L 68 16 170/57 99 04/11/17 06:51 04/11/17 06:51 04/11/17 06:51 04/11/17 06:51 04/11/17 06:51 General appearance: Present: A&O X 3, pleasant, no acute distress, answers questions appropriately - Head Head exam: Present: atraumatic, normocephalic - Eye Eye exam: Present: PERRL, conjuntiva pink, sclera anicteric Pupils: Present: PERRL - Neck Neck exam general surgery: Present: supple, trachea midline. Absent: lymphadenopathy - Respiratory Respiratory exam: Present: CTAB. Absent: accessory muscle use, rales, rhonchi, wheezes - Cardiovascular Cardiovascular exam: Present: RRR, +S1, +S2. Absent: diastolic murmur, gallop, rubs, systolic murmur - GI/Abdominal GI/Abdominal exam: Present: normal bowel sounds, soft, no peritoneal signs. Absent: distended, tenderness - Extremities Exam Extremities exam: Present: warm, radial pulses palpable and symmetrical. Absent : calf tenderness, cyanotic, pedal edema - Neurological Exam Neurological exam: Present: CN II-XII intact, oriented X3, no focal deficits. Absent: pronater drift, facial droop, speech deficit - Skin Skin exam: Present: dry, intact - VTE Documentation of Mechanical Device: Intermittent pneumatic compression device <Agustin Cuba T - Last Filed: 04/11/17 16:12> Date of Encounter: 04/11/17 Date of admission: 04/05/17 13:11 Primary care physician: Dylan Alvarez MD Consults: 04/10/17 11:52 Consult to Supply Chain Analyst [CONS] Routine Reason for SW Consult: Set up home oxygen. She already qualified for home Oxygen. DC once set up. 04/07/17 10:45 Consult to Occupational Therapy [CONS] Routine Comment: Evaluate, develop and implement POC Reason for Consult: Pt is very weak and new oxygen requiment and hard time to get aroud house. Consult to Physical Therapy [CONS] Routine Comment: Evaluate, develop and implement POC Reason for Consult: Pt is very weak and new oxygen requiment and hard time to get aroud house. Hospital course: Ms. Prather is a 71 year old female - Time Spent with Patient Total time spent providing and/or coordinating discharge services: - Constitutional Vitals: Temp Pulse Resp BP Pulse Ox 97.8 F 70 20 151/54 93 04/11/17 11:29 04/11/17 11:29 04/11/17 11:29 04/11/17 11:29 04/11/17 11:29 - Attending Attestation Seen and examined independently on 04/11/17 Clinically improving No new complains PTOT jewel noted-for home health Repeat O2 qualification done today-patient no longer qualifies She has completed her treatment course and is euvolemic Medically stable for discharge home with critical access hospital Follow up with cardiology for new systolic/combined CHF 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
[2017-04-11] MEDS: Iron Polysaccharide Complex 150 MG CAPSULE PO SCH (08:25)
[2017-04-11] MEDS: Insulin LISPRO 300 UNITS/3 ML VIAL SQ SCH (08:25)
[2017-04-11] MEDS: Furosemide 20 MG TABLET PO SCH (08:26)
[2017-04-11] MEDS: amLODIPine 5 MG TABLET PO SCH (08:26)
[2017-04-11] MEDS ORDERED: FLUARIX QUAD 2017-18 36MOS UP/PF 0.5 ML SYRINGE IM ONE (10:14)
[2017-04-11 11:39] VITALS: BP 151/54
--- NOTE | 2017-04-11 13:23 | Physician Discharge Referral ---
Home Health/Hosp Referral Info Transfer to: Home Health Attending Provider: Rosa Elena Provider in Charge Post Discharge: PCP - Diagnosis (1) CHF (congestive heart failure) Priority: Primary Status: Chronic (2) Hyponatremia Priority: Secondary Status: Acute (3) Pneumonia Priority: Secondary Status: Acute (4) RSV (respiratory syncytial virus pneumonia) Priority: Secondary Status: Acute (5) Diabetes mellitus type II, uncontrolled Priority: Secondary Status: Chronic (6) CAD (coronary artery disease) Priority: Secondary Status: Chronic (7) CKD (chronic kidney disease) stage 3, GFR 30-59 ml/min Priority: Secondary Status: Chronic (8) Hypertension Priority: Secondary Status: Chronic (9) Normocytic anemia Priority: Secondary Status: Chronic (10) DVT prophylaxis Priority: Secondary Status: Acute - Respiratory Orders None Smoking Cessation: Smoking cessation has been advised. For more information, call the [place] Tobacco Quit Line at 2-654-DZDX-NOW. - Diet/Nutrition Diet/Nutrition Orders: Regular - Activity Activity Orders: Up ad sanchez - Services Needed Following services are medically necessary services: Nursing, Physical Therapy, Occupational Therapy - Transfer Medications Prescriptions: Sodium Chloride 1 gm PO DAILY #30 tablet Home Medications: Amlodipine [Norvasc] 10 mg PO DAILY 12/27/14 [History] Clopidogrel [Plavix] 75 mg PO DAILY 12/27/14 [History] Doxazosin [Cardura] 4 mg PO HS 12/27/14 [History] Atorvastatin [Lipitor] 40 mg PO HS 09/23/15 [History] Sitagliptin Phosphate [Januvia] 50 mg PO DAILY 09/23/15 [History] Iron Polysaccharide Complex [Ferrex 150] 150 mg PO DAILY 05/22/16 [History] Latanoprost [Xalatan] 1 drop BOTH EYES HS 05/23/16 [History] Carvedilol [Coreg] 6.25 mg PO BIDWM 04/04/17 [History] Furosemide [Lasix] 20 mg PO BID 04/04/17 [History] Lisinopril [Zestril] 5 mg PO DAILY 04/04/17 [History] Sodium Chloride 1 gm PO DAILY #30 tablet 04/11/17 [Rx] Allergies/Adverse Reactions: 3 Allergy/AdvReac Type Severity Reaction Status Date / Time codeine AdvReac Hallucinati Verified 05/24/16 11:17 ng Certification: Further, I certify that my clinical findings support that this patient is homebound (i.e. absences from home require considerable and taxing effort and are for medical reasons or islam services or infrequently or short duration when for other reasons) because: Homebound Reason: Severity of cardiac or pulmonary status limits activity tolerance Attestation: My signature below is to certify that this patient is under my care and that I, or nurse practitioner, or a physician's clinical education assistant working with me, has a face-to -face encounter with this patient.
== END 2017-04-11 11:59 | disposition home health service (06) | DRG 291 ==
LOC: 2ANU 15:43 → EMEROO 15:43 → 2ANU 19:35 → SUATTDRO 04-05 13:11
PROVIDERS: ADMIT Internal Medicine Nephrology; ATTEND Internal Medicine

== ENCOUNTER 2017-08-25 13:36 | Inpatient (IN) ==
[2017-08-25] MEDS ORDERED: Ipratropium/Albuterol Neb 3 ML IH ONE (13:43)
[2017-08-25] MEDS ORDERED: Furosemide 40 MG/4 ML VIAL IVP ONE (13:43)
[2017-08-25] MEDS ORDERED: Nitroglycerin 0.4 MG TAB.SUBL SL PRN (13:44)
[2017-08-25] MEDS ORDERED: 0.9 % Sodium Chloride 1,000 ML ONE ×2 (13:57→19:32)
[2017-08-25 14:02] LABS: ABG Base Excess -3 mEq/L (-2 to 3); ABG HCO3 23 mEq/L (21-27); ABG Oxygen Saturation 98 % (95-98); ABG PCO2 46 mmHg (35-45); ABG PH 7.31 pH Units (7.32-7.45); ABG PO2 110 mmHg (85-104); ABG TCO2 25 mEq/L (20-26); Blood Gas Modality CPAP/PS; Blood Gas PEEP 8 cm H2O; Blood Gas Pressure Support 14 cm H2O
[2017-08-25] MEDS ORDERED: Isovue-370 500 ML INFUS..BTL IV ONE (14:07)
[2017-08-25 14:14] LABS: Basophils # 0.1 K/mcL (0.0-0.2); Basophils % 0.6 %; Eosinophils # 0.2 K/mcL (0.0-0.6); Eosinophils % 1.6 %; Hematocrit 35.4 % (35.3-44.9); Immature Granulocytes % 0.4 % (0-4); Lymphocytes # 0.8 K/mcL (0.6-4.6); Lymphocytes % 7.1 %; Mean Corpuscular HGB Conc 33.9 g/dL (31.6-35.5); Mean Corpuscular Hemoglobin 29.5 pg (28.0-33.3); Mean Platelet Volume 11.1 fL (9.4-12.4); Monocytes # 0.5 K/mcL (0.0-1.3); Monocytes % 3.9 %; Platelet Count 165 K/mcL (140-400); Red Blood Count 4.07 M/mcL (3.82-4.97); Red Cell Distribution Width 14.7 % (11.5-14.5); Segmented Neutrophils % 86.4 %
--- NOTE | 2017-08-25 14:24 | Emergency Department Note ---
Disposition Clinical Impression: Acute CHF Qualifiers: Heart failure type: unspecified Qualified Code(s): I50.9 - Heart failure, unspecified Disposition: Admitted As Inpatient Referrals: Dylan Alvarez MD [Primary Care Provider] - General Adult HPI - General Chief complaint: ED Shortness of Breath/Dyspnea Stated complaint: MARCELO Time Seen by Provider: 08/25/17 13:41 Source: patient, EMS Limitations: no limitations - History of Present Illness Pain Scale: 0 - Related Data Home Medications Medication Instructions Recorded Confirmed Amlodipine [Norvasc] 10 mg PO DAILY 12/27/14 04/04/17 Clopidogrel [Plavix] 75 mg PO DAILY 12/27/14 04/04/17 Doxazosin [Cardura] 4 mg PO HS 12/27/14 04/04/17 Atorvastatin [Lipitor] 40 mg PO HS 09/23/15 04/04/17 Sitagliptin Phosphate [Januvia] 50 mg PO DAILY 09/23/15 04/04/17 Iron Polysaccharide Complex 150 mg PO DAILY 05/22/16 04/04/17 [Ferrex 150] Latanoprost [Xalatan] 1 drop BOTH EYES HS 05/23/16 04/04/17 Carvedilol [Coreg] 6.25 mg PO BIDWM 04/04/17 04/04/17 Furosemide [Lasix] 20 mg PO BID 04/04/17 04/04/17 Lisinopril [Zestril] 5 mg PO DAILY 04/04/17 04/04/17 Previous Rx's Medication Instructions Recorded Sodium Chloride 1 gm PO DAILY #30 tablet 04/11/17 Allergies Allergy/AdvReac Type Severity Reaction Status Date / Time codeine AdvReac Hallucinati Verified 05/24/16 11:17 ng Past Medical History - Past Medical History Medical history: Reports: cancer, cardiomyopathy, CHF, COPD, coronary artery disease, CVA, diabetes, hyperlipidemia, hypertension, peripheral artery disease , other Surgical history: Reports: coronary bypass (CABG), ureteral stent Psychiatric history: Reports: no psych history 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, 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 - Social History Smoking Status: Former smoker Smokeless Tobacco Status: No Alcohol use: Reports: none Drug use: Reports: none Physical Exam - General Limitations: no limitations General appearance: in distress Course Vital Signs Temperature 97.8 F 08/25/17 13:40 Pulse Rate 84 08/25/17 13:40 Respiratory Rate 32 08/25/17 13:40 Blood Pressure 157/110 08/25/17 13:40 O2 Sat by Pulse Oximetry 70 08/25/17 13:40 Temperature 97.8 F 08/25/17 13:40 Pulse Rate 85 08/25/17 13:59 Respiratory Rate 26 08/25/17 14:09 Blood Pressure 185/73 08/25/17 13:59 O2 Sat by Pulse Oximetry 98 08/25/17 14:09 Oxygen Delivery Oxygen Delivery Bipap Medical Decision Making - Lab Data Result diagrams: 08/25/17 13:43 Lab Results 08/25/17 08/25/17 Range/Units 13:43 13:58 WBC 11.6 H (4.3-11.1) K/mcL RBC 4.07 (3.82-4.97) M/mcL Hgb 12.0 (11.5-15.4) g/dL Hct 35.4 (35.3-44.9) % MCV 87.0 (83.0-100.0) fL MCH 29.5 (28.0-33.3) pg MCHC 33.9 (31.6-35.5) g/dL RDW 14.7 H (11.5-14.5) % Plt Count 165 (140-400) K/mcL MPV 11.1 (9.4-12.4) fL Immature Gran % 0.4 (0-4) % Seg Neutrophils % 86.4 % Lymphocytes % 7.1 % Monocytes % 3.9 % Eosinophils % 1.6 % Basophils % 0.6 % Neutrophils # 10.0 H (1.6-8.9) K/mcL Lymphocytes # 0.8 (0.6-4.6) K/mcL Monocytes # 0.5 (0.0-1.3) K/mcL Eosinophils # 0.2 (0.0-0.6) K/mcL Basophils # 0.1 (0.0-0.2) K/mcL Sample Site R Radial ABG pH 7.31 L (7.32-7.45) pH Units ABG pCO2 46 H (35-45) mmHg ABG pO2 110 H (85-104) mmHg ABG HCO3 23 (21-27) mEq/L ABG Total CO2 25 (20-26) mEq/L ABG O2 Saturation 98 (95-98) % ABG Base Excess -3 L (-2 to 3) mEq/L Timothy Test Positive O2 Delivery Device BiPAP Blood Gas Modality CPAP/PS Inspired O2 100.0 (1-15=lpm [id number]=%) PEEP 8 cm H2O Pressure Support 14 cm H2O Attestation Statement - Attestation Attestation: I examined this patient and my medical decision-making was reviewed with the Resident Physician. I agree with the documented findings, disposition and treatment plan as described except to the extent set forth below. 71 aravind old female with history of CHF and COPD and one vessel bypass presents to the Ed via EMS for acute respiratory distress and pulse ox of 70%. WE have placed her on bipap and is now 100% but her EKG is concerning as the QRS is widening and has history of hyperkalemia secondar to diabetes in addition to some 3-[address] elevations in leads V1-3 with some new depression and T wave inversion in the infierior leads. Posterior EKG shows silmiar appearance. We have spoken with interventional cardiology who will come to beside to evaluate and states that she may be a heart cath candidate secondary to acute changes in appearance. Dr. Gonsalez will be here to evalaute at bedside and nurse practioner has already evaluated. WE have given calcium cholirde and bicarb for possible hyperk therapy. It appers she is likely in acute pulmonary edema and we will add nitrate and lasix therapy. ADMIT to hospital and waiting for final dispostion for labor specialist. bedside cardiac echo does not show an effusion and it appear her EF is likely around 50%, no right heart strain presents
[2017-08-25] MEDS ORDERED: Nitroglycerin 25 MG/250 ML INFUS..BTL IVC SCH (14:30)
[2017-08-25] MEDS ORDERED: Nitroglycerin 25 MG/250 ML INFUS..BTL IVC ONE (14:31)
[2017-08-25] MEDS ORDERED: Nitroglycerin Spray 4.9 GM BOTTLE ONE (14:32)
--- NOTE | 2017-08-25 14:33 | Emergency Department Note ---
Disposition Clinical Impression: Acute CHF Qualifiers: Heart failure type: unspecified Qualified Code(s): I50.9 - Heart failure, unspecified Acute respiratory failure Qualifiers: Respiratory failure complication: hypoxia and hypercapnia Qualified Code(s): J96.01 - Acute respiratory failure with hypoxia; J96.02 - Acute respiratory failure with hypercapnia Disposition: Admitted As Inpatient Condition: Fair Time of Disposition: 18:36 SOB HPI - General Chief Complaint: ED Shortness of Breath/Dyspnea Stated Complaint: MARCELO Time Seen by Provider: 08/25/17 13:41 Source: patient, EMS Limitations: no limitations Nursing Notes Reviewed: Yes Vital Signs Reviewed: Yes - History of Present Illness Patient is a 71-year-old female who presents to [facility] ED with a chief complaint of difficulty breathing. States her symptoms started yesterday evening and then worsened today. Admits to history of triple bypass, prior history of heart failure. Denies any nausea, vomiting, fever or chills. No recent cough or cold. Denies any chest pain. Just feels extremely out of breath. No home oxygen usage. Pt Subjective Complaint: shortness of breath Onset (ago): day(s) (1) Severity: none Consistency/Duration: constant Improves with: nothing Worsens with: exertion Known history of: COPD, congestive heart failure Associated symptoms: Denies: chest pain, fever, cough, nausea/vomiting, abdominal pain Treatment prior to arrival: aspirin Cough present: No - Related Data Home oxygen amount: none Home Medications Medication Instructions Recorded Confirmed Atorvastatin [Lipitor] 40 mg PO HS 09/23/15 08/25/17 Sitagliptin Phosphate [Januvia] 50 mg PO DAILY 09/23/15 08/25/17 Iron Polysaccharide Complex 150 mg PO DAILY 05/22/16 08/25/17 [Ferrex 150] Latanoprost [Xalatan] 1 drop BOTH EYES HS 05/23/16 08/25/17 Carvedilol [Coreg] 6.25 mg PO BIDWM 04/04/17 08/25/17 Furosemide [Lasix] 20 mg PO DAILY 04/04/17 08/25/17 Lisinopril [Zestril] 5 mg PO DAILY 04/04/17 08/25/17 Amlodipine Besylate 10 mg PO DAILY 08/25/17 08/25/17 Clopidogrel [Plavix] 75 mg PO DAILY 08/25/17 08/25/17 Doxazosin [Cardura] 4 mg PO HS 08/25/17 08/25/17 Allergies Allergy/AdvReac Type Severity Reaction Status Date / Time codeine AdvReac Hallucinati Verified 05/24/16 11:17 ng All systems ED: reviewed and negative except as stated. Past Medical History - Past Medical History Attestation: Yes The following information was validated with the patient. 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, 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 - Social History Smoking Status: Former smoker Smokeless Tobacco Status: No Alcohol use: Reports: none Drug use: Reports: none Physical Exam - General Limitations: no limitations General appearance: in distress - Head Head exam: atraumatic, normocephalic, normal inspection - Eye Eye exam: Present: normal appearance, PERRL, EOMI - ENT ENT exam: normal exam, normal oropharynx, mucous membranes moist - Neck Neck exam: Present: normal inspection, full ROM, trachea midline - Chest Chest inspection: Present: normal inspection, symmetric chest wall rise - Respiratory Respiratory exam: Present: normal lung sounds bilaterally - Cardiovascular Cardiovascular exam: Present: regular rate, normal rhythm, normal heart sounds - Abdominal Exam Abdominal exam: Present: soft, Non-Tender. Absent: tenderness, distention, guarding, rebound, rigidity - Extremities Exam Extremities exam: Present: normal inspection, full ROM. Absent: tenderness, pedal edema - Back Exam Back exam: Present: normal inspection, full ROM. Absent: tenderness - Neurological Exam Neurological exam: Present: alert, oriented X3 - Psychiatric Psychiatric exam: Present: anxious - Skin Skin exam: Present: warm, dry, intact, normal color Course Course Narrative: Patient seen and examined. Patient arrives very dyspneic. She was oxygenating at 70% upon her arrival here. Respiratory therapy was called and patient was placed on BiPAP. A stat chest x-ray was done which showed signs of diffuse pulmonary edema. No signs of pneumothorax. Sublingual nitroglycerin was ordered. Cardiopulmonary workup was initiated. CTA of the chest ordered to rule out pulmonary embolus due to the acute nature of patient's decline. - Reevaluation(s) Reevaluation #1: Patient's EKG did show some signs of ST elevation in leads V1 and V2 with some worsening depression in leads V5, V6, 2 and aVF. The EKG was sent over to interventional cardiology and stereotype finisher Dr. Gonsalez came down to the bedside to evaluate the patient. States he recommended patient be placed on a nitroglycerin drip and titrated to a systolic blood pressure of 120. States they will take the patient to the [facility] if we can get that blood pressure down to 120. Nitro drip was started. Would also like a stat echocardiogram. Time: 14:52 Reevaluation #2: Echocardiogram still showed a ejection fraction of 55%. Cardiology will hold off on taking patient to the [facility] for now. CTA of the chest shows congestive heart failure, no signs of pulmonary embolus. I discussed with the clam treader Dr. Saldana who states he feels that patient is stable to be admitted to the stepdown unit. I discussed with hospitalist Dr. More who has accepted patient for admission. Time: 17:35 Vital Signs Temperature 97.8 F 08/25/17 13:40 Pulse Rate 84 08/25/17 13:40 Respiratory Rate 32 08/25/17 13:40 Blood Pressure 157/110 08/25/17 13:40 O2 Sat by Pulse Oximetry 70 08/25/17 13:40 Temperature 97.8 F 08/25/17 13:40 Pulse Rate 66 08/25/17 17:55 Respiratory Rate 17 08/25/17 17:55 Blood Pressure 164/77 08/25/17 17:55 O2 Sat by Pulse Oximetry 100 08/25/17 17:55 Oxygen Delivery Oxygen Delivery Bipap Shortness of Breath/Dyspnea - Medical Records Medical records reviewed: Yes I reviewed the patient's medical records. - Lab Data Lab results reviewed: Yes I reviewed the patient's lab results. Result diagrams: 08/25/17 13:43 08/25/17 13:43 Lab Results 08/25/17 08/25/17 08/25/17 Range/Units 13:43 13:43 13:43 WBC 11.6 H (4.3-11.1) K/mcL RBC 4.07 (3.82-4.97) M/mcL Hgb 12.0 (11.5-15.4) g/dL Hct 35.4 (35.3-44.9) % MCV 87.0 (83.0-100.0) fL MCH 29.5 (28.0-33.3) pg MCHC 33.9 (31.6-35.5) g/dL RDW 14.7 H (11.5-14.5) % Plt Count 165 (140-400) K/mcL MPV 11.1 (9.4-12.4) fL Immature Gran % 0.4 (0-4) % Seg Neutrophils % 86.4 % Lymphocytes % 7.1 % Monocytes % 3.9 % Eosinophils % 1.6 % Basophils % 0.6 % Neutrophils # 10.0 H (1.6-8.9) K/mcL Lymphocytes # 0.8 (0.6-4.6) K/mcL Monocytes # 0.5 (0.0-1.3) K/mcL Eosinophils # 0.2 (0.0-0.6) K/mcL Basophils # 0.1 (0.0-0.2) K/mcL PT (9.4-12.1) Seconds INR APTT (26.0-36.0) Seconds Sample Site ABG pH (7.32-7.45) pH Units ABG pCO2 (35-45) mmHg ABG pO2 (85-104) mmHg ABG HCO3 (21-27) mEq/L ABG Total CO2 (20-26) mEq/L ABG O2 Saturation (95-98) % ABG Base Excess (-2 to 3) mEq/L Timothy Test O2 Delivery Device Blood Gas Modality Inspired O2 (1-15=lpm [id number]=%) PEEP cm H2O Pressure Support cm H2O Sodium 135 L (136-145) mEq/L Potassium 4.5 (3.5-5.1) mEq/L Chloride 106 (98-107) mEq/L Carbon Dioxide 23 (23-29) mEq/L BUN 17 (8-23) mg/dL Creatinine 1.08 (0.60-1.20) mg/dL Est GFR ( Amer) > 60 (> 60) Est GFR (Non-Af Amer) 50 L (> 60) BUN/Creatinine Ratio 16 (6-26) Glucose 281 H (70-105) mg/dL POC Glucose (70-99) mg/dL Calculated Osmolality 292 (280-300) Lactic Acid (0.5-2.2) mmol/L Calcium 9.3 (8.6-10.3) mg/dL Total Bilirubin 1.7 H (0.3-1.0) mg/dL Direct Bilirubin 0.3 H (0.0-0.2) mg/dL Indirect Bilirubin 1.4 H (0.0-1.2) mg/dL AST 22 (13-39) Units/L ALT 14 (7-52) Units/L Alkaline Phosphatase 83 (34-104) Units/L Troponin I 0.03 (< 0.04) ng/mL B-Natriuretic Peptide 1483 H (Less than 100) pg/mL Serum Total Protein 7.7 (6.4-8.9) g/dL Albumin 4.2 (3.5-5.7) g/dL Globulin 3.5 (2.4-3.5) g/dL Albumin/Globulin Ratio 1.2 (1.1-2.2) Lipase 23 (11-82) Units/L Beta-Hydroxybutyric Acd (0.02-0.27) mmol/L 08/25/17 08/25/17 08/25/17 Range/Units 13:52 13:52 13:57 WBC (4.3-11.1) K/mcL RBC (3.82-4.97) M/mcL Hgb (11.5-15.4) g/dL Hct (35.3-44.9) % MCV (83.0-100.0) fL MCH (28.0-33.3) pg MCHC (31.6-35.5) g/dL RDW (11.5-14.5) % Plt Count (140-400) K/mcL MPV (9.4-12.4) fL Immature Gran % (0-4) % Seg Neutrophils % % Lymphocytes % % Monocytes % % Eosinophils % % Basophils % % Neutrophils # (1.6-8.9) K/mcL Lymphocytes # (0.6-4.6) K/mcL Monocytes # (0.0-1.3) K/mcL Eosinophils # (0.0-0.6) K/mcL Basophils # (0.0-0.2) K/mcL PT 13.1 H (9.4-12.1) Seconds INR 1.2 APTT 35.1 (26.0-36.0) Seconds Sample Site ABG pH (7.32-7.45) pH Units ABG pCO2 (35-45) mmHg ABG pO2 (85-104) mmHg ABG HCO3 (21-27) mEq/L ABG Total CO2 (20-26) mEq/L ABG O2 Saturation (95-98) % ABG Base Excess (-2 to 3) mEq/L Timothy Test O2 Delivery Device Blood Gas Modality Inspired O2 (1-15=lpm [id number]=%) PEEP cm H2O Pressure Support cm H2O Sodium (136-145) mEq/L Potassium (3.5-5.1) mEq/L Chloride (98-107) mEq/L Carbon Dioxide (23-29) mEq/L BUN (8-23) mg/dL Creatinine (0.60-1.20) mg/dL Est GFR ( Amer) (> 60) Est GFR (Non-Af Amer) (> 60) BUN/Creatinine Ratio (6-26) Glucose (70-105) mg/dL POC Glucose (70-99) mg/dL Calculated Osmolality (280-300) Lactic Acid 0.5 (0.5-2.2) mmol/L Calcium (8.6-10.3) mg/dL Total Bilirubin (0.3-1.0) mg/dL Direct Bilirubin (0.0-0.2) mg/dL Indirect Bilirubin (0.0-1.2) mg/dL AST (13-39) Units/L ALT (7-52) Units/L Alkaline Phosphatase (34-104) Units/L Troponin I (< 0.04) ng/mL B-Natriuretic Peptide (Less than 100) pg/mL Serum Total Protein (6.4-8.9) g/dL Albumin (3.5-5.7) g/dL Globulin (2.4-3.5) g/dL Albumin/Globulin Ratio (1.1-2.2) Lipase (11-82) Units/L Beta-Hydroxybutyric Acd 0.40 H (0.02-0.27) mmol/L 08/25/17 08/25/17 Range/Units 13:57 13:58 WBC (4.3-11.1) K/mcL RBC (3.82-4.97) M/mcL Hgb (11.5-15.4) g/dL Hct (35.3-44.9) % MCV (83.0-100.0) fL MCH (28.0-33.3) pg MCHC (31.6-35.5) g/dL RDW (11.5-14.5) % Plt Count (140-400) K/mcL MPV (9.4-12.4) fL Immature Gran % (0-4) % Seg Neutrophils % % Lymphocytes % % Monocytes % % Eosinophils % % Basophils % % Neutrophils # (1.6-8.9) K/mcL Lymphocytes # (0.6-4.6) K/mcL Monocytes # (0.0-1.3) K/mcL Eosinophils # (0.0-0.6) K/mcL Basophils # (0.0-0.2) K/mcL PT (9.4-12.1) Seconds INR APTT (26.0-36.0) Seconds Sample Site R Radial ABG pH 7.31 L (7.32-7.45) pH Units ABG pCO2 46 H (35-45) mmHg ABG pO2 110 H (85-104) mmHg ABG HCO3 23 (21-27) mEq/L ABG Total CO2 25 (20-26) mEq/L ABG O2 Saturation 98 (95-98) % ABG Base Excess -3 L (-2 to 3) mEq/L Timothy Test Positive O2 Delivery Device BiPAP Blood Gas Modality CPAP/PS Inspired O2 100.0 (1-15=lpm [id number]=%) PEEP 8 cm H2O Pressure Support 14 cm H2O Sodium (136-145) mEq/L Potassium (3.5-5.1) mEq/L Chloride (98-107) mEq/L Carbon Dioxide (23-29) mEq/L BUN (8-23) mg/dL Creatinine (0.60-1.20) mg/dL Est GFR ( Amer) (> 60) Est GFR (Non-Af Amer) (> 60) BUN/Creatinine Ratio (6-26) Glucose (70-105) mg/dL POC Glucose 279 H (70-99) mg/dL Calculated Osmolality (280-300) Lactic Acid (0.5-2.2) mmol/L Calcium (8.6-10.3) mg/dL Total Bilirubin (0.3-1.0) mg/dL Direct Bilirubin (0.0-0.2) mg/dL Indirect Bilirubin (0.0-1.2) mg/dL AST (13-39) Units/L ALT (7-52) Units/L Alkaline Phosphatase (34-104) Units/L Troponin I (< 0.04) ng/mL B-Natriuretic Peptide (Less than 100) pg/mL Serum Total Protein (6.4-8.9) g/dL Albumin (3.5-5.7) g/dL Globulin (2.4-3.5) g/dL Albumin/Globulin Ratio (1.1-2.2) Lipase (11-82) Units/L Beta-Hydroxybutyric Acd (0.02-0.27) mmol/L - Radiology Data Radiology results reviewed: Yes I reviewed the patient's radiology results. Chest X-Ray 08/25/17 13:41 IMPRESSION: Findings consistent with congestive heart failure D/ / Carlos Pedraza MD / Carlos Pedraza MD Interpreting Provider: Carlos Pedraza MD - EKG Data EKG attestation: Yes I reviewed and interpreted this EKG. EKG results narrative: EKG done at 1347 shows normal sinus rhythm with a rate of [address] elevation noted in leads V1, V2, V3 along with ST depression in leads V5, V6, 2 and aVF. Widening QRS noted with a QRS duration of 143 ms. EKG is acutely changed from 04/05/2017 with increased widening of the QRS complex along with the ST elevations and the increased depressions. Posterior EKG done at 1353 shows sinus rhythm with a rate of [address] elevation in leads V1, V2, V3 with ST depression noted in V4, V5, V6. Has widened QRS and some hyperacute T waves in the septal leads.
[2017-08-25 14:34] LABS: Troponin I 0.03 ng/mL (< 0.04)
[2017-08-25 14:35] LABS: Alanine Aminotransferase 14 Units/L (7-52); Albumin 4.2 g/dL (3.5-5.7); Albumin/Globulin Ratio 1.2 (1.1-2.2); Alkaline Phosphatase 83 Units/L (34-104); Aspartate Amino Transferase 22 Units/L (13-39); BUN/Creatinine Ratio 16 (6-26); Bilirubin,Direct 0.3 mg/dL (0.0-0.2); Bilirubin,Indirect 1.4 mg/dL (0.0-1.2); Bilirubin,Total 1.7 mg/dL (0.3-1.0); Blood Urea Nitrogen 17 mg/dL (8-23); Calcium 9.3 mg/dL (8.6-10.3); Carbon Dioxide 23 mEq/L (23-29); Chloride 106 mEq/L (98-107); Globulin 3.5 g/dL (2.4-3.5); Glucose 281 mg/dL (70-105); Lipase 23 Units/L (11-82); Osmolality,Calculated 292 (280-300); Potassium 4.5 mEq/L (3.5-5.1); Sodium 135 mEq/L (136-145); Total Protein 7.7 g/dL (6.4-8.9); eGFR For African Americans > 60 (> 60); eGFR For Non-African Americans 50 (> 60)
[2017-08-25 14:37] LABS: INR 1.2; Prothrombin Time 13.1 Seconds (9.4-12.1)
--- NOTE | 2017-08-25 14:39 | Cardiology Consult Note ---
<Shruthi Aguirre - Last Filed: 08/25/17 14:55> Date of Encounter: 08/25/17 Time of Encounter: 14:00 Assessment and Plan (1) CHF exacerbation Current Visit: Yes Status: Acute Presented with acute CHF, new LBB. Blood pressure severely elevated upon presentation. Pt. reports sudden onset of shortness of breath that started yesterday. Currently bipap dependent, given IV lasix, and SL NTG. Recent limited TTE demonstrated preserved LVEF, 55%--improved from prior in March 2017. Discussed with Dr. Gonsalez, obtain stat echocardiogram to eval LVEF. CXR shows CHF. BNP pending. Symptoms improved with IV lasix, continue scheduled. Start NTG gtt. Strict I&O's, daily weights, Na/fluid restricted diet. Qualifiers: Heart failure type: unspecified Qualified Code(s): I50.9 - Heart failure, unspecified (2) LBBB (left bundle branch block) Current Visit: Yes Status: Acute Appears to have new LBBB compared to previous ECG. Reviewed with Dr. Gonsalez and Dr. Padgett. Patient denies chest pain. Initial troponin negative. Currently unable to lay flat. Stat echo pending. (3) CAD (coronary artery disease) Current Visit: No Status: Chronic Hx of CAD s/p bypass in 2006, PCI in 2009. Asa, statin, BB Qualifiers: Coronary Disease-Associated Artery/Lesion type: [place] artery [place] vs. transplanted heart: [place] heart Associated angina: without angina Qualified Code(s): I25.10 - Atherosclerotic heart disease of [place] coronary artery without angina pectoris Discussion w patient/family: The assessment and plan as outlined above was discussed with the patient and/or family members who expressed understanding and agreement. All questions were answered. Thank you for involving us in the care of your patient. Please call with any questions. The patient will be discussed and reviewed with Dr. Gonsalez; changes to be made accordingly. History of Present Illness Consult date: 08/25/17 Requesting physician: Sarah Richards Consult reason: LBBB Chief complaint: Shortness of breath History of present illness: Ms. Prather is a 71 year old female with PMHx significant for CAD s/p CABG, PCI, HTN, HLD who presented to the ED with complaints of shortness of breath that suddenly started two days ago. Associated symptoms include PND, orthopnea. Patient reports that dypsnea worsened overnight which prompted ED evaluation. Upon arrival, BP was severely elevated and patient in respiratory distress and therefore Bipap was applied. IV lasix, NTG tab was given. Initial troponin was negative. ECG demonstrated LBBB which is new compared to previous ECG in March 2017. No chest pain reported. Prior CV testing: TTE 07/31/17: LVEF 55% TTE 04/05/17: LVEF 45-50%, mild-moderate cLVH TTE September 2015: normal LV systolic function, LVEF 65%, Mild-moderate concentric LVH, moderate LVDD, normal RV structure and function, mild mitral regurgitation, Mild TR, Mild-moderate pulmonary hypertension. Estimated RVSP is 48-50 mmHg Carotid duplex 11/02/15: right internal carotid artery is occluded, the left internal carotid artery has a 60-79% stenosis TTE 01/29/15: LVEF 65%. Moderate concentric left ventricular hypertrophy. Mild left ventricular diastolic dysfunction. Normal right ventricular structure and function. Mild mitral regurgitation. No evidence of significant PH Stress test 01/29/15: Pharmacologic stress ECG is non diagnostic for ischemia due to baseline ST-T wave abnormalities. The left ventricle is mildly dilated. Gated LVEF = 51%. Perfusion imaging was negative for ischemia or infarct. Cardiac catheterization Jul 2009: EF 65, L main mild disease, LAD 95% mid, diag 1 90%- PCI 3.0 x 18mm Promus, prox Cx 100%, RCA 80% prox, 50-60% mid, JEFF to LAD patent, SVG to OM1 patent, SVG to distal RCA patent. Past Med Surg Social Fam HX - Past Medical History Attestation: Yes The following information was validated with the patient. Source: patient Medical history: cancer, CHF, COPD, coronary artery disease, CVA, diabetes, hyperlipidemia, hypertension, peripheral artery disease, other Psychiatric history: no psych history - Past Surgical History Surgical History: coronary bypass (CABG), ureteral stent - Social History Smoking Status: Former smoker Smokeless Tobacco Status: No Alcohol use: none Drug use: none - Family History Father Adopted: No Living Status: Hx Family Cardiac Disorders: Yes (SISTER AND MOTHER FROM CARDIAC) Hx Family Respiratory Disorders: No Hx Family Cancer: Yes Hx Family GI Disorders: No Hx Family Endocrine Disorder: Yes Hx Family Neuromuscular Disorders: No Hx Family Neurologic Disorders: No Hx Family HEENT Disorders: No Hx Family Autoimmune Disorders: No Mother Hx Family Cardiac Disorders: Yes Medications and Allergies Atorvastatin [Lipitor] 40 mg PO HS 09/23/15 [History] Sitagliptin Phosphate [Januvia] 50 mg PO DAILY 09/23/15 [History] Iron Polysaccharide Complex [Ferrex 150] 150 mg PO DAILY 05/22/16 [History] Latanoprost [Xalatan] 1 drop BOTH EYES HS 05/23/16 [History] Carvedilol [Coreg] 6.25 mg PO BIDWM 04/04/17 [History] Furosemide [Lasix] 20 mg PO DAILY 04/04/17 [History] Lisinopril [Zestril] 5 mg PO DAILY 04/04/17 [History] Amlodipine Besylate 10 mg PO DAILY 08/25/17 [History] Clopidogrel [Plavix] 75 mg PO DAILY 08/25/17 [History] Doxazosin [Cardura] 4 mg PO HS 08/25/17 [History] 3 Allergy/AdvReac Type Severity Reaction Status Date / Time codeine AdvReac Hallucinati Verified 05/24/16 11:17 ng All Systems Review: The remainder of the systems were reviewed and are negative - Cardiovascular Cardiovascular: as per HPI Physical Examination Vital Signs, Last 4 Hours Temp Pulse Resp BP Pulse Ox 08/25/17 14:09 26 98 08/25/17 13:59 85 29 185/73 100 08/25/17 13:47 26 94 08/25/17 13:40 97.8 F 84 32 157/110 70 General: Other (appears acutely ill; conversational dyspnea, on Bipap) Cardiac: Reg Rate and Rhythm, Normal S1 and S2 Lungs: Other (Crackles throughout) Neuro: Alert and responsive Abdomen: Soft Extremities: No Edema, Normal Pulses Results 08/25/17 13:43 08/25/17 13:43 Lab Results 08/25/17 08/25/17 13:43 13:43 WBC 11.6 H Hgb 12.0 Hct 35.4 Plt Count 165 Sodium 135 L Potassium 4.5 Chloride 106 Carbon Dioxide 23 BUN 17 Creatinine 1.08 Glucose 281 H Calcium 9.3 Total Bilirubin 1.7 H AST 22 ALT 14 Alkaline Phosphatase 83 Troponin I 0.03 Lipase 23 Active Medications Heparin Sodium (Porcine) (Heparin Lock) 500 unit IV ONCE PRN PRN Reason: Port Flush while in RADIOLOGY Stop: 08/27/17 14:08 Nitroglycerin (Nitroglycerin Premix 25 Mg/250 Ml) 25 mg in 250 mls @ 3 mls/hr IVC .Q24H GORDY; 5 MCG/MIN PRN Reason: Protocol Stop: 02/24/18 14:31 Last Admin: 08/25/17 14:38 Dose: 5 mcg/min, 3 mls/hr Nitroglycerin (Nitroglycerin) 0.4 mg SL Q5MIN PRN PRN Reason: Chest Pain Stop: 02/24/18 13:45 Last Admin: 08/25/17 13:57 Dose: 0.4 mg - Imaging and Cardiology Stress Test: report reviewed Echo: report reviewed Cardiac cath: report reviewed - EKG Interpretation EKG results cardiology: personally reviewed Consult Discharge Plan - Plan Referrals: Dylan Alvarez MD [Primary Care Provider] - <Hong Gonsalez - Last Filed: 08/25/17 16:21> Date of Encounter: 08/25/17 - Attending Attestation I have personally performed a face to face evaluation on this patient. I have reviewed and agree with the care plan. History and Exam by me shows: 71 YOF s/p CABG in past with low 45-50% EF 2017 and mod DD presents with LBBB likely ACPE with SBP 180mmHg. IV nitro strated in ED with lasix and patient is slowly improving. Stat ECHO to evaluate for AMI less likely. [facility] high risk as patient in resp insufficiency/failure. Continue gentle diuresis and ischemic work up when stable if anterior wall intact. Assessment and Plan Discussion w patient/family: The assessment and plan as outlined above was discussed with the patient and/or family members who expressed understanding and agreement. All questions were answered. Thank you for involving us in the care of your patient. Please call with any questions. History of Present Illness History of present illness: Ms. Prather is a 71 year old female All Systems Review: The remainder of the systems were reviewed and are negative Physical Examination Vital Signs, Last 4 Hours Temp Pulse Resp BP Pulse Ox 08/25/17 14:09 26 98 08/25/17 13:59 85 29 185/73 100 08/25/17 13:47 26 94 08/25/17 13:40 97.8 F 84 32 157/110 70 Results 08/25/17 13:43 08/25/17 13:43 Lab Results 08/25/17 08/25/17 08/25/17 13:43 13:43 13:43 WBC 11.6 H Hgb 12.0 Hct 35.4 Plt Count 165 INR APTT Sodium 135 L Potassium 4.5 Chloride 106 Carbon Dioxide 23 BUN 17 Creatinine 1.08 Glucose 281 H Calcium 9.3 Total Bilirubin 1.7 H AST 22 ALT 14 Alkaline Phosphatase 83 Troponin I 0.03 B-Natriuretic Peptide 1483 H Lipase 23 08/25/17 13:52 WBC Hgb Hct Plt Count INR 1.2 APTT 35.1 Sodium Potassium Chloride Carbon Dioxide BUN Creatinine Glucose Calcium Total Bilirubin AST ALT Alkaline Phosphatase Troponin I B-Natriuretic Peptide Lipase
[2017-08-25 14:40] LABS: Activated Partial Thrombo Time 35.1 Seconds (26.0-36.0)
--- NOTE | 2017-08-25 18:28 | Internal Med History&Physical ---
Date of Encounter: 08/25/17 Time of Encounter: 18:31 Internal Medicine - H&P: HPI Chief complaint: dyspnea Admitted From: Emergency Dept Plans for Post Hospital Care: Home History of present illness: Ms. Prather is a 71 year old female with PMHx significant for CAD s/p CABG, PCI, HTN, HLD, CHF, DM, who presented to the ED with complaints of shortness of breath x 2 days. Reported orthopnea and dyspnea on exertion as well. There was a concern about EKG changes including possible ST elevation in V1 and V2 and depression in V5, V6 and aVF. There was also a new LBBB on today EKG and cardiology were consulted in the ED and cardiology ordered a STAT echo which came back EF 55% improved from previous. They also recommended a nitroglycerin drip for blood pressure titration. Other work up showed CHF exacerbation and cardiology recommended to treat that for now and to have better blood pressure control. Patient was hypoxic in the 70s on RA on initial presentation and needed to be put on Bipap. Work up in the ED showed elevated BNP at 1483. Imaging studies including CXR and CTA chest showed CHF and pleural effusions. Patient was given nebs, nitroglycerin, and lasix 40 mg IV in the ED. Denies fever, chills, nausea, vomiting, chest pain, headache, blurry vision, abdominal pain, diarrhea, constipation, urinary symptoms, or neurological symptoms. Past Med Surg Social Fam HX - Past Medical History Medical history: cancer, CHF, COPD, coronary artery disease, CVA, diabetes, hyperlipidemia, hypertension, peripheral artery disease, other Psychiatric history: no psych history - Past Surgical History Surgical History: coronary bypass (CABG), ureteral stent - Social History Smoking Status: Former smoker Smokeless Tobacco Status: No Alcohol use: none Drug use: none - Family History Father Adopted: No Living Status: Hx Family Cardiac Disorders: Yes (SISTER AND MOTHER FROM CARDIAC) Hx Family Respiratory Disorders: No Hx Family Cancer: Yes Hx Family GI Disorders: No Hx Family Endocrine Disorder: Yes Hx Family Neuromuscular Disorders: No Hx Family Neurologic Disorders: No Hx Family HEENT Disorders: No Hx Family Autoimmune Disorders: No Mother Hx Family Cardiac Disorders: Yes Internal Medicine - H&P: Meds Atorvastatin [Lipitor] 40 mg PO HS 09/23/15 [History] Sitagliptin Phosphate [Januvia] 50 mg PO DAILY 09/23/15 [History] Iron Polysaccharide Complex [Ferrex 150] 150 mg PO DAILY 05/22/16 [History] Latanoprost [Xalatan] 1 drop BOTH EYES HS 05/23/16 [History] Carvedilol [Coreg] 6.25 mg PO BIDWM 04/04/17 [History] Furosemide [Lasix] 20 mg PO DAILY 04/04/17 [History] Lisinopril [Zestril] 5 mg PO DAILY 04/04/17 [History] Amlodipine Besylate 10 mg PO DAILY 08/25/17 [History] Clopidogrel [Plavix] 75 mg PO DAILY 08/25/17 [History] Doxazosin [Cardura] 4 mg PO HS 08/25/17 [History] 3 Allergy/AdvReac Type Severity Reaction Status Date / Time codeine AdvReac Hallucinati Verified 05/24/16 11:17 ng All Systems PM: A 10-system review of systems was performed and is negative for pertinent findings except as documented above in the HPI. Review of systems: All systems reviewed are negative except for as mentioned above - Constitutional Vitals: Temp Pulse Resp BP Pulse Ox 97.8 F 66 17 164/77 100 08/25/17 13:40 08/25/17 17:55 08/25/17 17:55 08/25/17 17:55 08/25/17 17:55 Exam: GEN: NAD HEENT: AT, NC, No cyanosis, oral mucosa is moist, No JVD Lymphatics: No lymphadenoapthy Eyes: Extrocular muscles intact, anicteric CVS:RRR. S1, S2, systolic murmur 3/6 throughout pericordium RESP: Diminished with bibasilar crackles. ABD: Soft, NT, ND, +BS EXT: No edema, No rashes, 2+ DP NEURO: Nonfocal, CN II-XII intact, No focal motor or sensory deficits Psych: Cooperative, Not anxious or depressed Internal Med - H&P Results - Labs CBC & Chem 7: 08/25/17 13:43 08/25/17 13:43 - Assessment and plan (1) Acute respiratory failure with hypoxia Current Visit: Yes Status: Acute Assessment and plan: Secondary to below. Will wean off Bipap and O2 as tolerated. Treated underlying cause as below. (2) Acute congestive heart failure Current Visit: Yes Status: Acute Assessment and plan: We will diurese with Lasix 40 mg IV twice a day. Monitor I&O's. Cardiac diet. Cardiology is following. Nebs. O2 support. On bipap Qualifiers: Heart failure type: unspecified Qualified Code(s): I50.9 - Heart failure, unspecified (3) LBBB (left bundle branch block) Current Visit: Yes Status: Acute Assessment and plan: Limited echo ordered stat by cardiology showed EF improving. We will leave management to cardiology for now. Trend cardiac enzymes. First set is 0.03. (4) Accelerated hypertension Current Visit: No Status: Acute Assessment and plan: The patient has been started on nitroglycerin drip in the ED per cardiology's recommendations. We will resume home antihypertensives. (5) CKD (chronic kidney disease) stage 3, GFR 30-59 ml/min Current Visit: No Status: Chronic Assessment and plan: Stable around baseline. We will continue to monitor. (6) Diabetes mellitus Current Visit: No Status: Chronic Assessment and plan: Insulin size scale. Accu-Cheks. Qualifiers: Diabetes mellitus type: type 2 Diabetes mellitus supervisor intermediates insulin use: without longterm use Diabetes mellitus complication status: with kidney complications Diabetes mellitus complication detail: with chronic kidney disease Chronic kidney disease stage: stage 3 (moderate) Qualified Code(s): E11.22 - Type 2 diabetes mellitus with diabetic chronic kidney disease; N18.3 - Chronic kidney disease, stage 3 (moderate) (7) DVT prophylaxis Current Visit: No Status: Acute Assessment and plan: Heparin subcutaneous - Time Spent With Patient Total time spent is greater than 50% in coordination of care (as documented) at patient's floor/unit and/or counseling patient:
[2017-08-25] MEDS ORDERED: D5% in Water 1,000 ML IVC PRN (18:33)
[2017-08-25] MEDS ORDERED: Ondansetron 4 MG/2 ML VIAL IVP PRN (18:33)
[2017-08-25] MEDS ORDERED: Dextrose Gel 15 GM/37.5 ML TUBE PO PRN ×2 (18:33)
[2017-08-25] MEDS ORDERED: *HR* Dextrose 50 % in Water (Syg) 50 ML SYRINGE IVP PRN (18:33)
[2017-08-25] MEDS ORDERED: Naloxone 0.4 MG/ML INJ IVP PRN (18:35)
[2017-08-25] MEDS: Latanoprost 2.5 ML BOTTLE BOTH EYES SCH (20:56)
[2017-08-25] MEDS: *HR* Heparin 5,000 UNIT/ML VIAL SQ SCH (20:56)
[2017-08-25] MEDS: Furosemide 40 MG/4 ML VIAL IVP SCH (20:56)
[2017-08-25] MEDS ORDERED: Insulin LISPRO 300 UNITS/3 ML VIAL SQ SCH (21:00)
[2017-08-25] MEDS: Acetaminophen 325 MG TABLET PO PRN (22:51)
[2017-08-25] MEDS: Ipratropium/Albuterol Neb 3 ML IH SCH (22:55)
[2017-08-26] MEDS: Methyl Salicylate/Menthol 28 GM TUBE TP PRN ×2 (00:32→12:03)
[2017-08-26] MEDS ORDERED: *HR* FentaNYL (PF) 100 MCG/2 ML VIAL IVP ONE (02:04)
[2017-08-26 02:36] LABS: Basophils # 0.1 K/mcL (0.0-0.2); Basophils % 0.6 %; Eosinophils # 0.2 K/mcL (0.0-0.6); Eosinophils % 1.9 %; Hematocrit 28.9 % (35.3-44.9); Hemoglobin 10.3 g/dL (11.5-15.4); Immature Granulocytes % 0.6 % (0-4); Lymphocytes # 0.7 K/mcL (0.6-4.6); Lymphocytes % 9.3 %; Mean Corpuscular HGB Conc 35.6 g/dL (31.6-35.5); Mean Corpuscular Hemoglobin 30.7 pg (28.0-33.3); Mean Platelet Volume 11.1 fL (9.4-12.4); Monocytes # 0.6 K/mcL (0.0-1.3); Monocytes % 7.4 %; Neutrophils # 6.3 K/mcL (1.6-8.9); Platelet Count 152 K/mcL (140-400); Red Blood Count 3.36 M/mcL (3.82-4.97); Red Cell Distribution Width 14.5 % (11.5-14.5); Segmented Neutrophils % 80.2 %
[2017-08-26 02:55] LABS: Calcium 9.1 mg/dL (8.6-10.3); Magnesium 1.7 mg/dL (1.6-2.6); Potassium 4.1 mEq/L (3.5-5.1)
--- NOTE | 2017-08-26 03:19 | Event Note ---
Date of Encounter: 08/26/17 Time of Encounter: 02:00 Patient admitted earlier this evening for acute respiratory failure. I was paged by nurse earlier this evening for BLE pain. Patient has history of peripheral artery disease. She has seen Dr. Akins in the past. She states that she just uses topical bengay for relief at home. We ordered this earlier in the evening, but it has not helped. I went down to see patient. She has pedal pulses. Her feet are red and warm, so perfusing OK at this time. I will give one time fentanyl 25 mg IV once. Will consult vascular surgery in AM. No emergent need to call vascular surgery at this time. Nurse notified me just now that patient is now relaxing in room without pain after administration of fentanyl.
[2017-08-26] MEDS: Ipratropium/Albuterol Neb 3 ML IH SCH ×4 (03:36→21:40)
[2017-08-26] MEDS: Acetaminophen 325 MG TABLET PO PRN ×2 (05:07→12:05)
[2017-08-26] MEDS: *HR* Heparin 5,000 UNIT/ML VIAL SQ SCH ×3 (05:09→21:04)
[2017-08-26] MEDS: Furosemide 40 MG/4 ML VIAL IVP SCH ×2 (07:50→21:04)
[2017-08-26] MEDS: Iron Polysaccharide Complex 150 MG CAPSULE PO SCH (07:50)
[2017-08-26] MEDS: amLODIPine 5 MG TABLET PO SCH (07:50)
[2017-08-26] MEDS: Insulin LISPRO 300 UNITS/3 ML VIAL SQ SCH ×4 (08:10→21:05)
--- NOTE | 2017-08-26 09:36 | Cardiology Progress Note ---
Date of Encounter: 08/26/17 Time of Encounter: 08:00 Assessment and Plan (1) CHF exacerbation Current Visit: Yes Status: Acute Presented with acute CHF, new LBB. Blood pressure severely elevated upon presentation. Pt. reports sudden onset of shortness of breath that started prior to admission. CT chest shows acute CHF, negative for PE. TTE shows preserved LVEF, symptoms likely secondary to acute diastolic CHF for accelerated HTN. Cumulative I&O: ~500 mL. Symptoms improving, still with crackles. Will stop IV NTG gtt and start oral nitrates today. Continue IV lasix for now. Monitor kidney function closely. Strict I&O's, daily weights, Na/fluid restricted diet. Qualifiers: Heart failure type: unspecified Qualified Code(s): I50.9 - Heart failure, unspecified (2) LBBB (left bundle branch block) Current Visit: Yes Status: Acute Appears to have new LBBB compared to previous ECG. Troponin 0.03, 0.03, 0.04. No chest pain reported. TTE shows preserved LVEF. No inpatient ischemic evaluation warranted at this time. Consider outpatient stress test. (3) CAD (coronary artery disease) Current Visit: No Status: Chronic Hx of CAD s/p bypass in 2006, PCI in 2009. Asa, statin, BB Qualifiers: Coronary Disease-Associated Artery/Lesion type: [place] artery [place] vs. transplanted heart: [place] heart Associated angina: without angina Qualified Code(s): I25.10 - Atherosclerotic heart disease of [place] coronary artery without angina pectoris Discussion w patient/family: The assessment and plan as outlined above was discussed with the patient and/or family members who expressed understanding and agreement. All questions were answered. Thank you for involving us in the care of your patient. Please call with any questions. The patient will be discussed and reviewed with Dr. Paul; changes to be made accordingly. Subjective Principal diagnosis: Acute diastolic CHF Interval history: Seen and examined. Reports dyspnea nearly resolved. Only complaint this morning upon exam is left foot neuropathic pain. Objective Vital Signs, Last 4 Hours Temp Pulse Resp BP Pulse Ox 08/26/17 08:03 97.9 F 98 20 162/81 94 08/26/17 07:38 98 General: Conversant HEENT: Atraumatic, Normocephaly Cardiac: Reg Rate and Rhythm, Normal S1 and S2 Lungs: Other (Crackles throughout) Neuro: Alert and responsive Abdomen: Soft Skin: No rashes noted on visualized skin Musculoskeletal: No Chest Wall Tenderness Extremities: No Edema, Normal Pulses Results 08/26/17 02:13 08/26/17 02:13 Lab Results 08/25/17 08/26/17 08/26/17 20:08 02:13 02:13 WBC 7.8 Hgb 10.3 L D Hct 28.9 L Plt Count 152 Sodium Potassium Chloride Carbon Dioxide BUN Creatinine Glucose Calcium Magnesium Troponin I 0.03 0.04 H* 08/26/17 02:13 WBC Hgb Hct Plt Count Sodium 135 L Potassium 4.1 Chloride 102 Carbon Dioxide 23 BUN 20 Creatinine 1.21 H Glucose 192 H Calcium 9.1 Magnesium 1.7 Troponin I Active Medications Acetaminophen (Tylenol) 650 mg PO Q6HR PRN PRN Reason: Mild Pain/Fever Stop: 02/24/18 18:36 Last Admin: 08/26/17 05:07 Dose: 650 mg Albuterol/Ipratropium (Duoneb) 3 ml IH [id number] GORDY Stop: 02/24/18 22:01 Last Admin: 08/26/17 03:36 Dose: 3 ml Amlodipine Besylate (Norvasc) 10 mg PO DAILY GORDY Stop: 02/25/18 09:01 Last Admin: 08/26/17 07:50 Dose: 10 mg Atorvastatin Calcium (Lipitor) 40 mg PO HS GORDY Stop: 02/24/18 21:01 Last Admin: 08/25/17 20:56 Dose: 40 mg Carvedilol (Coreg) 6.25 mg PO BIDWM GORDY PRN Reason: Protocol Stop: 02/25/18 08:01 Last Admin: 08/26/17 07:51 Dose: 6.25 mg Clopidogrel Bisulfate (Plavix) 75 mg PO DAILY GORDY Stop: 02/25/18 09:01 Last Admin: 08/26/17 07:50 Dose: 75 mg Dextrose/Water (Dextrose 50% (Syg)) 25 ml IVP AD PRN PRN Reason: Hypoglycemia Stop: 02/24/18 18:34 Doxazosin Mesylate (Cardura) 4 mg PO HS GORDY Stop: 02/24/18 21:01 Last Admin: 08/25/17 20:56 Dose: 4 mg Furosemide (Lasix) 40 mg IVP BID GORDY Stop: 02/24/18 21:01 Last Admin: 08/26/17 07:50 Dose: 40 mg Glucagon (Glucagen) 1 mg IM ONCE PRN PRN Reason: Hypoglycemia Stop: 02/24/18 18:34 Glucose (Gluctose) 15 gm PO ONCE PRN PRN Reason: Hypoglycemia Stop: 02/24/18 18:34 Glucose (Gluctose) 30 gm PO ONCE PRN PRN Reason: Hypoglycemia Stop: 02/24/18 18:34 Heparin Sodium (Porcine) (Heparin Lock) 500 unit IV ONCE PRN PRN Reason: Port Flush while in RADIOLOGY Stop: 08/27/17 14:08 Heparin Sodium (Porcine) (Heparin) 5,000 unit SQ Q8HCO GORDY Stop: 02/24/18 22:01 Last Admin: 08/26/17 05:09 Dose: 5,000 unit Dextrose (Dextrose 5%) 1,000 mls @ 100 mls/hr IVC .Q10H PRN PRN Reason: HYPOGLYCEMIA Stop: 02/24/18 18:34 Insulin Human Lispro (Humalog) 0 units SQ HS GORDY PRN Reason: Protocol Stop: 02/24/18 21:01 Last Admin: 08/25/17 21:13 Dose: 4 units Insulin Human Lispro (Humalog) 0 units SQ TIDAC GORDY PRN Reason: Protocol Stop: 02/25/18 07:31 Last Admin: 08/26/17 08:10 Dose: 4 units Isosorbide Mononitrate (Imdur) 60 mg PO DAILY [facility] Stop: 02/25/18 09:46 Latanoprost (Xalatan) 1 drop BOTH EYES HS GORDY PRN Reason: Protocol Stop: 02/24/18 21:01 Last Admin: 08/25/17 20:56 Dose: 1 drop Lisinopril (Zestril) 5 mg PO DAILY GORDY PRN Reason: Protocol Stop: 02/25/18 09:01 Last Admin: 08/26/17 07:50 Dose: 5 mg Menthol/Methyl Salicylate (Bengay) 1 appl TP BID PRN PRN Reason: Muscle Pain Stop: 02/25/18 00:07 Last Admin: 08/26/17 00:32 Dose: 1 appl Naloxone HCl (Narcan) 0.4 mg IVP Q2MIN PRN PRN Reason: SEE COMMENTS Stop: 02/24/18 18:36 Nitroglycerin (Nitroglycerin) 0.4 mg SL Q5MIN PRN PRN Reason: Chest Pain Stop: 02/24/18 13:45 Last Admin: 08/25/17 13:57 Dose: 0.4 mg Ondansetron HCl (Zofran) 4 mg IVP Q6HR PRN; Protocol PRN Reason: Nausea And Vomiting Stop: 02/24/18 18:34 Polysaccharide Iron Complex (Ferrex 150) 150 mg PO DAILY GORDY Stop: 02/25/18 09:01 Last Admin: 08/26/17 07:50 Dose: 150 mg - Imaging and Cardiology Echo: report reviewed - EKG Interpretation EKG results cardiology: personally reviewed Consult Discharge Plan - Plan Referrals: Dylan Alvarez MD [Primary Care Provider] -
[2017-08-26] MEDS: Isosorbide MONOnitrate (24 HR) 60 MG TAB.ER.24H PO SCH (10:07)
--- NOTE | 2017-08-26 13:13 | Vascular/Endovasc Consult Note ---
Date of Encounter: 08/26/17 Time of Encounter: 13:10 Assessment and Plan (1) Carotid artery occlusion Current Visit: No Status: Chronic Status post left carotid endarterectomy. Known right carotid artery occlusion. Qualifiers: Laterality: bilateral Qualified Code(s): I65.23 - Occlusion and stenosis of bilateral carotid arteries (2) Peripheral arterial disease Current Visit: No Status: Chronic Patient has multiple risk factors for vascular disease. The cramping the patient experienced does not appear to be secondary to the vascular status and it does not appear to be a acute embolism or thrombosis. I do not recommend further workup for this vascular issue at this time as she has other ongoing medical issues that require attention. Patient is to follow-up with Dr. Akins in the outpatient office at the patient's convenience. - History of Present Illness Consult date: 08/26/17 Consult reason: Leg pain Chief complaint: Shortness of breath History of present illness: Ms. Prather is a 71 year old female Who was admitted via the emergency room with a new left bundle branch block. She was admitted for further treatment and cardiology consultation. The patient complained earlier this morning or late last night of pain in the right leg and vascular surgery was asked see the patient. The patient states that the cramping pain she had experienced in the right calf is resolved. The patient is established with Dr. Akins. She is being seen for carotid artery disease. She had undergone a left carotid endarterectomy in 2006. She has a known right internal carotid artery occlusion. The last time she was in the office was in November [address] Akins. A duplex scan at that time showed a 60-79% left internal carotid artery stenosis. The patient may have some elevation of the velocity of the left internal carotid artery due to compensatory flow for the right internal carotid artery occlusion. Associated diagnoses include diabetes, hyperlipidemia, hypertension, known coronary artery disease, and chronic kidney disease. She is status post previous renal stent angioplasty. She also has had a previous CVA and open heart bypass grafting. Past Med Surg Social Fam HX - Past Medical History Medical history: cancer, CHF, COPD, coronary artery disease, CVA, diabetes, hyperlipidemia, hypertension, peripheral artery disease, other Psychiatric history: no psych history - Past Surgical History Surgical History: carotid endarterectomy (Status post left carotid endarterectomy 2006), coronary bypass (CABG), ureteral stent, vascular surgery, LE stent (s) (Status post renal stents) - Social History Smoking Status: Former smoker Smokeless Tobacco Status: No Alcohol use: none Drug use: none - Family History Father Adopted: No Living Status: Hx Family Cardiac Disorders: Yes (SISTER AND MOTHER FROM CARDIAC) Hx Family Respiratory Disorders: No Hx Family Cancer: Yes Hx Family GI Disorders: No Hx Family Endocrine Disorder: Yes Hx Family Neuromuscular Disorders: No Hx Family Neurologic Disorders: No Hx Family HEENT Disorders: No Hx Family Autoimmune Disorders: No Mother Hx Family Cardiac Disorders: Yes Medications and Allergies Atorvastatin [Lipitor] 40 mg PO HS 09/23/15 [History] Sitagliptin Phosphate [Januvia] 50 mg PO DAILY 09/23/15 [History] Iron Polysaccharide Complex [Ferrex 150] 150 mg PO DAILY 05/22/16 [History] Latanoprost [Xalatan] 1 drop BOTH EYES HS 05/23/16 [History] Carvedilol [Coreg] 6.25 mg PO BIDWM 04/04/17 [History] Furosemide [Lasix] 20 mg PO DAILY 04/04/17 [History] Lisinopril [Zestril] 5 mg PO DAILY 04/04/17 [History] Amlodipine Besylate 10 mg PO DAILY 08/25/17 [History] Clopidogrel [Plavix] 75 mg PO DAILY 08/25/17 [History] Doxazosin [Cardura] 4 mg PO HS 08/25/17 [History] 3 Allergy/AdvReac Type Severity Reaction Status Date / Time codeine AdvReac Hallucinati Verified 05/24/16 11:17 ng All Systems Review: The remainder of the systems were reviewed and are negative Exam Vital Signs, Last 4 Hours Temp Pulse Resp BP Pulse Ox 08/26/17 11:26 97.6 F 71 18 142/71 99 08/26/17 10:08 16 96 General: Present: Conversant, No Apparent Distress, Other (Frail appearing elderly white female) HEENT: Present: Atraumatic, Normocephaly, Trachea midline Neck: Absent: JVD, Midline deformity, Tracheal deviation Neuro: Present: Alert and responsive, No focal deficits noted Abdomen: Present: Soft Vascular: Present: Pulse, absent (I do not palpate popliteal or pedal pulses bilaterally.), Edema (Patient has mild to moderate edema bilaterally.), Color/ Temperature (Her feet are cool.), Other (Patient has Doppler signals over the dorsalis pedis and posterior tibial artery bilaterally) Skin: Present: No rashes noted on visualized skin Consult Discharge Plan - Plan Referrals: Dylan Alvarez MD [Primary Care Provider] -
--- NOTE | 2017-08-26 14:42 | Internal Med Progress Note ---
Date of Encounter: 08/26/17 Time of Encounter: 09:15 - Assessment and plan (1) Acute congestive heart failure Current Visit: Yes Status: Acute Assessment and plan: presented with acute dyspnea and hypoxia, with elevated BP; Echo limited views shows preserved EF 55%, moderate concentric LVH; previous Echo from 2017 showed moderate diastolic dysfunction. Continue IV Lasix, fluid restriction, urine output monitoring; supplemental O2; continue beta isaias, ACEI; has been on IV NTG drip, discontinue this and started on Imdur per Cardiology; BP improving now; Cardiology recommendations appreciated; continue Telemetry, serial Troponins are negative for ACS; Qualifiers: Heart failure type: diastolic Qualified Code(s): I50.31 - Acute diastolic ( congestive) heart failure (2) CKD (chronic kidney disease) stage 3, GFR 30-59 ml/min Current Visit: Yes Status: Chronic Assessment and plan: serum creatinine at baseline; monitor closely; (3) Diabetes mellitus Current Visit: Yes Status: Chronic Assessment and plan: blood sugars are elevated; will start low dose basal insulin and increase SSI; continue Accucheck blood glucose monitoring; diabetic diet; check HBa1c; Qualifiers: Diabetes mellitus type: type 2 Diabetes mellitus group home insulin use: without group home use Diabetes mellitus complication status: with kidney complications Diabetes mellitus complication detail: with chronic kidney disease Chronic kidney disease stage: stage 3 (moderate) Qualified Code(s): E11.22 - Type 2 diabetes mellitus with diabetic chronic kidney disease; N18.3 - Chronic kidney disease, stage 3 (moderate) (4) DVT prophylaxis Current Visit: Yes Status: Acute (5) LBBB (left bundle branch block) Current Visit: Yes Status: Acute Assessment and plan: seems to be a new change on current EKG; Cardiology recommendations noted- no further inpatient testing at this time; (6) Acute respiratory failure with hypoxia Current Visit: Yes Status: Acute Assessment and plan: due to acute CHF; needs home O2 evaluation at discharge; (7) Essential hypertension Current Visit: Yes Status: Chronic Assessment and plan: BP improving; resume home meds and started Imdur; (8) CAD (coronary artery disease) Current Visit: Yes Status: Chronic Qualifiers: Coronary Disease-Associated Artery/Lesion type: [place] artery [place] vs. transplanted heart: [place] heart Associated angina: without angina Qualified Code(s): I25.10 - Atherosclerotic heart disease of [place] coronary artery without angina pectoris (9) Peripheral arterial disease Current Visit: Yes Status: Chronic Assessment and plan: patient reported leg cramps last night, could be due to use of IV Lasix; vascular surgery consult noted- no intervention needed, not PAD-related pain; continue pain control with PRN Oxycodone and Fentanyl IV; - Time Spent With Patient Total time spent is greater than 50% in coordination of care (as documented) at patient's floor/unit and/or counseling patient: - Subjective Interval history: Feels better; improving shortness of breath and right leg cramping; no chest pain, cough, palpitations, leg swelling; ADL-independent, lives alone; - Constitutional Vitals: Temp Pulse Resp BP Pulse Ox 97.6 F 71 18 142/71 99 08/26/17 11:26 08/26/17 11:26 08/26/17 11:26 08/26/17 11:08/26/17 11:26 General appearance: Present: A&O X 3, answers questions appropriately - Respiratory Respiratory exam: Present: rales (bibasal crackles+). Absent: accessory muscle use, rhonchi, wheezes - Cardiovascular Cardiovascular exam: Present: RRR, +S1, +S2. Absent: diastolic murmur, gallop, rubs, systolic murmur - GI/Abdominal GI/Abdominal exam: Present: normal bowel sounds, soft, no peritoneal signs. Absent: distended, tenderness - Extremities Exam Extremities exam: Present: warm, radial pulses palpable and symmetrical. Absent : calf tenderness, cyanotic, pedal edema - Neurological Exam Neurological exam: Present: CN II-XII intact, oriented X3, no focal deficits. Absent: pronater drift, facial droop, speech deficit Internal Medicine: Result - Labs CBC & Chem 7: 08/26/17 02:13 08/26/17 02:13 Labs: Short CBC 08/26/17 Range/Units 02:13 WBC 7.8 (4.3-11.1) K/mcL Hgb 10.3 L D (11.5-15.4) g/dL Hct 28.9 L (35.3-44.9) % Plt Count 152 (140-400) K/mcL Neutrophils # 6.3 (1.6-8.9) K/mcL BMP 08/26/17 02:13 Sodium 135 L Potassium 4.1 Chloride 102 Carbon Dioxide 23 BUN 20 Creatinine 1.21 H Glucose 192 H Calcium 9.1 Cardiac Enzymes 08/25/17 08/26/17 Range/Units 20:08 02:13 Troponin I 0.03 0.04 H* (< 0.04) ng/mL - ABG Interpretation ABG results: ABG ABG pH 7.31 pH Units (7.32-7.45) L 08/25/17 13:58 ABG pCO2 46 mmHg (35-45) H 08/25/17 13:58 ABG pO2 110 mmHg (85-104) H 08/25/17 13:58 ABG O2 Saturation 98 % (95-98) 08/25/17 13:58 PT/INR, D-dimer PT 13.1 Seconds (9.4-12.1) H 08/25/17 13:52 Consult Discharge Plan - Plan Referrals: Dylan Alvarez MD [Primary Care Provider] -
[2017-08-26] MEDS: Insulin DETEMIR 100 UNIT/ML X5UNITS SQ SCH (21:04)
[2017-08-26] MEDS: Latanoprost 2.5 ML BOTTLE BOTH EYES SCH (21:05)
[2017-08-26] MEDS ORDERED: *HR* LORazepam 2 MG/ML VIAL IVP ONE (23:13)
[2017-08-27 02:46] LABS: Basophils # 0.1 K/mcL (0.0-0.2); Basophils % 0.7 %; Eosinophils # 0.3 K/mcL (0.0-0.6); Hematocrit 26.9 % (35.3-44.9); Hemoglobin 9.3 g/dL (11.5-15.4); Immature Granulocytes % 0.4 % (0-4); Lymphocytes % 11.7 %; Mean Corpuscular HGB Conc 34.6 g/dL (31.6-35.5); Mean Corpuscular Hemoglobin 29.4 pg (28.0-33.3); Mean Corpuscular Volume 85.1 fL (83.0-100.0); Mean Platelet Volume 10.5 fL (9.4-12.4); Monocytes # 0.7 K/mcL (0.0-1.3); Monocytes % 8.5 %; Neutrophils # 6.2 K/mcL (1.6-8.9); Platelet Count 146 K/mcL (140-400); Red Blood Count 3.16 M/mcL (3.82-4.97); Red Cell Distribution Width 14.6 % (11.5-14.5); Segmented Neutrophils % 74.7 %
[2017-08-27 03:06] LABS: Calcium 8.9 mg/dL (8.6-10.3); Magnesium 1.7 mg/dL (1.6-2.6); Potassium 3.9 mEq/L (3.5-5.1)
[2017-08-27] MEDS: Ipratropium/Albuterol Neb 3 ML IH SCH ×4 (04:24→21:26)
[2017-08-27] MEDS: *HR* Heparin 5,000 UNIT/ML VIAL SQ SCH ×3 (05:28→23:49)
[2017-08-27] MEDS: amLODIPine 5 MG TABLET PO SCH (08:53)
[2017-08-27] MEDS: Isosorbide MONOnitrate (24 HR) 60 MG TAB.ER.24H PO SCH (08:53)
[2017-08-27] MEDS: Iron Polysaccharide Complex 150 MG CAPSULE PO SCH (08:53)
[2017-08-27] MEDS: Furosemide 40 MG/4 ML VIAL IVP SCH (08:54)
[2017-08-27] MEDS: Insulin LISPRO 300 UNITS/3 ML VIAL SQ SCH ×4 (09:00→20:28)
[2017-08-27] MEDS: Insulin DETEMIR 100 UNIT/ML X5UNITS SQ SCH ×2 (09:02→20:29)
--- NOTE | 2017-08-27 09:11 | Cardiology Progress Note ---
Date of Encounter: 08/27/17 Time of Encounter: 08:00 Assessment and Plan (1) CHF exacerbation Current Visit: Yes Status: Acute Presented with acute CHF, new LBB. Blood pressure severely elevated upon presentation. Pt. reports sudden onset of shortness of breath that started prior to admission. CT chest shows acute CHF, negative for PE. TTE shows preserved LVEF, symptoms likely secondary to acute diastolic CHF for accelerated HTN. Blood pressure control improving, SBP 140's-150's, will increase coreg today. Cumulative I&O: -3506 mL. Symptoms nearly resolved. Continue nitrates, euvolemic on exam. Will d/c IV lasix, start oral tomorrow. Monitor kidney function closely. Strict I&O's, daily weights, Na/fluid restricted diet. Cardiology will sign-off, will coordinate outpatient f/u. Qualifiers: Heart failure type: unspecified Qualified Code(s): I50.9 - Heart failure, unspecified (2) LBBB (left bundle branch block) Current Visit: Yes Status: Acute Appears to have new LBBB compared to previous ECG. Troponin 0.03, 0.03, 0.04. No chest pain reported. TTE shows preserved LVEF. No inpatient ischemic evaluation warranted at this time. Consider outpatient stress test. (3) CAD (coronary artery disease) Current Visit: Yes Status: Chronic Hx of CAD s/p bypass in 2006, PCI in 2009. Asa, statin, BB Qualifiers: Coronary Disease-Associated Artery/Lesion type: [place] artery [place] vs. transplanted heart: [place] heart Associated angina: without angina Qualified Code(s): I25.10 - Atherosclerotic heart disease of [place] coronary artery without angina pectoris Discussion w patient/family: The assessment and plan as outlined above was discussed with the patient and/or family members who expressed understanding and agreement. All questions were answered. Thank you for involving us in the care of your patient. Please call with any questions. The patient will be discussed and reviewed with Dr. Paul; changes to be made accordingly. Subjective Principal diagnosis: Acute diastolic CHF Interval history: Seen and examined. Reports dyspnea nearly resolved. No complaints this morning upon exam. Objective Vital Signs, Last 4 Hours Temp Pulse Resp BP Pulse Ox 08/27/17 09:04 96 08/27/17 07:22 97.8 F 77 14 146/70 96 General: Conversant, No Apparent Distress HEENT: Atraumatic, Normocephaly, Mucus Membranes Moist Cardiac: Reg Rate and Rhythm, Normal S1 and S2 Lungs: Normal Breath Sounds Neuro: Alert and responsive Abdomen: Soft Skin: No rashes noted on visualized skin Musculoskeletal: No Chest Wall Tenderness Extremities: No Edema, Normal Pulses Results 08/27/17 02:33 08/27/17 02:33 Lab Results 08/27/17 08/27/17 02:33 02:33 WBC 8.3 Hgb 9.3 L Hct 26.9 L Plt Count 146 Sodium 131 L Potassium 3.9 Chloride 101 Carbon Dioxide 25 BUN 27 H Creatinine 1.54 H Glucose 152 H Calcium 8.9 Magnesium 1.7 Active Medications Acetaminophen (Tylenol) 650 mg PO Q6HR PRN PRN Reason: Mild Pain/Fever Stop: 02/24/18 18:36 Last Admin: 08/26/17 12:05 Dose: 650 mg Albuterol/Ipratropium (Duoneb) 3 ml IH [id number] GORDY Stop: 02/24/18 22:01 Last Admin: 08/27/17 04:24 Dose: 3 ml Amlodipine Besylate (Norvasc) 10 mg PO DAILY GORDY Stop: 02/25/18 09:01 Last Admin: 08/27/17 08:53 Dose: 10 mg Atorvastatin Calcium (Lipitor) 40 mg PO HS [facility] Stop: 02/24/18 21:01 Last Admin: 08/26/17 21:04 Dose: 40 mg Carvedilol (Coreg) 6.25 mg PO BIDWM GORDY PRN Reason: Protocol Stop: 02/25/18 08:01 Last Admin: 08/27/17 08:53 Dose: 6.25 mg Clopidogrel Bisulfate (Plavix) 75 mg PO DAILY [facility] Stop: 02/25/18 09:01 Last Admin: 08/27/17 08:53 Dose: 75 mg Dextrose/Water (Dextrose 50% (Syg)) 25 ml IVP AD PRN PRN Reason: Hypoglycemia Stop: 02/24/18 18:34 Doxazosin Mesylate (Cardura) 4 mg PO HS [facility] Stop: 02/24/18 21:01 Last Admin: 08/26/17 21:04 Dose: 4 mg Furosemide (Lasix) 40 mg PO DAILY [facility] Stop: 02/27/18 09:01 Glucagon (Glucagen) 1 mg IM ONCE PRN PRN Reason: Hypoglycemia Stop: 02/24/18 18:34 Glucose (Gluctose) 15 gm PO ONCE PRN PRN Reason: Hypoglycemia Stop: 02/24/18 18:34 Glucose (Gluctose) 30 gm PO ONCE PRN PRN Reason: Hypoglycemia Stop: 02/24/18 18:34 Heparin Sodium (Porcine) (Heparin Lock) 500 unit IV ONCE PRN PRN Reason: [place] while in RADIOLOGY Stop: 08/27/17 14:08 Heparin Sodium (Porcine) (Heparin) 5,000 unit SQ Q8HCO GORDY Stop: 02/24/18 22:01 Last Admin: 08/27/17 05:28 Dose: 5,000 unit Dextrose (Dextrose 5%) 1,000 mls @ 100 mls/hr IVC .Q10H PRN PRN Reason: HYPOGLYCEMIA Stop: 02/24/18 18:34 Insulin Detemir (Levemir) 10 unit 0.15 unit/kg (10 unit) SQ BID [facility] Stop: 02/25/18 21:01 Last Admin: 08/27/17 09:02 Dose: 10 unit Insulin Human Lispro (Humalog) 0 units SQ TIDAC GORDY PRN Reason: Protocol Stop: 02/25/18 16:31 Last Admin: 08/27/17 09:00 Dose: 4 units Insulin Human Lispro (Humalog) 0 units SQ HS GORDY PRN Reason: Protocol Stop: 02/25/18 21:01 Last Admin: 08/26/17 21:05 Dose: Not Given Isosorbide Mononitrate (Imdur) 60 mg PO DAILY [facility] Stop: 02/25/18 09:46 Last Admin: 08/27/17 08:53 Dose: 60 mg Latanoprost (Xalatan) 1 drop BOTH EYES HS GORDY PRN Reason: Protocol Stop: 02/24/18 21:01 Last Admin: 08/26/17 21:05 Dose: 1 drop Lisinopril (Zestril) 5 mg PO DAILY GORDY PRN Reason: Protocol Stop: 02/25/18 09:01 Last Admin: 08/27/17 08:53 Dose: 5 mg Menthol/Methyl Salicylate (Bengay) 1 appl TP BID PRN PRN Reason: Muscle Pain Stop: 02/25/18 00:07 Last Admin: 08/26/17 12:03 Dose: 1 appl Naloxone HCl (Narcan) 0.4 mg IVP Q2MIN PRN PRN Reason: SEE COMMENTS Stop: 02/24/18 18:36 Nitroglycerin (Nitroglycerin) 0.4 mg SL Q5MIN PRN PRN Reason: Chest Pain Stop: 02/24/18 13:45 Last Admin: 08/25/17 13:57 Dose: 0.4 mg Ondansetron HCl (Zofran) 4 mg IVP Q6HR PRN; Protocol PRN Reason: Nausea And Vomiting Stop: 02/24/18 18:34 Polysaccharide Iron Complex (Ferrex 150) 150 mg PO DAILY GORDY Stop: 02/25/18 09:01 Last Admin: 08/27/17 08:53 Dose: 150 mg - Imaging and Cardiology Echo: report reviewed Other Results: 12 hour tele: avg HR=71 SR. - EKG Interpretation EKG results cardiology: personally reviewed Consult Discharge Plan - Plan Referrals: Dylan Alvarez MD [Primary Care Provider] -
[2017-08-27 12:28] LABS: Estimated Average Glucose 108 mg/dl; Hemoglobin A1C 5.4 %
--- NOTE | 2017-08-27 14:19 | Internal Med Progress Note ---
Date of Encounter: 08/27/17 Time of Encounter: 09:20 - Assessment and plan (1) Acute congestive heart failure Current Visit: Yes Status: Acute Assessment and plan: presented with acute dyspnea and hypoxia, with elevated BP; Echo limited views shows preserved EF 55%, moderate concentric LVH; previous Echo from 2017 showed moderate diastolic dysfunction. Continue IV Lasix, will change to PO Lasix from tonight; continue fluid restriction, urine output monitoring- has almost 4L net negative fluid balance; supplemental O2; continue beta isaias, ACEI, Imdur; BP improved; Cardiology recommendations appreciated, now signed off; continue Telemetry, serial Troponins are negative for ACS; Qualifiers: Heart failure type: diastolic Qualified Code(s): I50.31 - Acute diastolic ( congestive) heart failure (2) CKD (chronic kidney disease) stage 3, GFR 30-59 ml/min Current Visit: Yes Status: Chronic Assessment and plan: serum creatinine at baseline; monitor closely due to use of IV Lasix; (3) Diabetes mellitus Current Visit: Yes Status: Chronic Assessment and plan: premeal blood sugars are somewhat elevated; continue current regimen of basal bolus insulin; continue Accucheck blood glucose monitoring; diabetic diet; HBa1C 5.4%; Qualifiers: Diabetes mellitus type: type 2 Diabetes mellitus retirement insulin use: without quartz cutter use Diabetes mellitus complication status: with kidney complications Diabetes mellitus complication detail: with chronic kidney disease Chronic kidney disease stage: stage 3 (moderate) Qualified Code(s): E11.22 - Type 2 diabetes mellitus with diabetic chronic kidney disease; N18.3 - Chronic kidney disease, stage 3 (moderate) (4) DVT prophylaxis Current Visit: Yes Status: Acute (5) LBBB (left bundle branch block) Current Visit: Yes Status: Acute Assessment and plan: seems to be a new change on current EKG; serial Troponins negative for ACS; Cardiology recommendations noted- no further inpatient testing at this time; (6) Acute respiratory failure with hypoxia Current Visit: Yes Status: Resolved Assessment and plan: due to acute CHF; not requiring supplemental O2 now; (7) Essential hypertension Current Visit: Yes Status: Chronic Assessment and plan: BP improving; resume home meds and started Imdur; (8) CAD (coronary artery disease) Current Visit: Yes Status: Chronic Qualifiers: Coronary Disease-Associated Artery/Lesion type: [place] artery [place] vs. transplanted heart: [place] heart Associated angina: without angina Qualified Code(s): I25.10 - Atherosclerotic heart disease of [place] coronary artery without angina pectoris (9) Peripheral arterial disease Current Visit: Yes Status: Chronic - Time Spent With Patient Total time spent is greater than 50% in coordination of care (as documented) at patient's floor/unit and/or counseling patient: - Subjective Interval history: Feels much better; improving appetite, good urine output noted; no chest pain, dyspnea, palpitations; improving leg cramps and swelling; not requiring O2; - Constitutional Vitals: Temp Pulse Resp BP Pulse Ox 98.1 F 83 16 128/59 97 08/27/17 11:33 08/27/17 11:33 08/27/17 11:33 08/27/17 11:08/27/17 11:33 General appearance: Present: A&O X 3, answers questions appropriately - Respiratory Respiratory exam: Present: CTAB. Absent: accessory muscle use, rales, rhonchi, wheezes - Cardiovascular Cardiovascular exam: Present: RRR, +S1, +S2. Absent: diastolic murmur, gallop, rubs, systolic murmur - GI/Abdominal GI/Abdominal exam: Present: normal bowel sounds, soft, no peritoneal signs. Absent: distended, tenderness - Extremities Exam Extremities exam: Present: full ROM, pedal edema (improving), warm, radial pulses palpable and symmetrical. Absent: calf tenderness, cyanotic - Neurological Exam Neurological exam: Present: CN II-XII intact, oriented X3, no focal deficits. Absent: pronater drift, facial droop, speech deficit Internal Medicine: Result - Labs CBC & Chem 7: 08/27/17 02:33 08/27/17 02:33 Labs: Short CBC 08/27/17 Range/Units 02:33 WBC 8.3 (4.3-11.1) K/mcL Hgb 9.3 L (11.5-15.4) g/dL Hct 26.9 L (35.3-44.9) % Plt Count 146 (140-400) K/mcL Neutrophils # 6.2 (1.6-8.9) K/mcL BMP 08/27/17 02:33 Sodium 131 L Potassium 3.9 Chloride 101 Carbon Dioxide 25 BUN 27 H Creatinine 1.54 H Glucose 152 H Calcium 8.9 - ABG Interpretation ABG results: ABG ABG pH 7.31 pH Units (7.32-7.45) L 08/25/17 13:58 ABG pCO2 46 mmHg (35-45) H 08/25/17 13:58 ABG pO2 110 mmHg (85-104) H 08/25/17 13:58 ABG O2 Saturation 98 % (95-98) 08/25/17 13:58 PT/INR, D-dimer PT 13.1 Seconds (9.4-12.1) H 08/25/17 13:52 Consult Discharge Plan - Plan Referrals: Dylan Alvarez MD [Primary Care Provider] -
[2017-08-27] MEDS: Latanoprost 2.5 ML BOTTLE BOTH EYES SCH (20:27)
[2017-08-28] MEDS: Ipratropium/Albuterol Neb 3 ML IH SCH ×2 (03:32→09:20)
[2017-08-28 05:02] LABS: Calcium 8.8 mg/dL (8.6-10.3); Magnesium 1.9 mg/dL (1.6-2.6); Potassium 3.9 mEq/L (3.5-5.1)
[2017-08-28] MEDS: *HR* Heparin 5,000 UNIT/ML VIAL SQ SCH ×2 (05:19→16:26)
[2017-08-28] MEDS: amLODIPine 5 MG TABLET PO SCH (08:27)
[2017-08-28] MEDS: Insulin LISPRO 300 UNITS/3 ML VIAL SQ SCH ×2 (08:28→12:16)
[2017-08-28] MEDS: Isosorbide MONOnitrate (24 HR) 60 MG TAB.ER.24H PO SCH (08:28)
[2017-08-28] MEDS: Iron Polysaccharide Complex 150 MG CAPSULE PO SCH (08:28)
[2017-08-28] MEDS: Insulin DETEMIR 100 UNIT/ML X5UNITS SQ SCH (08:29)
[2017-08-28] MEDS ORDERED: Furosemide 40 MG TABLET PO SCH (09:00)
[2017-08-28 11:44] VITALS: BP 142/77
[2017-08-28] MEDS: Acetaminophen 325 MG TABLET PO PRN (12:15)
--- NOTE | 2017-08-28 12:31 | Discharge Summary ---
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 principal insulin use: without care home use Diabetes mellitus complication status: with kidney complications Diabetes mellitus complication detail: with chronic kidney disease Chronic kidney disease stage: stage 3 (moderate) Qualified Code(s): E11.22 - Type 2 diabetes mellitus with diabetic chronic kidney disease; N18.3 - Chronic kidney disease, stage 3 (moderate) (4) LBBB (left bundle branch block) Priority: Primary Status: Acute (5) Acute respiratory failure with hypoxia Priority: Primary Status: Resolved (6) Essential hypertension Priority: Secondary Status: Chronic (7) CAD (coronary artery disease) Priority: Secondary Status: Chronic Qualifiers: Coronary Disease-Associated Artery/Lesion type: [place] artery [place] vs. transplanted heart: [place] heart Associated angina: without angina Qualified Code(s): I25.10 - Atherosclerotic heart disease of [place] coronary artery without angina pectoris (8) Peripheral arterial disease Priority: Secondary Status: Chronic Hospital course: Ms. Prather is a 71 year old female with the above medical problems, who was admitted with acute shortness of breath and leg swelling. She was noted to have acute exacerbation of CHF, was started on diuresis with IV Lasix along with fluid restriction and urine output monitoring. Echocardiogram was done which showed preserved ejection fraction around 55%, moderate concentric LVH. Patient also has uncontrolled blood pressure at admission and was started on IV nitroglycerin drip. Cardiology was consulted, she was started on oral nitrates and beta isaias dose was increased. She had significant urine output with net negative fluid balance. Her oxygen requirements improved and she no longer requires supplemental oxygen. Physical and occupational therapy evaluation was completed, recommended home health services. Patient is currently medically stable for discharge, referral for home health services completed. Discharge discussed with: patient, nurse - Time Spent with Patient Total time spent providing and/or coordinating discharge services: Greater than 30 minutes (45 min) - Discharge Medications Prescriptions: Carvedilol [Coreg] 12.5 mg PO BIDWM #60 tablet Furosemide [Lasix] 40 mg PO DAILY #60 tablet Isosorbide MONOnitrate (24 HR) [Imdur] 60 mg PO DAILY #30 tab.er.24h Home Medications: Atorvastatin [Lipitor] 40 mg PO HS 09/23/15 [History] Sitagliptin Phosphate [Januvia] 50 mg PO DAILY 09/23/15 [History] Iron Polysaccharide Complex [Ferrex 150] 150 mg PO DAILY 05/22/16 [History] Latanoprost [Xalatan] 1 drop BOTH EYES HS 05/23/16 [History] Lisinopril [Zestril] 5 mg PO DAILY 04/04/17 [History] Amlodipine Besylate 10 mg PO DAILY 08/25/17 [History] Clopidogrel [Plavix] 75 mg PO DAILY 08/25/17 [History] Doxazosin [Cardura] 4 mg PO HS 08/25/17 [History] Carvedilol [Coreg] 12.5 mg PO BIDWM #60 tablet 08/28/17 [Rx] Furosemide [Lasix] 40 mg PO DAILY #60 tablet 08/28/17 [Rx] Isosorbide MONOnitrate (24 HR) [Imdur] 60 mg PO DAILY #30 tab.er.24h 08/28/17 [ Rx] Allergies/Adverse Reactions: 3 Allergy/AdvReac Type Severity Reaction Status Date / Time codeine AdvReac Hallucinati Verified 05/24/16 11:17 ng Date of admission: 08/25/17 18:32 Primary care physician: Dylan Alvarez MD Consults: 08/25/17 18:37 Consult to Cardiology [CONS] Routine Comment: Consulting Provider: Cardiology Bette Reason for Consult: ekg changes Time Notified: 16:38 Call Completed: Yes 08/25/17 19:53 Consult to Nutrition [CONS] Routine Comment: Consulting Provider: NUTRITION Reason for Dietary Consult: MST Score Consult to Field Marketing Specialist [CONS] Routine Reason for SW Consult: Evaluate for home health needs 08/26/17 02:04 Consult to Vascular Surgery [CONS] Routine Consulting Provider: Vascular Surgery Bette Reason for Consult: PAD Call Completed: No 08/27/17 09:18 Consult to Physical Therapy [CONS] Routine Comment: Evaluate, develop and implement POC Reason for Consult: evaluate for HH Does patient have active BEDREST order?: No Is patient medically & hemodynamically stable?: Yes Patient assessed for mobility or mobilized this visit?: Yes 08/27/17 09:19 Consult to Occupational Therapy [CONS] Routine Comment: Evaluate, develop and implement POC Reason for Consult: evalute for HH Does patient have active BEDREST order?: No Is patient medically & hemodynamically stable?: Yes Patient assessed for mobility or mobilized this visit?: Yes Discharging clinician: Lena Lentz Anticipated date of discharge: 08/28/17 - Constitutional Vitals: Temp Pulse Resp BP Pulse Ox 97.8 F 73 17 142/77 94 08/28/17 11:34 08/28/17 11:34 08/28/17 11:34 08/28/17 11:34 08/28/17 11:34 General appearance: Present: A&O X 3, answers questions appropriately - Cardiovascular Cardiovascular exam: Present: RRR, +S1, +S2. Absent: diastolic murmur, gallop, rubs, systolic murmur - Patient Status Disposition: Home Health Service Condition: Fair Functional capacity at discharge: uses cane/walker Overall status at discharge: patient is progressing back to baseline - Discharge Instructions Instructions: Furosemide (By mouth), Isosorbide Mononitrate (By mouth), Carvedilol (By mouth), Heart Failure (DC), Acute Respiratory Distress Syndrome ( DC), Diabetes Mellitus Type 2 in Adults (DC), Chronic Hypertension (DC) Follow Up With: Dylan Alvarez MD [Primary Care Provider] - 09/05/17 10:15 am Additional Instructions: F/up with Cardiology in 2-3 weeks - Diet and Activity Activity: as per physical therapy, resume usual activities as tolerated Diet: diabetic diet, low fat, low cholesterol, low salt diet (fluid restriction to 1.5L/day)
--- NOTE | 2017-08-28 12:45 | Physician Discharge Referral ---
Home Health/Hosp Referral Info Transfer to: Home Health Attending Provider: Lena Lentz Provider in Charge Post Discharge: PCP - Diagnosis (1) Acute congestive heart failure Priority: Primary Status: Acute (2) CKD (chronic kidney disease) stage 3, GFR 30-59 ml/min Priority: Secondary Status: Chronic (3) Diabetes mellitus Priority: Secondary Status: Chronic (4) LBBB (left bundle branch block) Priority: Primary Status: Acute (5) Acute respiratory failure with hypoxia Priority: Primary Status: Resolved (6) Essential hypertension Priority: Secondary Status: Chronic (7) CAD (coronary artery disease) Priority: Secondary Status: Chronic (8) Peripheral arterial disease Priority: Secondary Status: Chronic - Respiratory Orders Smoking Cessation: Smoking cessation has been advised. For more information, call the [employer] Quit Line at 1-396-TBBR-NOW. - Diet/Nutrition Diet/Nutrition Orders: Cardiac (fluid restriction to 1.5L/day), No Concentrated Sweets (diabetic) - Activity Activity Orders: Ambulate - Services Needed Following services are medically necessary services: Nursing, Physical Therapy, Occupational Therapy - Transfer Medications Prescriptions: Carvedilol [Coreg] 12.5 mg PO BIDWM #60 tablet Furosemide [Lasix] 40 mg PO DAILY #60 tablet Isosorbide MONOnitrate (24 HR) [Imdur] 60 mg PO DAILY #30 tab.er.24h Home Medications: Atorvastatin [Lipitor] 40 mg PO HS 09/23/15 [History] Sitagliptin Phosphate [Januvia] 50 mg PO DAILY 09/23/15 [History] Iron Polysaccharide Complex [Ferrex 150] 150 mg PO DAILY 05/22/16 [History] Latanoprost [Xalatan] 1 drop BOTH EYES HS 05/23/16 [History] Lisinopril [Zestril] 5 mg PO DAILY 04/04/17 [History] Amlodipine Besylate 10 mg PO DAILY 08/25/17 [History] Clopidogrel [Plavix] 75 mg PO DAILY 08/25/17 [History] Doxazosin [Cardura] 4 mg PO HS 08/25/17 [History] Carvedilol [Coreg] 12.5 mg PO BIDWM #60 tablet 08/28/17 [Rx] Furosemide [Lasix] 40 mg PO DAILY #60 tablet 08/28/17 [Rx] Isosorbide MONOnitrate (24 HR) [Imdur] 60 mg PO DAILY #30 tab.er.24h 08/28/17 [ Rx] Allergies/Adverse Reactions: 3 Allergy/AdvReac Type Severity Reaction Status Date / Time codeine AdvReac Hallucinati Verified 05/24/16 11:17 ng Certification: Further, I certify that my clinical findings support that this patient is homebound (i.e. absences from home require considerable and taxing effort and are for medical reasons or christianity services or infrequently or short duration when for other reasons) because: Homebound Reason: Patient requires assistance of a person or device to safely leave home, Leaving home requires considerable and taxing effort due to condition Attestation: My signature below is to certify that this patient is under my care and that I, or nurse practitioner, or a physician's assistant professor of communication working with me, has a face-to -face encounter with this patient.
--- NOTE | 2017-08-28 14:47 | Electrocardiograph Report ---
[address] [place], [place] [address] Test Date: 2017-08-25 Pat Name: Marcia Tabler Department: 104 Room: 2N03 Gender: F English As A Second Language Teacher: JACINTO : 1945 Requested By: Araseli Amato Order Number: [id number] Reading MD: Torsten Paul Measurements Intervals [place] Rate: 89 P: 59 IL: 171 QRS: 50 QRSD: 143 T: 181 QT: 397 QTc: 444 Interpretive Statements SINUS RHYTHM POSSIBLE LEFT ATRIAL ENLARGEMENT LEFT BUNDLE BRANCH BLOCK Electronically Signed On 08-28-2017 14:46:08 EDT by Torsten Paul
== END 2017-08-28 16:35 | disposition home health service (06) | DRG 291 ==
LOC: EMEROO 13:36 → 2NNU 13:36 → SUATTDRO 18:32
PROVIDERS: ADMIT Internal Medicine; ATTEND Internal Medicine

== ENCOUNTER 2017-09-17 10:02 | Inpatient (IN) ==
[2017-09-17] MEDS ORDERED: Isovue-370 500 ML INFUS..BTL IV ONE (10:46)
--- NOTE | 2017-09-17 10:47 | Emergency Department Note ---
Disposition Clinical Impression: Hypoxia Disposition: Admitted As Inpatient General Adult HPI - General Chief complaint: ED Shortness of Breath/Dyspnea Stated complaint: MARCELO Time Seen by Provider: 09/17/17 10:08 Source: patient Mode of arrival: ambulatory Limitations: no limitations Nursing Notes Reviewed: Yes Vital Signs Reviewed: Yes - History of Present Illness HPI Narrative: Patient is a 71-year-old female with past medical history of CHF, COPD, CAD, CVA , HLD, HTN, PAD, and DM presents for evaluation of shortness of breath has been going on for the past 3 days. Patient states that she is seen by a home health nurse and she had her lungs checked 3 days ago and the nurse stated that her lungs sounded clear and recommended that she take a water pill so the patient states that she has been taking her water pill for the past 3 days. She denies any fevers, chills, congestion, cough, chest pain, abdominal pain, nausea, vomiting, diarrhea or urinary symptoms. No history of blood clots. Pain Scale: 0 - Related Data Home Medications Medication Instructions Recorded Confirmed Atorvastatin [Lipitor] 40 mg PO HS 09/23/15 09/17/17 Sitagliptin Phosphate [Januvia] 50 mg PO DAILY 09/23/15 09/17/17 Latanoprost [Xalatan] 1 drop BOTH EYES HS 05/23/16 09/17/17 Amlodipine Besylate 10 mg PO DAILY 08/25/17 09/17/17 Clopidogrel [Plavix] 75 mg PO DAILY 08/25/17 09/17/17 Doxazosin [Cardura] 4 mg PO HS 08/25/17 09/17/17 Cyanocobalamin (Vitamin B-12) 1,000 mcg PO DAILY 09/17/17 09/17/17 [Vitamin B-12] Folic Acid 1 mg PO DAILY 09/17/17 09/17/17 Previous Rx's Medication Instructions Recorded Carvedilol [Coreg] 12.5 mg PO BIDWM #60 tablet 08/28/17 Furosemide [Lasix] 40 mg PO DAILY #60 tablet 08/28/17 Isosorbide MONOnitrate (24 HR) 60 mg PO DAILY #30 tab.er.24h 08/28/17 [Imdur] Allergies Allergy/AdvReac Type Severity Reaction Status Date / Time codeine AdvReac Hallucinati Verified 09/17/17 12:50 ng All systems ED: reviewed and negative except as stated. Review of Systems: As Per HPI Constitutional: Denies: fever, chills ENT ED: Denies: congestion Cardiovascular: Denies: chest pain, palpitations Respiratory: Reports: dyspnea. Denies: cough, wheezes, sputum production Gastrointestinal: Denies: abdominal pain, nausea, vomiting, diarrhea Genitourinary: Denies: urgency, dysuria Musculoskeletal: Denies: back pain, neck pain Integumentary: Denies: rash Neurological: Denies: headache, weakness Past Medical History - Past Medical History Attestation: Yes The following information was validated with the patient. Medical history: Reports: cancer, CHF, COPD, coronary artery disease, CVA, diabetes, hyperlipidemia, hypertension, peripheral artery disease, other Surgical history: Reports: carotid endarterectomy (Status post left carotid endarterectomy 2006), coronary bypass (CABG), ureteral stent, vascular surgery, LE stent (s) (Status post renal stents) Psychiatric history: Reports: no psych history GATE GUARD history: Reports: no GATE GUARD history, 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 - Social History Smoking Status: Former smoker Smokeless Tobacco Status: No Alcohol use: Reports: none Drug use: Reports: none Physical Exam CONSTITUTIONAL: Alert and oriented X3, well-nourished, well appearing, in no apparent distress HEAD: Normocephalic; atraumatic. EYES: PERRL, no scleral icterus. NOSE: The nose is normal in appearance without rhinorrhea RESP: Normal chest excursion with respiration; breath sounds clear and equal bilaterally; no wheezes, rhonchi, or rales CARD: Regular rhythm, without murmurs, rub or gallop ABD: Non-distended; non-tender, soft,without rigidity, rebound or guarding SKIN: Normal for age and race; warm and dry; no apparent lesions NEUROLOGICAL: Patient is alert and oriented times three. Cranial nerves III- XII are intact. Sensory and motor functions are intact. Strength is 5/5 for flexion and extension in all 4 extremities. Patellar DTRS are equal and intact. Finger to nose testing is equal and normal bilaterally. NIH SS stroke scale of 0 Course Vital Signs Temperature 97.4 F L 09/17/17 10:03 Pulse Rate 85 09/17/17 10:03 Respiratory Rate 20 09/17/17 10:03 Blood Pressure 179/76 09/17/17 10:03 O2 Sat by Pulse Oximetry 85 09/17/17 10:03 Temperature 97.9 F 09/17/17 16:00 Pulse Rate 80 09/17/17 16:00 Respiratory Rate 16 09/17/17 16:00 Blood Pressure 206/76 09/17/17 16:00 O2 Sat by Pulse Oximetry 96 09/17/17 16:00 Oxygen Delivery Oxygen Delivery Nasal Cannula Medical Decision Making - Medical Records Medical records reviewed: Yes I reviewed the patient's medical records. - Lab Data Lab results reviewed: Yes I reviewed the patient's lab results. Result diagrams: 09/17/17 10:43 09/17/17 10:43 Lab Results 09/17/17 09/17/17 09/17/17 Range/Units 10:43 10:43 10:43 WBC 9.3 (4.3-11.1) K/mcL RBC 4.30 (3.82-4.97) M/mcL Hgb 12.5 (11.5-15.4) g/dL Hct 36.2 (35.3-44.9) % MCV 84.2 (83.0-100.0) fL MCH 29.1 (28.0-33.3) pg MCHC 34.5 (31.6-35.5) g/dL RDW 14.6 H (11.5-14.5) % Plt Count 165 (140-400) K/mcL MPV 10.5 (9.4-12.4) fL Immature Gran % 0.4 (0-4) % Seg Neutrophils % 86.9 % Lymphocytes % 6.8 % Monocytes % 3.7 % Eosinophils % 1.7 % Basophils % 0.5 % Neutrophils # 8.0 (1.6-8.9) K/mcL Lymphocytes # 0.6 (0.6-4.6) K/mcL Monocytes # 0.3 (0.0-1.3) K/mcL Eosinophils # 0.2 (0.0-0.6) K/mcL Basophils # 0.1 (0.0-0.2) K/mcL D-Dimer (0-500) ng/mLFEU Sodium 133 L (136-145) mEq/L Potassium 4.0 (3.5-5.1) mEq/L Chloride 99 (98-107) mEq/L Carbon Dioxide 24 (23-29) mEq/L BUN 22 (8-23) mg/dL Creatinine 1.23 H (0.60-1.20) mg/dL Est GFR ( Amer) 52 L (> 60) Est GFR (Non-Af Amer) 43 L (> 60) BUN/Creatinine Ratio 18 (6-26) Glucose 309 H (70-105) mg/dL Calculated Osmolality 291 (280-300) Lactic Acid 0.7 (0.5-2.2) mmol/L Calcium 10.0 (8.6-10.3) mg/dL Troponin I 0.03 (< 0.04) ng/mL B-Natriuretic Peptide (Less than 100) pg/mL Urine Color (Yellow) Urine Clarity (Clear) Urine pH (5.0-8.0) pH Units Ur Specific [place] (1.010-1.025) Urine Protein (Neg-Trace) mg/dL Urine Glucose (UA) (Normal) mg/dL Urine Ketones (Negative) mg/dL Urine Blood (Negative) Urine Nitrite (Negative) Urine Bilirubin (Negative) Urine Urobilinogen (Normal) mg/dL Ur Leukocyte Esterase (Negative) Urine Microscopic RBC (0-3) per hpf Urine Microscopic WBC (0-3) per hpf Ur Culture Indicated? (NO) 09/17/17 09/17/17 09/17/17 Range/Units 10:43 10:43 11:08 WBC (4.3-11.1) K/mcL RBC (3.82-4.97) M/mcL Hgb (11.5-15.4) g/dL Hct (35.3-44.9) % MCV (83.0-100.0) fL MCH (28.0-33.3) pg MCHC (31.6-35.5) g/dL RDW (11.5-14.5) % Plt Count (140-400) K/mcL MPV (9.4-12.4) fL Immature Gran % (0-4) % Seg Neutrophils % % Lymphocytes % % Monocytes % % Eosinophils % % Basophils % % Neutrophils # (1.6-8.9) K/mcL Lymphocytes # (0.6-4.6) K/mcL Monocytes # (0.0-1.3) K/mcL Eosinophils # (0.0-0.6) K/mcL Basophils # (0.0-0.2) K/mcL D-Dimer 756 H (0-500) ng/mLFEU Sodium (136-145) mEq/L Potassium (3.5-5.1) mEq/L Chloride (98-107) mEq/L Carbon Dioxide (23-29) mEq/L BUN (8-23) mg/dL Creatinine (0.60-1.20) mg/dL Est GFR ( Amer) (> 60) Est GFR (Non-Af Amer) (> 60) BUN/Creatinine Ratio (6-26) Glucose (70-105) mg/dL Calculated Osmolality (280-300) Lactic Acid (0.5-2.2) mmol/L Calcium (8.6-10.3) mg/dL Troponin I (< 0.04) ng/mL B-Natriuretic Peptide 1646 H (Less than 100) pg/mL Urine Color Yellow (Yellow) Urine Clarity Clear (Clear) Urine pH 7.0 (5.0-8.0) pH Units Ur Specific [place] 1.015 (1.010-1.025) Urine Protein 30 H (Neg-Trace) mg/dL Urine Glucose (UA) 100 H (Normal) mg/dL Urine Ketones Negative (Negative) mg/dL Urine Blood Small H (Negative) Urine Nitrite Negative (Negative) Urine Bilirubin Negative (Negative) Urine Urobilinogen Normal (Normal) mg/dL Ur Leukocyte Esterase Moderate H (Negative) Urine Microscopic RBC 0-3 (0-3) per hpf Urine Microscopic WBC 0-3 (0-3) per hpf Ur Culture Indicated? YES A (NO) - Radiology Data Radiology results reviewed: Yes I reviewed the patient's radiology results. Chest X-Ray 09/17/17 10:25 IMPRESSION: Bilateral airspace disease and small pleural effusions are again noted, consistent with edema. These findings have minimally improved. An underlying inflammatory process or infection should also be considered in the appropriate clinical setting. D/ / Russell Urbano / Russell Urbano Interpreting Provider: Russell Urbano - EKG Data EKG #1 EKG attestation: Yes I reviewed and interpreted this EKG. EKG results narrative: EKG shows sinus rhythm at a rate of 84 bpm. Normal axis. MT is 158, QT is 424 and QTc is 4-5 and these are within normal limits. Patient has a left bundle branch block however this is unchanged when compared to the EKG done on August 252017.
[2017-09-17 11:00] LABS: Basophils # 0.1 K/mcL (0.0-0.2); Basophils % 0.5 %; Eosinophils # 0.2 K/mcL (0.0-0.6); Eosinophils % 1.7 %; Hematocrit 36.2 % (35.3-44.9); Hemoglobin 12.5 g/dL (11.5-15.4); Immature Granulocytes % 0.4 % (0-4); Lymphocytes # 0.6 K/mcL (0.6-4.6); Lymphocytes % 6.8 %; Mean Corpuscular HGB Conc 34.5 g/dL (31.6-35.5); Mean Corpuscular Hemoglobin 29.1 pg (28.0-33.3); Mean Corpuscular Volume 84.2 fL (83.0-100.0); Mean Platelet Volume 10.5 fL (9.4-12.4); Monocytes # 0.3 K/mcL (0.0-1.3); Monocytes % 3.7 %; Platelet Count 165 K/mcL (140-400); Red Cell Distribution Width 14.6 % (11.5-14.5); Segmented Neutrophils % 86.9 %
[2017-09-17] MEDS ORDERED: cefTRIAXone 1,000 MG in Water for inj. (sterile) 20 ML 10 ML IVP ONE (11:06)
--- NOTE | 2017-09-17 11:13 | Emergency Department Note ---
Disposition Clinical Impression: Hypoxia Disposition: Admitted As Inpatient Referrals: Dylan Alvarez MD [Primary Care Provider] - General Adult HPI - General Chief complaint: ED Shortness of Breath/Dyspnea Stated complaint: MARCELO Time Seen by Provider: 09/17/17 10:08 Source: patient Mode of arrival: ambulatory Limitations: no limitations - History of Present Illness Pain Scale: 0 - Related Data Home Medications Medication Instructions Recorded Confirmed Atorvastatin [Lipitor] 40 mg PO HS 09/23/15 08/25/17 Sitagliptin Phosphate [Januvia] 50 mg PO DAILY 09/23/15 08/25/17 Iron Polysaccharide Complex 150 mg PO DAILY 05/22/16 08/25/17 [Ferrex 150] Latanoprost [Xalatan] 1 drop BOTH EYES HS 05/23/16 08/25/17 Lisinopril [Zestril] 5 mg PO DAILY 04/04/17 08/25/17 Amlodipine Besylate 10 mg PO DAILY 08/25/17 08/25/17 Clopidogrel [Plavix] 75 mg PO DAILY 08/25/17 08/25/17 Doxazosin [Cardura] 4 mg PO HS 08/25/17 08/25/17 Previous Rx's Medication Instructions Recorded Carvedilol [Coreg] 12.5 mg PO BIDWM #60 tablet 08/28/17 Furosemide [Lasix] 40 mg PO DAILY #60 tablet 08/28/17 Isosorbide MONOnitrate (24 HR) 60 mg PO DAILY #30 tab.er.24h 08/28/17 [Imdur] Allergies Allergy/AdvReac Type Severity Reaction Status Date / Time codeine AdvReac Hallucinati Verified 05/24/16 11:17 ng Constitutional: Denies: fever, chills ENT ED: Denies: congestion Cardiovascular: Denies: chest pain, palpitations Respiratory: Reports: dyspnea. Denies: cough, wheezes, sputum production Gastrointestinal: Denies: abdominal pain, nausea, vomiting, diarrhea Genitourinary: Denies: urgency, dysuria Musculoskeletal: Denies: back pain, neck pain Integumentary: Denies: rash Neurological: Denies: headache, weakness Past Medical History - Past Medical History Medical history: Reports: cancer, CHF, COPD, coronary artery disease, CVA, diabetes, hyperlipidemia, hypertension, peripheral artery disease, other Surgical history: Reports: carotid endarterectomy (Status post left carotid endarterectomy 2006), coronary bypass (CABG), ureteral stent, vascular surgery, LE stent (s) (Status post renal stents) Psychiatric history: Reports: no psych history ANSWERING SERVICE AGENT history: Reports: no ANSWERING SERVICE AGENT history, 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 - Social History Smoking Status: Former smoker Smokeless Tobacco Status: No Alcohol use: Reports: none Drug use: Reports: none Physical Exam - General Limitations: no limitations Course Vital Signs Temperature 97.4 F L 09/17/17 10:03 Pulse Rate 85 09/17/17 10:03 Respiratory Rate 20 09/17/17 10:03 Blood Pressure 179/76 09/17/17 10:03 O2 Sat by Pulse Oximetry 85 09/17/17 10:03 Temperature 97.4 F L 09/17/17 10:54 Pulse Rate 85 09/17/17 10:54 Respiratory Rate 20 09/17/17 10:54 Blood Pressure 179/76 09/17/17 10:54 O2 Sat by Pulse Oximetry 94 09/17/17 10:57 Oxygen Delivery Oxygen Delivery Room Air Medical Decision Making - Lab Data Result diagrams: 09/17/17 10:43 Lab Results 09/17/17 Range/Units 10:43 WBC 9.3 (4.3-11.1) K/mcL RBC 4.30 (3.82-4.97) M/mcL Hgb 12.5 (11.5-15.4) g/dL Hct 36.2 (35.3-44.9) % MCV 84.2 (83.0-100.0) fL MCH 29.1 (28.0-33.3) pg MCHC 34.5 (31.6-35.5) g/dL RDW 14.6 H (11.5-14.5) % Plt Count 165 (140-400) K/mcL MPV 10.5 (9.4-12.4) fL Immature Gran % 0.4 (0-4) % Seg Neutrophils % 86.9 % Lymphocytes % 6.8 % Monocytes % 3.7 % Eosinophils % 1.7 % Basophils % 0.5 % Neutrophils # 8.0 (1.6-8.9) K/mcL Lymphocytes # 0.6 (0.6-4.6) K/mcL Monocytes # 0.3 (0.0-1.3) K/mcL Eosinophils # 0.2 (0.0-0.6) K/mcL Basophils # 0.1 (0.0-0.2) K/mcL Attestation Statement - Attestation Attestation: I examined this patient and my medical decision-making was reviewed with the Resident Physician. I agree with the documented findings, disposition and treatment plan as described except to the extent set forth below. 71 year old female prsentse to the ED with complaints of dyspnea and has a hsitory of COPD and CHF and typically wears 2LNC. Patint was hypoxic in triage at 88-89% and was just admited to the hosital about 30 days ago for simliar presneation. WE will rule out HCAP and PE and brisa admit ot medicine for hypoxia
[2017-09-17 11:20] LABS: Bilirubin,Urine Negative (Negative); Blood,Urine Small (Negative); Clarity,Urine Clear (Clear); Color,Urine Yellow (Yellow); Glucose,Urine (UA) 100 mg/dL (Normal); Ketones,Urine Negative (Negative); Leukocyte Esterase,Urine Moderate (Negative); Nitrite,Urine Negative (Negative); Protein,Urine 30 mg/dL (Neg-Trace); Specific Gravity,Urine 1.015 (1.010-1.025); Urobilinogen,Urine Normal (Normal)
[2017-09-17 11:26] LABS: Troponin I 0.03 ng/mL (< 0.04)
[2017-09-17 11:27] LABS: RBC,Urine 0-3 per hpf (0-3); WBC,Urine 0-3 per hpf (0-3)
[2017-09-17] MEDS ORDERED: Furosemide 40 MG in 0.9 % Sodium Chloride 50 ML IVPB ONE (13:13)
--- NOTE | 2017-09-17 16:23 | Internal Med History&Physical ---
Date of Encounter: 09/17/17 Time of Encounter: 16:05 Internal Medicine - H&P: HPI Admitted From: Emergency Dept Plans for Post Hospital Care: Home History of present illness: Ms. Prather is a 71 year old female with past medical history of carotid artery occlusion, CHF, PAD, anemia, HTN, CKD stage III, former smoker, and DM-II. Pt states she was just here about 3 weeks ago. She reports that at that time she was managed for CHF. Reports yesterday she noticed she was getting progressively SOB. Pt states she only smoked for 10 years but son and daughter at bedside states it 's been about 40 years. Pt denies hx of COPD but son and daughter states that one of her physician's had mentioned it at some point. Family reporst that pa's saturation was 87% on RA in ED when they arrived with the pt. CODE STATUS: FULL. In ED WBC 9.3, hgb 12.5, hct 3.2, plt 165. D dimer 756. BNP 1646. troponin 0.03. Na 133, BUN 22, Cr 1.23 Urine analysis moderate leuks, small blood, positive urine ketones negative. CXR IMPRESSION: Bilateral airspace disease and small pleural effusions are again noted, consistent with edema. These findings have minimally improved. An underlying inflammatory process or infection should also be considered in the appropriate clinical setting. CT chest without contrast IMPRESSION: Small bilateral pleural effusions. Additional findings compatible with pulmonary edema. Persistent mediastinal and hilar adenopathy. Past Med Surg Social Fam HX - Past Medical History Medical history: cancer, CHF, COPD, coronary artery disease, CVA, diabetes, hyperlipidemia, hypertension, peripheral artery disease, other Additional medical history: colon cancer Psychiatric history: no psych history - Past Surgical History Surgical History: carotid endarterectomy (Status post left carotid endarterectomy 2006), coronary bypass (CABG), ureteral stent, vascular surgery, LE stent (s) (Status post renal stents) Additional surgical history: carotid endartectomy. 2 stents - Social History Smoking Status: Former smoker Smokeless Tobacco Status: No Alcohol use: none Drug use: none - Family History Father Adopted: No Living Status: Hx Family Cardiac Disorders: Yes (SISTER AND MOTHER FROM CARDIAC) Hx Family Respiratory Disorders: No Hx Family Cancer: Yes Hx Family GI Disorders: No Hx Family Endocrine Disorder: Yes Hx Family Neuromuscular Disorders: No Hx Family Neurologic Disorders: No Hx Family HEENT Disorders: No Hx Family Autoimmune Disorders: No Mother Hx Family Cardiac Disorders: Yes Internal Medicine - H&P: Meds Atorvastatin [Lipitor] 40 mg PO HS 09/23/15 [History] Sitagliptin Phosphate [Januvia] 50 mg PO DAILY 09/23/15 [History] Latanoprost [Xalatan] 1 drop BOTH EYES HS 05/23/16 [History] Amlodipine Besylate 10 mg PO DAILY 08/25/17 [History] Clopidogrel [Plavix] 75 mg PO DAILY 08/25/17 [History] Doxazosin [Cardura] 4 mg PO HS 08/25/17 [History] Carvedilol [Coreg] 12.5 mg PO BIDWM #60 tablet 08/28/17 [Rx] Furosemide [Lasix] 40 mg PO DAILY #60 tablet 08/28/17 [Rx] Isosorbide MONOnitrate (24 HR) [Imdur] 60 mg PO DAILY #30 tab.er.24h 08/28/17 [ Rx] Cyanocobalamin (Vitamin B-12) [Vitamin B-12] 1,000 mcg PO DAILY 09/17/17 [ History] Folic Acid 1 mg PO DAILY 09/17/17 [History] 3 Allergy/AdvReac Type Severity Reaction Status Date / Time codeine AdvReac Hallucinati Verified 09/17/17 12:50 ng All Systems PM: A 10-system review of systems was performed and is negative for pertinent findings except as documented above in the HPI. - Constitutional Vitals: Temp Pulse Resp BP Pulse Ox 97.9 F 80 16 206/76 96 09/17/17 16:00 09/17/17 16:00 09/17/17 16:00 09/17/17 16:00 09/17/17 16:00 General appearance: Present: A&O X 3, no acute distress - Head Head exam: Present: atraumatic, normocephalic - Eye Eye exam: Present: PERRL, conjuntiva pink, sclera anicteric Pupils: Present: PERRL - Neck Neck exam general surgery: Present: supple, trachea midline. Absent: lymphadenopathy - Respiratory Respiratory exam: Present: CTAB. Absent: accessory muscle use, rales, rhonchi, wheezes - Cardiovascular Cardiovascular exam: Present: RRR, +S1, +S2. Absent: diastolic murmur, gallop, rubs, systolic murmur - GI/Abdominal GI/Abdominal exam: Present: normal bowel sounds, soft, no peritoneal signs. Absent: distended, tenderness - Extremities Exam Extremities exam: Present: warm, radial pulses palpable and symmetrical. Absent : calf tenderness, cyanotic, pedal edema - Neurological Exam Neurological exam: Present: CN II-XII intact, oriented X3, no focal deficits. Absent: pronater drift, facial droop, speech deficit - Skin Skin exam: Present: dry, intact Internal Med - H&P Results - Labs CBC & Chem 7: 09/17/17 10:43 09/17/17 10:43 - Assessment and plan (1) Diastolic CHF, chronic Current Visit: Yes Status: Acute Assessment and plan: Will place on Lasix 20 mg IV BID. Will monitor renal function. Will give fluid restriction. Will slat restrict. Daily weights and strict I and O's. (2) Hypoxia Current Visit: Yes Status: Acute Assessment and plan: Hypoxia likely multifactorial. Family states oxygen saturation 87% on room air in ED. Pt states she is not on oxygen at home. D. dimer elevated so VQ scan ordered in ED and pending. (3) Diabetes mellitus type II, uncontrolled Current Visit: No Status: Chronic Assessment and plan: Will Resume home meds and monitor glucose Qualifiers: Diabetes mellitus bed bug exterminator insulin use: without bed bug exterminator use Diabetes mellitus complication status: with neurologic complications Diabetes mellitus complication detail: with unspecified neuropathy Qualified Code(s): E11.40 - Type 2 diabetes mellitus with diabetic neuropathy, unspecified; E11.65 - Type 2 diabetes mellitus with hyperglycemia (4) Hypertension Current Visit: No Status: Chronic Assessment and plan: Norvasc, Coreg, and Cardura. Qualifiers: Hypertension type: essential hypertension Qualified Code(s): I10 - Essential (primary) hypertension (5) CAD (coronary artery disease) Current Visit: No Status: Chronic Assessment and plan: Atorvasatin and Plavix Qualifiers: Coronary Disease-Associated Artery/Lesion type: [place] artery [place] vs. transplanted heart: [place] heart Associated angina: without angina Qualified Code(s): I25.10 - Atherosclerotic heart disease of [place] coronary artery without angina pectoris (6) Mediastinal lymphadenopathy Current Visit: Yes Status: Acute Assessment and plan: Possibly due to infection. Will place on antibiotic prophylactically. Will likely need follow up imaging to ensure resolution. - Time Spent With Patient Total time spent is greater than 50% in coordination of care (as documented) at patient's floor/unit and/or counseling patient: 25 - 35 minutes
[2017-09-17] MEDS ORDERED: Naloxone 0.4 MG/ML INJ IVP PRN (16:39)
[2017-09-17] MEDS ORDERED: Albuterol 2.5 MG/3 ML NEBULIZER IH PRN (16:45)
[2017-09-17] MEDS: MethylPREDNISolone 40 MG/ML VIAL IVP SCH (17:47)
[2017-09-17] MEDS ORDERED: D5% in Water 1,000 ML IVC PRN (20:09)
[2017-09-17] MEDS ORDERED: *HR* Dextrose 50 % in Water (Syg) 50 ML SYRINGE IVP PRN (20:09)
[2017-09-17] MEDS ORDERED: Dextrose Gel 15 GM/37.5 ML TUBE PO PRN ×2 (20:09)
[2017-09-17] MEDS: Latanoprost 2.5 ML BOTTLE BOTH EYES SCH (20:13)
[2017-09-17] MEDS: Ipratropium/Albuterol Neb 3 ML IH SCH ×2 (20:26→22:55)
[2017-09-18] MEDS: MethylPREDNISolone 40 MG/ML VIAL IVP SCH ×3 (00:45→12:12)
[2017-09-18] MEDS ORDERED: Insulin LISPRO 300 UNITS/3 ML VIAL SQ SCH (00:45)
[2017-09-18] MEDS: Ipratropium/Albuterol Neb 3 ML IH SCH ×3 (04:02→16:07)
[2017-09-18 06:43] LABS: Estimated Average Glucose 146 mg/dl; Hemoglobin A1C 6.7 %
[2017-09-18] MEDS: Folic Acid 1 MG TABLET PO SCH (08:14)
[2017-09-18] MEDS: *HR* SitaGLIPtin 25 MG TABLET PO SCH (08:14)
[2017-09-18] MEDS: Isosorbide MONOnitrate (24 HR) 60 MG TAB.ER.24H PO SCH (08:14)
[2017-09-18] MEDS: Cyanocobalamin (B-12) 1,000 MCG TABLET PO SCH (08:14)
[2017-09-18] MEDS: Insulin LISPRO 300 UNITS/3 ML VIAL SQ SCH ×4 (08:14→20:42)
[2017-09-18] MEDS: amLODIPine 5 MG TABLET PO SCH (08:14)
[2017-09-18] MEDS: Azithromycin 250 MG TABLET PO SCH (08:14)
--- NOTE | 2017-09-18 09:54 | Electrocardiograph Report ---
[place] [id number] Test Date: 2017-09-17 Pat Name: Marcia Tabler Department: 103 Room: 2NE25 Gender: F Pattern Marking Supervisor: : 1945 Requested By: Duke Florentino Order Number: [id number] Reading MD: Gage Gonzalez Measurements Intervals [place] Rate: 84 P: 84 MS: 158 QRS: 41 QRSD: 150 T: 179 QT: 424 QTc: 465 Interpretive Statements SINUS RHYTHM LEFT BUNDLE BRANCH BLOCK Electronically Signed On 09-18-2017 9:52:53 EDT by Gage Gonzalez
[2017-09-18] MEDS: Furosemide 40 MG/4 ML VIAL IVP SCH ×2 (17:00→20:43)
[2017-09-18] MEDS: Latanoprost 2.5 ML BOTTLE BOTH EYES SCH (20:42)
--- NOTE | 2017-09-18 21:14 | Internal Med Progress Note ---
Date of Encounter: 09/18/17 Time of Encounter: 21:14 - Assessment and plan (1) Acute on chronic diastolic heart failure Current Visit: Yes Status: Acute Assessment and plan: She was recently hospitalized here with similar problem. Her echocardiogram from August 25 showed ejection fraction of 55% with moderate concentric hypertrophy. Her last stress test from May 2016 showed the suspected old myocardial infarction. I talked to the patient about proper management of her problem. Will continue IV Lasix.Will repeat chest x-ray tomorrow. (2) Acute respiratory failure with hypoxia Current Visit: No Status: Resolved Assessment and plan: It should subside, after treatment of her problem mentioned above. Will continue supplemental oxygen. (3) Type 2 diabetes mellitus with hyperglycemia Current Visit: Yes Status: Acute Assessment and plan: This is secondary to IV steroids she received in the emergency department. Will stop them. She doesn't have COPD. Will continue to Humalog sliding scale. Qualifiers: Diabetes mellitus supervisor long goods insulin use: without supervisor long goods use Qualified Code(s): E11.65 - Type 2 diabetes mellitus with hyperglycemia (4) Hypertensive renal disease with renal failure Current Visit: Yes Status: Acute Assessment and plan: Her blood pressure is out of control. I will increase dose of carvedilol.Will continue amlodipine. Her GFR is 43 - Time Spent With Patient Total time spent is greater than 50% in coordination of care (as documented) at patient's floor/unit and/or counseling patient: 25 - 35 minutes - Subjective Interval history: The patient feels better. Her difficulty breathing subsided. However, she continues supplemental oxygen at 3 liter per minute.She was not using oxygen at home. She made a lot of urination after getting IV Lasix. Denies coughing. Denies wheezing. Denies abdominal pain, nausea and vomiting. - Constitutional Vitals: Temp Pulse Resp BP Pulse Ox 98.1 F 91 18 180/72 95 09/18/17 19:46 09/18/17 19:46 09/18/17 19:46 09/18/17 19:46 09/18/17 19:46 General appearance: Present: A&O X 3, no acute distress - Respiratory Respiratory exam: Present: CTAB. Absent: accessory muscle use, rales, rhonchi, wheezes - Cardiovascular Cardiovascular exam: Present: RRR, +S1, +S2. Absent: diastolic murmur, gallop, rubs, systolic murmur - GI/Abdominal GI/Abdominal exam: Present: normal bowel sounds, soft, no peritoneal signs. Absent: distended, tenderness - Skin Skin exam: Present: dry, intact Internal Medicine: Result - Labs CBC & Chem 7: 09/19/17 05:22 09/19/17 05:22 - ABG Interpretation ABG results: PT/INR, D-dimer D-Dimer 756 ng/mLFEU (0-500) H 09/17/17 10:43 Consult Discharge Plan - Plan Referrals: Dylan Alvarez MD [Primary Care Provider] - 09/25/17 2:15 pm
[2017-09-19] MEDS ORDERED: Insulin DETEMIR 100 UNIT/ML X5UNITS SQ ONE (00:10)
[2017-09-19 05:45] LABS: Basophils % 0.1 %; Hematocrit 28.4 % (35.3-44.9); Immature Granulocytes % 0.6 % (0-4); Lymphocytes # 0.4 K/mcL (0.6-4.6); Lymphocytes % 2.5 %; Mean Corpuscular HGB Conc 34.9 g/dL (31.6-35.5); Mean Corpuscular Hemoglobin 29.3 pg (28.0-33.3); Mean Platelet Volume 10.9 fL (9.4-12.4); Monocytes # 0.8 K/mcL (0.0-1.3); Monocytes % 4.8 %; Platelet Count 162 K/mcL (140-400); Red Blood Count 3.38 M/mcL (3.82-4.97); Red Cell Distribution Width 14.6 % (11.5-14.5)
[2017-09-19 05:50] LABS: Hemoglobin 9.9 g/dL (11.5-15.4); Neutrophils # 15.6 K/mcL (1.6-8.9)
[2017-09-19] MEDS: *HR* Heparin 5,000 UNIT/ML VIAL SQ SCH ×2 (06:02→17:12)
[2017-09-19 06:09] LABS: Calcium 9.6 mg/dL (8.6-10.3); Magnesium 1.9 mg/dL (1.6-2.6); Potassium 4.1 mEq/L (3.5-5.1)
[2017-09-19] MEDS: amLODIPine 5 MG TABLET PO SCH (08:19)
[2017-09-19] MEDS: Folic Acid 1 MG TABLET PO SCH (08:19)
[2017-09-19] MEDS: *HR* SitaGLIPtin 25 MG TABLET PO SCH (08:19)
[2017-09-19] MEDS: Isosorbide MONOnitrate (24 HR) 60 MG TAB.ER.24H PO SCH (08:19)
[2017-09-19] MEDS: Cyanocobalamin (B-12) 1,000 MCG TABLET PO SCH (08:19)
[2017-09-19] MEDS: Azithromycin 250 MG TABLET PO SCH (08:19)
[2017-09-19] MEDS: Furosemide 40 MG/4 ML VIAL IVP SCH ×2 (08:19→17:13)
[2017-09-19] MEDS: Insulin LISPRO 300 UNITS/3 ML VIAL SQ SCH ×4 (08:20→21:58)
--- NOTE | 2017-09-19 17:08 | Internal Med Progress Note ---
Date of Encounter: 09/19/17 Time of Encounter: 17:05 - Assessment and plan (1) Diastolic CHF, chronic Current Visit: Yes Status: Acute Assessment and plan: On Lasix 40 mg IV BID. Will switch to PO Lasix. Will continue to monitor renal function. Fluid restriction. Salt restriction. Daily weights and strict I and O's. (2) Hypoxia Current Visit: Yes Status: Acute Assessment and plan: Much improved. Hypoxia likely multifactorial. Family stated oxygen saturation 87 % on room air in ED. Pt states she is not on oxygen at home. D. dimer elevated so VQ scan ordered in ED and shows low probability embolism. Chest x ray on admission showing Bilateral airspace disease and small pleural effusions are again noted, consistent with edema. CT chest showed persistent mediastinal and hilar adenopathy when compared to the CT chest h[place] in August. Repeat chest x ray showing findings are compatible with resolving infection or edema and improved bilateral effusions, now trace. Pt was on Lasix 40 mg IV BID, respiratory regimen for COPD and zithromax for possible CAP. Recommend out pt Pulmonary function study upon discharge. (3) Diabetes mellitus type II, uncontrolled Current Visit: No Status: Chronic Assessment and plan: Will Resume home meds and monitor glucose Qualifiers: Diabetes mellitus fci insulin use: without fci use Diabetes mellitus complication status: with neurologic complications Diabetes mellitus complication detail: with unspecified neuropathy Qualified Code(s): E11.40 - Type 2 diabetes mellitus with diabetic neuropathy, unspecified; E11.65 - Type 2 diabetes mellitus with hyperglycemia (4) Hypertension Current Visit: No Status: Chronic Assessment and plan: Norvasc, Coreg, and Caudura Qualifiers: Hypertension type: essential hypertension Qualified Code(s): I10 - Essential (primary) hypertension (5) CAD (coronary artery disease) Current Visit: No Status: Chronic Assessment and plan: Atorvastatin Qualifiers: Coronary Disease-Associated Artery/Lesion type: [place] artery [place] vs. transplanted heart: [place] heart Associated angina: without angina Qualified Code(s): I25.10 - Atherosclerotic heart disease of [place] coronary artery without angina pectoris (6) Mediastinal lymphadenopathy Current Visit: Yes Status: Acute Assessment and plan: Persistent since August 2017. Was placed on antibiotic prophylactically n this admisson. Recommend out pt f/u with PCP. Will likely need follow up imaging to ensure resolution. (7) Leukocytosis Current Visit: Yes Status: Acute Assessment and plan: Likely due to steroid therapy. Steroid DCed. Will recheck in am if improving, possible DC 09/20/2017. Qualifiers: Qualified Code(s): D72.829 - Elevated white blood cell count, unspecified - Time Spent With Patient Total time spent is greater than 50% in coordination of care (as documented) at patient's floor/unit and/or counseling patient: less than 15 minutes - Subjective Interval history: Ms. Prather is a 71 year old female with past medical history of carotid artery occlusion, CHF, PAD, anemia, HTN, CKD stage III, former smoker, and DM-II. - Constitutional Vitals: Temp Pulse Resp BP Pulse Ox 98.7 F 80 15 153/68 94 09/19/17 16:37 09/19/17 16:37 09/19/17 16:37 09/19/17 16:37 09/19/17 16:37 General appearance: Present: A&O X 3, no acute distress - Head Head exam: Present: atraumatic, normocephalic - Eye Eye exam: Present: PERRL, conjuntiva pink, sclera anicteric Pupils: Present: PERRL - Neck Neck exam general surgery: Present: supple, trachea midline. Absent: lymphadenopathy - Respiratory Respiratory exam: Present: CTAB. Absent: accessory muscle use, rales, rhonchi, wheezes - Cardiovascular Cardiovascular exam: Present: RRR, +S1, +S2. Absent: diastolic murmur, gallop, rubs, systolic murmur - GI/Abdominal GI/Abdominal exam: Present: normal bowel sounds, soft, no peritoneal signs. Absent: distended, tenderness - Extremities Exam Extremities exam: Present: warm, radial pulses palpable and symmetrical. Absent : calf tenderness, cyanotic, pedal edema - Neurological Exam Neurological exam: Present: CN II-XII intact, oriented X3, no focal deficits. Absent: pronater drift, facial droop, speech deficit - Skin Skin exam: Present: dry, intact Internal Medicine: Result - Labs CBC & Chem 7: 09/19/17 05:22 09/19/17 05:22 Labs: Short CBC 09/19/17 Range/Units 05:22 WBC 17.0 H D (4.3-11.1) K/mcL Hgb 9.9 L D (11.5-15.4) g/dL Hct 28.4 L (35.3-44.9) % Plt Count 162 (140-400) K/mcL Neutrophils # 15.6 H (1.6-8.9) K/mcL BMP 09/19/17 05:22 Sodium 131 L Potassium 4.1 Chloride 99 Carbon Dioxide 23 BUN 42 H Creatinine 1.40 H Glucose 301 H Calcium 9.6 - ABG Interpretation ABG results: PT/INR, D-dimer D-Dimer 756 ng/mLFEU (0-500) H 09/17/17 10:43 - Impressions Impressions Chest X-Ray 09/19/17 17:33 IMPRESSION: 1. Coarse reticular opacities throughout the lungs appear improved since 09/17/2017. Findings are compatible with resolving infection or edema. 2. Improved bilateral effusions, now trace. 3. Mild cardiomegaly. D/ / 09/19/2017 10:22:56 Lala Norris MD / [facility] Interpreting Provider: Lala Norris MD Consult Discharge Plan - Plan Referrals: Dylan Alvarez MD [Primary Care Provider] - 09/25/17 2:15 pm
[2017-09-19] MEDS: Latanoprost 2.5 ML BOTTLE BOTH EYES SCH (21:59)
[2017-09-20 04:50] LABS: Basophils # 0.1 K/mcL (0.0-0.2); Basophils % 0.4 %; Eosinophils # 0.2 K/mcL (0.0-0.6); Eosinophils % 1.4 %; Hematocrit 28.3 % (35.3-44.9); Hemoglobin 9.6 g/dL (11.5-15.4); Immature Granulocytes % 0.6 % (0-4); Lymphocytes % 7.8 %; Mean Corpuscular HGB Conc 33.9 g/dL (31.6-35.5); Mean Corpuscular Hemoglobin 29.2 pg (28.0-33.3); Monocytes # 0.9 K/mcL (0.0-1.3); Monocytes % 7.1 %; Neutrophils # 10.4 K/mcL (1.6-8.9); Platelet Count 160 K/mcL (140-400); Red Blood Count 3.29 M/mcL (3.82-4.97); Segmented Neutrophils % 82.7 %
[2017-09-20] MEDS: *HR* Heparin 5,000 UNIT/ML VIAL SQ SCH (06:00)
[2017-09-20 07:33] VITALS: BP 167/66
[2017-09-20] MEDS: amLODIPine 5 MG TABLET PO SCH (08:27)
[2017-09-20] MEDS: Isosorbide MONOnitrate (24 HR) 60 MG TAB.ER.24H PO SCH (08:28)
[2017-09-20] MEDS: Insulin LISPRO 300 UNITS/3 ML VIAL SQ SCH (08:28)
[2017-09-20] MEDS: Folic Acid 1 MG TABLET PO SCH (08:28)
[2017-09-20] MEDS: Azithromycin 250 MG TABLET PO SCH (08:28)
[2017-09-20] MEDS: Cyanocobalamin (B-12) 1,000 MCG TABLET PO SCH (08:28)
[2017-09-20] MEDS ORDERED: Furosemide 40 MG TABLET PO SCH (09:00)
[2017-09-20] MEDS ORDERED: *HR* SitaGLIPtin 25 MG TABLET PO SCH (09:00)
--- NOTE | 2017-09-20 12:38 | Discharge Summary ---
- NOTES TO OUTPATIENT PROVIDER Notes to Outpatient Provider: Patient admitted for acute hypoxic respiratory failure secondary to PNA and CHFE, now resolved with treatment for PNA. Incidental finding of mediastinal lymphadenopathy, recommend repeat Chest imaging (scheduled ) within 4 weeks, may need referral to pulm/onc if lymphadenopathy is persistent. Leukocytosis may be due to PNA and is improving . Recommend repeat CBC after treatment of PNA Date of Encounter: 09/20/17 Time of Encounter: 12:35 - Discharge Diagnosis (1) Acute on chronic diastolic heart failure Priority: Primary Status: Acute (2) Hypoxia Priority: Primary Status: Resolved (3) Leukocytosis Priority: Primary Status: Acute Qualifiers: Leukocytosis type: unspecified Qualified Code(s): D72.829 - Elevated white blood cell count, unspecified (4) Mediastinal lymphadenopathy Priority: Primary Status: Acute (5) DVT prophylaxis Priority: Primary Status: Resolved (6) CAD (coronary artery disease) Priority: Secondary Status: Chronic Qualifiers: Coronary Disease-Associated Artery/Lesion type: [place] artery [place] vs. 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 Prather is a 71 year old female with medical history of diabetes mellitus, hypertension, diastolic CHF, who presented with shortness of breath and was found to have acute respiratory failure with hypoxia, workup also showed bilateral airway disease suspicious for pneumonia and suspicious for pulmonary edema. The patient also had leukocytosis in-patient, this was not present on arrival., And possibly due to steroids She was started on antibiotics, supplemental oxygen, she received intravenous steroids in the ER, and was started on oral azithromycin inpatient for suspicion for bronchitis. However, repeat chest x-ray shows persistent but improving bilateral infiltrates. Pulmonary embolism was ruled out with CT angiogram of the chest. She has since been off oxygen, and was about 4-6 minutes without need for oxygen. She was seen and evaluated this morning with no new complaints. Shortness of breath has improved remarkably, she has no evidence of fluid overload, she has no JVD elevation, no pedal edema. Her chest is clear to auscultation bilaterally. I have switched antibiotics to Levaquin and we will discharge her on 5 more days of Levaquin. She was not wheezing on exam and there is no indication for steroids. Days incidental finding of mediastinal lymphadenopathy on CAT scan, which dates back to August 2017. Repeat chest CT and repeat CBC have been ordered for 6 and 2 weeks respectively. Patient educated to follow up with PCP for follow-up of recommended follow-up tests and to ensure resolution. She verbalized understanding. Other home medications have been resumed on chronic medical conditions remain stable Discharge discussed with: patient, family, nurse, case management - Time Spent with Patient Total time spent providing and/or coordinating discharge services: Greater than 30 minutes - Discharge Medications Prescriptions: levoFLOXacin [Levaquin] 750 mg PO DAILY #4 tablet SitaGLIPtin [Januvia] 25 mg PO DAILY #30 tablet Home Medications: Atorvastatin [Lipitor] 40 mg PO HS 09/23/15 [History] Latanoprost [Xalatan] 1 drop BOTH EYES HS 05/23/16 [History] Amlodipine Besylate 10 mg PO DAILY 08/25/17 [History] Clopidogrel [Plavix] 75 mg PO DAILY 08/25/17 [History] Doxazosin [Cardura] 4 mg PO HS 08/25/17 [History] Carvedilol [Coreg] 12.5 mg PO BIDWM #60 tablet 08/28/17 [Rx] Furosemide [Lasix] 40 mg PO DAILY #60 tablet 08/28/17 [Rx] Isosorbide MONOnitrate (24 HR) [Imdur] 60 mg PO DAILY #30 tab.er.24h 08/28/17 [ Rx] Cyanocobalamin (Vitamin B-12) [Vitamin B-12] 1,000 mcg PO DAILY 09/17/17 [ History] Folic Acid 1 mg PO DAILY 09/17/17 [History] SitaGLIPtin [Januvia] 25 mg PO DAILY #30 tablet 09/20/17 [Rx] levoFLOXacin [Levaquin] 750 mg PO DAILY #4 tablet 09/20/17 [Rx] Allergies/Adverse Reactions: 3 Allergy/AdvReac Type Severity Reaction Status Date / Time codeine AdvReac Hallucinati Verified 09/17/17 12:50 ng Date of admission: 09/17/17 16:45 Primary care physician: Dylan Alvarez MD Consults: 09/19/17 16:45 Consult to Wildlife Control Agent [CONS] Routine Reason for SW Consult: Finacial resources; patient states has trouble affording food Discharging clinician: Agustin Cuba Anticipated date of discharge: 09/20/17 - Constitutional Vitals: Temp Pulse Resp BP Pulse Ox 97.6 F 78 18 167/66 98 09/20/17 07:29 09/20/17 07:29 09/20/17 07:29 09/20/17 07:29 09/20/17 10:55 General appearance: Present: A&O X 3, pleasant, no acute distress - Head Head exam: Present: atraumatic, normocephalic - Eye Eye exam: Present: PERRL, conjuntiva pink, sclera anicteric Pupils: Present: PERRL - Neck Neck exam general surgery: Present: supple, trachea midline. Absent: lymphadenopathy - Respiratory Respiratory exam: Present: CTAB. Absent: accessory muscle use, rales, rhonchi, wheezes - Cardiovascular Cardiovascular exam: Present: RRR, +S1, +S2. Absent: diastolic murmur, gallop, rubs, systolic murmur - GI/Abdominal GI/Abdominal exam: Present: normal bowel sounds, soft, no peritoneal signs. Absent: distended, tenderness - Extremities Exam Extremities exam: Present: warm, radial pulses palpable and symmetrical. Absent : calf tenderness, cyanotic, pedal edema - Neurological Exam Neurological exam: Present: alert, CN II-XII intact, oriented X3, no focal deficits. Absent: pronater drift, facial droop, speech deficit - Skin Skin exam: Present: dry, intact - Patient Status Disposition: Home Health Service Condition: Good Functional capacity at discharge: independent ambulation Overall status at discharge: patient is back to baseline - Discharge Instructions Follow Up With: Dylan Alvarez MD [Primary Care Provider] - 09/25/17 2:15 pm Forms: ED Satisfaction Letter - Diet and Activity Activity: resume usual activities as tolerated Diet: diabetic diet, low fat, low cholesterol, low salt diet
--- NOTE | 2017-09-20 12:50 | Physician Discharge Referral ---
Home Health/Hosp Referral Info Transfer to: Home Health Attending Provider: Shaina Cuba Provider in Charge Post Discharge: PCP - Diagnosis (1) Acute on chronic diastolic heart failure Priority: Primary Status: Acute (2) Hypoxia Priority: Primary Status: Resolved (3) Leukocytosis Priority: Primary Status: Acute (4) Mediastinal lymphadenopathy Priority: Primary Status: Acute (5) DVT prophylaxis Priority: Secondary Status: Resolved (6) CAD (coronary artery disease) Priority: Secondary Status: Chronic (7) CKD (chronic kidney disease) stage 3, GFR 30-59 ml/min Priority: Secondary Status: Chronic (8) Diabetes mellitus Priority: Secondary Status: Chronic (9) Essential hypertension Priority: Secondary Status: Chronic (10) Normocytic anemia Priority: Secondary Status: Chronic (11) Peripheral arterial disease Priority: Secondary Status: Chronic - Respiratory Orders Smoking Cessation: Smoking cessation has been advised. For more information, call the [place] Tobacco Quit Line at 1-715-MEAZ-NOW. - Diet/Nutrition Diet/Nutrition Orders: Renal, Cardiac, No Concentrated Sweets - Activity Activity Orders: Up ad sanchez, Walker - Services Needed Following services are medically necessary services: Nursing - Transfer Medications Prescriptions: levoFLOXacin [Levaquin] 750 mg PO DAILY #4 tablet SitaGLIPtin [Januvia] 25 mg PO DAILY #30 tablet Home Medications: Atorvastatin [Lipitor] 40 mg PO HS 09/23/15 [History] Latanoprost [Xalatan] 1 drop BOTH EYES HS 05/23/16 [History] Amlodipine Besylate 10 mg PO DAILY 08/25/17 [History] Clopidogrel [Plavix] 75 mg PO DAILY 08/25/17 [History] Doxazosin [Cardura] 4 mg PO HS 08/25/17 [History] Carvedilol [Coreg] 12.5 mg PO BIDWM #60 tablet 08/28/17 [Rx] Furosemide [Lasix] 40 mg PO DAILY #60 tablet 08/28/17 [Rx] Isosorbide MONOnitrate (24 HR) [Imdur] 60 mg PO DAILY #30 tab.er.24h 08/28/17 [ Rx] Cyanocobalamin (Vitamin B-12) [Vitamin B-12] 1,000 mcg PO DAILY 09/17/17 [ History] Folic Acid 1 mg PO DAILY 09/17/17 [History] SitaGLIPtin [Januvia] 25 mg PO DAILY #30 tablet 09/20/17 [Rx] levoFLOXacin [Levaquin] 750 mg PO DAILY #4 tablet 09/20/17 [Rx] Allergies/Adverse Reactions: 3 Allergy/AdvReac Type Severity Reaction Status Date / Time kelly Diezinati Verified 09/17/17 12:50 ng Certification: Further, I certify that my clinical findings support that this patient is homebound (i.e. absences from home require considerable and taxing effort and are for medical reasons or shinto services or infrequently or short duration when for other reasons) because: Homebound Reason: Patient requires assistance of a person or device to safely leave home Attestation: My signature below is to certify that this patient is under my care and that I, or nurse practitioner, or a physician's endodontic assistant working with me, has a face-to -face encounter with this patient.
[2017-09-20] MEDS ORDERED: levoFLOXacin 750 MG TABLET PO SCH (13:00)
== END 2017-09-20 15:16 | disposition home health service (06) | DRG 291 ==
LOC: 2NENU 10:02 → EMEROO 10:02 → 2NENU 15:19 → SUATTDRO 16:45
PROVIDERS: ADMIT Internal Medicine; ATTEND Internal Medicine

== ENCOUNTER 2018-12-30 09:38 | Inpatient (IN) ==
[2018-12-30 10:08] LABS: Basophils # 0.1 K/mcL (0.0-0.2); Basophils % 0.6 %; Eosinophils # 0.1 K/mcL (0.0-0.6); Eosinophils % 0.8 %; Hemoglobin 11.5 g/dL (11.5-15.4); Immature Granulocytes % 0.5 % (0-4); Lymphocytes # 0.5 K/mcL (0.6-4.6); Mean Corpuscular HGB Conc 30.3 g/dL (31.6-35.5); Mean Corpuscular Hemoglobin 25.7 pg (28.0-33.3); Mean Platelet Volume 11.3 fL (9.4-12.4); Monocytes # 0.7 K/mcL (0.0-1.3); Neutrophils # 8.4 K/mcL (1.6-8.9); Platelet Count 161 K/mcL (140-400); Red Blood Count 4.47 M/mcL (3.82-4.97); Red Cell Distribution Width 18.6 % (11.5-14.5); Segmented Neutrophils % 86.1 %; White Blood Count 9.8 K/mcL (4.3-11.1)
[2018-12-30 10:29] LABS: BUN/Creatinine Ratio 19 (6-26); Blood Urea Nitrogen 21 mg/dL (8-23); Calcium 8.6 mg/dL (8.6-10.3); Carbon Dioxide 27 mEq/L (23-29); Chloride 105 mEq/L (98-107); Glucose 173 mg/dL (70-105); Osmolality,Calculated 287 (280-300); Potassium 3.9 mEq/L (3.5-5.1); Sodium 135 mEq/L (136-145); eGFR For African Americans > 60 (> 60); eGFR For Non-African Americans 50 (> 60)
[2018-12-30 10:33] LABS: Troponin I 0.05 ng/mL (< 0.04)
[2018-12-30] MEDS ORDERED: Nitroglycerin 1 INCH/GM PACKET TP ONE (11:32)
[2018-12-30] MEDS ORDERED: Furosemide 40 MG/4 ML VIAL IVP ONE (11:32)
[2018-12-30] MEDS ORDERED: Fluconazole 40 MG/ML UDC PO ONE (11:33)
[2018-12-30] MEDS ORDERED: Nystatin Cream 15 GM TUBE TP ONE (11:34)
[2018-12-30] MEDS ORDERED: Ipratropium/Albuterol Neb 3 ML IH ONE (13:07)
[2018-12-30] MEDS ORDERED: Albumin 25% 25gram/100mL 25 GM/100 ML IV.SOLN IVPB ONE (14:50)
[2018-12-30] MEDS: hydrALAZINE 25 MG TABLET PO SCH ×2 (15:39→21:16)
[2018-12-30] MEDS: Nystatin POWDER 30 GM BOTTLE TP SCH ×2 (15:39→21:16)
[2018-12-30] MEDS ORDERED: Bumetanide 1 MG TABLET PO SCH (17:00)
[2018-12-30] MEDS: Furosemide 80 MG in 0.9 % Sodium Chloride 50 ML IVPB SCH (17:21)
[2018-12-30] MEDS: Insulin LISPRO 300 UNITS/3 ML VIAL SQ SCH ×2 (17:26→21:59)
[2018-12-30] MEDS ORDERED: Furosemide 40 MG/4 ML VIAL IVP SCH (21:00)
[2018-12-31 01:51] LABS: Calcium 8.1 mg/dL (8.6-10.3); Potassium 3.6 mEq/L (3.5-5.1)
[2018-12-31] MEDS ORDERED: traMADol 50 MG TABLET PO ONE (04:06)
[2018-12-31] MEDS: hydrALAZINE 25 MG TABLET PO SCH ×3 (08:06→22:26)
[2018-12-31] MEDS: Insulin LISPRO 300 UNITS/3 ML VIAL SQ SCH ×4 (08:11→22:27)
[2018-12-31] MEDS: Nystatin POWDER 30 GM BOTTLE TP SCH ×3 (08:38→22:27)
[2018-12-31] MEDS: Furosemide 80 MG in 0.9 % Sodium Chloride 50 ML IVPB SCH (08:44)
[2018-12-31] MEDS ORDERED: Ipratropium/Albuterol Neb 3 ML IH PRN (11:58)
[2018-12-31 16:29] LABS: Glucose,Pleural Fluid 159 mg/dL (No Ref Range); LDH,Pleural Fluid 53 Units/L (No Ref Range); Total Protein,Pleural Fluid < 3.0 g/dL
[2018-12-31] MEDS ORDERED: metOLazone 5 MG TABLET PO SCH (16:30)
[2018-12-31] MEDS ORDERED: Furosemide 40 MG/4 ML VIAL IVP SCH (17:00)
[2018-12-31 18:32] LABS: RBC,Pleural Fluid < 0.002 M/mcL
[2018-12-31 21:57] LABS: Appearance of Pleural Fl Clear (Clear)
[2019-01-01 05:45] LABS: Basophils % 0.5 %; Eosinophils # 0.1 K/mcL (0.0-0.6); Eosinophils % 1.8 %; Hematocrit 33.6 % (35.3-44.9); Hemoglobin 10.2 g/dL (11.5-15.4); Immature Granulocytes % 0.3 % (0-4); Lymphocytes # 0.6 K/mcL (0.6-4.6); Lymphocytes % 9.4 %; Mean Corpuscular HGB Conc 30.4 g/dL (31.6-35.5); Mean Corpuscular Volume 85.5 fL (83.0-100.0); Mean Platelet Volume 10.9 fL (9.4-12.4); Monocytes # 0.5 K/mcL (0.0-1.3); Monocytes % 7.2 %; Neutrophils # 5.3 K/mcL (1.6-8.9); Platelet Count 152 K/mcL (140-400); Red Blood Count 3.93 M/mcL (3.82-4.97); Red Cell Distribution Width 18.5 % (11.5-14.5); Segmented Neutrophils % 80.8 %; White Blood Count 6.6 K/mcL (4.3-11.1)
[2019-01-01 06:04] LABS: Calcium 8.4 mg/dL (8.6-10.3); Magnesium 1.7 mg/dL (1.6-2.6); Phosphorous 3.9 mg/dL (2.7-4.5); Potassium 3.8 mEq/L (3.5-5.1)
[2019-01-01] MEDS ORDERED: metOLazone 5 MG TABLET PO SCH (08:30)
[2019-01-01] MEDS ORDERED: Furosemide 40 MG/4 ML VIAL IVP SCH (09:00)
[2019-01-01] MEDS: Insulin LISPRO 300 UNITS/3 ML VIAL SQ SCH ×3 (09:02→16:43)
[2019-01-01] MEDS: hydrALAZINE 25 MG TABLET PO SCH ×3 (09:03→20:08)
[2019-01-01] MEDS: Nystatin POWDER 30 GM BOTTLE TP SCH ×3 (09:04→20:08)
[2019-01-01] MEDS ORDERED: Acetaminophen 325 MG TABLET PO PRN (17:00)
[2019-01-01] MEDS: *HR* Heparin 5,000 UNIT/ML VIAL SQ SCH (18:12)
[2019-01-01] MEDS: Latanoprost 2.5 ML BOTTLE BOTH EYES SCH (20:08)
[2019-01-02 04:41] LABS: Basophils % 0.7 %; Eosinophils # 0.2 K/mcL (0.0-0.6); Eosinophils % 2.7 %; Hematocrit 32.1 % (35.3-44.9); Hemoglobin 9.7 g/dL (11.5-15.4); Immature Granulocytes % 0.3 % (0-4); Lymphocytes # 0.6 K/mcL (0.6-4.6); Lymphocytes % 9.4 %; Mean Corpuscular HGB Conc 30.2 g/dL (31.6-35.5); Mean Corpuscular Hemoglobin 25.5 pg (28.0-33.3); Mean Corpuscular Volume 84.3 fL (83.0-100.0); Mean Platelet Volume 11.2 fL (9.4-12.4); Monocytes # 0.5 K/mcL (0.0-1.3); Monocytes % 7.7 %; Neutrophils # 4.7 K/mcL (1.6-8.9); Platelet Count 156 K/mcL (140-400); Red Blood Count 3.81 M/mcL (3.82-4.97); Red Cell Distribution Width 18.6 % (11.5-14.5); Segmented Neutrophils % 79.2 %; White Blood Count 5.9 K/mcL (4.3-11.1)
[2019-01-02 05:00] LABS: Calcium 8.1 mg/dL (8.6-10.3); Magnesium 1.7 mg/dL (1.6-2.6); Phosphorous 3.7 mg/dL (2.7-4.5); Potassium 3.5 mEq/L (3.5-5.1)
[2019-01-02] MEDS: Cyanocobalamin (B-12) 1,000 MCG TABLET PO SCH (08:38)
[2019-01-02] MEDS: hydrALAZINE 25 MG TABLET PO SCH ×3 (08:38→20:07)
[2019-01-02] MEDS: metOLazone 5 MG TABLET PO SCH (08:39)
[2019-01-02] MEDS: *HR* Heparin 5,000 UNIT/ML VIAL SQ SCH ×2 (08:39→17:55)
[2019-01-02] MEDS: Nystatin POWDER 30 GM BOTTLE TP SCH (08:40)
[2019-01-02] MEDS: Insulin LISPRO 300 UNITS/3 ML VIAL SQ SCH ×5 (08:40→20:07)
[2019-01-02] MEDS: Bumetanide 1 MG/4 ML VIAL IVP SCH (10:21)
[2019-01-02] MEDS: Clotrimazole 1% CRM 15 GM TUBE TP SCH ×2 (11:50→20:08)
[2019-01-02] MEDS: Latanoprost 2.5 ML BOTTLE BOTH EYES SCH (20:08)
[2019-01-02] MEDS: Melatonin 3 MG TABLET PO PRN (23:20)
[2019-01-03] MEDS: *HR* Heparin 5,000 UNIT/ML VIAL SQ SCH ×2 (05:44→16:55)
[2019-01-03] MEDS: hydrALAZINE 25 MG TABLET PO SCH ×3 (07:55→20:07)
[2019-01-03] MEDS: metOLazone 5 MG TABLET PO SCH (07:55)
[2019-01-03] MEDS: Bumetanide 1 MG/4 ML VIAL IVP SCH (07:56)
[2019-01-03] MEDS: Cyanocobalamin (B-12) 1,000 MCG TABLET PO SCH (07:56)
[2019-01-03] MEDS: Insulin LISPRO 300 UNITS/3 ML VIAL SQ SCH ×4 (08:07→20:08)
[2019-01-03] MEDS: Clotrimazole 1% CRM 15 GM TUBE TP SCH ×2 (08:08→20:07)
[2019-01-03 09:31] LABS: BUN/Creatinine Ratio 23 (6-26); Blood Urea Nitrogen 25 mg/dL (8-23); Calcium 8.4 mg/dL (8.6-10.3); Carbon Dioxide 31 mEq/L (23-29); Chloride 97 mEq/L (98-107); Glucose 197 mg/dL (70-105); Magnesium 1.7 mg/dL (1.6-2.6); Osmolality,Calculated 290 (280-300); Potassium 3.5 mEq/L (3.5-5.1); Sodium 135 mEq/L (136-145); eGFR For African Americans > 60 (> 60); eGFR For Non-African Americans 50 (> 60)
[2019-01-03] MEDS: Latanoprost 2.5 ML BOTTLE BOTH EYES SCH (20:06)
[2019-01-03] MEDS: Melatonin 3 MG TABLET PO PRN (23:14)
[2019-01-04 02:10] LABS: BUN/Creatinine Ratio 24 (6-26); Blood Urea Nitrogen 25 mg/dL (8-23); Calcium 8.6 mg/dL (8.6-10.3); Carbon Dioxide 31 mEq/L (23-29); Chloride 98 mEq/L (98-107); Glucose 155 mg/dL (70-105); Osmolality,Calculated 288 (280-300); Potassium 3.9 mEq/L (3.5-5.1); Sodium 135 mEq/L (136-145); eGFR For African Americans > 60 (> 60); eGFR For Non-African Americans 53 (> 60)
[2019-01-04] MEDS: *HR* Heparin 5,000 UNIT/ML VIAL SQ SCH ×2 (05:14→17:27)
[2019-01-04 07:21] LABS: Fluid Source for Albumin PLEURAL
[2019-01-04] MEDS: Bumetanide 1 MG/4 ML VIAL IVP SCH (07:56)
[2019-01-04] MEDS: metOLazone 5 MG TABLET PO SCH (07:56)
[2019-01-04] MEDS: Cyanocobalamin (B-12) 1,000 MCG TABLET PO SCH (07:56)
[2019-01-04] MEDS: Clotrimazole 1% CRM 15 GM TUBE TP SCH ×2 (07:57→21:08)
[2019-01-04] MEDS: hydrALAZINE 25 MG TABLET PO SCH ×3 (07:57→19:44)
[2019-01-04] MEDS: Insulin LISPRO 300 UNITS/3 ML VIAL SQ SCH ×4 (08:03→21:07)
[2019-01-04] MEDS: Latanoprost 2.5 ML BOTTLE BOTH EYES SCH (21:08)
[2019-01-04] MEDS: Melatonin 3 MG TABLET PO PRN (21:28)
[2019-01-05 04:54] LABS: Hematocrit 32.7 % (35.3-44.9); Hemoglobin 9.9 g/dL (11.5-15.4); Mean Corpuscular HGB Conc 30.3 g/dL (31.6-35.5); Mean Corpuscular Hemoglobin 25.1 pg (28.0-33.3); Mean Platelet Volume 11.2 fL (9.4-12.4); Platelet Count 156 K/mcL (140-400); Red Blood Count 3.94 M/mcL (3.82-4.97); Red Cell Distribution Width 18.6 % (11.5-14.5)
[2019-01-05 05:04] LABS: White Blood Count 9.6 K/mcL (4.3-11.1)
[2019-01-05 05:08] LABS: Calcium 8.6 mg/dL (8.6-10.3); Potassium 3.8 mEq/L (3.5-5.1)
[2019-01-05] MEDS: *HR* Heparin 5,000 UNIT/ML VIAL SQ SCH ×2 (05:18→19:25)
[2019-01-05] MEDS: hydrALAZINE 25 MG TABLET PO SCH ×3 (08:45→20:04)
[2019-01-05] MEDS: Insulin LISPRO 300 UNITS/3 ML VIAL SQ SCH ×4 (08:45→21:43)
[2019-01-05] MEDS: Cyanocobalamin (B-12) 1,000 MCG TABLET PO SCH (08:45)
[2019-01-05] MEDS: Clotrimazole 1% CRM 15 GM TUBE TP SCH ×2 (08:46→20:05)
[2019-01-05] MEDS: Melatonin 3 MG TABLET PO PRN (20:04)
[2019-01-05] MEDS: Latanoprost 2.5 ML BOTTLE BOTH EYES SCH (20:05)
[2019-01-06 03:47] LABS: Hematocrit 31.9 % (35.3-44.9); Hemoglobin 9.8 g/dL (11.5-15.4); Mean Corpuscular HGB Conc 30.7 g/dL (31.6-35.5); Mean Corpuscular Hemoglobin 25.6 pg (28.0-33.3); Mean Corpuscular Volume 83.3 fL (83.0-100.0); Mean Platelet Volume 11.1 fL (9.4-12.4); Platelet Count 141 K/mcL (140-400); Red Blood Count 3.83 M/mcL (3.82-4.97); Red Cell Distribution Width 18.5 % (11.5-14.5); White Blood Count 7.7 K/mcL (4.3-11.1)
[2019-01-06 03:52] LABS: INR 1.3; Prothrombin Time 14.6 Seconds (9.4-12.1)
[2019-01-06 04:07] LABS: Calcium 8.6 mg/dL (8.6-10.3); Potassium 3.8 mEq/L (3.5-5.1)
[2019-01-06] MEDS: *HR* Heparin 5,000 UNIT/ML VIAL SQ SCH ×2 (05:49→17:15)
[2019-01-06] MEDS: Insulin LISPRO 300 UNITS/3 ML VIAL SQ SCH ×4 (08:07→21:15)
[2019-01-06] MEDS: hydrALAZINE 25 MG TABLET PO SCH ×3 (08:08→21:11)
[2019-01-06] MEDS: Cyanocobalamin (B-12) 1,000 MCG TABLET PO SCH (08:08)
[2019-01-06] MEDS: Bumetanide 1 MG TABLET PO SCH ×2 (08:21→21:11)
[2019-01-06] MEDS: Clotrimazole 1% CRM 15 GM TUBE TP SCH ×2 (13:22→21:22)
[2019-01-06] MEDS: Latanoprost 2.5 ML BOTTLE BOTH EYES SCH (21:14)
[2019-01-06] MEDS: Melatonin 3 MG TABLET PO PRN (22:34)
[2019-01-07] MEDS: *HR* Heparin 5,000 UNIT/ML VIAL SQ SCH ×2 (06:36→16:59)
[2019-01-07 07:16] LABS: Calcium 8.6 mg/dL (8.6-10.3); Potassium 3.7 mEq/L (3.5-5.1)
[2019-01-07] MEDS: Insulin LISPRO 300 UNITS/3 ML VIAL SQ SCH ×4 (09:34→22:10)
[2019-01-07] MEDS: Bumetanide 1 MG TABLET PO SCH ×2 (10:22→22:09)
[2019-01-07] MEDS: hydrALAZINE 25 MG TABLET PO SCH ×3 (10:22→22:10)
[2019-01-07] MEDS: Cyanocobalamin (B-12) 1,000 MCG TABLET PO SCH (10:22)
[2019-01-07] MEDS: Clotrimazole 1% CRM 15 GM TUBE TP SCH ×2 (10:23→22:11)
[2019-01-07] MEDS: Latanoprost 2.5 ML BOTTLE BOTH EYES SCH (22:11)
[2019-01-07] MEDS: Melatonin 3 MG TABLET PO PRN (22:39)
[2019-01-08] MEDS: *HR* Heparin 5,000 UNIT/ML VIAL SQ SCH ×2 (06:32→17:23)
[2019-01-08 06:38] LABS: Basophils % 0.6 %; Eosinophils # 0.1 K/mcL (0.0-0.6); Eosinophils % 2.3 %; Hematocrit 31.8 % (35.3-44.9); Hemoglobin 9.8 g/dL (11.5-15.4); Immature Granulocytes % 0.3 % (0-4); Lymphocytes # 0.6 K/mcL (0.6-4.6); Lymphocytes % 10.2 %; Mean Corpuscular HGB Conc 30.8 g/dL (31.6-35.5); Mean Corpuscular Hemoglobin 25.8 pg (28.0-33.3); Mean Corpuscular Volume 83.7 fL (83.0-100.0); Mean Platelet Volume 10.9 fL (9.4-12.4); Monocytes # 0.6 K/mcL (0.0-1.3); Monocytes % 9.7 %; Neutrophils # 4.7 K/mcL (1.6-8.9); Platelet Count 149 K/mcL (140-400); Red Cell Distribution Width 18.5 % (11.5-14.5); Segmented Neutrophils % 76.9 %; White Blood Count 6.2 K/mcL (4.3-11.1)
[2019-01-08 07:04] LABS: Calcium 8.7 mg/dL (8.6-10.3)
[2019-01-08] MEDS: hydrALAZINE 25 MG TABLET PO SCH ×3 (08:17→22:14)
[2019-01-08] MEDS: Cyanocobalamin (B-12) 1,000 MCG TABLET PO SCH (08:17)
[2019-01-08] MEDS: Insulin LISPRO 300 UNITS/3 ML VIAL SQ SCH ×4 (08:17→22:15)
[2019-01-08] MEDS: Bumetanide 1 MG TABLET PO SCH ×2 (08:17→22:14)
[2019-01-08] MEDS: Clotrimazole 1% CRM 15 GM TUBE TP SCH ×2 (08:20→22:30)
[2019-01-08] MEDS: Melatonin 3 MG TABLET PO PRN (22:14)
[2019-01-08] MEDS: Latanoprost 2.5 ML BOTTLE BOTH EYES SCH (22:15)
[2019-01-09 05:24] LABS: Calcium 8.9 mg/dL (8.6-10.3)
[2019-01-09] MEDS: *HR* Heparin 5,000 UNIT/ML VIAL SQ SCH (05:47)
[2019-01-09 07:37] VITALS: BP 126/70
[2019-01-09] MEDS: Cyanocobalamin (B-12) 1,000 MCG TABLET PO SCH (07:57)
[2019-01-09] MEDS: Insulin LISPRO 300 UNITS/3 ML VIAL SQ SCH ×2 (07:58→11:53)
[2019-01-09] MEDS: hydrALAZINE 25 MG TABLET PO SCH (08:02)
[2019-01-09] MEDS: Clotrimazole 1% CRM 15 GM TUBE TP SCH (08:02)
[2019-01-09] MEDS ORDERED: Bumetanide 1 MG TABLET PO SCH (09:00)
== END 2019-01-09 12:56 | disposition home health service (06) | DRG 291 ==
LOC: EMEROOARM 09:38 → 2NENU 09:38 → SUATTDRO 13:29 → 2NENU 14:20 → SUATTDRO 12-31 18:31
PROVIDERS: ADMIT Internal Medicine; ATTEND Internal Medicine

== ENCOUNTER 2019-01-20 16:12 | Observation (INO) ==
[2019-01-20] MEDS ORDERED: Furosemide 40 MG/4 ML VIAL IVP ONE (16:46)
[2019-01-20 16:54] LABS: Basophils # 0.1 K/mcL (0.0-0.2); Basophils % 0.9 %; Eosinophils # 0.2 K/mcL (0.0-0.6); Eosinophils % 2.1 %; Hematocrit 36.4 % (35.3-44.9); Hemoglobin 11.5 g/dL (11.5-15.4); Immature Granulocytes % 0.4 % (0-4); Lymphocytes # 0.5 K/mcL (0.6-4.6); Lymphocytes % 5.7 %; Mean Corpuscular HGB Conc 31.6 g/dL (31.6-35.5); Mean Corpuscular Hemoglobin 26.7 pg (28.0-33.3); Mean Corpuscular Volume 84.7 fL (83.0-100.0); Mean Platelet Volume 10.9 fL (9.4-12.4); Monocytes # 0.6 K/mcL (0.0-1.3); Monocytes % 6.3 %; Neutrophils # 7.7 K/mcL (1.6-8.9); Platelet Count 192 K/mcL (140-400); Red Cell Distribution Width 19.1 % (11.5-14.5); Segmented Neutrophils % 84.6 %; White Blood Count 9.1 K/mcL (4.3-11.1)
[2019-01-20 17:01] LABS: INR 1.3; Prothrombin Time 15.1 Seconds (9.4-12.1)
[2019-01-20 17:15] LABS: BUN/Creatinine Ratio 24 (6-26); Blood Urea Nitrogen 23 mg/dL (8-23); Carbon Dioxide 28 mEq/L (23-29); Chloride 102 mEq/L (98-107); Glucose 159 mg/dL (70-105); Osmolality,Calculated 293 (280-300); Potassium 4.1 mEq/L (3.5-5.1); Sodium 138 mEq/L (136-145); eGFR For African Americans > 60 (> 60); eGFR For Non-African Americans 58 (> 60)
[2019-01-20 17:19] LABS: Troponin I 0.04 ng/mL (< 0.04)
[2019-01-20] MEDS ORDERED: Azithromycin 500 MG in 0.9 % Sodium Chloride 250 ML IVPB ONE (17:21)
[2019-01-20] MEDS ORDERED: Piperacillin/Tazobactam 3.375 GM in 0.9 % Sodium Chloride Mini Bag 100 ML IVPB ONE (17:21)
[2019-01-20] MEDS ORDERED: Aspirin 81 MG TAB.CHEW PO ONE (17:40)
[2019-01-20] MEDS ORDERED: Aminoglycoside Consult 1 EACH MC ONE (17:51)
[2019-01-20] MEDS ORDERED: Acetaminophen 325 MG TABLET PO PRN (18:07)
[2019-01-20] MEDS ORDERED: Ondansetron ODT 4 MG TAB.RAPDIS SL PRN (18:07)
[2019-01-20] MEDS ORDERED: Naloxone 0.4 MG/ML INJ IVP PRN (18:07)
[2019-01-20] MEDS ORDERED: Mag Hydrox/Al Hydrox/Simeth 30 ML UDC PO PRN (18:07)
[2019-01-20] MEDS ORDERED: MOM Conc 10 ML UD.LIQ PO PRN (18:07)
[2019-01-20] MEDS ORDERED: Dextrose Gel 15 GM/37.5 ML TUBE PO PRN ×2 (18:33)
[2019-01-20] MEDS ORDERED: D5% in Water 1,000 ML IVC PRN (18:33)
[2019-01-20] MEDS ORDERED: *HR* Dextrose 50 % in Water (Syg) 50 ML SYRINGE IVP PRN (18:33)
[2019-01-20] MEDS: *HR* Heparin 5,000 UNIT/ML VIAL SQ SCH (21:27)
[2019-01-20] MEDS: Nystatin POWDER 30 GM BOTTLE TP SCH (21:28)
[2019-01-20] MEDS: Clotrimazole 1% CRM 15 GM TUBE TP SCH (21:28)
[2019-01-20] MEDS: Insulin LISPRO 300 UNITS/3 ML VIAL SQ SCH (21:28)
[2019-01-20] MEDS: Latanoprost 2.5 ML BOTTLE BOTH EYES SCH (21:29)
[2019-01-20] MEDS: metOLazone 5 MG TABLET PO SCH (21:32)
[2019-01-20] MEDS: Piperacillin/Tazobactam 3.375 GM in 0.9 % Sodium Chloride Mini Bag 100 ML IVPB SCH (23:54)
[2019-01-21 00:39] LABS: Hematocrit 29.6 % (35.3-44.9); Mean Corpuscular HGB Conc 30.7 g/dL (31.6-35.5); Mean Corpuscular Hemoglobin 26.5 pg (28.0-33.3); Mean Corpuscular Volume 86.3 fL (83.0-100.0); Mean Platelet Volume 11.6 fL (9.4-12.4); Platelet Count 137 K/mcL (140-400); Red Blood Count 3.43 M/mcL (3.82-4.97); Red Cell Distribution Width 19.1 % (11.5-14.5); White Blood Count 6.7 K/mcL (4.3-11.1)
[2019-01-21 00:46] LABS: Hemoglobin 9.1 g/dL (11.5-15.4)
[2019-01-21 01:05] LABS: Troponin I 0.04 ng/mL (< 0.04)
[2019-01-21] MEDS: *HR* Heparin 5,000 UNIT/ML VIAL SQ SCH ×2 (06:19→16:50)
[2019-01-21 06:42] LABS: Troponin I 0.04 ng/mL (< 0.04)
[2019-01-21] MEDS ORDERED: Bumetanide 1 MG/4 ML VIAL IVP SCH (08:00)
[2019-01-21] MEDS: amLODIPine 5 MG TABLET PO SCH (08:03)
[2019-01-21] MEDS: metOLazone 5 MG TABLET PO SCH ×2 (08:03→16:50)
[2019-01-21] MEDS: Iron Polysaccharide Complex 150 MG CAPSULE PO SCH (08:03)
[2019-01-21] MEDS: Cyanocobalamin (B-12) 1,000 MCG TABLET PO SCH (08:04)
[2019-01-21] MEDS: Piperacillin/Tazobactam 3.375 GM in 0.9 % Sodium Chloride Mini Bag 100 ML IVPB SCH (08:04)
[2019-01-21] MEDS: Clotrimazole 1% CRM 15 GM TUBE TP SCH ×2 (08:05→20:25)
[2019-01-21] MEDS: Nystatin POWDER 30 GM BOTTLE TP SCH ×2 (08:05→21:04)
[2019-01-21] MEDS: Insulin LISPRO 300 UNITS/3 ML VIAL SQ SCH ×5 (08:06→21:16)
[2019-01-21] MEDS: Bumetanide 1 MG/4 ML VIAL IVP SCH (16:50)
[2019-01-21] MEDS: Latanoprost 2.5 ML BOTTLE BOTH EYES SCH (20:23)
[2019-01-21] MEDS: Doxycycline 100 MG CAPSULE PO SCH (20:23)
[2019-01-22] MEDS: *HR* Heparin 5,000 UNIT/ML VIAL SQ SCH (05:35)
[2019-01-22] MEDS: Insulin LISPRO 300 UNITS/3 ML VIAL SQ SCH ×2 (08:14→12:12)
[2019-01-22] MEDS: amLODIPine 5 MG TABLET PO SCH (08:15)
[2019-01-22] MEDS: metOLazone 5 MG TABLET PO SCH (08:15)
[2019-01-22] MEDS: Iron Polysaccharide Complex 150 MG CAPSULE PO SCH (08:15)
[2019-01-22] MEDS: Doxycycline 100 MG CAPSULE PO SCH (08:15)
[2019-01-22] MEDS: Cyanocobalamin (B-12) 1,000 MCG TABLET PO SCH (08:15)
[2019-01-22] MEDS: Clotrimazole 1% CRM 15 GM TUBE TP SCH (08:16)
[2019-01-22] MEDS: Bumetanide 1 MG/4 ML VIAL IVP SCH (08:16)
[2019-01-22] MEDS: Nystatin POWDER 30 GM BOTTLE TP SCH (08:16)
[2019-01-22 09:18] LABS: BUN/Creatinine Ratio 23 (6-26); Blood Urea Nitrogen 23 mg/dL (8-23); Calcium 8.3 mg/dL (8.6-10.3); Carbon Dioxide 24 mEq/L (23-29); Chloride 103 mEq/L (98-107); Glucose 202 mg/dL (70-105); Magnesium 1.8 mg/dL (1.6-2.6); Osmolality,Calculated 295 (280-300); Potassium 3.8 mEq/L (3.5-5.1); Sodium 138 mEq/L (136-145); eGFR For African Americans > 60 (> 60); eGFR For Non-African Americans 56 (> 60)
[2019-01-22 11:47] VITALS: BP 113/67
== END 2019-01-22 15:32 | disposition home health service (06) ==
LOC: EMEROOARM 16:12 → 3BNU 16:12
PROVIDERS: ADMIT Internal Medicine; ATTEND Internal Medicine

== ENCOUNTER 2019-02-18 15:18 | Inpatient (IN) ==
[2019-02-18] MEDS ORDERED: Ipratropium/Albuterol Neb 3 ML IH ONE (15:32)
[2019-02-18 16:06] LABS: Basophils # 0.1 K/mcL (0.0-0.2); Eosinophils # 0.1 K/mcL (0.0-0.6); Eosinophils % 1.4 %; Hematocrit 32.4 % (35.3-44.9); Hemoglobin 10.1 g/dL (11.5-15.4); Immature Granulocytes % 0.3 % (0-4); Lymphocytes # 0.6 K/mcL (0.6-4.6); Lymphocytes % 8.6 %; Mean Corpuscular HGB Conc 31.2 g/dL (31.6-35.5); Mean Corpuscular Hemoglobin 27.4 pg (28.0-33.3); Mean Corpuscular Volume 87.8 fL (83.0-100.0); Mean Platelet Volume 11.1 fL (9.4-12.4); Monocytes # 0.6 K/mcL (0.0-1.3); Monocytes % 7.9 %; Neutrophils # 5.8 K/mcL (1.6-8.9); Platelet Count 143 K/mcL (140-400); Red Blood Count 3.69 M/mcL (3.82-4.97); Red Cell Distribution Width 18.7 % (11.5-14.5); Segmented Neutrophils % 80.8 %; White Blood Count 7.1 K/mcL (4.3-11.1)
[2019-02-18] MEDS ORDERED: Furosemide 40 MG/4 ML VIAL IVP ONE (16:06)
[2019-02-18 16:12] LABS: INR 1.5; Prothrombin Time 16.8 Seconds (9.4-12.1)
[2019-02-18 16:15] LABS: Activated Partial Thrombo Time 42.8 Seconds (26.0-36.0)
[2019-02-18 16:31] LABS: Alanine Aminotransferase 13 Units/L (7-52); Albumin 3.1 g/dL (3.5-5.7); Albumin/Globulin Ratio 0.9 (1.1-2.2); Alkaline Phosphatase 124 Units/L (34-104); Aspartate Amino Transferase 22 Units/L (13-39); BUN/Creatinine Ratio 19 (6-26); Bilirubin,Direct 0.4 mg/dL (0.0-0.2); Bilirubin,Indirect 0.7 mg/dL (0.0-1.0); Bilirubin,Total 1.1 mg/dL (0.3-1.0); Blood Urea Nitrogen 20 mg/dL (8-23); Calcium 8.5 mg/dL (8.6-10.3); Carbon Dioxide 25 mEq/L (23-29); Chloride 101 mEq/L (98-107); Globulin 3.4 g/dL (2.4-3.5); Glucose 160 mg/dL (70-105); Osmolality,Calculated 286 (280-300); Potassium 3.9 mEq/L (3.5-5.1); Sodium 135 mEq/L (136-145); Total Protein 6.5 g/dL (6.4-8.9); Troponin I 0.04 ng/mL (< 0.04); eGFR For African Americans > 60 (> 60); eGFR For Non-African Americans 50 (> 60)
[2019-02-18] MEDS ORDERED: Aspirin 81 MG TAB.CHEW PO STA (16:31)
[2019-02-18] MEDS ORDERED: Naloxone 0.4 MG/ML INJ IVP PRN (17:13)
[2019-02-18] MEDS ORDERED: Ipratropium/Albuterol Neb 3 ML IH PRN (18:25)
[2019-02-18] MEDS ORDERED: *HR* Dextrose 50 % in Water (Syg) 50 ML SYRINGE IVP PRN (18:42)
[2019-02-18] MEDS ORDERED: D5% in Water 1,000 ML IVC PRN (18:42)
[2019-02-18] MEDS ORDERED: Dextrose Gel 15 GM/37.5 ML TUBE PO PRN ×2 (18:42)
[2019-02-18 19:21] LABS: Estimated Average Glucose 177 mg/dl
[2019-02-18 20:56] LABS: Bilirubin,Urine Negative (Negative); Blood,Urine Negative (Negative); Clarity,Urine Clear (Clear); Color,Urine Yellow (Yellow); Glucose,Urine (UA) Normal (Normal); Ketones,Urine Negative (Negative); Leukocyte Esterase,Urine Small (Negative); Nitrite,Urine Negative (Negative); PH,Urine 6.5 pH Units (5.0-8.0); Protein,Urine 30 mg/dL (Neg-Trace); Urobilinogen,Urine Normal (Normal)
[2019-02-18 20:59] LABS: Bacteria,Urine None Seen per hpf (None-Few); Hyaline Casts,Urine None Seen per lpf (None-Few); RBC,Urine 0-3 per hpf (0-3); Squamous Epithelial Cell,Urine Many per lpf (None-Few)
[2019-02-18] MEDS: Furosemide 40 MG/4 ML VIAL IVP SCH (21:42)
[2019-02-19] MEDS: Latanoprost 2.5 ML BOTTLE BOTH EYES SCH ×2 (00:20→20:13)
[2019-02-19] MEDS: *HR* Heparin 5,000 UNIT/ML VIAL SQ SCH ×2 (05:30→17:07)
[2019-02-19 06:10] LABS: Basophils % 0.8 %; Eosinophils # 0.1 K/mcL (0.0-0.6); Eosinophils % 1.5 %; Hematocrit 31.2 % (35.3-44.9); Hemoglobin 9.9 g/dL (11.5-15.4); Immature Granulocytes % 0.2 % (0-4); Lymphocytes # 0.8 K/mcL (0.6-4.6); Lymphocytes % 14.5 %; Mean Corpuscular HGB Conc 31.7 g/dL (31.6-35.5); Mean Corpuscular Hemoglobin 26.6 pg (28.0-33.3); Mean Corpuscular Volume 83.9 fL (83.0-100.0); Mean Platelet Volume 11.4 fL (9.4-12.4); Monocytes # 0.4 K/mcL (0.0-1.3); Monocytes % 7.3 %; Platelet Count 137 K/mcL (140-400); Red Blood Count 3.72 M/mcL (3.82-4.97); Red Cell Distribution Width 18.8 % (11.5-14.5); Segmented Neutrophils % 75.7 %; White Blood Count 5.3 K/mcL (4.3-11.1)
[2019-02-19 06:31] LABS: Calcium 8.6 mg/dL (8.6-10.3); Magnesium 1.8 mg/dL (1.6-2.6); Phosphorous 3.7 mg/dL (2.7-4.5)
[2019-02-19] MEDS: Furosemide 40 MG/4 ML VIAL IVP SCH ×2 (08:31→17:09)
[2019-02-19] MEDS: metOLazone 5 MG TABLET PO SCH ×2 (08:31→17:06)
[2019-02-19] MEDS: Insulin LISPRO 300 UNITS/3 ML VIAL SQ SCH ×3 (08:32→17:03)
[2019-02-19] MEDS: Iron Polysaccharide Complex 150 MG CAPSULE PO SCH (08:32)
[2019-02-19] MEDS ORDERED: amLODIPine 5 MG TABLET PO SCH (09:00)
[2019-02-20] MEDS: *HR* Heparin 5,000 UNIT/ML VIAL SQ SCH ×2 (05:52→17:04)
[2019-02-20] MEDS: amLODIPine 5 MG TABLET PO SCH (09:00)
[2019-02-20] MEDS: Furosemide 40 MG/4 ML VIAL IVP SCH ×2 (09:01→17:04)
[2019-02-20] MEDS: Insulin LISPRO 300 UNITS/3 ML VIAL SQ SCH ×3 (09:01→17:05)
[2019-02-20] MEDS: metOLazone 5 MG TABLET PO SCH ×2 (09:01→10:50)
[2019-02-20] MEDS: Iron Polysaccharide Complex 150 MG CAPSULE PO SCH (09:01)
[2019-02-20] MEDS: Latanoprost 2.5 ML BOTTLE BOTH EYES SCH (22:14)
[2019-02-20 23:08] LABS: Calcium 8.5 mg/dL (8.6-10.3); Magnesium 1.7 mg/dL (1.6-2.6)
[2019-02-21 01:22] LABS: Calcium 8.4 mg/dL (8.6-10.3)
[2019-02-21] MEDS: *HR* Heparin 5,000 UNIT/ML VIAL SQ SCH ×2 (06:08→18:40)
[2019-02-21] MEDS: amLODIPine 5 MG TABLET PO SCH (08:05)
[2019-02-21] MEDS: Iron Polysaccharide Complex 150 MG CAPSULE PO SCH (08:05)
[2019-02-21] MEDS: metOLazone 5 MG TABLET PO SCH (08:05)
[2019-02-21] MEDS: Furosemide 40 MG/4 ML VIAL IVP SCH ×2 (08:06→16:13)
[2019-02-21] MEDS: Insulin LISPRO 300 UNITS/3 ML VIAL SQ SCH ×4 (08:06→20:39)
[2019-02-21] MEDS: Latanoprost 2.5 ML BOTTLE BOTH EYES SCH (20:27)
[2019-02-21] MEDS: levoFLOXacin 250 MG TABLET PO SCH (20:27)
[2019-02-22 03:02] LABS: Calcium 8.5 mg/dL (8.6-10.3); Potassium 3.9 mEq/L (3.5-5.1)
[2019-02-22] MEDS: *HR* Heparin 5,000 UNIT/ML VIAL SQ SCH ×2 (05:34→16:58)
[2019-02-22] MEDS: amLODIPine 5 MG TABLET PO SCH (07:58)
[2019-02-22] MEDS: metOLazone 5 MG TABLET PO SCH (07:58)
[2019-02-22] MEDS: levoFLOXacin 250 MG TABLET PO SCH (07:58)
[2019-02-22] MEDS: Iron Polysaccharide Complex 150 MG CAPSULE PO SCH (07:58)
[2019-02-22] MEDS: Furosemide 40 MG/4 ML VIAL IVP SCH (07:58)
[2019-02-22] MEDS: Insulin LISPRO 300 UNITS/3 ML VIAL SQ SCH ×4 (07:59→21:05)
[2019-02-22] MEDS: Bumetanide 1 MG TABLET PO SCH (16:57)
[2019-02-22] MEDS: Latanoprost 2.5 ML BOTTLE BOTH EYES SCH (22:42)
[2019-02-23] MEDS: *HR* Heparin 5,000 UNIT/ML VIAL SQ SCH ×2 (05:41→16:50)
[2019-02-23] MEDS: Bumetanide 1 MG TABLET PO SCH ×2 (07:41→16:48)
[2019-02-23] MEDS: Iron Polysaccharide Complex 150 MG CAPSULE PO SCH (07:42)
[2019-02-23] MEDS: amLODIPine 5 MG TABLET PO SCH (07:42)
[2019-02-23] MEDS: metOLazone 5 MG TABLET PO SCH (07:42)
[2019-02-23] MEDS: levoFLOXacin 250 MG TABLET PO SCH (07:43)
[2019-02-23] MEDS: Insulin LISPRO 300 UNITS/3 ML VIAL SQ SCH ×4 (07:44→21:35)
[2019-02-23 07:50] LABS: Hematocrit 29.1 % (35.3-44.9); Hemoglobin 9.5 g/dL (11.5-15.4); Mean Corpuscular HGB Conc 32.6 g/dL (31.6-35.5); Mean Corpuscular Hemoglobin 27.4 pg (28.0-33.3); Mean Corpuscular Volume 83.9 fL (83.0-100.0); Mean Platelet Volume 11.2 fL (9.4-12.4); Platelet Count 112 K/mcL (140-400); Red Blood Count 3.47 M/mcL (3.82-4.97); White Blood Count 4.8 K/mcL (4.3-11.1)
[2019-02-23 08:06] LABS: Calcium 8.8 mg/dL (8.6-10.3); Potassium 4.2 mEq/L (3.5-5.1)
[2019-02-23] MEDS: Latanoprost 2.5 ML BOTTLE BOTH EYES SCH (23:11)
[2019-02-24] MEDS: *HR* Heparin 5,000 UNIT/ML VIAL SQ SCH ×2 (06:12→16:53)
[2019-02-24] MEDS: amLODIPine 5 MG TABLET PO SCH (07:24)
[2019-02-24] MEDS: Bumetanide 1 MG TABLET PO SCH ×2 (07:24→16:52)
[2019-02-24] MEDS: Iron Polysaccharide Complex 150 MG CAPSULE PO SCH (07:25)
[2019-02-24] MEDS: levoFLOXacin 250 MG TABLET PO SCH (07:25)
[2019-02-24] MEDS: metOLazone 5 MG TABLET PO SCH (07:25)
[2019-02-24] MEDS: Insulin LISPRO 300 UNITS/3 ML VIAL SQ SCH ×4 (07:28→21:40)
[2019-02-24 16:30] LABS: Calcium 8.7 mg/dL (8.6-10.3); Potassium 4.4 mEq/L (3.5-5.1)
[2019-02-24] MEDS: Latanoprost 2.5 ML BOTTLE BOTH EYES SCH (23:54)
[2019-02-25 05:41] LABS: Calcium 8.9 mg/dL (8.6-10.3); Potassium 4.2 mEq/L (3.5-5.1)
[2019-02-25] MEDS: *HR* Heparin 5,000 UNIT/ML VIAL SQ SCH ×2 (05:51→17:42)
[2019-02-25] MEDS: Insulin LISPRO 300 UNITS/3 ML VIAL SQ SCH ×4 (09:30→21:27)
[2019-02-25] MEDS: levoFLOXacin 250 MG TABLET PO SCH (09:30)
[2019-02-25] MEDS: Iron Polysaccharide Complex 150 MG CAPSULE PO SCH (09:30)
[2019-02-25] MEDS: amLODIPine 5 MG TABLET PO SCH (09:30)
[2019-02-25] MEDS: Latanoprost 2.5 ML BOTTLE BOTH EYES SCH (20:54)
[2019-02-26] MEDS: *HR* Heparin 5,000 UNIT/ML VIAL SQ SCH (05:04)
[2019-02-26 05:41] LABS: Calcium 8.8 mg/dL (8.6-10.3); Potassium 4.2 mEq/L (3.5-5.1)
[2019-02-26 07:07] VITALS: BP 144/55
[2019-02-26] MEDS: Insulin LISPRO 300 UNITS/3 ML VIAL SQ SCH (08:21)
[2019-02-26] MEDS: Iron Polysaccharide Complex 150 MG CAPSULE PO SCH (08:51)
[2019-02-26] MEDS: amLODIPine 5 MG TABLET PO SCH (08:52)
[2019-02-26] MEDS: levoFLOXacin 250 MG TABLET PO SCH (08:52)
== END 2019-02-26 11:24 | disposition home health service (06) | DRG 291 ==
LOC: 3BNU 15:18 → EMEROOARM 15:18 → SUATTDRO 17:21 → 3BNU 18:01
PROVIDERS: ADMIT Student in an Organized Health Care Education/Training Program; ATTEND Internal Medicine

== ENCOUNTER 2019-03-31 18:01 | Inpatient (IN) ==
[2019-03-31 19:00] LABS: Basophils % 0.7 %; Eosinophils # 0.1 K/mcL (0.0-0.6); Hematocrit 20.7 % (35.3-44.9); Immature Granulocytes % 0.3 % (0-4); Lymphocytes # 0.4 K/mcL (0.6-4.6); Lymphocytes % 6.5 %; Mean Corpuscular Hemoglobin 24.8 pg (28.0-33.3); Mean Corpuscular Volume 85.5 fL (83.0-100.0); Monocytes # 0.5 K/mcL (0.0-1.3); Monocytes % 7.6 %; Neutrophils # 5.1 K/mcL (1.6-8.9); Platelet Count 159 K/mcL (140-400); Red Blood Count 2.42 M/mcL (3.82-4.97); Red Cell Distribution Width 17.2 % (11.5-14.5); Segmented Neutrophils % 83.9 %
[2019-03-31 19:21] LABS: Calcium 8.3 mg/dL (8.6-10.3); Potassium 3.9 mEq/L (3.5-5.1); Troponin I 0.03 ng/mL (< 0.04)
[2019-03-31] MEDS ORDERED: Furosemide 40 MG/4 ML VIAL IVP ONE (20:15)
[2019-03-31] MEDS ORDERED: 0.9 % Sodium Chloride 250 ML ONE (20:45)
[2019-03-31] MEDS ORDERED: Naloxone 0.4 MG/ML INJ IVP PRN (23:15)
[2019-04-01 04:19] LABS: Basophils % 0.7 %; Eosinophils # 0.1 K/mcL (0.0-0.6); Eosinophils % 1.9 %; Hematocrit 22.2 % (35.3-44.9); Hemoglobin 6.8 g/dL (11.5-15.4); Immature Granulocytes % 0.4 % (0-4); Lymphocytes # 0.4 K/mcL (0.6-4.6); Lymphocytes % 6.9 %; Mean Corpuscular HGB Conc 30.6 g/dL (31.6-35.5); Mean Corpuscular Hemoglobin 25.5 pg (28.0-33.3); Mean Corpuscular Volume 83.1 fL (83.0-100.0); Mean Platelet Volume 10.5 fL (9.4-12.4); Monocytes # 0.5 K/mcL (0.0-1.3); Monocytes % 9.5 %; Neutrophils # 4.3 K/mcL (1.6-8.9); Nucleated Red Blood Cells 0.4 /100 WBC (0); Platelet Count 161 K/mcL (140-400); Red Blood Count 2.67 M/mcL (3.82-4.97); Red Cell Distribution Width 16.4 % (11.5-14.5); Segmented Neutrophils % 80.6 %; White Blood Count 5.4 K/mcL (4.3-11.1)
[2019-04-01] MEDS ORDERED: *HR* OxyCODONE/APAP 5/325 TABLET PO ONE (04:23)
[2019-04-01] MEDS ORDERED: Furosemide 40 MG/4 ML VIAL IVP ONE (04:36)
[2019-04-01 04:38] LABS: Calcium 8.2 mg/dL (8.6-10.3); Potassium 3.7 mEq/L (3.5-5.1)
[2019-04-01] MEDS ORDERED: Dextrose Gel 15 GM/37.5 ML TUBE PO PRN ×2 (05:52)
[2019-04-01] MEDS ORDERED: D5% in Water 1,000 ML IVC PRN (05:52)
[2019-04-01] MEDS ORDERED: *HR* Dextrose 50 % in Water (Syg) 50 ML SYRINGE IVP PRN (05:52)
[2019-04-01] MEDS ORDERED: 0.9 % Sodium Chloride 250 ML ONE (06:18)
[2019-04-01] MEDS ORDERED: 0.9 % Sodium Chloride 250 ML IVC SCH (07:30)
[2019-04-01] MEDS: Insulin LISPRO 300 UNITS/3 ML VIAL SQ SCH ×3 (08:16→16:33)
[2019-04-01] MEDS: Bumetanide 1 MG/4 ML VIAL IVP SCH ×2 (08:16→16:39)
[2019-04-01] MEDS: amLODIPine 5 MG TABLET PO SCH (08:16)
[2019-04-01] MEDS: carvediloL 6.25 MG TABLET PO SCH ×2 (08:16→16:39)
[2019-04-01] MEDS ORDERED: metOLazone 5 MG TABLET PO SCH (09:00)
[2019-04-01] MEDS ORDERED: levoFLOXacin 250 MG TABLET PO SCH (09:00)
[2019-04-01] MEDS ORDERED: Furosemide 40 MG/4 ML VIAL IVP SCH (09:00)
[2019-04-01 15:12] LABS: Basophils % 0.4 %; Eosinophils # 0.1 K/mcL (0.0-0.6); Eosinophils % 1.6 %; Hematocrit 26.2 % (35.3-44.9); Hemoglobin 8.2 g/dL (11.5-15.4); Immature Granulocytes % 0.3 % (0-4); Lymphocytes # 0.4 K/mcL (0.6-4.6); Lymphocytes % 6.1 %; Mean Corpuscular HGB Conc 31.3 g/dL (31.6-35.5); Mean Corpuscular Hemoglobin 26.5 pg (28.0-33.3); Mean Corpuscular Volume 84.8 fL (83.0-100.0); Monocytes # 0.7 K/mcL (0.0-1.3); Monocytes % 9.9 %; Neutrophils # 5.5 K/mcL (1.6-8.9); Nucleated Red Blood Cells 0.6 /100 WBC (0); Platelet Count 155 K/mcL (140-400); Red Blood Count 3.09 M/mcL (3.82-4.97); Red Cell Distribution Width 15.9 % (11.5-14.5); Segmented Neutrophils % 81.7 %; White Blood Count 6.7 K/mcL (4.3-11.1)
[2019-04-01] MEDS: *HR* Heparin 5,000 UNIT/ML VIAL SQ SCH (16:39)
[2019-04-01 18:54] LABS: VBG HCO3 25 mEq/L (21-27); VBG PCO2 32 mmHg (41-51); VBG PO2 156 mmHg (25-50)
[2019-04-01] MEDS ORDERED: Acetaminophen IV 1,000 MG/100 ML INFUS..BTL IVPB ONE (19:55)
[2019-04-01] MEDS ORDERED: Ipratropium/Albuterol Neb 3 ML IH SCH (20:00)
[2019-04-01] MEDS: Latanoprost 2.5 ML BOTTLE BOTH EYES SCH (20:52)
[2019-04-01] MEDS ORDERED: Melatonin 3 MG TABLET PO ONE (21:14)
[2019-04-01 22:10] LABS: Bilirubin,Urine Negative (Negative); Blood,Urine Small (Negative); Clarity,Urine Clear (Clear); Color,Urine Yellow (Yellow); Glucose,Urine (UA) Normal (Normal); Ketones,Urine Negative (Negative); Leukocyte Esterase,Urine Negative (Negative); Nitrite,Urine Negative (Negative); Protein,Urine Negative (Neg-Trace); Specific Gravity,Urine 1.015 (1.010-1.025); Urobilinogen,Urine Normal (Normal)
[2019-04-02] MEDS ORDERED: MethylPREDNISolone 40 MG/ML VIAL IVP SCH
[2019-04-02] MEDS ORDERED: *HR* OxyCODONE/APAP 5/325 TABLET PO ONE (01:36)
[2019-04-02 04:50] LABS: Hematocrit 25.5 % (35.3-44.9); Hemoglobin 8.1 g/dL (11.5-15.4); Mean Corpuscular HGB Conc 31.8 g/dL (31.6-35.5); Mean Corpuscular Hemoglobin 26.1 pg (28.0-33.3); Mean Corpuscular Volume 82.3 fL (83.0-100.0); Platelet Count 154 K/mcL (140-400); Red Cell Distribution Width 16.3 % (11.5-14.5)
[2019-04-02 05:09] LABS: Calcium 8.2 mg/dL (8.6-10.3); Magnesium 2.1 mg/dL (1.6-2.6); Potassium 3.8 mEq/L (3.5-5.1)
[2019-04-02] MEDS: *HR* Heparin 5,000 UNIT/ML VIAL SQ SCH ×2 (06:42→16:26)
[2019-04-02] MEDS: Insulin LISPRO 300 UNITS/3 ML VIAL SQ SCH ×3 (07:18→16:03)
[2019-04-02] MEDS: amLODIPine 5 MG TABLET PO SCH (09:01)
[2019-04-02] MEDS: carvediloL 6.25 MG TABLET PO SCH (09:01)
[2019-04-02 09:54] LABS: INR 1.4; Prothrombin Time 15.7 Seconds (9.4-12.1)
[2019-04-02] MEDS ORDERED: *HR* Metoprolol 5 MG/5 ML VIAL IVP ONE (11:11)
[2019-04-02] MEDS ORDERED: Gadolinium Contrast Agent (WT Based) IV PRN (17:22)
[2019-04-02] MEDS: Latanoprost 2.5 ML BOTTLE BOTH EYES SCH (20:00)
[2019-04-02 23:33] VITALS: BP 82/57
[2019-04-03] MEDS ORDERED: *HR* Dextrose 25% in Water (Syg) 10 ML SYRINGE IVP ONE (01:34)
[2019-04-03] MEDS ORDERED: *HR* Dextrose 50 % in Water (Vial) 50 ML VIAL IVC ONE (01:34)
[2019-04-03] MEDS ORDERED: *HR* EPINEPHrine 1 MG/10 ML SYRINGE IVP ONE (01:34)
== END 2019-04-03 01:35 | disposition expired | DRG 291 ==
LOC: 2ANU 18:01 → EMEROOARM 18:01 → 2ANU 21:25 → SUATTDRO 04-02 07:54
PROVIDERS: ADMIT Internal Medicine; ATTEND Internal Medicine